=== PATIENT | male | born 1995 | race African-American/Black ===

== ENCOUNTER 2016-09-21 22:49 | Emergency (ER) | payer MEDICAID ==
[~2016-09-21] VITALS: Ht 188 cm; Wt 92.7 kg
[2016-09-21 23:02] VITALS: BP 124/67; PULSE 96; RESP 20; TEMP 98.2; O2SAT 99
[2016-09-21 23:20] VITALS: BP 124/67; PULSE 96; RESP 18; TEMP 98.2; O2SAT 99
--- NOTE | 2016-09-21 23:42 | PD ---
HPI Chief Complaint: Sickle Cell Time Seen by Provider: 23:23 Travel History International Travel<30 days: No Contact w/Intl Traveler<30days: No Traveled to known affect area: No History of Present Illness HPI The patient is a 21-year-old male with a history of sickle cell who complains of sickle cell crisis for 2 days. The patient has his usual pain in his abdomen , chest and legs. He is a [employer] of [place] and usually gets treated at [facility]. He was there 3 weeks ago and got a pain shot there. 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 He states he wants Dilaudid, Zofran and Benadryl. He usually requests that this be given IV but, because of his bad veins, we have been giving an IM. Was explained to the patient that he needs to save what veins he has for when he really needs them. He denies any fever or cough. He denies any nausea, vomiting or diarrhea. He gets a transfusion in [place] next week. PFSH Past Medical History Anemia: Yes Arthritis: No Asthma: No Autoimmune Disease: Yes Blood Disorders: No Anxiety: No Depression: No Heart Rhythm Problems: Yes (MURMUR) Cancer: No High Cholesterol: No Chemotherapy: No Chest Pain: Yes Congestive Heart Failure: No COPD: No Cerebrovascular Accident: No Diabetes: No Diminished Hearing: No Endocrine: No Gastrointestinal Disorders: No GERD: No Genitourinary: Yes (priaprism) Headaches: No Hiatal Hernia: No Hypertension: No Immune Disorder: No Implanted Vascular Access Dvce: No Kidney Stones: No Musculoskeletal: No Neurologic: Yes Psychiatric: No Reproductive: No Respiratory: No Immunizations Current: Yes Migraines: No Radiation Therapy: No Renal Failure: No Seizures: No Sickle Cell Disease: Yes Sleep Apnea: No Thyroid Disease: No Ulcer: No Tetanus Vaccination: Unknown Influenza Vaccination: No Past Surgical History Abdominal Surgery: No AICD: No Arteriovenous Shunt: No Cardiac Surgery: No Ear Surgery: No Endocrine Surgery: No Eye Surgery: No Genitourinary Surgery: Yes (FOR PRIAPISM) Insulin Pump: No Neurologic Surgery: No Pacemaker: No Other Surgery: Yes Social History Alcohol Use: No Tobacco Use: No Substance Use: No Allergies-Medications (Allergen,Severity, Reaction): Coded Allergies: Penicillin (Verified Allergy, Severe, told as child, 09/21/16) Reported Meds & Prescriptions Reported Meds & Active Scripts Active No Active Prescriptions or Reported Medications Review of Systems Except as stated in HPI: all other systems reviewed are Neg Physical Exam Narrative GENERAL: Well-nourished, fairly well-hydrated appearing, well-developed patient in slight apparent distress with his sickle cell pain. His vital signs are normal. SKIN: Warm and dry. No needle tracks nor wrist slash dixon are present. HEAD: Normocephalic. EYES: No scleral icterus. No injection or drainage. NECK: Supple, trachea midline. No JVD or lymphadenopathy. CARDIOVASCULAR: Regular rate and rhythm without murmurs, gallops, or rubs. RESPIRATORY: Breath sounds equal bilaterally. No accessory muscle use. Lungs clear to auscultation bilaterally. GASTROINTESTINAL: Abdomen soft, non-tender, nondistended. No guarding or rebound is present. MUSCULOSKELETAL: No cyanosis, or edema. BACK: Nontender without obvious deformity. No CVA tenderness. Data Data Last Documented VS Vital Signs Date Time Temp Pulse Resp B/P Pulse Ox O2 Delivery O2 Flow Rate FiO2 09/22/16 00:28 88 18 106/54 99 Room Air 09/21/16 23:20 98.2 Orders Hydromorphone Pf Inj (Dilaudid Pf Inj) (09/21/16 23:45) Ondansetron Inj (Zofran Inj) (09/21/16 23:45) Diphenhydramine Inj (Benadryl Inj) (09/21/16 23:45) MDM Medical Decision Making Medical Screen Exam Complete: Yes Emergency Medical Condition: Yes Medical Record Reviewed: Yes Differential Diagnosis Sickle cell pain crisis, drug seeking behavior, dehydration Narrative Course The patient appears to have a sickle cell pain crisis. He understands why we cannot give his pain medications IV. In the past he was suspected is wanting IV medications because it gave him a high. He is not contesting the IM shot at this time. It is now 0034 and the patient feels better and can go home. He has been drinking liquids very well. Diagnosis Primary Impression: Sickle cell crisis Additional Instructions: When you get home continue to drink liquids to hydrate herself. Make sure you make urine appointment for the transfusion in [place]. Med/Other Pt SpecificInfo: No Change to Meds Scripts No Active Prescriptions or Reported Meds Disposition: 01 DISCHARGE HOME Condition: Stable Juan,Todd L. MD Sep 21, 2016 23:42
[2016-09-21] MEDS ORDERED: HYDROmorphone HCL PF 2 MG/ML VIAL IM ONE (23:45)
[2016-09-21] MEDS ORDERED: ONDANSETRON HCL 4 MG/2 ML VIAL IM ONE (23:45)
[2016-09-21] MEDS ORDERED: diphenhydrAMINE HCL 50 MG/ML VIAL IM ONE (23:45)
[2016-09-22 00:28] VITALS: BP 106/54; PULSE 88; RESP 18; O2SAT 99
[2016-09-22] MEDS ORDERED: PROMETHAZINE INJ 25 MG/ML VIAL IM ONE (01:00)
[2016-09-22] MEDS ORDERED: HYDROmorphone HCL PF 2 MG/ML VIAL IM ONE (01:00)
[2016-09-22 01:20] VITALS: RESP 18
[2016-09-22 01:25] VITALS: BP 114/57
== END 2016-09-22 01:35 | disposition home or self-care (01) ==
LOC: PHED 22:49
DX: D57.00 Hb-SS disease with crisis, unspecified (principal); D64.9 Anemia, unspecified
CPT/HCPCS: 96372; 99283; J1170; J1200; J2405; J2550

== ENCOUNTER 2016-11-13 21:09 | Emergency (ER) | payer MEDICAID ==
[~2016-11-13] VITALS: Ht 188 cm; Wt 91.0 kg
[2016-11-13 21:10] VITALS: BP 126/84; PULSE 92; RESP 18; TEMP 98.3; O2SAT 100
[2016-11-13] MEDS ORDERED: PERC5TAB12 PO (21:19)
[2016-11-13] MEDS ORDERED: DILA4TAB2 PO (21:19)
--- NOTE | 2016-11-13 22:36 | PD ---
HPI Chief Complaint: Sickle Cell Time Seen by Provider: 21:53 Travel History International Travel<30 days: No Contact w/Intl Traveler<30days: No Traveled to known affect area: No History of Present Illness HPI This patient complains of sickle cell pain. He complains of some pain in the groin region. He says this is typical of his sickle pain. No injury. No fever. No urinary complaints. Symptoms severity is moderate. No alleviating factors. Duration one day PFSH Past Medical History Anemia: Yes Arthritis: No Asthma: No Autoimmune Disease: Yes Blood Disorders: No Anxiety: No Depression: No Heart Rhythm Problems: Yes (MURMUR) Cancer: No High Cholesterol: No Chemotherapy: No Chest Pain: Yes Congestive Heart Failure: No COPD: No Cerebrovascular Accident: No Diabetes: No Diminished Hearing: No Endocrine: No Gastrointestinal Disorders: No GERD: No Genitourinary: Yes (priaprism) Headaches: No Hiatal Hernia: No Hypertension: No Immune Disorder: No Implanted Vascular Access Dvce: No Kidney Stones: No Musculoskeletal: No Neurologic: Yes Psychiatric: No Reproductive: No Respiratory: No Immunizations Current: Yes Migraines: No Radiation Therapy: No Renal Failure: No Seizures: No Sickle Cell Disease: Yes Sleep Apnea: No Thyroid Disease: No Ulcer: No Past Surgical History Abdominal Surgery: No AICD: No Arteriovenous Shunt: No Cardiac Surgery: No Ear Surgery: No Endocrine Surgery: No Eye Surgery: No Genitourinary Surgery: Yes (FOR PRIAPISM) Insulin Pump: No Neurologic Surgery: No Pacemaker: No Other Surgery: Yes Social History Alcohol Use: No Tobacco Use: No Substance Use: No Allergies-Medications (Allergen,Severity, Reaction): Coded Allergies: Penicillin (Verified Allergy, Severe, told as child, 11/13/16) Reported Meds & Prescriptions Reported Meds & Active Scripts Active Reported Dilaudid (Hydromorphone HCl) 4 Mg Tab 4 Mg PO Q6H PRN Percocet (Oxycodone-Acetaminophen) 5-325 mg Tab 1 Tab PO Q4H PRN Review of Systems General / Constitutional: No: Fever Eyes: No: Visual changes HENT: No: Headaches Cardiovascular: No: Chest Pain or Discomfort Respiratory: No: Shortness of Breath Gastrointestinal: No: Abdominal Pain Genitourinary: No: Dysuria Musculoskeletal: Positive: Pain Skin: No Rash Neurologic: No: Weakness Psychiatric: No: Depression Endocrine: No: Polydipsia Hematologic/Lymphatic: No: Easy Bruising Physical Exam Narrative GENERAL: Well-nourished, well-developed patient in no apparent distress. SKIN: Focused skin assessment reveals no rash and nodules. Skin is Warm and dry. HEAD: Atraumatic. Normocephalic. EYES: Pupils equal and round. No scleral icterus. No injection or drainage. ENT: No nasal bleeding or discharge. Mucous membranes pink and moist. NECK: Trachea midline. No JVD. CARDIOVASCULAR: Regular rate and rhythm. No murmur appreciated. RESPIRATORY: No accessory muscle use. Clear to auscultation. Breath sounds equal bilaterally. GASTROINTESTINAL: Abdomen soft, non-tender, nondistended. Hepatic and splenic margins not palpable. MUSCULOSKELETAL: No obvious deformities. No clubbing. No cyanosis. No edema. NEUROLOGICAL: Awake and alert. No obvious cranial nerve deficits. Motor grossly within normal limits. Normal speech. PSYCHIATRIC: Appropriate mood and affect; insight and judgment normal. Data Data Last Documented VS Vital Signs Date Time Temp Pulse Resp B/P Pulse Ox O2 Delivery O2 Flow Rate FiO2 11/13/16 21:10 98.3 92 18 126/84 100 Room Air Orders Complete Blood Count With Diff (11/13/16 22:34) Iv Access Insert/Monitor (11/13/16 22:34) Ondansetron Inj (Zofran Inj) (11/13/16 22:45) Sodium Chloride 0.9% Flush (Ns Flush) (11/13/16 22:45) Hydromorphone Pf Inj (Dilaudid Pf Inj) (11/13/16 22:45) Sodium Chlor 0.9% 1000 Ml Inj (Ns 1000 M (11/13/16 22:45) Labs Laboratory Tests Test 11/13/16 22:45 White Blood Count 13.3 TH/MM3 Red Blood Count 5.16 MIL/MM3 Hemoglobin 11.7 GM/DL Hematocrit 37.1 % Mean Corpuscular Volume 71.9 FL Mean Corpuscular Hemoglobin 22.7 PG Mean Corpuscular Hemoglobin 31.5 % Concent Red Cell Distribution Width 26.7 % Platelet Count 379 TH/MM3 Mean Platelet Volume 8.6 FL Neutrophils (%) (Auto) 66.2 % Lymphocytes (%) (Auto) 6.7 % Monocytes (%) (Auto) 24.4 % Eosinophils (%) (Auto) 1.9 % Basophils (%) (Auto) 0.8 % Neutrophils # (Auto) 8.8 TH/MM3 Lymphocytes # (Auto) 0.9 TH/MM3 Monocytes # (Auto) 3.3 TH/MM3 Eosinophils # (Auto) 0.3 TH/MM3 Basophils # (Auto) 0.1 TH/MM3 CBC Comment AUTO DIFF MDM Medical Decision Making Medical Screen Exam Complete: Yes Emergency Medical Condition: Yes Medical Record Reviewed: Yes Differential Diagnosis Sickle pain, narcotic seeking behavior, bone marrow crisis Narrative Course I have reviewed the patient's electronic medical record. Patient was last here August 2016 for sickle cell pain IV placed I gave him a dose of IV Zofran and IV Dilaudid and 1 L normal saline IV bolus CBC shows hemoglobin 11.7 The patient apparently wanted more pain medication. Unfortunately I was in a trauma alert and could not get back to him and he got frustrated with the delay and signed out AGAINST MEDICAL ADVICE and left. He did not wait for me to get back to him and talked to him any further. Diagnosis Primary Impression: Sickle cell anemia with crisis Disposition: 07 AGAINST MEDICAL ADVICE Ronald Alvarado MD Nov 13, 2016 22:36
[2016-11-13] MEDS ORDERED: SODIUM CHLOR 0.9% 1000 ML INJ 1,000 ML IV ONE (22:45)
[2016-11-13] MEDS ORDERED: SODIUM CHLORIDE 0.9% FLUSH 10 ML FLUSH IVF PRN (22:45)
[2016-11-13] MEDS ORDERED: ONDANSETRON HCL 4 MG/2 ML VIAL IVP ONE (22:45)
[2016-11-13] MEDS ORDERED: HYDROmorphone HCL PF 1 MG/ML VIAL IVS ONE (22:45)
[2016-11-13 23:30] LABS: AUTOMATED NEUTROPHIL # 8.8 TH/MM3 (1.8-7.7); BASOPHIL # 0.1 TH/MM3 (0-0.2); BASOPHIL % 0.8 % (0.0-2.0); EOSINOPHIL # 0.3 TH/MM3 (0-0.4); EOSINOPHIL % 1.9 % (0.0-4.0); HEMATOCRIT 37.1 % (39.0-51.0); LYMPH % 6.7 % (9.0-44.0); LYMPHOCYTE # 0.9 TH/MM3 (1.0-4.8); MEAN CELL VOLUME 71.9 FL (80.0-100.0); MEAN CORPUSCULAR HEMOGLOBIN 22.7 PG (27.0-34.0); MEAN CORPUSCULAR HGB CONC 31.5 % (32.0-36.0); MONO % 24.4 % (0.0-8.0); NEUT % 66.2 % (16.0-70.0); PLATELET COUNT 379 TH/MM3 (150-450); RED BLOOD COUNT 5.16 MIL/MM3 (4.50-5.90); RED CELL DISTRIBUTION WIDTH 26.7 % (11.6-17.2); WHITE BLOOD COUNT 13.3 TH/MM3 (4.0-11.0)
[2016-11-13 23:46] LABS: HEMO FLAGS AUTO DIFF
[2016-11-14 00:44] LABS: BANDS 3 % (0-6); CORRECTED NUCLEATED RBC 1 /100 WBC (0-0); EOSINOPHILS 2 % (0-4); NEUTROPHIL # MANUAL DIFF 8.1 TH/MM3 (1.8-7.7); POLYS (SEG NEUTROPHILS) 58 % (16-70); WBC DIFF SAMPLE 100
[2016-11-14 00:46] LABS: SICKLE CELLS 1+ (NORMAL); TARGET CELLS 1+ (NORMAL); TEARDROP RBCS 1+ (NORMAL)
[2016-11-14 00:47] LABS: PLATELET ESTIMATE SMEAR NORMAL (NORMAL)
[2016-11-14 00:48] LABS: PLATELET MORPHOLOGY NORMAL (NORMAL); SCAN/DIFF FINAL DIFF MANUAL
== END 2016-11-14 04:44 | disposition left against medical advice (07) ==
LOC: NEPE 21:09
DX: D57.00 Hb-SS disease with crisis, unspecified (principal)
CPT/HCPCS: 85007; 85027; 96374; 96375; J1170; J2405; J7030

== ENCOUNTER 2016-11-14 18:26 | Emergency (ER) | payer MEDICAID ==
[~2016-11-14] VITALS: Ht 188 cm; Wt 93.0 kg
[~2016-11-14 18:26] MED LIST: DILA4TAB2 PO; PERC5TAB12 PO
[2016-11-14 18:32] VITALS: BP 110/75; PULSE 77; RESP 20; TEMP 98.1; O2SAT 98
[2016-11-14] MEDS ORDERED: SODIUM CHLOR 0.9% 1000 ML INJ 1,000 ML IV ONE ×2 (18:40→21:00)
[2016-11-14] MEDS ORDERED: diphenhydrAMINE HCL 50 MG/ML VIAL IV ONE (18:45)
[2016-11-14] MEDS ORDERED: ONDANSETRON HCL 4 MG/2 ML VIAL IVP ONE (18:45)
[2016-11-14] MEDS ORDERED: HYDROmorphone HCL PF 2 MG/ML VIAL IVS ONE (18:45)
[2016-11-14 18:58] LABS: HEMATOCRIT 34.8 % (39.0-51.0); MEAN CELL VOLUME 71.7 FL (80.0-100.0); MEAN CORPUSCULAR HEMOGLOBIN 22.7 PG (27.0-34.0); MEAN CORPUSCULAR HGB CONC 31.6 % (32.0-36.0); PLATELET COUNT 392 TH/MM3 (150-450); RED BLOOD COUNT 4.85 MIL/MM3 (4.50-5.90); RED CELL DISTRIBUTION WIDTH 24.7 % (11.6-17.2)
[2016-11-14 18:59] LABS: HEMO FLAGS AUTO DIFF
--- NOTE | 2016-11-14 19:03 | PD ---
HPI Chief Complaint: Sickle Cell Time Seen by Provider: 18:38 Travel History International Travel<30 days: No Contact w/Intl Traveler<30days: No Traveled to known affect area: No History of Present Illness HPI This 21-year-old male is complaining of pain in his legs. This is having a sickle cell crisis for last 2 days. He was seen at [facility] yesterday but on the leaving against advice. He has not had any fever or chills. He is not sure what triggered this attack cough. He thinks it might be stress. He has been taking oral Dilaudid at home for the pain without much response. He has had priapism in the past in fact he was having fairly frequent episodes. He generally lives in [place] and was getting transfusions every 4 weeks there. He has continued that up until now. He says that since starting on the transfusions is priapism has been much better though he is having more crises and other areas. PFSH Past Medical History Anemia: Yes Arthritis: No Asthma: No Autoimmune Disease: Yes Blood Disorders: No Anxiety: No Depression: No Heart Rhythm Problems: Yes (MURMUR) Cancer: No High Cholesterol: No Chemotherapy: No Chest Pain: Yes Congestive Heart Failure: No COPD: No Cerebrovascular Accident: No Diabetes: No Diminished Hearing: No Endocrine: No Gastrointestinal Disorders: No GERD: No Genitourinary: Yes (priaprism) Headaches: No Hiatal Hernia: No Hypertension: No Immune Disorder: No Implanted Vascular Access Dvce: No Kidney Stones: No Musculoskeletal: No Neurologic: Yes Psychiatric: No Reproductive: No Respiratory: No Immunizations Current: Yes Migraines: No Radiation Therapy: No Renal Failure: No Seizures: No Sickle Cell Disease: Yes Sleep Apnea: No Thyroid Disease: No Ulcer: No Influenza Vaccination: No Past Surgical History Abdominal Surgery: No AICD: No Arteriovenous Shunt: No Cardiac Surgery: No Ear Surgery: No Endocrine Surgery: No Eye Surgery: No Genitourinary Surgery: Yes (FOR PRIAPISM) Insulin Pump: No Neurologic Surgery: No Pacemaker: No Other Surgery: Yes Social History Alcohol Use: No Tobacco Use: No Substance Use: No Allergies-Medications (Allergen,Severity, Reaction): Coded Allergies: Penicillin (Verified Allergy, Severe, told as child, 11/14/16) Reported Meds & Prescriptions Reported Meds & Active Scripts Active Reported Dilaudid (Hydromorphone HCl) 4 Mg Tab 4 Mg PO Q6H PRN Percocet (Oxycodone-Acetaminophen) 5-325 mg Tab 1 Tab PO Q4H PRN Review of Systems General / Constitutional: No: Fever, Chills Eyes: No: Diploplia HENT: No: Headaches Cardiovascular: No: Chest Pain or Discomfort, Palpitations Respiratory: No: Cough, Shortness of Breath Gastrointestinal: No: Vomiting, Diarrhea Genitourinary: No: Urgency, Frequency Musculoskeletal: Positive: Myalgias, Pain Skin: No Rash Physical Exam Narrative GENERAL well-developed male SKIN: Focused skin assessment warm/dry. HEAD: Atraumatic. Normocephalic. EYES: Pupils equal and round. No scleral icterus. No injection or drainage. ENT: No nasal bleeding or discharge. Mucous membranes pink and moist. NECK: Trachea midline. No JVD. CARDIOVASCULAR: Regular rate and rhythm. No murmur appreciated. RESPIRATORY: No accessory muscle use. Clear to auscultation. Breath sounds equal bilaterally. GASTROINTESTINAL: Abdomen soft, non-tender, nondistended. Hepatic and splenic margins not palpable. MUSCULOSKELETAL: No obvious deformities. No clubbing. No cyanosis. No edema. NEUROLOGICAL: Awake and alert. No obvious cranial nerve deficits. Motor grossly within normal limits. Normal speech. PSYCHIATRIC: Appropriate mood and affect; insight and judgment normal. Data Data Last Documented VS Vital Signs Date Time Temp Pulse Resp B/P Pulse Ox O2 Delivery O2 Flow Rate FiO2 11/14/16 21:41 92 16 132/71 98 Nasal Cannula 2 11/14/16 18:32 98.1 Orders Complete Blood Count With Diff (11/14/16 18:40) Comprehensive Metabolic Panel (11/14/16 18:40) Retic Count (11/14/16 18:40) Urinalysis - C+S If Indicated (11/14/16 18:40) Ecg Monitoring (11/14/16 18:40) Iv Access Insert/Monitor (11/14/16 18:40) Oximetry (11/14/16 18:40) Hydromorphone Pf Inj (Dilaudid Pf Inj) (11/14/16 18:45) Ondansetron Inj (Zofran Inj) (11/14/16 18:45) Sodium Chloride 0.9% Flush (Ns Flush) (11/14/16 18:45) Sodium Chlor 0.9% 1000 Ml Inj (Ns 1000 M (11/14/16 18:40) Diphenhydramine Inj (Benadryl Inj) (11/14/16 18:45) Hydromorphone Pf Inj (Dilaudid Pf Inj) (11/14/16 19:45) Diphenhydramine Inj (Benadryl Inj) (11/14/16 20:00) Hydromorphone Pf Inj (Dilaudid Pf Inj) (11/14/16 20:00) Hydromorphone Pf Inj (Dilaudid Pf Inj) (11/14/16 20:45) Sodium Chlor 0.9% 1000 Ml Inj (Ns 1000 M (11/14/16 21:00) Labs Laboratory Tests Test 11/14/16 18:51 White Blood Count 11.0 TH/MM3 Red Blood Count 4.85 MIL/MM3 Hemoglobin 11.0 GM/DL Hematocrit 34.8 % Mean Corpuscular Volume 71.7 FL Mean Corpuscular Hemoglobin 22.7 PG Mean Corpuscular Hemoglobin 31.6 % Concent Red Cell Distribution Width 24.7 % Platelet Count 392 TH/MM3 Mean Platelet Volume 7.5 FL Neutrophils (%) (Auto) % Lymphocytes (%) (Auto) % Monocytes (%) (Auto) % Eosinophils (%) (Auto) % Basophils (%) (Auto) % Neutrophils # (Auto) TH/MM3 Lymphocytes # (Auto) TH/MM3 Monocytes # (Auto) TH/MM3 Eosinophils # (Auto) TH/MM3 Basophils # (Auto) TH/MM3 CBC Comment AUTO DIFF Differential Total Cells 100 Counted Neutrophils % (Manual) 75 % Lymphocytes % 18 % Monocytes % 4 % Eosinophils % 3 % Neutrophils # (Manual) 8.3 TH/MM3 Nucleated Red Blood Cells 3 /100 WBC Differential Comment FINAL DIFF MANUAL Platelet Estimate NORMAL Platelet Morphology Comment CLUMPED Polychromasia 2.0 % Target Cells 1+ Reticulocyte Count 4.0 % Absolute Reticulocyte Count 196.4 MIL/L Sodium Level 141 MEQ/L Potassium Level 3.6 MEQ/L Chloride Level 107 MEQ/L Carbon Dioxide Level 26.6 MEQ/L Anion Gap 7 MEQ/L Blood Urea Nitrogen 5 MG/DL Creatinine 0.70 MG/DL Estimat Glomerular Filtration 169 ML/MIN Rate Random Glucose 85 MG/DL Calcium Level 8.7 MG/DL Total Bilirubin 1.1 MG/DL Aspartate Amino Transf 19 U/L (AST/SGOT) Alanine Aminotransferase 24 U/L (ALT/SGPT) Alkaline Phosphatase 81 U/L Total Protein 7.8 GM/DL Albumin 3.9 GM/DL [facility] Medical Decision Making Medical Screen Exam Complete: Yes Emergency Medical Condition: Yes Medical Record Reviewed: Yes Differential Diagnosis Differential includes sickle cell crisis, Narrative Course Patient has been given repeated doses of Dilaudid. He does appear quite uncomfortable with this pain. Admission was offered the patient is quite insistent that he wants to go home so he does not miss school. He does report that his pain has improved and he wishes to be released Diagnosis Primary Impression: Sickle cell anemia with crisis Disposition: 01 DISCHARGE HOME Condition: Stable Jose Antonio Esquivel MD Nov 14, 2016 19:03
[2016-11-14 19:05] VITALS: BP 140/68; PULSE 92; RESP 24; O2SAT 100
[2016-11-14] MEDS: SODIUM CHLORIDE 0.9% FLUSH 10 ML FLUSH IVF PRN ×2 (19:08→19:44)
[2016-11-14 19:10] LABS: CHLORIDE 107 MEQ/L (98-107); POTASSIUM 3.6 MEQ/L (3.5-5.1); SODIUM (NA) 141 MEQ/L (136-145)
[2016-11-14 19:14] LABS: ANION GAP 7 MEQ/L (5-15); BICARBONATE 26.6 MEQ/L (21.0-32.0); BLOOD UREA NITROGEN 5 MG/DL (7-18)
[2016-11-14 19:17] LABS: ALT (GPT) 24 U/L (12-78); AST (GOT) 19 U/L (15-37); GLOMERULAR FILTRATION RATE 169 ML/MIN (>89)
[2016-11-14 19:19] LABS: TOTAL BILIRUBIN ADULT 1.1 MG/DL (0.2-1.0)
[2016-11-14 19:20] LABS: ALKALINE PHOSPHATASE 81 U/L (45-117)
[2016-11-14 19:30] LABS: CORRECTED NUCLEATED RBC 3 /100 WBC (0-0); EOSINOPHILS 3 % (0-4); NEUTROPHIL # MANUAL DIFF 8.3 TH/MM3 (1.8-7.7); POLYS (SEG NEUTROPHILS) 75 % (16-70); WBC DIFF SAMPLE 100
[2016-11-14 19:32] LABS: PLATELET ESTIMATE SMEAR NORMAL (NORMAL); PLATELET MORPHOLOGY CLUMPED (NORMAL); SCAN/DIFF FINAL DIFF MANUAL; TARGET CELLS 1+ (NORMAL)
[2016-11-14] MEDS ORDERED: HYDROmorphone HCL PF 2 MG/ML VIAL IV PUSH ONE ×3 (19:45→20:45)
[2016-11-14] MEDS ORDERED: diphenhydrAMINE HCL 50 MG/ML VIAL IV PUSH ONE (20:00)
[2016-11-14 20:24] LABS: REVIEW FLAG FINAL
[2016-11-14 20:35] VITALS: BP 152/68; PULSE 93; RESP 18; O2SAT 99
[2016-11-14 21:02] VITALS: BP 113/62; PULSE 87; RESP 14; O2SAT 89
[2016-11-14 21:41] VITALS: BP 132/71; PULSE 92; RESP 16; O2SAT 98
[2016-11-14 22:15] VITALS: BP 127/72
== END 2016-11-14 22:18 | disposition home or self-care (01) ==
LOC: PHED 18:26
DX: D57.00 Hb-SS disease with crisis, unspecified (principal); M79.605 Pain in left leg; M79.604 Pain in right leg; D64.9 Anemia, unspecified
CPT/HCPCS: 80053; 85007; 85027; 85044; 96361; 96374; 96375; 96376; J1170; J1200; J2405; J7030

== ENCOUNTER 2016-11-16 17:12 | Inpatient (IN) | payer MEDICAID ==
[~2016-11-16] VITALS: Ht 188 cm; Wt 92.2 kg
[2016-11-16 17:31] VITALS: BP 115/77; PULSE 90; RESP 22; TEMP 98.4; O2SAT 97
[2016-11-16] MEDS ORDERED: FOLI5CAP PO (17:42)
[2016-11-16] MEDS ORDERED: SODIUM CHLOR 0.9% 1000 ML INJ 1,000 ML IV ONE ×2 (17:58→19:30)
[2016-11-16 18:00] VITALS: O2SAT 97
[2016-11-16] MEDS ORDERED: HYDROmorphone HCL PF 1 MG/ML VIAL IVS ONE (18:00)
[2016-11-16] MEDS ORDERED: SODIUM CHLORIDE 0.9% FLUSH 10 ML FLUSH IVF PRN ×2 (18:00→19:45)
--- NOTE | 2016-11-16 18:04 | PD ---
HPI Chief Complaint: Sickle Cell Time Seen by Provider: 17:47 Travel History International Travel<30 days: No Contact w/Intl Traveler<30days: No Traveled to known affect area: No History of Present Illness HPI 21yo M with PMH of sickle cell disease and multiple ED visits for sickle cell crisis here with c/o bilateral groin and leg pain for 2 days. Pt states it feels like his sickle cell and today started having right sided chest pain. Thinks the pain is spreading there and it is mild compare to his legs. Pt was just here 2 days ago for the same thing and was offered admission but refused because he wanted to go back to school. Pt ran out of his dilaudid yesterday. Denies any fever, sob, n/v, abdominal pain, testicular pain or penile discharge. Pt has had acute chest syndrome before. PFSH Past Medical History Anemia: Yes Arthritis: No Asthma: No Autoimmune Disease: Yes Blood Disorders: No Anxiety: No Depression: No Heart Rhythm Problems: Yes (MURMUR) Cancer: No High Cholesterol: No Chemotherapy: No Chest Pain: Yes Congestive Heart Failure: No COPD: No Cerebrovascular Accident: No Diabetes: No Diminished Hearing: No Endocrine: No Gastrointestinal Disorders: No GERD: No Genitourinary: Yes (priaprism) Headaches: No Hiatal Hernia: No Hypertension: No Immune Disorder: No Implanted Vascular Access Dvce: No Kidney Stones: No Musculoskeletal: No Neurologic: Yes Psychiatric: No Reproductive: No Respiratory: No Immunizations Current: Yes Migraines: No Radiation Therapy: No Renal Failure: No Seizures: No Sickle Cell Disease: Yes Sleep Apnea: No Thyroid Disease: No Ulcer: No Tetanus Vaccination: > 5 Years Influenza Vaccination: No Past Surgical History Abdominal Surgery: No AICD: No Arteriovenous Shunt: No Cardiac Surgery: No Ear Surgery: No Endocrine Surgery: No Eye Surgery: No Genitourinary Surgery: Yes (FOR PRIAPISM) Insulin Pump: No Neurologic Surgery: No Pacemaker: No Other Surgery: Yes Social History Alcohol Use: No Tobacco Use: No Substance Use: No Allergies-Medications (Allergen,Severity, Reaction): Coded Allergies: Penicillin (Verified Allergy, Severe, told as child, 11/16/16) Reported Meds & Prescriptions Reported Meds & Active Scripts Active Reported Folic Acid 5 Mg Cap 5 Mg PO DAILY Dilaudid (Hydromorphone HCl) 4 Mg Tab 4 Mg PO Q6H PRN Review of Systems Except as stated in HPI: all other systems reviewed are Neg Physical Exam Narrative GENERAL: 21yo M in moderate distress. SKIN: Focused skin assessment warm/dry. HEAD: Atraumatic. Normocephalic. EYES: Pupils equal and round. No scleral icterus. No injection or drainage. ENT: No nasal bleeding or discharge. Mucous membranes pink and moist. NECK: Trachea midline. No JVD. CARDIOVASCULAR: Regular rate and rhythm. No murmur appreciated. RESPIRATORY: No accessory muscle use. Clear to auscultation. Breath sounds equal bilaterally. GASTROINTESTINAL: Abdomen soft, non-tender, nondistended. : +TTP bilateral groin but no edema or erythema. No testicular ttp. No penile discharge or priapism. MUSCULOSKELETAL: No obvious deformities. No clubbing. No cyanosis. No edema. Pain is in groin and below bilateral knees. NEUROLOGICAL: Awake and alert. No obvious cranial nerve deficits. Motor grossly within normal limits. Normal speech. PSYCHIATRIC: Appropriate mood and affect; insight and judgment normal. Data Data Last Documented VS Vital Signs Date Time Temp Pulse Resp B/P Pulse Ox O2 Delivery O2 Flow Rate FiO2 11/16/16 19:00 81 18 124/68 97 Room Air 11/16/16 17:31 98.4 Orders Basic Metabolic Panel (Bmp) (11/16/16 17:58) Complete Blood Count With Diff (11/16/16 17:58) Retic Count (11/16/16 17:58) Urinalysis - C+S If Indicated (11/16/16 17:58) Chest, Single Ap (11/16/16 17:58) Ecg Monitoring (11/16/16 17:58) Iv Access Insert/Monitor (11/16/16 17:58) Oximetry (11/16/16 17:58) Sodium Chloride 0.9% Flush (Ns Flush) (11/16/16 18:00) Sodium Chlor 0.9% 1000 Ml Inj (Ns 1000 M (11/16/16 17:58) Hydromorphone Pf Inj (Dilaudid Pf Inj) (11/16/16 18:00) Troponin I (11/16/16 17:59) Ckmb (Isoenzyme) Profile (11/16/16 17:59) Ed Poc Ultrasound (11/16/16 ) Diphenhydramine Inj (Benadryl Inj) (11/16/16 18:30) CKMB (11/16/16 18:20) CKMB% (11/16/16 18:20) Sodium Chlor 0.9% 1000 Ml Inj (Ns 1000 M (11/16/16 19:30) Hydromorphone Pf Inj (Dilaudid Pf Inj) (11/16/16 19:30) Diphenhydramine Inj (Benadryl Inj) (11/16/16 19:30) Admit To Inpatient (11/16/16 ) Vital Signs (Adult) Q4H (11/16/16 19:33) Activity Oob Ad Callie (11/16/16 19:33) Flight Physician / Telemetry .CONTINUOUS (11/16/16 19:33) Diet Regular Basic (11/17/16 Breakfast) Sodium Chlor 0.9% 1000 Ml Inj (Ns 1000 M (11/16/16 19:33) Sodium Chloride 0.9% Flush (Ns Flush) (11/16/16 19:45) Comprehensive Metabolic Panel (11/17/16 06:00) Complete Blood Count With Diff (11/17/16 06:00) Resp Oxygen Lauri C Titrat 1-4 L (11/16/16 ) Case Management Consult (11/16/16 19:33) Naloxone Inj (Narcan Inj) (11/16/16 19:45) Inpatient Certification (11/16/16 ) Labs Laboratory Tests Test 11/16/16 18:20 White Blood Count 13.3 TH/MM3 Red Blood Count 5.00 MIL/MM3 Hemoglobin 11.5 GM/DL Hematocrit 35.9 % Mean Corpuscular Volume 71.8 FL Mean Corpuscular Hemoglobin 23.1 PG Mean Corpuscular Hemoglobin 32.2 % Concent Red Cell Distribution Width 25.4 % Platelet Count 347 TH/MM3 Mean Platelet Volume 7.5 FL Neutrophils (%) (Auto) % CBC Comment AUTO DIFF Differential Total Cells 100 Counted Neutrophils % (Manual) 67 % Lymphocytes % 28 % Monocytes % 2 % Basophils % 3 % Neutrophils # (Manual) 8.9 TH/MM3 Nucleated Red Blood Cells 3 /100 WBC Differential Comment FINAL DIFF MANUAL Platelet Estimate NORMAL Platelet Morphology Comment NORMAL Target Cells 3+ Ovalocytes 1+ Keratocytes 1+ Reticulocyte Count 5.2 % Absolute Reticulocyte Count 262.3 MIL/L Hematology Comments Sodium Level 140 MEQ/L Potassium Level 3.8 MEQ/L Chloride Level 107 MEQ/L Carbon Dioxide Level 24.4 MEQ/L Anion Gap 9 MEQ/L Blood Urea Nitrogen 4 MG/DL Creatinine 0.73 MG/DL Estimat Glomerular Filtration 161 ML/MIN Rate Random Glucose 86 MG/DL Calcium Level 8.7 MG/DL Total Creatine Kinase 238 U/L Creatine Kinase MB 1.1 NG/ML Troponin I LESS THAN 0.02 NG/ML MDM Medical Decision Making Medical Screen Exam Complete: Yes Emergency Medical Condition: Yes Differential Diagnosis Vasoocclusive crisis vs. acute chest syndrome Narrative Course 21yo M with sickle cell disease here with c/o bilateral groin and leg pain which feels like his sickle cell crisis. Pt also complained of mild right sided chest pain. Pt was just here 2 days ago for the same complaint but left because he needed to go back to school. Pt has difficult access so I initially attempted ultrasound guided IV insertion but was not able to obtain access so I later placed an IV in the external jugular vein instead. Pt was seen at the end of my shift and signed pt out to next team after giving IV dilaudid, benadryl and NS IVF. Procedures Procedure Narrative Ultrasound guided IV: Attempted US guided IV but was unsuccessful so placed IV a 20 gauge IV in external jugular vein instead. Diagnosis Primary Impression: Sickle cell anemia with crisis Admitting Information Admitting Physician Requests: Shasta Puentes DO Nov 16, 2016 18:04
[2016-11-16 18:29] LABS: HEMATOCRIT 35.9 % (39.0-51.0); MEAN CELL VOLUME 71.8 FL (80.0-100.0); MEAN CORPUSCULAR HEMOGLOBIN 23.1 PG (27.0-34.0); MEAN CORPUSCULAR HGB CONC 32.2 % (32.0-36.0); PLATELET COUNT 347 TH/MM3 (150-450); RED CELL DISTRIBUTION WIDTH 25.4 % (11.6-17.2); WHITE BLOOD COUNT 13.3 TH/MM3 (4.0-11.0)
[2016-11-16] MEDS ORDERED: diphenhydrAMINE HCL 50 MG/ML VIAL IV PUSH ONE ×2 (18:30→19:30)
[2016-11-16 18:38] LABS: POTASSIUM 3.8 MEQ/L (3.5-5.1)
[2016-11-16 18:41] LABS: BICARBONATE 24.4 MEQ/L (21.0-32.0)
--- NOTE | 2016-11-16 18:42 | RADHPO ---
EXAM DATE/TIME: 11/16/2016 18:26 [facility] COMPARISON: CHEST SINGLE AP, May 11, 2016, 17:28. INDICATIONS : Chest pain. Sickle cell crisis. MEDICAL HISTORY : Sickle Cell disease. SURGICAL HISTORY : None. ENCOUNTER: Initial ACUITY: 1 day PAIN SCORE: 9/10 LOCATION: Bilateral chest FINDINGS: A single view of the chest demonstrates the lungs to be symmetrically aerated without evidence of mas s, infiltrate or effusion. The cardiomediastinal contours are unremarkable. Osseous structures are intact. CONCLUSION: No acute disease. Adryan Collado MD on November 16, 2016 at 18:39 Board Certified Radiologist. This report was verified electronically.
[2016-11-16 18:51] LABS: CREATINE KINASE 238 U/L (39-308)
[2016-11-16 19:00] VITALS: BP 124/68; PULSE 81; RESP 18; O2SAT 97
[2016-11-16 19:02] LABS: HEMO FLAGS AUTO DIFF
[2016-11-16 19:04] LABS: CKMB 1.1 NG/ML (0.5-3.6)
[2016-11-16 19:14] LABS: RETIC % 5.2 % (0.4-3.0)
[2016-11-16 19:18] LABS: REVIEW FLAG FINAL
[2016-11-16] MEDS ORDERED: HYDROmorphone HCL PF 1 MG/ML VIAL IV PUSH ONE (19:30)
[2016-11-16] MEDS: SODIUM CHLOR 0.9% 1000 ML INJ 1,000 ML IV SCH ×2 (19:33→21:59)
[2016-11-16] MEDS ORDERED: SODIUM CHLORIDE 0.9% FLUSH 10 ML FLUSH IV FLUSH PRN (19:45)
[2016-11-16] MEDS ORDERED: HYDROmorphone HCL PF 1 MG/ML VIAL IV PUSH PRN (19:45)
[2016-11-16] MEDS ORDERED: NALOXONE HCL 0.4 MG/ML AMP IV PRN (19:45)
--- NOTE | 2016-11-16 19:48 | PD ---
Physical Exam Date Seen by Provider: Nov 16, 2016 Time Seen by Provider: 19:10 Narrative accepted in transfer of care from Dr George GENERAL: Well-developed well-nourished male in no respiratory distress. SKIN: Warm and dry. HEAD: Normocephalic. EYES: No scleral icterus. No injection or drainage. NECK: Supple, trachea midline. No JVD or lymphadenopathy. CARDIOVASCULAR: Regular rate and rhythm without murmurs, gallops, or rubs. RESPIRATORY: Breath sounds equal bilaterally. No accessory muscle use. GASTROINTESTINAL: Abdomen soft, non-tender, nondistended. : Circumcised male, no penile discharge, discharge,tenderness, flaccid MUSCULOSKELETAL: No cyanosis, or edema. BACK: Nontender without obvious deformity. No CVA tenderness. Data Data Last Documented VS Vital Signs Date Time Temp Pulse Resp B/P Pulse Ox O2 Delivery O2 Flow Rate FiO2 11/16/16 18:00 97 Room Air 11/16/16 17:31 98.4 90 22 115/77 Orders Basic Metabolic Panel (Bmp) (11/16/16 17:58) Complete Blood Count With Diff (11/16/16 17:58) Retic Count (11/16/16 17:58) Urinalysis - C+S If Indicated (11/16/16 17:58) Chest, Single Ap (11/16/16 17:58) Ecg Monitoring (11/16/16 17:58) Iv Access Insert/Monitor (11/16/16 17:58) Oximetry (11/16/16 17:58) Sodium Chloride 0.9% Flush (Ns Flush) (11/16/16 18:00) Sodium Chlor 0.9% 1000 Ml Inj (Ns 1000 M (11/16/16 17:58) Hydromorphone Pf Inj (Dilaudid Pf Inj) (11/16/16 18:00) Troponin I (11/16/16 17:59) Ckmb (Isoenzyme) Profile (11/16/16 17:59) Ed Poc Ultrasound (11/16/16 ) Diphenhydramine Inj (Benadryl Inj) (11/16/16 18:30) CKMB (11/16/16 18:20) CKMB% (11/16/16 18:20) Sodium Chlor 0.9% 1000 Ml Inj (Ns 1000 M (11/16/16 19:30) Hydromorphone Pf Inj (Dilaudid Pf Inj) (11/16/16 19:30) Diphenhydramine Inj (Benadryl Inj) (11/16/16 19:30) Admit To Inpatient (11/16/16 ) Vital Signs (Adult) Q4H (11/16/16 19:33) Activity Oob Ad Callie (11/16/16 19:33) Disintegrator / Telemetry .CONTINUOUS (11/16/16 19:33) Diet Regular Basic (11/17/16 Breakfast) Sodium Chlor 0.9% 1000 Ml Inj (Ns 1000 M (11/16/16 19:33) Sodium Chloride 0.9% Flush (Ns Flush) (11/16/16 19:45) Comprehensive Metabolic Panel (11/17/16 06:00) Complete Blood Count With Diff (11/17/16 06:00) Resp Oxygen Lauri C Titrat 1-4 L (11/16/16 ) Case Management Consult (11/16/16 19:33) Naloxone Inj (Narcan Inj) (11/16/16 19:45) Inpatient Certification (11/16/16 ) Hydromorphone Pf Inj (Dilaudid Pf Inj) (11/16/16 19:45) Admit Order (Ed Use Only) (11/16/16 ) ^ Saline Lock (11/16/16 19:35) Resp Oxygen Lauri C Titrat 1-4 L (11/16/16 ) Notify Dr: Other (11/16/16 19:35) Sodium Chloride 0.9% Flush (Ns Flush) (11/16/16 21:00) Sodium Chloride 0.9% Flush (Ns Flush) (11/16/16 19:45) Folic Acid (Folate) (11/17/16 09:00) Labs Laboratory Tests Test 11/16/16 18:20 White Blood Count 13.3 TH/MM3 Red Blood Count 5.00 MIL/MM3 Hemoglobin 11.5 GM/DL Hematocrit 35.9 % Mean Corpuscular Volume 71.8 FL Mean Corpuscular Hemoglobin 23.1 PG Mean Corpuscular Hemoglobin 32.2 % Concent Red Cell Distribution Width 25.4 % Platelet Count 347 TH/MM3 Mean Platelet Volume 7.5 FL Neutrophils (%) (Auto) % CBC Comment AUTO DIFF Reticulocyte Count 5.2 % Absolute Reticulocyte Count 262.3 MIL/L Hematology Comments Sodium Level 140 MEQ/L Potassium Level 3.8 MEQ/L Chloride Level 107 MEQ/L Carbon Dioxide Level 24.4 MEQ/L Anion Gap 9 MEQ/L Blood Urea Nitrogen 4 MG/DL Creatinine 0.73 MG/DL Estimat Glomerular Filtration 161 ML/MIN Rate Random Glucose 86 MG/DL Calcium Level 8.7 MG/DL Total Creatine Kinase 238 U/L Creatine Kinase MB 1.1 NG/ML Troponin I LESS THAN 0.02 NG/ML [facility] Medical Record Reviewed: Yes Supervised Visit with CASSANDRA: No Interpretation(s) retic ct: 5.2%, elevated; absolute retic: 262.3, elevated Last Impressions Chest X-Ray 11/16/16 7318 Signed Impressions: Service Date/Time: Wednesday, November 16, 2016 18:26 - CONCLUSION: No acute disease. Adryan Collado MD CBC & BMP Diagram 11/16/16 18:20 Vital Signs Date Time Temp Pulse Resp B/P Pulse Ox O2 Delivery O2 Flow Rate FiO2 11/16/16 18:00 97 Room Air 11/16/16 17:31 98.4 90 22 115/77 97 Differential Diagnosis accepted in transfer of care from Dr George, please refer to her dictation Narrative Course accepted in transfer of care from Dr George, for follow up of pending labs and admission The patient was given additional IV fluid bolus along with Dilaudid 1 mg IV and Benadryl 25 mg IV after initial bolus of normal saline Dilaudid and Benadryl Patient aware plan for admission and agrees to admission at this time; case discussed with on-call medicine regarding this is his third visit for same complaint with worsening symptoms without priapism patient will be admitted for ongoing vaso-occlusive crisis with ongoing hydration and pain management. Physician Communication Physician Communication discussed with Dr Al --obs Diagnosis Primary Impression: Sickle cell anemia with crisis Admitting Information Admitting Physician Requests: Observation Kiara Sims MD Nov 16, 2016 19:48
[2016-11-16 19:51] LABS: BASOPHILS 3 % (0-2); CORRECTED NUCLEATED RBC 3 /100 WBC (0-0); NEUTROPHIL # MANUAL DIFF 8.9 TH/MM3 (1.8-7.7); OVALOCYTES 1+ (NORMAL); POLYS (SEG NEUTROPHILS) 67 % (16-70); WBC DIFF SAMPLE 100
[2016-11-16 19:53] LABS: TARGET CELLS 3+ (NORMAL)
[2016-11-16 19:54] LABS: KERATOCYTES 1+ (NORMAL)
[2016-11-16 19:55] LABS: PLATELET ESTIMATE SMEAR NORMAL (NORMAL); PLATELET MORPHOLOGY NORMAL (NORMAL); SCAN/DIFF FINAL DIFF MANUAL
[2016-11-16] MEDS ORDERED: KETOROLAC TROMETHAMINE 30 MG/ML (IVP) VIAL IV PUSH ONE (20:00)
[2016-11-16 20:20] VITALS: O2SAT 97
[2016-11-16 20:45] VITALS: BP 121/64; PULSE 75; RESP 18; O2SAT 97
[2016-11-16 21:49] VITALS: PULSE 75
[2016-11-16] MEDS: SODIUM CHLORIDE 0.9% FLUSH 10 ML FLUSH IV FLUSH SCH (21:59)
[2016-11-16] MEDS ORDERED: ONDANSETRON HCL 4 MG/2 ML VIAL IV PUSH PRN (22:45)
[2016-11-17] VITALS (8 sets, daily range): BP systolic 130–157; BP diastolic 71–105; PULSE 71–84; RESP 16–20; TEMP 97.1–98.6; O2SAT 94–98
[2016-11-17] MEDS: SODIUM CHLOR 0.9% 1000 ML INJ 1,000 ML IV SCH ×6 (01:52→23:36)
[2016-11-17] MEDS: diphenhydrAMINE HCL 50 MG/ML VIAL IV PUSH PRN ×6 (02:43→22:27)
[2016-11-17] MEDS: HYDROmorphone HCL PF 1 MG/ML VIAL IV PUSH PRN ×3 (02:47→10:46)
--- NOTE | 2016-11-17 08:08 | HHI.HP ---
[facility] Service [facility] Primary Care Physician Vijay Walker M.D. Admission Diagnosis vaso-occlusive crisis; sickle cell Diagnoses: (1) Sickle cell crisis (2) Sickle cell anemia with crisis (3) Sickle cell pain crisis Chief Complaint: Bilateral groins and leg pain Travel History International Travel<30 Days: No Contact w/Intl Traveler <30 Da: No Traveled to Known Affected Are: No History of Present Illness 21-year-old male with a PMH of Sickle Cell Disease and Priapism who came into the ER with complaints of generalized pain mainly bilateral groin and leg pain typical of his Sickle Cell Crises x2 days. The pain was rated 10 out of 10 in intensity. He Denies fever, chills or sick contacts. On arrival, Temp 98.4, BP 115/77, HR 90, O2 sat 97% on RA. WBC 13.3. Labs otherwise unremarkable. CXR with no acute findings. S/p multiple doses of Dilaudid IV in ER w/ minimal improvement. However this morning when patient was seen,he reports some improvement. Denies any GI bleed, chest pain or shortness of breath. Review of Systems Other 12 systems reviewed and are negative except for the ones mentioned in the history of present illness Past Family Social History Past Medical History Sickle Cell Disease, Sickle cell anemia Priapism Past Surgical History None Reported Medications Folic Acid 5 Mg Cap 5 Mg PO DAILY Dilaudid (Hydromorphone HCl) 4 Mg Tab 4 Mg PO Q6H PRN Allergies: Coded Allergies: Penicillin (Verified Allergy, Severe, told as child, 11/16/16) Family History positive for Sickle Cell Disease. Social History Alcohol Use: No Tobacco Use: No Substance Use: No Physical Exam Vital Signs Vital Signs Date Time Temp Pulse Resp B/P Pulse Ox O2 Delivery O2 Flow Rate FiO2 11/17/16 04:00 97.8 72 18 138/71 98 11/17/16 00:00 98.0 74 20 141/71 97 11/16/16 21:49 75 11/16/16 21:25 97 11/16/16 20:45 75 18 121/64 97 Room Air 11/16/16 20:20 97 21 11/16/16 19:00 81 18 124/68 97 Room Air 11/16/16 19:00 81 18 97 Room Air 11/16/16 18:00 97 Room Air 11/16/16 17:31 98.4 90 22 115/77 97 Physical Exam GENERAL: This is a well-nourished, well-developed patient, in no apparent distress. SKIN: No rashes, ecchymoses or lesions. Cool and dry. HEAD: Atraumatic. Normocephalic. No temporal or scalp tenderness. EYES: Pupils equal round and reactive. Extraocular motions intact. No scleral icterus. No injection or drainage. ENT: Nose without bleeding, purulent drainage or septal hematoma. Throat without erythema, tonsillar hypertrophy or exudate. Uvula midline. Airway patent. NECK: Trachea midline. No JVD or lymphadenopathy. Supple, nontender, no meningeal signs. CARDIOVASCULAR: Regular rate and rhythm without murmurs, gallops, or rubs. RESPIRATORY: Clear to auscultation. Breath sounds equal bilaterally. No wheezes , rales, or rhonchi. GASTROINTESTINAL: Abdomen soft, non-tender, nondistended. No hepato-splenomegaly , or palpable masses. No guarding. MUSCULOSKELETAL: Extremities without clubbing, cyanosis, or edema. No joint tenderness, effusion, or edema noted. No calf tenderness. Negative Homans sign bilaterally. NEUROLOGICAL: Awake and alert. Cranial nerves II through XII intact. Motor and sensory grossly within normal limits. Five out of 5 muscle strength in all muscle groups. Normal speech. Laboratory Laboratory Tests Test 11/16/16 18:20 White Blood Count 13.3 Red Blood Count 5.00 Hemoglobin 11.5 Hematocrit 35.9 Mean Corpuscular Volume 71.8 Mean Corpuscular Hemoglobin 23.1 Mean Corpuscular Hemoglobin 32.2 Concent Red Cell Distribution Width 25.4 Platelet Count 347 Mean Platelet Volume 7.5 Neutrophils (%) (Auto) CBC Comment AUTO DIFF Differential Total Cells 100 Counted Neutrophils % (Manual) 67 Lymphocytes % 28 Monocytes % 2 Basophils % 3 Neutrophils # (Manual) 8.9 Nucleated Red Blood Cells 3 Differential Comment FINAL DIFF MANUAL Platelet Estimate NORMAL Platelet Morphology Comment NORMAL Target Cells 3+ Ovalocytes 1+ Keratocytes 1+ Reticulocyte Count 5.2 Absolute Reticulocyte Count 262.3 Hematology Comments Sodium Level 140 Potassium Level 3.8 Chloride Level 107 Carbon Dioxide Level 24.4 Anion Gap 9 Blood Urea Nitrogen 4 Creatinine 0.73 Estimat Glomerular Filtration 161 Rate Random Glucose 86 Calcium Level 8.7 Total Creatine Kinase 238 Creatine Kinase MB 1.1 Troponin I LESS THAN 0.02 Result Diagram: 11/16/16181911/16/161819 Assessment and Plan Problem List: (1) Sickle cell anemia with crisis ICD Code: D57.00 Status: Chronic (2) Sickle cell crisis ICD Code: D57.00 Status: Acute (3) Sickle cell pain crisis ICD Code: D57.00 Status: Acute Assessment and Plan 21-year-old man with 1. Sickle Cell Crisis: C/o bilateral groin leg pain x2 days typical of Sickle Cell Crisis. Check LDH, Retic Count 3 days. Resume Folic Acid. Continue w/ analgesics as needed. IVF for hydration. Consider hematology consultation if no improvement 2. Intractable Pain: Secondary to above. Analgesics as needed, will place on telemetry. 3. DVT prophylaxis: Lovenox Code Status Full code Discussed Condition With Patient Physician Certification 2 Midnight Certification Type: Admission for Inpatient Services Order for Inpatient Services The services are ordered in accordance with Medicare regulations or non- Medicare payer requirements, as applicable. In the case of services not specified as inpatient-only, they are appropriately provided as inpatient services in accordance with the 2-midnight benchmark. Estimated LOS (days): 2 days is the estimated time the patient will need to remain in the hospital, assuming treatment plan goals are met and no additional complications. Post-Hospital Plan: Not yet determined Ardyan Bach MD Nov 17, 2016 08:08
[2016-11-17 08:13] LABS: HEMATOCRIT 32.6 % (39.0-51.0); MEAN CELL VOLUME 73.5 FL (80.0-100.0); MEAN CORPUSCULAR HEMOGLOBIN 23.1 PG (27.0-34.0); MEAN CORPUSCULAR HGB CONC 31.5 % (32.0-36.0); PLATELET COUNT 280 TH/MM3 (150-450); RED BLOOD COUNT 4.44 MIL/MM3 (4.50-5.90); RED CELL DISTRIBUTION WIDTH 25.8 % (11.6-17.2); WHITE BLOOD COUNT 11.3 TH/MM3 (4.0-11.0)
[2016-11-17 08:17] LABS: HEMO FLAGS AUTO DIFF
[2016-11-17 08:21] LABS: CHLORIDE 112 MEQ/L (98-107); POTASSIUM 3.6 MEQ/L (3.5-5.1); SODIUM (NA) 145 MEQ/L (136-145)
[2016-11-17 08:42] LABS: ALKALINE PHOSPHATASE 74 U/L (45-117); ALT (GPT) 21 U/L (12-78); ANION GAP 7 MEQ/L (5-15); AST (GOT) 18 U/L (15-37); BICARBONATE 25.7 MEQ/L (21.0-32.0); BLOOD UREA NITROGEN 5 MG/DL (7-18); GLOMERULAR FILTRATION RATE 195 ML/MIN (>89); TOTAL BILIRUBIN ADULT 1.2 MG/DL (0.2-1.0)
[2016-11-17 08:55] LABS: CORRECTED NUCLEATED RBC 2 /100 WBC (0-0); EOSINOPHILS 3 % (0-4); NEUTROPHIL # MANUAL DIFF 6.9 TH/MM3 (1.8-7.7); POLYS (SEG NEUTROPHILS) 61 % (16-70); WBC DIFF SAMPLE 100
[2016-11-17 08:56] LABS: ACANTHOCYTES OCC (NORMAL); KERATOCYTES OCC (NORMAL); OVALOCYTES 1+ (NORMAL); PLATELET ESTIMATE SMEAR NORMAL (NORMAL); PLATELET MORPHOLOGY NORMAL (NORMAL); SCAN/DIFF FINAL DIFF MANUAL; TARGET CELLS 3+ (NORMAL)
[2016-11-17] MEDS: SODIUM CHLORIDE 0.9% FLUSH 10 ML FLUSH IV FLUSH SCH ×2 (09:00→19:10)
[2016-11-17] MEDS: FOLIC ACID 1 MG TAB PO SCH (09:25)
[2016-11-17] MEDS ORDERED: ACETAMINOPHEN 325 MG TAB PO PRN (09:30)
[2016-11-17] MEDS ORDERED: DOCUSATE SODIUM 50 MG/SENNA 8.6 MG TAB PO PRN (09:30)
[2016-11-17] MEDS ORDERED: RESP: ALBUTEROL 2.5 MG/IPRATROPIUM 0.5 MG NEB (PRN) NEB (09:30)
[2016-11-17] MEDS ORDERED: ONDANSETRON HCL 4 MG/2 ML VIAL IV PRN (09:30)
[2016-11-17] MEDS ORDERED: TEMAZEPAM 15 MG CAP PO PRN (09:30)
[2016-11-17 10:13] LABS: BLOOD, URINE NEG (NEG); GLUCOSE,URINE NEG (NEG); KETONE, URINE NEG (NEG); NITRITE,URINE NEG (NEG); PH, URINE 5.5 (5.0-8.5)
[2016-11-17 10:22] LABS: METHOD OF COLLECTION CLEAN CATCH; URINE COLOR YELLOW (YELLW/STRAW)
[2016-11-17 10:23] LABS: COMMENT (UR) CULT NOT INDICATED; CULTURE IF INDICATED CULT NOT INDICATED; RBC, URINE 0-3 /hpf (0-3); SQUAMOUS EPITHELIAL CELL URINE 0-5 /hpf (0-5); WBC, URINE 0-2 /hpf (0-5)
[2016-11-17] MEDS: ENOXAPARIN SODIUM 40 MG/0.4 ML SYRINGE SQ SCH (10:25)
[2016-11-17 13:10] LABS: RETIC % 4.6 % (0.4-3.0)
[2016-11-17] MEDS ORDERED: HYDROmorphone HCL PF 1 MG/ML VIAL IV PUSH ONE (13:30)
[2016-11-17] MEDS ORDERED: HYDROmorphone HCL PF 2 MG/ML VIAL IV PUSH PRN (14:00)
[2016-11-17] MEDS: HYDROmorphone HCL PF 2 MG/ML VIAL IV PUSH PRN ×3 (14:53→21:37)
[2016-11-17] MEDS ORDERED: ACETAMINOPHEN/HYDROcodone 325 MG/5 MG TAB PO PRN (21:00)
[2016-11-18] VITALS (7 sets, daily range): BP systolic 138–151; BP diastolic 76–98; PULSE 66–78; RESP 18–21; TEMP 97.1–97.9; O2SAT 95–98
[2016-11-18] MEDS: HYDROmorphone HCL PF 2 MG/ML VIAL IV PUSH PRN ×7 (00:55→20:09)
[2016-11-18] MEDS: diphenhydrAMINE HCL 50 MG/ML VIAL IV PUSH PRN ×6 (02:32→20:08)
[2016-11-18] MEDS: SODIUM CHLOR 0.9% 1000 ML INJ 1,000 ML IV SCH ×6 (02:37→23:36)
[2016-11-18] MEDS: FOLIC ACID 1 MG TAB PO SCH (08:36)
[2016-11-18] MEDS ORDERED: FOLIC ACID 1 MG TAB PO SCH (09:00)
[2016-11-18] MEDS: SODIUM CHLORIDE 0.9% FLUSH 10 ML FLUSH IV FLUSH SCH ×2 (09:00→20:09)
--- NOTE | 2016-11-18 10:05 | HHI.PR ---
Subjective Remarks Follow-up sickle cell crisis 11/18/16-patient seen and examined; complains of inadequate pain control and reports bilateral groin pain with radiation down to the thighs. Currently afebrile and denies any chest pain or shortness of breath Objective Vitals Vital Signs Date Time Temp Pulse Resp B/P Pulse Ox O2 Delivery O2 Flow Rate FiO2 11/18/16 08:09 18 11/18/16 08:00 97.2 70 21 138/78 97 11/18/16 00:00 97.9 66 18 143/97 98 11/17/16 20:25 79 11/17/16 20:00 97.1 77 18 157/105 98 11/17/16 19:47 95 21 11/17/16 16:00 97.2 75 18 142/84 95 11/17/16 12:55 98.6 84 18 147/75 94 I/O 11/17/16 11/17/16 11/17/16 11/18/16 11/18/16 11/18/16 07:00 15:00 23:00 07:00 15:00 23:00 Intake Total 2023 ml 3066 ml Balance 2023 ml 3066 ml Intake Oral 240 ml 0 ml IV Total 1783 ml 3066 ml # Voids 1 2 # Bowel Movements 0 Result Diagram: 11/17/16 0800 11/17/16 0800 Imaging Last Impressions Chest X-Ray 11/16/16 1758 Signed Impressions: Service Date/Time: Wednesday, November 16, 2016 18:26 - CONCLUSION: No acute disease. Adryan Collado MD Objective Remarks GENERAL: NAD SKIN: Warm and dry. HEAD: Normocephalic. EYES: No scleral icterus. No injection or drainage. NECK: Supple, trachea midline. No JVD or lymphadenopathy. CARDIOVASCULAR: Regular rate and rhythm without murmurs, gallops, or rubs. RESPIRATORY: Breath sounds equal bilaterally. No accessory muscle use. GASTROINTESTINAL: Abdomen soft, non-tender, nondistended. MUSCULOSKELETAL: No cyanosis, or edema. BACK: Nontender without obvious deformity. No CVA tenderness. A/P Problem List: (1) Sickle cell anemia with crisis ICD Code: D57.00 Status: Chronic (2) Sickle cell crisis ICD Code: D57.00 Status: Acute (3) Sickle cell pain crisis ICD Code: D57.00 Status: Acute Assessment and Plan 21-year-old man with 1. Sickle Cell Crisis: Continue Folic Acid as well as treatment w/ analgesics as needed. IVF for hydration. Increase Dilaudid to 2 mg every 3 when necessary and continue to monitor LDH, reticulocyte count Consider hematology consultation if no improvement 2. Intractable Pain: Secondary to above. Analgesics as needed, 3. DVT prophylaxis: Adryan Charles MD Nov 18, 2016 10:05
[2016-11-18 10:06] LABS: RETIC % 5.8 % (0.4-3.0)
[2016-11-18 10:11] LABS: REVIEW FLAG FINAL
[2016-11-18] MEDS: ENOXAPARIN SODIUM 40 MG/0.4 ML SYRINGE SQ SCH (11:00)
[2016-11-19] VITALS: BP 151/93; PULSE 71; RESP 18; TEMP 97.1; O2SAT 96
[2016-11-19] MEDS: diphenhydrAMINE HCL 50 MG/ML VIAL IV PUSH PRN ×3 (00:03→08:27)
[2016-11-19] MEDS: HYDROmorphone HCL PF 2 MG/ML VIAL IV PUSH PRN ×3 (00:03→08:27)
[2016-11-19] MEDS: SODIUM CHLOR 0.9% 1000 ML INJ 1,000 ML IV SCH ×2 (03:36→05:43)
[2016-11-19 08:00] VITALS: BP 150/90; PULSE 68; RESP 17; TEMP 97.7; O2SAT 95
[2016-11-19] MEDS: FOLIC ACID 1 MG TAB PO SCH (08:32)
[2016-11-19] MEDS: SODIUM CHLORIDE 0.9% FLUSH 10 ML FLUSH IV FLUSH SCH (08:42)
[2016-11-19] MEDS ORDERED: PERI8.6T PO (09:19)
[2016-11-19] MEDS ORDERED: DILA4TAB2 PO (09:19)
--- NOTE | 2016-11-19 09:22 | HHI.PR ---
Subjective Remarks Follow-up sickle cell crisis 11/18/16-patient seen and examined; complains of inadequate pain control and reports bilateral groin pain with radiation down to the thighs. Currently afebrile and denies any chest pain or shortness of breath 11/19/16-patient seen and examined; reports improvement of pain. Currently afebrile. No acute event overnight Objective Vitals Vital Signs Date Time Temp Pulse Resp B/P Pulse Ox O2 Delivery O2 Flow Rate FiO2 11/19/16 08:00 97.7 68 17 150/90 95 11/19/16 00:00 97.1 71 18 151/93 96 11/18/16 20:00 97.1 70 18 151/98 96 11/18/16 19:30 97 21 11/18/16 17:30 18 11/18/16 16:00 97.2 78 20 142/76 98 11/18/16 12:00 97.8 75 20 146/82 95 I/O 11/18/16 11/18/16 11/18/16 11/19/16 11/19/16 11/19/16 07:00 15:00 23:00 07:00 15:00 23:00 Intake Total 3066 ml 200 ml 1420 ml 2750 ml Output Total 300 ml Balance 3066 ml 200 ml 1420 ml 2450 ml Intake Oral 0 ml 200 ml 420 ml 1000 ml IV Total 3066 ml 1000 ml 1750 ml Output Urine Total 300 ml # Voids 2 3 # Bowel Movements 1 0 Result Diagram: 11/17/16 0800 11/17/16 0800 Imaging Last Impressions Chest X-Ray 11/16/161757 Signed Impressions: Service Date/Time: Wednesday, November 16, 2016 18:26 - CONCLUSION: No acute disease. Adryan Collado MD Objective Remarks GENERAL: NAD SKIN: Warm and dry. HEAD: Normocephalic. EYES: No scleral icterus. No injection or drainage. NECK: Supple, trachea midline. No JVD or lymphadenopathy. CARDIOVASCULAR: Regular rate and rhythm without murmurs, gallops, or rubs. RESPIRATORY: Breath sounds equal bilaterally. No accessory muscle use. GASTROINTESTINAL: Abdomen soft, non-tender, nondistended. MUSCULOSKELETAL: No cyanosis, or edema. BACK: Nontender without obvious deformity. No CVA tenderness. Procedures None A/P Problem List: (1) Sickle cell anemia with crisis ICD Code: D57.00 Status: Chronic (2) Sickle cell crisis ICD Code: D57.00 Status: Acute (3) Sickle cell pain crisis ICD Code: D57.00 Status: Acute Assessment and Plan 21-year-old man with 1. Sickle Cell Crisis: Resolved. Continue Folic Acid as well as treatment w/ analgesics as needed. IVF for hydration. Currently on Dilaudid 2 mg every 3 when necessary 2. Intractable Pain: Secondary to above. Analgesics as needed, 3. DVT prophylaxis: Adryan Charles MD Nov 19, 2016 09:22
--- NOTE | 2016-11-19 09:23 | HHI.DS ---
Discharge Summary Admission Date Nov 16, 2016 at 19:35 Discharge Date: Nov 19, 2016 Admitting Diagnosis vaso-occlusive crisis; sickle cell (1) Sickle cell anemia with crisis ICD Code: D57.00 (2) Sickle cell crisis ICD Code: D57.00 (3) Sickle cell pain crisis ICD Code: D57.00 Procedures None Brief History - From Admission 21-year-old male with a PMH of Sickle Cell Disease and Priapism who came into the ER with complaints of generalized pain mainly bilateral groin and leg pain typical of his Sickle Cell Crises x2 days. The pain was rated 10 out of 10 in intensity. He Denies fever, chills or sick contacts. On arrival, Temp 98.4, BP 115/77, HR 90, O2 sat 97% on RA. WBC 13.3. Labs otherwise unremarkable. CXR with no acute findings. S/p multiple doses of Dilaudid IV in ER w/ minimal improvement. However this morning when patient was seen,he reports some improvement. Denies any GI bleed, chest pain or shortness of breath. CBC/BMP: 11/17/16 0800 11/17/16 0800 Significant Findings Laboratory Tests Test 11/16/16 11/17/16 11/18/16 18:20 08:00 07:10 White Blood Count 13.3 TH/MM3 11.3 TH/MM3 (4.0-11.0) (4.0-11.0) Hemoglobin 11.5 GM/DL 10.3 GM/DL (13.0-17.0) (13.0-17.0) Hematocrit 35.9 % 32.6 % (39.0-51.0) (39.0-51.0) Mean Corpuscular Volume 71.8 FL 73.5 FL (80.0-100.0) (80.0-100.0) Mean Corpuscular Hemoglobin 23.1 PG 23.1 PG (27.0-34.0) (27.0-34.0) Red Cell Distribution Width 25.4 % 25.8 % (11.6-17.2) (11.6-17.2) Basophils % 3 % (0-2) Neutrophils # (Manual) 8.9 TH/MM3 (1.8-7.7) Nucleated Red Blood Cells 3 /100 WBC 2 /100 WBC (0-0) (0-0) Target Cells 3+ (NORMAL) 3+ (NORMAL) Ovalocytes 1+ (NORMAL) 1+ (NORMAL) Keratocytes 1+ (NORMAL) Reticulocyte Count 5.2 % (0.4-3.0) 4.6 % (0.4-3.0) 5.8 % (0.4-3.0) Absolute Reticulocyte Count 262.3 MIL/L 203.0 MIL/L 258.9 MIL/L (20.0-150.0) (20.0-150.0) (20.0-150.0) Blood Urea Nitrogen 4 MG/DL (7-18) 5 MG/DL (7-18) Troponin I LESS THAN 0.02 NG/ML (0.02-0.05) Red Blood Count 4.44 MIL/MM3 (4.50-5.90) Mean Corpuscular Hemoglobin 31.5 % Concent (32.0-36.0) Chloride Level 112 MEQ/L (98-107) Random Glucose 107 MG/DL (74-106) Calcium Level 7.7 MG/DL (8.5-10.1) Total Bilirubin 1.2 MG/DL (0.2-1.0) Albumin 3.1 GM/DL (3.4-5.0) Imaging Last Impressions Chest X-Ray 11/16/16 1218 Signed Impressions: Service Date/Time: Wednesday, November 16, 2016 18:26 - CONCLUSION: No acute disease. Adryan Collado MD PE at Discharge GENERAL: NAD SKIN: Warm and dry. HEAD: Normocephalic. EYES: No scleral icterus. No injection or drainage. NECK: Supple, trachea midline. No JVD or lymphadenopathy. CARDIOVASCULAR: Regular rate and rhythm without murmurs, gallops, or rubs. RESPIRATORY: Breath sounds equal bilaterally. No accessory muscle use. GASTROINTESTINAL: Abdomen soft, non-tender, nondistended. MUSCULOSKELETAL: No cyanosis, or edema. BACK: Nontender without obvious deformity. No CVA tenderness. Hospital Course Patient admitted secondary to sickle cell crisis for which he was started on IV fluid hydration, pain management with Dilaudid which was adjusted accordingly and was continued on folic acid.His Condition improved prior to discharge. DVT prophylaxis was provided. Pt Condition on Discharge: Stable Discharge Disposition: Discharge Home Discharge Time: <= 30 minutes Discharge Instructions DIET: Follow Instructions for: As Tolerated, No Restrictions Activities you can perform: Regular-No Restrictions Follow up Referrals: PCP Follow-up - 1 Week New Medications: Hydromorphone (Dilaudid) 4 Mg Tab 4 MG PO Q6H PRN Pain Management #20 Ref 0 TAB Sennosides-Docusate Sodium (Sharon-Colace) 8.6-50 Mg Tab 1 TAB PO BID PRN Constipation #30 Ref 0 TAB Continued Medications: Folic Acid (Folic Acid) 5 Mg Cap 5 MG PO DAILY Nutritional Supplement Ref 0 CAP Hydromorphone (Dilaudid) 4 Mg Tab 4 MG PO Q6H PRN Pain Management Ref 0 TAB Adryan Bach MD Nov 19, 2016 09:23
== END 2016-11-19 10:07 | disposition home or self-care (01) | DRG 812 ==
LOC: PHED 17:12 → PHEDA 19:35 → PH3B 21:32
PROVIDERS: ADMIT Hospitalist; ATTEND Hospitalist
PROC: 05HQ33Z Insertion of Infusion Device into Left External Jugular Vein, Percutaneous Approach (ICD-10-PCS; principal; 2016-11-16)
DX: D57.00 Hb-SS disease with crisis, unspecified (principal); Z88.0 Allergy status to penicillin
CPT/HCPCS: 71010; 80048; 80053; 81001; 82550; 82552; 83615; 84484; 85007; 85027; 85044; 96361; 96374; 96375; J1170; J1200; J1650; J1885; J2405; J7030

== ENCOUNTER 2016-11-30 12:49 | Emergency (ER) | payer MEDICAID ==
[~2016-11-30] VITALS: Ht 188 cm; Wt 91.5 kg
[~2016-11-30 12:49] MED LIST changes: +FOLI5CAP PO; -PERC5TAB12 PO; +PERI8.6T PO
[2016-11-30 12:53] VITALS: BP 115/65; PULSE 96; RESP 17; TEMP 97.9; O2SAT 99
[2016-11-30] MEDS ORDERED: DILA8TAB4 PO (13:00)
[2016-11-30] MEDS ORDERED: SODIUM CHLOR 0.9% 1000 ML INJ 1,000 ML IV ONE (13:18)
[2016-11-30] MEDS ORDERED: SODIUM CHLORIDE 0.9% FLUSH 10 ML FLUSH IVF PRN (13:30)
[2016-11-30] MEDS ORDERED: HYDROmorphone HCL PF 1 MG/ML VIAL IVS ONE (13:30)
[2016-11-30 13:31] VITALS: O2SAT 97
--- NOTE | 2016-11-30 13:37 | RADHPO ---
EXAM DATE/TIME: 11/30/2016 13:20 [facility] COMPARISON: CHEST SINGLE AP, November 16, 2016, 18:26. INDICATIONS : Chest pain, sickle cell crisis. MEDICAL HISTORY : Sickle Cell disease. SURGICAL HISTORY : None. ENCOUNTER: Initial ACUITY: 3 days PAIN SCORE: 2/10 LOCATION: Bilateral chest FINDINGS: Single AP view of the chest. The lungs are clear. Cardiomediastinal silhouette within normal limits. No evidence of pleural effusion or pneumothorax. CONCLUSION: No acute cardiopulmonary disease identified. Brandon Hernandez MD on November 30, 2016 at 13:35 Board Certified Radiologist. This report was verified electronically.
[2016-11-30 13:38] LABS: HEMATOCRIT 37.2 % (39.0-51.0); MEAN CELL VOLUME 71.7 FL (80.0-100.0); MEAN CORPUSCULAR HEMOGLOBIN 23.1 PG (27.0-34.0); MEAN CORPUSCULAR HGB CONC 32.2 % (32.0-36.0); PLATELET COUNT 416 TH/MM3 (150-450); RED BLOOD COUNT 5.19 MIL/MM3 (4.50-5.90); RED CELL DISTRIBUTION WIDTH 26.4 % (11.6-17.2); WHITE BLOOD COUNT 12.3 TH/MM3 (4.0-11.0)
[2016-11-30 13:45] LABS: CHLORIDE 105 MEQ/L (98-107); HEMO FLAGS AUTO DIFF; POTASSIUM 4.1 MEQ/L (3.5-5.1); SODIUM (NA) 141 MEQ/L (136-145)
[2016-11-30 13:48] LABS: ANION GAP 10 MEQ/L (5-15); BICARBONATE 25.6 MEQ/L (21.0-32.0); BLOOD UREA NITROGEN 11 MG/DL (7-18)
--- NOTE | 2016-11-30 13:49 | PD ---
HPI Chief Complaint: Sickle Cell Time Seen by Provider: 13:07 Travel History International Travel<30 days: No Contact w/Intl Traveler<30days: No Traveled to known affect area: No History of Present Illness HPI 21yo M with PMH of sickle cell disease presents to the ED with c/o bilateral groin pain and left hip pain that started the day after he was discharged. Pt was admitted 11/16/16-11/19/16 for vasoocclusive crisis and has frequent ED visits for this. States it feels like his sickle cell crisis. Also with sharp chest pain across the chest but it is not as bad. Denies any fever, sob, n/v, abdominal pain, testicular pain or penile discharge. 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 States last blood transfusion was last month. PFSH Past Medical History Anemia: Yes (SICKLE CELL ) Arthritis: No Asthma: No Autoimmune Disease: Yes Blood Disorders: No Anxiety: No Depression: No Heart Rhythm Problems: Yes (MURMUR) Cancer: No Cardiovascular Problems: Yes (HX OF SICKLE CELL, GETS INFUSIONS EVERY FOUR WEEKS .) High Cholesterol: No Chemotherapy: No Chest Pain: Yes Congestive Heart Failure: No COPD: No Cerebrovascular Accident: No Diabetes: No Diminished Hearing: No Endocrine: No Gastrointestinal Disorders: No GERD: No Genitourinary: Yes (priaprism) Headaches: No Hiatal Hernia: No Hypertension: No Immune Disorder: No Implanted Vascular Access Dvce: No Kidney Stones: No Musculoskeletal: No Neurologic: Yes Psychiatric: No Reproductive: No Respiratory: No Immunizations Current: Yes Migraines: No Radiation Therapy: No Renal Failure: No Seizures: No Sickle Cell Disease: Yes Sleep Apnea: No Thyroid Disease: No Ulcer: No ?: Not Past Surgical History Abdominal Surgery: No AICD: No Arteriovenous Shunt: No Cardiac Surgery: No Ear Surgery: No Endocrine Surgery: No Eye Surgery: No Genitourinary Surgery: Yes (FOR PRIAPISM) Insulin Pump: No Neurologic Surgery: No Pacemaker: No Thoracic Surgery: No Other Surgery: Yes Social History Alcohol Use: No Tobacco Use: No Substance Use: No Allergies-Medications (Allergen,Severity, Reaction): Coded Allergies: Penicillin (Verified Allergy, Severe, told as child, 11/30/16) Reported Meds & Prescriptions Reported Meds & Active Scripts Active Reported Dilaudid (Hydromorphone HCl) 8 Mg Tab 8 Mg PO Q6H PRN Review of Systems Except as stated in HPI: all other systems reviewed are Neg Physical Exam Narrative GENERAL: 21yo M in moderate distress. SKIN: Focused skin assessment warm/dry. HEAD: Atraumatic. Normocephalic. CARDIOVASCULAR: Regular rate and rhythm. No murmur appreciated. RESPIRATORY: No accessory muscle use. Clear to auscultation. Breath sounds equal bilaterally. GASTROINTESTINAL: Abdomen soft, nontender. No rebound tenderness or guarding. : No testicular pain on palpation. No penile discharge. No mass in bilateral groin. States pain is inside. MUSCULOSKELETAL: Left hip: No erythema or edema or ecchymoses. Good range of motion. No obvious deformities. No clubbing. No cyanosis. No edema. NEUROLOGICAL: Awake and alert. No obvious cranial nerve deficits. Motor grossly within normal limits. Normal speech. PSYCHIATRIC: Appropriate mood and affect; insight and judgment normal. Data Data Last Documented VS Vital Signs Date Time Temp Pulse Resp B/P Pulse Ox O2 Delivery O2 Flow Rate FiO2 11/30/16 15:09 15 11/30/16 13:31 97 Room Air 11/30/16 12:53 97.9 96 115/65 Orders Basic Metabolic Panel (Bmp) (11/30/16 13:18) Complete Blood Count With Diff (11/30/16 13:18) Retic Count (11/30/16 13:18) Urinalysis - C+S If Indicated (11/30/16 13:18) Chest, Single Ap (11/30/16 13:18) Ecg Monitoring (11/30/16 13:18) Iv Access Insert/Monitor (11/30/16 13:18) Oximetry (11/30/16 13:18) Sodium Chloride 0.9% Flush (Ns Flush) (11/30/16 13:30) Sodium Chlor 0.9% 1000 Ml Inj (Ns 1000 M (11/30/16 13:18) Hydromorphone Pf Inj (Dilaudid Pf Inj) (11/30/16 13:30) Troponin I (11/30/16 13:18) Ckmb (Isoenzyme) Profile (11/30/16 13:18) CKMB (11/30/16 13:25) CKMB% (11/30/16 13:25) Hydromorphone Pf Inj (Dilaudid Pf Inj) (11/30/16 14:30) Diphenhydramine Inj (Benadryl Inj) (11/30/16 14:30) Labs Laboratory Tests Test 11/30/16 13:25 White Blood Count 12.3 TH/MM3 Red Blood Count 5.19 MIL/MM3 Hemoglobin 12.0 GM/DL Hematocrit 37.2 % Mean Corpuscular Volume 71.7 FL Mean Corpuscular Hemoglobin 23.1 PG Mean Corpuscular Hemoglobin 32.2 % Concent Red Cell Distribution Width 26.4 % Platelet Count 416 TH/MM3 Mean Platelet Volume 7.7 FL Neutrophils (%) (Auto) % Lymphocytes (%) (Auto) % Monocytes (%) (Auto) % Eosinophils (%) (Auto) % Basophils (%) (Auto) % Neutrophils # (Auto) TH/MM3 Lymphocytes # (Auto) TH/MM3 Monocytes # (Auto) TH/MM3 Eosinophils # (Auto) TH/MM3 Basophils # (Auto) TH/MM3 CBC Comment AUTO DIFF Differential Total Cells 100 Counted Neutrophils % (Manual) 72 % Band Neutrophils % 1 % Lymphocytes % 16 % Monocytes % 10 % Eosinophils % 1 % Neutrophils # (Manual) 9.0 TH/MM3 Differential Comment FINAL DIFF MANUAL Platelet Estimate NORMAL Platelet Morphology Comment NORMAL Basophilic Stippling FAINT Target Cells 2+ Ovalocytes 1+ Acanthocytes OCC Rouleau PRESENT Keratocytes OCC Reticulocyte Count 4.4 % Absolute Reticulocyte Count 230.0 MIL/L Sodium Level 141 MEQ/L Potassium Level 4.1 MEQ/L Chloride Level 105 MEQ/L Carbon Dioxide Level 25.6 MEQ/L Anion Gap 10 MEQ/L Blood Urea Nitrogen 11 MG/DL Creatinine 0.73 MG/DL Estimat Glomerular Filtration 161 ML/MIN Rate Random Glucose 95 MG/DL Calcium Level 9.0 MG/DL Total Creatine Kinase 106 U/L Creatine Kinase MB 0.6 NG/ML Troponin I LESS THAN 0.02 NG/ML MDM Medical Decision Making Medical Screen Exam Complete: Yes Emergency Medical Condition: Yes Interpretation(s) EKG: NSR 94bpm. Normal axis. Laboratory Tests Test 11/30/16 13:25 White Blood Count 12.3 TH/MM3 (4.0-11.0) Red Blood Count 5.19 MIL/MM3 (4.50-5.90) Hemoglobin 12.0 GM/DL (13.0-17.0) Hematocrit 37.2 % (39.0-51.0) Mean Corpuscular Volume 71.7 FL (80.0-100.0) Mean Corpuscular Hemoglobin 23.1 PG (27.0-34.0) Mean Corpuscular Hemoglobin 32.2 % Concent (32.0-36.0) Red Cell Distribution Width 26.4 % (11.6-17.2) Platelet Count 416 TH/MM3 (150-450) Mean Platelet Volume 7.7 FL (7.0-11.0) Neutrophils (%) (Auto) % (16.0-70.0) Lymphocytes (%) (Auto) % (9.0-44.0) Monocytes (%) (Auto) % (0.0-8.0) Eosinophils (%) (Auto) % (0.0-4.0) Basophils (%) (Auto) % (0.0-2.0) Neutrophils # (Auto) TH/MM3 (1.8-7.7) Lymphocytes # (Auto) TH/MM3 (1.0-4.8) Monocytes # (Auto) TH/MM3 (0-0.9) Eosinophils # (Auto) TH/MM3 (0-0.4) Basophils # (Auto) TH/MM3 (0-0.2) CBC Comment AUTO DIFF Differential Total Cells 100 Counted Neutrophils % (Manual) 72 % (16-70) Band Neutrophils % 1 % (0-6) Lymphocytes % 16 % (9-44) Monocytes % 10 % (0-8) Eosinophils % 1 % (0-4) Neutrophils # (Manual) 9.0 TH/MM3 (1.8-7.7) Differential Comment FINAL DIFF MANUAL Platelet Estimate NORMAL (NORMAL) Platelet Morphology Comment NORMAL (NORMAL) Basophilic Stippling FAINT (NORMAL) Target Cells 2+ (NORMAL) Ovalocytes 1+ (NORMAL) Acanthocytes OCC (NORMAL) Rouleau PRESENT (NORMAL) Keratocytes OCC (NORMAL) Reticulocyte Count 4.4 % (0.4-3.0) Absolute Reticulocyte Count 230.0 MIL/L (20.0-150.0) Sodium Level 141 MEQ/L (136-145) Potassium Level 4.1 MEQ/L (3.5-5.1) Chloride Level 105 MEQ/L (98-107) Carbon Dioxide Level 25.6 MEQ/L (21.0-32.0) Anion Gap 10 MEQ/L (5-15) Blood Urea Nitrogen 11 MG/DL (7-18) Creatinine 0.73 MG/DL (0.60-1.30) Estimat Glomerular Filtration 161 ML/MIN Rate (>89) Random Glucose 95 MG/DL (74-106) Calcium Level 9.0 MG/DL (8.5-10.1) Total Creatine Kinase 106 U/L (39-308) Creatine Kinase MB 0.6 NG/ML (0.5-3.6) Troponin I LESS THAN 0.02 NG/ML (0.02-0.05) Last Impressions Chest X-Ray 11/30/16 1318 Signed Impressions: Service Date/Time: Wednesday, November 30, 2016 13:20 - CONCLUSION: No acute cardiopulmonary disease identified. Brandon Hernandez MD Differential Diagnosis Vasoocclusive crisis vs. acute chest syndrome vs. ACS Narrative Course 21yo M with sickle cell disease here with c/o pain that feels like his sickle cell. Pt given 2 doses of IV dilaudid 1mg and diphenhydramine 25mg IV. Pt also given NS IVF. Labs reviewed, mild leukocytosis at 12.3. H/H is good at 12 /37.2. Reticulocyte count is 4.4 but this is actually decreased from when he was discharged on 11/18/16. Troponin negative. CMP unremarkable with normal BUN /creatinine. CXR showed no acute cardiopulmonary disease. Pt reevaluated at bedside and feels better. Chest pain has resolved. States groin pain was moving down his legs but improved. Pt has dilaudid 4mg PO at home. He is going back to [place] and will see his health safety manager there. Vital signs stable. Return precautions given. Diagnosis Primary Impression: Sickle cell anemia with pain Patient Instructions: General Instructions Departure Forms: Tests/Procedures Additional Instructions: Please follow up with your health safety manager as soon as possible. Return to the ED if symptoms worsen. Med/Other Pt SpecificInfo: No Change to Meds Disposition: 01 DISCHARGE HOME Condition: Stable Shasta George November 30, 2016 13:49
[2016-11-30 13:51] LABS: GLOMERULAR FILTRATION RATE 161 ML/MIN (>89)
[2016-11-30 13:54] LABS: CREATINE KINASE 106 U/L (39-308)
[2016-11-30 14:07] LABS: BANDS 1 % (0-6); CKMB 0.6 NG/ML (0.5-3.6); EOSINOPHILS 1 % (0-4); POLYS (SEG NEUTROPHILS) 72 % (16-70); TARGET CELLS 2+ (NORMAL); WBC DIFF SAMPLE 100
[2016-11-30 14:08] LABS: ACANTHOCYTES OCC (NORMAL); KERATOCYTES OCC (NORMAL); OVALOCYTES 1+ (NORMAL); PLATELET ESTIMATE SMEAR NORMAL (NORMAL); PLATELET MORPHOLOGY NORMAL (NORMAL); ROULEAUX PRESENT (NORMAL); SCAN/DIFF FINAL DIFF MANUAL
[2016-11-30] MEDS ORDERED: HYDROmorphone HCL PF 1 MG/ML VIAL IV PUSH ONE (14:30)
[2016-11-30] MEDS ORDERED: diphenhydrAMINE HCL 50 MG/ML VIAL IV PUSH ONE (14:30)
[2016-11-30 15:04] LABS: RETIC % 4.4 % (0.4-3.0)
[2016-11-30 15:09] VITALS: RESP 15
[2016-11-30 15:30] LABS: REVIEW FLAG FINAL
[2016-11-30 15:53] VITALS: BP 122/69
--- NOTE | 2016-12-01 06:14 | EKG ---
Date Performed: 11/30/2016 Time Performed: 12:54:58 PTAGE: 21 years EKG: Sinus rhythm Normal ECG PREVIOUS TRACING : 04/23/2016 12.06 Compared to prior tracing no significant change DOCTOR: Tim Go Interpretating Date/Time 12/01/2016 06:13:53
== END 2016-11-30 16:02 | disposition home or self-care (01) ==
LOC: PHED 12:49
DX: D57.00 Hb-SS disease with crisis, unspecified (principal); R07.9 Chest pain, unspecified; D72.829 Elevated white blood cell count, unspecified
CPT/HCPCS: 71010; 80048; 82550; 82552; 84484; 85007; 85027; 85044; 93005; 96361; 96374; 96375; 96376; 99284; J1170; J1200; J7030

== ENCOUNTER 2016-12-06 01:58 | Emergency (ER) | payer MEDICAID ==
[2016-12-06] VITALS (7 sets, daily range): BP systolic 124–143; BP diastolic 65–89; PULSE 86–97; RESP 18–22; TEMP 98.1–98.2; O2SAT 97–99
[~2016-12-06] VITALS: Ht 188 cm; Wt 90.6 kg
[~2016-12-06 01:58] MED LIST changes: -DILA4TAB2 PO; +DILA8TAB4 PO; -FOLI5CAP PO; -PERI8.6T PO
[2016-12-06] MEDS ORDERED: FOLI5CAP PO (02:14)
[2016-12-06] MEDS ORDERED: PERC10TA27 PO (02:15)
[2016-12-06] MEDS ORDERED: SODIUM CHLOR 0.9% 1000 ML INJ 1,000 ML IV ONE (03:40)
--- NOTE | 2016-12-06 03:43 | RADHPO ---
EXAM DATE/TIME: 12/06/2016 02:32 [facility] COMPARISON: CHEST PA & LAT, May 29, 2016, 0:24. INDICATIONS : Cough. Body ache. Sickle cell crisis. MEDICAL HISTORY : Sickle Cell disease. SURGICAL HISTORY : None. ENCOUNTER: Initial ACUITY: 2 days PAIN SCORE: 8/10 LOCATION: Bilateral chest FINDINGS: PA and lateral views of the chest demonstrate the lungs to be symmetrically aerated without evidence of mass, infiltrate or effusion. The cardiomediastinal contours are unremarkable. Osseous structure s are intact. CONCLUSION: No acute disease. There is no evidence of pneumonia. Dick Dobson MD on December 06, 2016 at 3:41 Board Certified Radiologist. This report was verified electronically.
--- NOTE | 2016-12-06 03:44 | PD ---
HPI Chief Complaint: Sickle Cell Time Seen by Provider: 03:39 Travel History International Travel<30 days: No Contact w/Intl Traveler<30days: No Traveled to known affect area: No History of Present Illness HPI The patient is a 21-year-old male, frequent visitor for sickle cell pain crisis who complains of his typical sickle cell pain in the chest and back. The patient almost always gets Dilaudid for these. He claims a pain level of 10 over 10. He denies any fever, nausea, vomiting or diarrhea. The patient all his gets chest pain when he has a sickle cell pain crisis. He sees an oncologist in [place] who gives him blood exchanges. He prefers doing that, he does not like coming in all the time for narcotics. He goes to [facility] but lives in [place]. PFSH Past Medical History Anemia: Yes (SICKLE CELL ) Arthritis: No Asthma: No Autoimmune Disease: Yes Blood Disorders: No Anxiety: No Depression: No Heart Rhythm Problems: Yes (MURMUR) Cancer: No Cardiovascular Problems: Yes (HX OF SICKLE CELL, GETS INFUSIONS EVERY FOUR WEEKS .) High Cholesterol: No Chemotherapy: No Chest Pain: Yes Congestive Heart Failure: No COPD: No Cerebrovascular Accident: No Diabetes: No Diminished Hearing: No Endocrine: No Gastrointestinal Disorders: No GERD: No Genitourinary: Yes (priaprism) Headaches: No Hiatal Hernia: No Hypertension: No Immune Disorder: No Implanted Vascular Access Dvce: No Kidney Stones: No Musculoskeletal: No Neurologic: Yes Psychiatric: No Reproductive: No Respiratory: No Immunizations Current: Yes Migraines: No Radiation Therapy: No Renal Failure: No Seizures: No Sickle Cell Disease: Yes Sleep Apnea: No Thyroid Disease: No Ulcer: No Tetanus Vaccination: Unknown Influenza Vaccination: Yes Past Surgical History Abdominal Surgery: No AICD: No Arteriovenous Shunt: No Cardiac Surgery: No Ear Surgery: No Endocrine Surgery: No Eye Surgery: No Genitourinary Surgery: Yes (FOR PRIAPISM) Insulin Pump: No Neurologic Surgery: No Pacemaker: No Thoracic Surgery: No Other Surgery: Yes Social History Alcohol Use: No Tobacco Use: No Substance Use: No Allergies-Medications (Allergen,Severity, Reaction): Coded Allergies: Penicillin (Verified Allergy, Severe, told as child, 11/30/16) Reported Meds & Prescriptions Reported Meds & Active Scripts Active Reported Percocet (Oxycodone-Acetaminophen) 10-325 mg Tab 1 Tab PO Q4H PRN Folic Acid 5 Mg Cap 5 Mg PO DAILY Dilaudid (Hydromorphone HCl) 8 Mg Tab 8 Mg PO Q6H PRN Review of Systems Except as stated in HPI: all other systems reviewed are Neg Physical Exam Narrative GENERAL: The patient is alert, oriented 3 in moderate apparent distress. His vital signs are normal. SKIN: Focused skin assessment warm/dry. No skin rash is seen. HEAD: Atraumatic. Normocephalic. EYES: Pupils equal and round. No scleral icterus. No injection or drainage. ENT: No nasal bleeding or discharge. Mucous membranes pink and moist. NECK: Trachea midline. No JVD. CARDIOVASCULAR: Regular rate and rhythm. No murmur appreciated. RESPIRATORY: No accessory muscle use. Clear to auscultation. Breath sounds equal bilaterally. No heart murmur as noted. GASTROINTESTINAL: Abdomen soft, non-tender, nondistended. Hepatic and splenic margins not palpable. MUSCULOSKELETAL: No obvious deformities. No clubbing. No cyanosis. No edema. NEUROLOGICAL: Awake and alert. No obvious cranial nerve deficits. Motor grossly within normal limits. Normal speech. PSYCHIATRIC: Appropriate mood and affect; insight and judgment normal. Data Data Last Documented VS Vital Signs Date Time Temp Pulse Resp B/P Pulse Ox O2 Delivery O2 Flow Rate FiO2 12/06/16 04:59 18 12/06/16 04:24 97 141/71 99 Nasal Cannula 2 12/06/16 02:16 98.1 Orders Complete Blood Count With Diff (12/06/16 02:09) Retic Count (12/06/16 02:09) Iv Access Insert/Monitor (12/06/16 02:09) Chest, Pa & Lat (12/06/16 02:09) Basic Metabolic Panel (Bmp) (12/06/16 03:40) Comprehensive Metabolic Panel (12/06/16 03:40) Ecg Monitoring (12/06/16 03:40) Oximetry (12/06/16 03:40) Sodium Chloride 0.9% Flush (Ns Flush) (12/06/16 03:45) Sodium Chlor 0.9% 1000 Ml Inj (Ns 1000 M (12/06/16 03:40) Hydromorphone Pf Inj (Dilaudid Pf Inj) (12/06/16 03:45) Diphenhydramine Inj (Benadryl Inj) (12/06/16 03:45) Diphenhydramine Inj (Benadryl Inj) (12/06/16 04:45) Hydromorphone Pf Inj (Dilaudid Pf Inj) (12/06/16 04:45) Sodium Chlor 0.9% 1000 Ml Inj (Ns 1000 M (12/06/16 04:45) Labs Laboratory Tests Test 12/06/16 12/06/16 03:00 03:45 White Blood Count 14.0 TH/MM3 Red Blood Count 4.64 MIL/MM3 Hemoglobin 11.2 GM/DL Hematocrit 34.1 % Mean Corpuscular Volume 73.5 FL Mean Corpuscular Hemoglobin 24.1 PG Mean Corpuscular Hemoglobin 32.8 % Concent Red Cell Distribution Width 28.2 % Platelet Count 393 TH/MM3 Mean Platelet Volume 8.7 FL Neutrophils (%) (Auto) % CBC Comment AUTO DIFF Differential Total Cells 100 Counted Neutrophils % (Manual) 48 % Lymphocytes % 39 % Monocytes % 10 % Eosinophils % 2 % Basophils % 1 % Neutrophils # (Manual) 6.7 TH/MM3 Nucleated Red Blood Cells 2 /100 WBC Differential Comment FINAL DIFF MANUAL Platelet Estimate NORMAL Platelet Morphology Comment NORMAL Target Cells 1+ Ovalocytes 1+ Duncan-Desoto Bodies PRESENT Reticulocyte Count 7.2 % Absolute Reticulocyte Count 335.7 MIL/L Sodium Level 137 MEQ/L Potassium Level 4.6 MEQ/L Chloride Level 102 MEQ/L Carbon Dioxide Level 27.8 MEQ/L Anion Gap 7 MEQ/L Blood Urea Nitrogen 10 MG/DL Creatinine 0.94 MG/DL Estimat Glomerular Filtration 121 ML/MIN Rate Random Glucose 96 MG/DL Calcium Level 9.2 MG/DL Total Bilirubin 1.5 MG/DL Aspartate Amino Transf 39 U/L (AST/SGOT) Alanine Aminotransferase 26 U/L (ALT/SGPT) Alkaline Phosphatase 89 U/L Total Protein 8.6 GM/DL Albumin 4.2 GM/DL [facility] Medical Decision Making Medical Screen Exam Complete: Yes Emergency Medical Condition: Yes Medical Record Reviewed: Yes Interpretation(s) The CBC shows a white count of 14,000 with hemoglobin 11 and hematocrit of 34.1. The reticulocyte count is 7.2 and the absolute reticulocytes are 335.7. The complete metabolic profile shows a total bilirubin of 1.5, AST of 39 and total protein of 8.6 but is otherwise normal. Differential Diagnosis Vaso-occlusive crisis, sickle cell chest pain syndrome, sepsisunlikely Narrative Course The patient appears to have a vaso-occlusive sickle cell crisis. His chest pain is going away. It is now 0507 and the patient wants to go home. He is feeling better. Procedures EKG Prior to Arrival: No EKG Not Completed: EKG Not Medically Necessary Diagnosis Primary Impression: Vaso-occlusive sickle cell crisis Additional Instructions: I think he would benefit from a local crozer operator. The crozer operator here could coordinate treatment with your crozer operator in [place]. Med/Other Pt SpecificInfo: No Change to Meds Disposition: 01 DISCHARGE HOME Condition: Stable Todd Juan MD December 06, 2016 03:44
[2016-12-06] MEDS ORDERED: SODIUM CHLORIDE 0.9% FLUSH 10 ML FLUSH IVF PRN (03:45)
[2016-12-06] MEDS ORDERED: HYDROmorphone HCL PF 1 MG/ML VIAL IVS ONE (03:45)
[2016-12-06] MEDS ORDERED: diphenhydrAMINE HCL 50 MG/ML VIAL IV ONE (03:45)
[2016-12-06 03:55] LABS: HEMATOCRIT 34.1 % (39.0-51.0); MEAN CELL VOLUME 73.5 FL (80.0-100.0); MEAN CORPUSCULAR HEMOGLOBIN 24.1 PG (27.0-34.0); MEAN CORPUSCULAR HGB CONC 32.8 % (32.0-36.0); PLATELET COUNT 393 TH/MM3 (150-450); RED BLOOD COUNT 4.64 MIL/MM3 (4.50-5.90); RED CELL DISTRIBUTION WIDTH 28.2 % (11.6-17.2)
[2016-12-06 03:58] LABS: HEMO FLAGS AUTO DIFF
[2016-12-06 04:37] LABS: RETIC % 7.2 % (0.4-3.0); REVIEW FLAG FINAL
[2016-12-06 04:37] LABS: CHLORIDE 102 MEQ/L (98-107); POTASSIUM 4.6 MEQ/L (3.5-5.1); SODIUM (NA) 137 MEQ/L (136-145)
[2016-12-06 04:38] LABS: BASOPHILS 1 % (0-2); CORRECTED NUCLEATED RBC 2 /100 WBC (0-0); EOSINOPHILS 2 % (0-4); NEUTROPHIL # MANUAL DIFF 6.7 TH/MM3 (1.8-7.7); POLYS (SEG NEUTROPHILS) 48 % (16-70); WBC DIFF SAMPLE 100
[2016-12-06 04:39] LABS: HOWELL-JOLLY BODIES PRESENT (NONE SEEN); TARGET CELLS 1+ (NORMAL)
[2016-12-06 04:40] LABS: ANION GAP 7 MEQ/L (5-15); BICARBONATE 27.8 MEQ/L (21.0-32.0)
[2016-12-06 04:41] LABS: BLOOD UREA NITROGEN 10 MG/DL (7-18)
[2016-12-06 04:42] LABS: OVALOCYTES 1+ (NORMAL); PLATELET ESTIMATE SMEAR NORMAL (NORMAL); PLATELET MORPHOLOGY NORMAL (NORMAL); SCAN/DIFF FINAL DIFF MANUAL
[2016-12-06 04:43] LABS: ALT (GPT) 26 U/L (12-78); AST (GOT) 39 U/L (15-37)
[2016-12-06 04:44] LABS: GLOMERULAR FILTRATION RATE 121 ML/MIN (>89)
[2016-12-06 04:45] LABS: TOTAL BILIRUBIN ADULT 1.5 MG/DL (0.2-1.0)
[2016-12-06] MEDS ORDERED: diphenhydrAMINE HCL 50 MG/ML VIAL IV PUSH ONE (04:45)
[2016-12-06] MEDS ORDERED: SODIUM CHLOR 0.9% 1000 ML INJ 1,000 ML IV SCH (04:45)
[2016-12-06] MEDS ORDERED: HYDROmorphone HCL PF 1 MG/ML VIAL IV PUSH ONE (04:45)
[2016-12-06 04:46] LABS: ALKALINE PHOSPHATASE 89 U/L (45-117)
== END 2016-12-06 05:24 | disposition home or self-care (01) ==
LOC: PHED 01:58
DX: D57.00 Hb-SS disease with crisis, unspecified (principal); Z88.0 Allergy status to penicillin; Z79.899 Other long term (current) drug therapy
CPT/HCPCS: 71020; 80053; 85007; 85027; 85044; 96361; 96374; 96375; 96376; 99284; J1170; J1200; J7030

== ENCOUNTER 2016-12-06 16:12 | Emergency (ER) | payer MEDICAID ==
[~2016-12-06] VITALS: Ht 188 cm; Wt 92.3 kg
[~2016-12-06 16:12] MED LIST changes: +FOLI5CAP PO; +PERC10TA27 PO
[2016-12-06 16:17] VITALS: BP 136/94; PULSE 98; RESP 20; TEMP 98.9; O2SAT 98
--- NOTE | 2016-12-06 16:58 | PD ---
HPI Chief Complaint: Sickle Cell Time Seen by Provider: 16:23 Travel History International Travel<30 days: No Contact w/Intl Traveler<30days: No Traveled to known affect area: No History of Present Illness HPI This patient complains of pain in his legs. This is typical of a sickle flare for him. Seen here 12 hours ago for pain and a different area. Symptoms severity is moderate. No fever or injury. He is a frequent visitor for sickle cell pain. No alleviating factors. Duration 2 days PFSH Past Medical History Anemia: Yes (SICKLE CELL ) Arthritis: No Asthma: No Autoimmune Disease: Yes Blood Disorders: No Anxiety: No Depression: No Heart Rhythm Problems: Yes (MURMUR) Cancer: No Cardiovascular Problems: Yes (HX OF SICKLE CELL, GETS INFUSIONS EVERY FOUR WEEKS .) High Cholesterol: No Chemotherapy: No Chest Pain: Yes Congestive Heart Failure: No COPD: No Cerebrovascular Accident: No Diabetes: No Diminished Hearing: No Endocrine: No Gastrointestinal Disorders: No GERD: No Genitourinary: Yes (priaprism) Headaches: No Hiatal Hernia: No Hypertension: No Immune Disorder: No Implanted Vascular Access Dvce: No Kidney Stones: No Musculoskeletal: No Neurologic: Yes Psychiatric: No Reproductive: No Respiratory: No Immunizations Current: Yes Migraines: No Radiation Therapy: No Renal Failure: No Seizures: No Sickle Cell Disease: Yes Sleep Apnea: No Thyroid Disease: No Ulcer: No Tetanus Vaccination: > 5 Years Influenza Vaccination: No Past Surgical History Abdominal Surgery: No AICD: No Arteriovenous Shunt: No Cardiac Surgery: No Ear Surgery: No Endocrine Surgery: No Eye Surgery: No Genitourinary Surgery: Yes (FOR PRIAPISM) Insulin Pump: No Neurologic Surgery: No Pacemaker: No Thoracic Surgery: No Other Surgery: Yes Social History Alcohol Use: No Tobacco Use: No Substance Use: No Allergies-Medications (Allergen,Severity, Reaction): Coded Allergies: Penicillin (Verified Allergy, Severe, told as child, 12/06/16) Reported Meds & Prescriptions Reported Meds & Active Scripts Active Reported Percocet (Oxycodone-Acetaminophen) 10-325 mg Tab 1 Tab PO Q4H PRN Folic Acid 5 Mg Cap 5 Mg PO DAILY Dilaudid (Hydromorphone HCl) 8 Mg Tab 8 Mg PO Q6H PRN Review of Systems General / Constitutional: No: Fever HENT: No: Headaches Cardiovascular: No: Chest Pain or Discomfort Respiratory: No: Cough Gastrointestinal: No: Vomiting Genitourinary: No: Frequency Musculoskeletal: Positive: Pain Physical Exam Narrative CARDIOVASCULAR: Regular rate and rhythm without murmur. Extremities showed no edema or varicosities. RESPIRATORY: Respiratory effort unlabored, no retractions or use of accessory muscles. Breath sounds are clear and symmetric. GASTROINTESTINAL: Abdomen soft, non-tender, nondistended. Positive bowel sounds. No hepato-splenomegaly, or palpable masses. No guarding. SKIN: Focused skin assessment reveals no rash or ulcers. Skin is warm and dry. Palpation shows no induration or nodules. Psych: Normal mood and affect. Normal insight and judgment. NEUROLOGICAL: Awake and alert. Pupils are equal round and reactive. Motor and sensory grossly within normal limits. Five out of 5 muscle strength in all muscle groups. Normal speech. Legs: No asymmetry or effusion or ecchymosis or erythema or warmth Data Data Last Documented VS Vital Signs Date Time Temp Pulse Resp B/P Pulse Ox O2 Delivery O2 Flow Rate FiO2 12/06/16 16:17 98.9 98 20 136/94 98 Orders Ondansetron Inj (Zofran Inj) (12/06/16 17:00) Hydromorphone Pf Inj (Dilaudid Pf Inj) (12/06/16 17:00) MDM Medical Decision Making Medical Screen Exam Complete: Yes Emergency Medical Condition: Yes Medical Record Reviewed: Yes Differential Diagnosis Sickle cell pain, narcotic seeking behavior, narcotic withdrawal Narrative Course I have reviewed the patient's electronic medical record. Reviewed his visit from 12 hours ago. Hemoglobin was 11.2 Patient is back requesting pain medication Vital signs are normal and I don't feel labs need to be repeated as they were just on 12 hours ago He is euvolemic We discussed options. He says that he just wants some pain medication that will last 2.[address] can drive to [place]. I offered IV placement but he would like to try intramuscular which will last significantly longer. He is most concerned about having medication last. I gave him intramuscular injection of Dilaudid 4 mg and Zofran 4 mg He should follow-up with primary care and hematology Diagnosis Primary Impression: Sickle cell anemia with crisis Additional Instructions: Follow-up with your senior hardware engineer Med/Other Pt SpecificInfo: Other Disposition: 01 DISCHARGE HOME Condition: Stable Ronald Alvarado MD December 06, 2016 16:58
[2016-12-06] MEDS ORDERED: ONDANSETRON HCL 4 MG/2 ML VIAL IM ONE (17:00)
[2016-12-06] MEDS ORDERED: HYDROmorphone HCL PF 2 MG/ML VIAL IM ONE (17:00)
[2016-12-06 17:30] VITALS: RESP 18
== END 2016-12-06 17:40 | disposition home or self-care (01) ==
LOC: PHED 16:12
DX: D57.00 Hb-SS disease with crisis, unspecified (principal); Z88.0 Allergy status to penicillin; Z79.899 Other long term (current) drug therapy
CPT/HCPCS: 96372; 99283; J1170; J2405

== ENCOUNTER 2016-12-20 13:00 | Emergency (ER) | payer MEDICAID ==
[~2016-12-20] VITALS: Ht 188 cm; Wt 94.7 kg
[2016-12-20 13:02] VITALS: BP 123/71; PULSE 84; RESP 17; TEMP 98.1; O2SAT 98
[2016-12-20] MEDS ORDERED: SODIUM CHLOR 0.9% 1000 ML INJ 1,000 ML IV ONE (14:10)
[2016-12-20] MEDS ORDERED: HYDROmorphone HCL PF 1 MG/ML VIAL IVS ONE (14:15)
--- NOTE | 2016-12-20 14:43 | PD ---
HPI Chief Complaint: Sickle Cell Time Seen by Provider: 14:06 Travel History International Travel<30 days: No Contact w/Intl Traveler<30days: No Traveled to known affect area: No History of Present Illness HPI 21yo M with PMH of sickle cell disease presents to the ED with c/o right groin pain for a few days. Feels like his sickle cell crisis. Denies any fever, chest pain, sob, n/v, abdominal pain, testicular pain or penile discharge. Pt has been here multiple times in the past for this. 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 PFSH Past Medical History Anemia: Yes (SICKLE CELL ) Arthritis: No Asthma: No Autoimmune Disease: Yes Blood Disorders: No Anxiety: No Depression: No Heart Rhythm Problems: Yes (MURMUR) Cancer: No Cardiovascular Problems: Yes (HX OF SICKLE CELL, GETS INFUSIONS EVERY FOUR WEEKS .) High Cholesterol: No Chemotherapy: No Chest Pain: Yes Congestive Heart Failure: No COPD: No Cerebrovascular Accident: No Diabetes: No Diminished Hearing: No Endocrine: No Gastrointestinal Disorders: No GERD: No Genitourinary: Yes (priaprism) Headaches: No Hiatal Hernia: No Hypertension: No Immune Disorder: No Implanted Vascular Access Dvce: No Kidney Stones: No Musculoskeletal: No Neurologic: Yes Psychiatric: No Reproductive: No Respiratory: No Immunizations Current: Yes Migraines: No Radiation Therapy: No Renal Failure: No Seizures: No Sickle Cell Disease: Yes Sleep Apnea: No Thyroid Disease: No Ulcer: No Tetanus Vaccination: Unknown ?: Not Past Surgical History Abdominal Surgery: No AICD: No Arteriovenous Shunt: No Cardiac Surgery: No Ear Surgery: No Endocrine Surgery: No Eye Surgery: No Genitourinary Surgery: Yes (FOR PRIAPISM) Insulin Pump: No Neurologic Surgery: No Pacemaker: No Thoracic Surgery: No Other Surgery: Yes Social History Alcohol Use: No Tobacco Use: No Substance Use: No Allergies-Medications (Allergen,Severity, Reaction): Coded Allergies: Penicillin (Verified Allergy, Severe, told as child, 12/20/16) Reported Meds & Prescriptions Reported Meds & Active Scripts Active Reported Dilaudid (Hydromorphone HCl) 8 Mg Tab 8 Mg PO Q6H PRN Review of Systems Except as stated in HPI: all other systems reviewed are Neg Physical Exam Narrative GENERAL: 21yo M in mild distress. SKIN: Focused skin assessment warm/dry. HEAD: Atraumatic. Normocephalic. EYES: Pupils equal and round. No scleral icterus. No injection or drainage. CARDIOVASCULAR: Regular rate and rhythm. No murmur appreciated. RESPIRATORY: No accessory muscle use. Clear to auscultation. Breath sounds equal bilaterally. GASTROINTESTINAL: Abdomen soft, non-tender, nondistended. MUSCULOSKELETAL: No obvious deformities. No clubbing. No cyanosis. No edema. NEUROLOGICAL: Awake and alert. No obvious cranial nerve deficits. Motor grossly within normal limits. Normal speech. PSYCHIATRIC: Appropriate mood and affect; insight and judgment normal. Data Data Last Documented VS Vital Signs Date Time Temp Pulse Resp B/P Pulse Ox O2 Delivery O2 Flow Rate FiO2 12/20/16 13:02 98.1 84 17 123/71 98 Orders Basic Metabolic Panel (Bmp) (12/20/16 14:10) Comprehensive Metabolic Panel (12/20/16 14:10) Retic Count (12/20/16 14:10) Sodium Chlor 0.9% 1000 Ml Inj (Ns 1000 M (12/20/16 14:10) Hydromorphone Pf Inj (Dilaudid Pf Inj) (12/20/16 14:15) Complete Blood Count With Diff (12/20/16 14:38) Diphenhydramine Inj (Benadryl Inj) (12/20/16 14:45) Hydromorphone Pf Inj (Dilaudid Pf Inj) (12/20/16 15:45) Diphenhydramine Inj (Benadryl Inj) (12/20/16 15:45) Labs Laboratory Tests Test 12/20/16 14:20 White Blood Count 11.9 TH/MM3 Red Blood Count 4.01 MIL/MM3 Hemoglobin 10.7 GM/DL Hematocrit 33.2 % Mean Corpuscular Volume 82.9 FL Mean Corpuscular Hemoglobin 26.7 PG Mean Corpuscular Hemoglobin 32.2 % Concent Red Cell Distribution Width 28.1 % Platelet Count 359 TH/MM3 Mean Platelet Volume 8.0 FL Neutrophils (%) (Auto) % Lymphocytes (%) (Auto) % Monocytes (%) (Auto) % Eosinophils (%) (Auto) % Basophils (%) (Auto) % Neutrophils # (Auto) TH/MM3 Lymphocytes # (Auto) TH/MM3 Monocytes # (Auto) TH/MM3 Eosinophils # (Auto) TH/MM3 Basophils # (Auto) TH/MM3 CBC Comment AUTO DIFF Differential Total Cells 100 Counted Neutrophils % (Manual) 59 % Band Neutrophils % 1 % Lymphocytes % 23 % Monocytes % 8 % Eosinophils % 7 % Basophils % 2 % Neutrophils # (Manual) 7.1 TH/MM3 Nucleated Red Blood Cells 2 /100 WBC Differential Comment FINAL DIFF MANUAL Platelet Estimate NORMAL Platelet Morphology Comment NORMAL Sickle Cells 1+ Target Cells 1+ Ovalocytes 1+ Rouleau PRESENT Sodium Level 142 MEQ/L Potassium Level 3.8 MEQ/L Chloride Level 108 MEQ/L Carbon Dioxide Level 27.4 MEQ/L Anion Gap 7 MEQ/L Blood Urea Nitrogen 6 MG/DL Creatinine 0.72 MG/DL Estimat Glomerular Filtration 164 ML/MIN Rate Random Glucose 84 MG/DL Calcium Level 8.5 MG/DL Total Bilirubin 2.2 MG/DL Aspartate Amino Transf 16 U/L (AST/SGOT) Alanine Aminotransferase 20 U/L (ALT/SGPT) Alkaline Phosphatase 80 U/L Total Protein 7.4 GM/DL Albumin 3.7 GM/DL [facility] Medical Decision Making Medical Screen Exam Complete: Yes Emergency Medical Condition: Yes Differential Diagnosis Vasoocclusive crisis vs. malingering Narrative Course 21yo M with sickle cell disease here with right groin pain that feels like his sickle cell crisis. Labs reviewed, WBC 11.9. H/H mildly decreased at 10.7/ 33.2 which is at baseline. Total bilirubin elevated but pt has no abdominal pain. Pain improved after 2 doses of IV dilaudid, IV benadryl and NS IVF. VS stable. Pt has no chest pain or sob. Pt to follow up with his reforestation worker as outpatient. Diagnosis Primary Impression: Sickle cell crisis Patient Instructions: General Instructions Departure Forms: Tests/Procedures Additional Instructions: Please follow up with your reforestation worker as outpatient. Return to the ED if symptoms worsen. Med/Other Pt SpecificInfo: No Change to Meds Disposition: 01 DISCHARGE HOME Condition: Stable DorisShasta DO December 20, 2016 14:43
[2016-12-20] MEDS ORDERED: diphenhydrAMINE HCL 50 MG/ML VIAL IV PUSH ONE ×2 (14:45→15:45)
[2016-12-20 14:51] LABS: CHLORIDE 108 MEQ/L (98-107); POTASSIUM 3.8 MEQ/L (3.5-5.1); SODIUM (NA) 142 MEQ/L (136-145)
[2016-12-20 14:55] LABS: ANION GAP 7 MEQ/L (5-15); BICARBONATE 27.4 MEQ/L (21.0-32.0); BLOOD UREA NITROGEN 6 MG/DL (7-18)
[2016-12-20 14:58] LABS: ALT (GPT) 20 U/L (12-78); AST (GOT) 16 U/L (15-37); GLOMERULAR FILTRATION RATE 164 ML/MIN (>89)
[2016-12-20 15:00] LABS: TOTAL BILIRUBIN ADULT 2.2 MG/DL (0.2-1.0)
[2016-12-20 15:01] LABS: ALKALINE PHOSPHATASE 80 U/L (45-117)
[2016-12-20 15:06] LABS: HEMATOCRIT 33.2 % (39.0-51.0); MEAN CELL VOLUME 82.9 FL (80.0-100.0); MEAN CORPUSCULAR HEMOGLOBIN 26.7 PG (27.0-34.0); MEAN CORPUSCULAR HGB CONC 32.2 % (32.0-36.0); PLATELET COUNT 359 TH/MM3 (150-450); RED BLOOD COUNT 4.01 MIL/MM3 (4.50-5.90); RED CELL DISTRIBUTION WIDTH 28.1 % (11.6-17.2); WHITE BLOOD COUNT 11.9 TH/MM3 (4.0-11.0)
[2016-12-20 15:10] LABS: HEMO FLAGS AUTO DIFF
[2016-12-20] MEDS ORDERED: HYDROmorphone HCL PF 1 MG/ML VIAL IV PUSH ONE (15:45)
[2016-12-20 15:53] LABS: BANDS 1 % (0-6); BASOPHILS 2 % (0-2); CORRECTED NUCLEATED RBC 2 /100 WBC (0-0); EOSINOPHILS 7 % (0-4); NEUTROPHIL # MANUAL DIFF 7.1 TH/MM3 (1.8-7.7); POLYS (SEG NEUTROPHILS) 59 % (16-70); WBC DIFF SAMPLE 100
[2016-12-20 15:56] LABS: OVALOCYTES 1+ (NORMAL); ROULEAUX PRESENT (NORMAL); SICKLE CELLS 1+ (NORMAL); TARGET CELLS 1+ (NORMAL)
[2016-12-20 15:57] LABS: PLATELET ESTIMATE SMEAR NORMAL (NORMAL); PLATELET MORPHOLOGY NORMAL (NORMAL); SCAN/DIFF FINAL DIFF MANUAL
[2016-12-20 16:48] VITALS: BP 102/42
[2016-12-20 17:04] VITALS: BP 110/58
[2016-12-20 17:06] LABS: RETIC % 9.4 % (0.4-3.0)
[2016-12-20 17:08] LABS: REVIEW FLAG FINAL
== END 2016-12-20 17:04 | disposition home or self-care (01) ==
LOC: PHED 13:00
DX: D57.00 Hb-SS disease with crisis, unspecified (principal); Z88.0 Allergy status to penicillin
CPT/HCPCS: 80053; 85007; 85027; 85044; 96361; 96374; 96375; 96376; 99284; J1170; J1200; J7030

== ENCOUNTER 2017-01-18 17:14 | Emergency (ER) | payer MEDICAID ==
[~2017-01-18 17:14] MED LIST changes: -FOLI5CAP PO; -PERC10TA27 PO
[2017-01-18] MEDS ORDERED: PERC5TAB12 PO (17:42)
[2017-01-18] MEDS ORDERED: SODIUM CHLOR 0.9% 1000 ML INJ 1,000 ML IV ONE (17:45)
[2017-01-18] MEDS ORDERED: HYDROmorphone HCL PF 2 MG/ML VIAL IV PUSH ONE (17:45)
[2017-01-18] MEDS ORDERED: ONDANSETRON HCL 4 MG/2 ML VIAL IVP ONE (17:45)
--- NOTE | 2017-01-18 17:46 | PD ---
HPI Chief Complaint: Sickle Cell Time Seen by Provider: 17:31 Travel History International Travel<30 days: No Contact w/Intl Traveler<30days: No Traveled to known affect area: No History of Present Illness HPI This patient complains of sickle cell pain. He is a frequent visitor same. No injury or fever. Symptoms severity is reported as moderate. No alleviating factors. Duration one day. PFSH Past Medical History Anemia: Yes (SICKLE CELL ) Arthritis: No Asthma: No Autoimmune Disease: Yes Blood Disorders: No Anxiety: No Depression: No Heart Rhythm Problems: Yes (MURMUR) Cancer: No Cardiovascular Problems: Yes (HX OF SICKLE CELL, GETS INFUSIONS EVERY FOUR WEEKS .) High Cholesterol: No Chemotherapy: No Chest Pain: Yes Congestive Heart Failure: No COPD: No Cerebrovascular Accident: No Diabetes: No Diminished Hearing: No Endocrine: No Gastrointestinal Disorders: No GERD: No Genitourinary: Yes (priaprism) Headaches: No Hiatal Hernia: No Hypertension: No Immune Disorder: No Implanted Vascular Access Dvce: No Kidney Stones: No Musculoskeletal: No Neurologic: Yes Psychiatric: No Reproductive: No Respiratory: No Immunizations Current: Yes Migraines: No Radiation Therapy: No Renal Failure: No Seizures: No Sickle Cell Disease: Yes Sleep Apnea: No Thyroid Disease: No Ulcer: No Past Surgical History Abdominal Surgery: No AICD: No Arteriovenous Shunt: No Cardiac Surgery: No Ear Surgery: No Endocrine Surgery: No Eye Surgery: No Genitourinary Surgery: Yes (FOR PRIAPISM) Insulin Pump: No Neurologic Surgery: No Pacemaker: No Thoracic Surgery: No Other Surgery: Yes Social History Alcohol Use: No Tobacco Use: No Substance Use: No Allergies-Medications (Allergen,Severity, Reaction): Coded Allergies: Penicillin (Verified Allergy, Severe, told as child, 12/20/16) Reported Meds & Prescriptions Reported Meds & Active Scripts Active Reported Percocet (Oxycodone-Acetaminophen) 5-325 mg Tab 1 Tab PO Q6H PRN Dilaudid (Hydromorphone HCl) 8 Mg Tab 8 Mg PO Q6H PRN Review of Systems General / Constitutional: No: Fever Eyes: No: Visual changes HENT: No: Headaches Cardiovascular: No: Chest Pain or Discomfort Respiratory: No: Shortness of Breath Gastrointestinal: No: Abdominal Pain Genitourinary: No: Dysuria Musculoskeletal: Positive: Pain Skin: No Rash Neurologic: No: Weakness Psychiatric: No: Depression Endocrine: No: Polydipsia Hematologic/Lymphatic: No: Easy Bruising Physical Exam Narrative GENERAL: Well-nourished, well-developed patient in no apparent distress. SKIN: Focused skin assessment reveals no rash and nodules. Skin is Warm and dry. HEAD: Atraumatic. Normocephalic. EYES: Pupils equal and round. No scleral icterus. No injection or drainage. ENT: No nasal bleeding or discharge. Mucous membranes pink and moist. NECK: Trachea midline. No JVD. CARDIOVASCULAR: Regular rate and rhythm. No murmur appreciated. RESPIRATORY: No accessory muscle use. Clear to auscultation. Breath sounds equal bilaterally. GASTROINTESTINAL: Abdomen soft, non-tender, nondistended. Hepatic and splenic margins not palpable. MUSCULOSKELETAL: No obvious deformities. No clubbing. No cyanosis. No edema. NEUROLOGICAL: Awake and alert. No obvious cranial nerve deficits. Motor grossly within normal limits. Normal speech. PSYCHIATRIC: Appropriate mood and affect; insight and judgment normal. Data Data Orders Complete Blood Count With Diff (01/18/17 17:41) Iv Access Insert/Monitor (01/18/17 17:41) Ondansetron Inj (Zofran Inj) (01/18/17 17:45) Sodium Chlor 0.9% 1000 Ml Inj (Ns 1000 M (01/18/17 17:45) Hydromorphone Pf Inj (Dilaudid Pf Inj) (01/18/17 17:45) Labs Laboratory Tests Test 01/18/17 18:00 White Blood Count 12.8 TH/MM3 Red Blood Count 4.43 MIL/MM3 Hemoglobin 12.5 GM/DL Hematocrit 38.4 % Mean Corpuscular Volume 86.6 FL Mean Corpuscular Hemoglobin 28.1 PG Mean Corpuscular Hemoglobin 32.5 % Concent Red Cell Distribution Width 21.0 % Platelet Count 435 TH/MM3 Mean Platelet Volume 8.2 FL Neutrophils (%) (Auto) % Lymphocytes (%) (Auto) % Monocytes (%) (Auto) % Eosinophils (%) (Auto) % Basophils (%) (Auto) % Neutrophils # (Auto) TH/MM3 Lymphocytes # (Auto) TH/MM3 Monocytes # (Auto) TH/MM3 Eosinophils # (Auto) TH/MM3 Basophils # (Auto) TH/MM3 CBC Comment AUTO DIFF MDM Medical Decision Making Medical Screen Exam Complete: Yes Emergency Medical Condition: Yes Medical Record Reviewed: Yes Differential Diagnosis Sickle cell pain, narcotic seeking behavior, narcotic withdrawal Narrative Course I have reviewed the patient's electronic medical record. He was here one month ago for the same thing. He is a frequent visitor for sickle cell pain IV placed I gave him IV Dilaudid and IV Zofran and 1 L normal saline IV bolus CBC shows hemoglobin 12.5 He looks clinically improved Stable for outpatient follow-up with his coil wrapper Diagnosis Primary Impression: Sickle cell anemia with pain Additional Instructions: The patient was advised to follow up with their physician and return if they worsen. Med/Other Pt SpecificInfo: Other Disposition: 01 DISCHARGE HOME Condition: Stable Ronald Alvarado MD Jan 18, 2017 17:46
[2017-01-18 18:18] LABS: HEMATOCRIT 38.4 % (39.0-51.0); MEAN CELL VOLUME 86.6 FL (80.0-100.0); MEAN CORPUSCULAR HEMOGLOBIN 28.1 PG (27.0-34.0); MEAN CORPUSCULAR HGB CONC 32.5 % (32.0-36.0); PLATELET COUNT 435 TH/MM3 (150-450); RED BLOOD COUNT 4.43 MIL/MM3 (4.50-5.90); WHITE BLOOD COUNT 12.8 TH/MM3 (4.0-11.0)
[2017-01-18 18:25] LABS: HEMO FLAGS AUTO DIFF
[2017-01-18 18:54] LABS: CORRECTED NUCLEATED RBC 4 /100 WBC (0-0); EOSINOPHILS 1 % (0-4); NEUTROPHIL # MANUAL DIFF 7.8 TH/MM3 (1.8-7.7); POLYS (SEG NEUTROPHILS) 61 % (16-70); WBC DIFF SAMPLE 100
[2017-01-18 18:55] LABS: OVALOCYTES 1+ (NORMAL); TARGET CELLS 1+ (NORMAL); TEARDROP RBCS 1+ (NORMAL)
[2017-01-18 18:56] LABS: SICKLE CELLS 1+ (NORMAL)
[2017-01-18 18:57] LABS: PLATELET ESTIMATE SMEAR NORMAL (NORMAL); PLATELET MORPHOLOGY NORMAL (NORMAL); SCAN/DIFF FINAL DIFF MANUAL
[2017-01-18 19:05] VITALS: BP 121/75
--- NOTE | 2017-01-19 23:33 | EKG ---
Date Performed: 01/18/2017 Time Performed: 17:28:00 PTAGE: 21 years EKG: Sinus rhythm NORMAL ECG PREVIOUS TRACING : 11/30/2016 12.54 Compared to prior tracing no significant change DOCTOR: Tim Go Interpretating Date/Time 01/19/2017 23:31:26
== END 2017-01-18 19:08 | disposition home or self-care (01) ==
LOC: PHED 17:14
DX: D57.1 Sickle-cell disease without crisis (principal); G89.29 Other chronic pain
CPT/HCPCS: 85007; 85027; 93005; 96374; 96375; 99284; J1170; J2405; J7030

== ENCOUNTER 2017-01-28 17:41 | Inpatient (IN) | payer MEDICAID ==
[~2017-01-28] VITALS: Ht 188 cm; Wt 90.2 kg
[~2017-01-28 17:41] MED LIST changes: +PERC5TAB12 PO
[2017-01-28 17:43] VITALS: BP 140/80; PULSE 74; RESP 28; TEMP 97.5; O2SAT 100
--- NOTE | 2017-01-28 17:51 | PD ---
Physical Exam Time Seen by Provider: 17:49 Narrative 21yo M, w/ sickle cell, c/o sickle cell pain to left chest pain, left arm pain, and bilat groin pain x 2 days. Denies SOB. Reports heavy breathing because of pain. Denies fever, vomiting. Patient seen in triage. VS reviewed. Awaiting bed placement. Data Data Last Documented VS Vital Signs Date Time Temp Pulse Resp B/P Pulse Ox O2 Delivery O2 Flow Rate FiO2 01/28/17 17:43 97.5 74 28 140/80 100 Room Air MDM Supervised Visit with CASSANDRA: Mariana Barron Jan 28, 2017 17:51
[2017-01-28] MEDS ORDERED: ONDANSETRON HCL 4 MG/2 ML VIAL IVP ONE (18:15)
[2017-01-28] MEDS ORDERED: SODIUM CHLOR 0.9% 1000 ML INJ 1,000 ML IV ONE (18:15)
[2017-01-28] MEDS ORDERED: HYDROmorphone HCL PF 1 MG/ML VIAL IVS ONE (18:15)
--- NOTE | 2017-01-28 18:19 | PD ---
HPI Chief Complaint: Sickle Cell Time Seen by Provider: 18:05 Travel History International Travel<30 days: No Contact w/Intl Traveler<30days: No Traveled to known affect area: No History of Present Illness HPI 21-year-old male complains of joint pain and groin pain. Patient has history of sickle cell disease with frequent sickle cell crisis. Patient states that the pain started yesterday. Patient denies any fever chills. Patient denies any coughing congestion. Patient denies any dysuria or frequency. Patient denies any nausea vomiting diarrhea. PFSH Past Medical History Anemia: Yes (SICKLE CELL ) Arthritis: No Asthma: No Autoimmune Disease: Yes Blood Disorders: No Anxiety: No Depression: No Heart Rhythm Problems: Yes (MURMUR) Cancer: No Cardiovascular Problems: Yes (HX OF SICKLE CELL, GETS INFUSIONS EVERY FOUR WEEKS .) High Cholesterol: No Chemotherapy: No Chest Pain: Yes Congestive Heart Failure: No COPD: No Cerebrovascular Accident: No Diabetes: No Diminished Hearing: No Endocrine: No Gastrointestinal Disorders: No GERD: No Genitourinary: Yes (priaprism) Headaches: No Hiatal Hernia: No Hypertension: No Immune Disorder: No Implanted Vascular Access Dvce: No Kidney Stones: No Musculoskeletal: No Neurologic: Yes Psychiatric: No Reproductive: No Respiratory: No Immunizations Current: Yes Migraines: No Radiation Therapy: No Renal Failure: No Seizures: No Sickle Cell Disease: Yes Sleep Apnea: No Thyroid Disease: No Ulcer: No Past Surgical History Abdominal Surgery: No AICD: No Arteriovenous Shunt: No Cardiac Surgery: No Ear Surgery: No Endocrine Surgery: No Eye Surgery: No Genitourinary Surgery: Yes (FOR PRIAPISM) Insulin Pump: No Neurologic Surgery: No Pacemaker: No Thoracic Surgery: No Other Surgery: Yes Social History Alcohol Use: No Tobacco Use: No Substance Use: No Allergies-Medications (Allergen,Severity, Reaction): Coded Allergies: Penicillin (Verified Allergy, Severe, told as child, 12/20/16) Reported Meds & Prescriptions Reported Meds & Active Scripts Active Reported Percocet (Oxycodone-Acetaminophen) 5-325 mg Tab 1 Tab PO Q6H PRN Dilaudid (Hydromorphone HCl) 8 Mg Tab 8 Mg PO Q6H PRN Review of Systems General / Constitutional: No: Fever Eyes: No: Visual changes HENT: No: Headaches Cardiovascular: No: Chest Pain or Discomfort Respiratory: No: Shortness of Breath Gastrointestinal: No: Abdominal Pain Genitourinary: No: Dysuria Musculoskeletal: Positive: Pain Skin: No Rash Neurologic: No: Weakness Psychiatric: No: Depression Endocrine: No: Polydipsia Hematologic/Lymphatic: No: Easy Bruising Physical Exam Narrative GENERAL: Well-nourished, well-developed patient. SKIN: Focused skin assessment warm/dry. HEAD: Normocephalic. EYES: No scleral icterus. No injection or drainage. NECK: Supple, trachea midline. No JVD or lymphadenopathy. CARDIOVASCULAR: Regular rate and rhythm without murmurs, gallops, or rubs. RESPIRATORY: Breath sounds equal bilaterally. No accessory muscle use. GASTROINTESTINAL: Abdomen soft, non-tender, nondistended. MUSCULOSKELETAL: No cyanosis, or edema. BACK: Nontender without obvious deformity. No CVA tenderness. Neurologic exam normal. Data Data Last Documented VS Vital Signs Date Time Temp Pulse Resp B/P Pulse Ox O2 Delivery O2 Flow Rate FiO2 01/28/17 17:43 97.5 74 28 140/80 100 Room Air Orders Basic Metabolic Panel (Bmp) (01/28/17 18:15) Complete Blood Count With Diff (01/28/17 18:15) Retic Count (01/28/17 18:15) Ecg Monitoring (01/28/17 18:15) Iv Access Insert/Monitor (01/28/17 18:15) Oximetry (01/28/17 18:15) Ondansetron Inj (Zofran Inj) (01/28/17 18:15) Sodium Chlor 0.9% 1000 Ml Inj (Ns 1000 M (01/28/17 18:15) Hydromorphone Pf Inj (Dilaudid Pf Inj) (01/28/17 18:15) [facility] Medical Decision Making Medical Screen Exam Complete: Yes Emergency Medical Condition: Yes Medical Record Reviewed: Yes Differential Diagnosis Differential diagnosis including sickle cell pain crisis, acute on chronic pain. Narrative Course 31-year-old male with joint pain and groin pain. History of sickle cell disease with frequent sickle cell pain crisis. Normal saline solution 1 L IV bolus. Dilaudid 1 mg IV. Benadryl 50 mg IV. Zofran 4 mg IV. Diagnosis Primary Impression: Sickle cell pain crisis Patient Instructions: General Instructions Additional Instructions: Advised patient to continue pain medication at home. Encouraged by mouth fluid. Follow-up with personal physician. Med/Other Pt SpecificInfo: No Change to Meds Disposition: 01 DISCHARGE HOME Condition: Stable Brody Chris MD Jan 28, 2017 18:19
[2017-01-28] MEDS ORDERED: diphenhydrAMINE HCL 50 MG/ML VIAL IV PUSH ONE (18:30)
[2017-01-28 19:14] LABS: AUTOMATED NEUTROPHIL # 6.2 TH/MM3 (1.8-7.7); BASOPHIL # 0.1 TH/MM3 (0-0.2); BASOPHIL % 0.8 % (0.0-2.0); EOSINOPHIL # 0.3 TH/MM3 (0-0.4); EOSINOPHIL % 2.6 % (0.0-4.0); HEMATOCRIT 34.2 % (39.0-51.0); LYMPH % 23.7 % (9.0-44.0); LYMPHOCYTE # 2.3 TH/MM3 (1.0-4.8); MEAN CELL VOLUME 81.7 FL (80.0-100.0); MEAN CORPUSCULAR HEMOGLOBIN 27.1 PG (27.0-34.0); MEAN CORPUSCULAR HGB CONC 33.1 % (32.0-36.0); MONO % 10.1 % (0.0-8.0); NEUT % 62.8 % (16.0-70.0); PLATELET COUNT 387 TH/MM3 (150-450); RED BLOOD COUNT 4.19 MIL/MM3 (4.50-5.90); RED CELL DISTRIBUTION WIDTH 20.4 % (11.6-17.2); RETIC % 6.8 % (0.4-3.0); WHITE BLOOD COUNT 9.8 TH/MM3 (4.0-11.0)
[2017-01-28 19:17] LABS: HEMO FLAGS AUTO DIFF; REVIEW FLAG AUTO DIFF
[2017-01-28 19:42] LABS: BICARBONATE 25.4 MEQ/L (21.0-32.0); POTASSIUM 3.4 MEQ/L (3.5-5.1)
[2017-01-28 19:54] LABS: SICKLE CELLS 1+ (NORMAL); TARGET CELLS 2+ (NORMAL)
[2017-01-28 19:55] LABS: OVALOCYTES 2+ (NORMAL)
[2017-01-28 19:56] LABS: KERATOCYTES 1+ (NORMAL); SCAN/DIFF AUTO DIFF CONFIRMED
[2017-01-28] MEDS ORDERED: HYDROmorphone HCL PF 1 MG/ML VIAL IV PUSH ONE (20:45)
[2017-01-28 21:03] VITALS: BP 126/76; PULSE 72; RESP 16; O2SAT 98
--- NOTE | 2017-01-28 21:18 | RADRPT ---
EXAM DATE/TIME: 01/28/2017 20:48 [facility] COMPARISON: CHEST SINGLE AP, November 30, 2016, 13:20. INDICATIONS : Chest pain. MEDICAL HISTORY : Sickle Cell. SURGICAL HISTORY : None. ENCOUNTER: Initial ACUITY: 2 days PAIN SCORE: 9/10 LOCATION: Left chest FINDINGS: A single view of the chest demonstrates the lungs to be symmetrically aerated without evidence of mas s, infiltrate or effusion. Cardiac silhouette is prominent.. Osseous structures are intact. CONCLUSION: Prominent cardiac silhouette, negative for infiltrate or failure. Colby Jorge MD FACR on January 28, 2017 at 21:16 Board Certified Radiologist. This report was verified electronically.
--- NOTE | 2017-01-28 22:06 | RADRPT ---
EXAM DATE/TIME: 01/28/2017 22:03 [facility] COMPARISON: No previous studies available for comparison. INDICATIONS : Groin pain. MEDICAL HISTORY : Sickle Cell disease. SURGICAL HISTORY : None. ENCOUNTER: Initial ACUITY: 3 days PAIN SCORE: 5/10 LOCATION: Bladder area, radiating through genitals and inner thighs. FINDINGS: A single frontal view of the pelvis demonstrates no evidence of fracture. The bony pelvic ring is in tact. Bony mineralization is normal. The soft tissues are intact. CONCLUSION: No acute disease. Colby Jorge MD FACR on January 28, 2017 at 22:04 Board Certified Radiologist. This report was verified electronically.
--- NOTE | 2017-01-28 23:04 | PD ---
Data Data Last Documented VS Vital Signs Date Time Temp Pulse Resp B/P Pulse Ox O2 Delivery O2 Flow Rate FiO2 01/28/17 21:03 72 16 126/76 98 Room Air 01/28/17 17:43 97.5 Orders Basic Metabolic Panel (Bmp) (01/28/17 18:15) Complete Blood Count With Diff (01/28/17 18:15) Retic Count (01/28/17 18:15) Ecg Monitoring (01/28/17 18:15) Iv Access Insert/Monitor (01/28/17 18:15) Oximetry (01/28/17 18:15) Ondansetron Inj (Zofran Inj) (01/28/17 18:15) Sodium Chlor 0.9% 1000 Ml Inj (Ns 1000 M (01/28/17 18:15) Hydromorphone Pf Inj (Dilaudid Pf Inj) (01/28/17 18:15) Diphenhydramine Inj (Benadryl Inj) (01/28/17 18:30) Hydromorphone Pf Inj (Dilaudid Pf Inj) (01/28/17 20:45) Chest, Single Ap (01/28/17 ) Electrocardiogram (01/28/17 ) Pelvis, Ap Only (Routine) (01/28/17 ) Admit Order (Ed Use Only) (01/28/17 ) Labs Laboratory Tests Test 01/28/17 18:35 White Blood Count 9.8 TH/MM3 Red Blood Count 4.19 MIL/MM3 Hemoglobin 11.3 GM/DL Hematocrit 34.2 % Mean Corpuscular Volume 81.7 FL Mean Corpuscular Hemoglobin 27.1 PG Mean Corpuscular Hemoglobin 33.1 % Concent Red Cell Distribution Width 20.4 % Platelet Count 387 TH/MM3 Mean Platelet Volume 7.9 FL Neutrophils (%) (Auto) 62.8 % Lymphocytes (%) (Auto) 23.7 % Monocytes (%) (Auto) 10.1 % Eosinophils (%) (Auto) 2.6 % Basophils (%) (Auto) 0.8 % Neutrophils # (Auto) 6.2 TH/MM3 Lymphocytes # (Auto) 2.3 TH/MM3 Monocytes # (Auto) 1.0 TH/MM3 Eosinophils # (Auto) 0.3 TH/MM3 Basophils # (Auto) 0.1 TH/MM3 CBC Comment AUTO DIFF Differential Comment AUTO DIFF CONFIRMED Sickle Cells 1+ Target Cells 2+ Ovalocytes 2+ Keratocytes 1+ Reticulocyte Count 6.8 % Absolute Reticulocyte Count 285.8 MIL/L Sodium Level 141 MEQ/L Potassium Level 3.4 MEQ/L Chloride Level 108 MEQ/L Carbon Dioxide Level 25.4 MEQ/L Anion Gap 8 MEQ/L Blood Urea Nitrogen 6 MG/DL Creatinine 0.68 MG/DL Estimat Glomerular Filtration 175 ML/MIN Rate Random Glucose 80 MG/DL Calcium Level 8.8 MG/DL [facility] Supervised Visit with CASSANDRA: No Interpretation(s) EKG shows normal sinus rhythm normal axis normal R-wave progression. No concerning ST segment changes, intervals within normal limits. This is normal EKG. Narrative Course Patient care assumed from Dr. Chris at 1900, patient is a 21-year-old male with a history of sickle cell anemia presents the emergency department with history of groin pain, bilateral lower extremity pain, chest pain. He states this is typical for his sickle cell pain crisis. Denies any fevers denies any shortness of breath. Basic labs are reassuring, hemoglobin is 11. EKG chest x- ray are negative, have added a pelvis x-ray showing no abnormality: Last 24 hours Impressions Pelvis X-Ray 01/28/17 0000 Signed Impressions: Service Date/Time: Saturday, January 28, 2017 22:03 - CONCLUSION: No acute disease. Colby Jorge MD FACR Chest X-Ray 01/28/17 0000 Signed Impressions: Service Date/Time: Saturday, January 28, 2017 20:48 - CONCLUSION: Prominent cardiac silhouette, negative for infiltrate or failure. Colby Jorge MD FACR Patient was given a milligram of Dilaudid [address] Chris, have given an additional milligram of Dilaudid, the patient states his pain is still an 8 out of 10, he appears comfortable. I discussed with him that at this time he has had a fair amount of Dilaudid and if he is still that painful he needs to consider being admitted to the hospital for observation. He is agreeable. Discussed with Dr. Ortiz. For observation status. Diagnosis Primary Impression: Sickle cell pain crisis Patient Instructions: General Instructions Additional Instruction: Advised patient to continue pain medication at home. Encouraged by mouth fluid. Follow-up with personal physician. Scripts No Active Prescriptions or Reported Meds Disposition: 01 DISCHARGE HOME Condition: Stable Kwame Pathak MD Jan 28, 2017 23:04
[2017-01-28] MEDS ORDERED: ONDANSETRON HCL 4 MG/2 ML VIAL IV PRN (23:45)
[2017-01-28] MEDS ORDERED: HYDROmorphone HCL PF 2 MG/ML VIAL IV PRN (23:45)
[2017-01-28] MEDS ORDERED: HYDROmorphone HCL PF 1 MG/ML VIAL IV PRN (23:45)
[2017-01-29] VITALS (10 sets, daily range): BP systolic 118–142; BP diastolic 64–84; PULSE 63–80; RESP 16–20; TEMP 95.3–97.8; O2SAT 95–98
[2017-01-29] MEDS ORDERED: diphenhydrAMINE HCL 25 MG CAP PO ONE (01:15)
--- NOTE | 2017-01-29 03:18 | HHI.HP ---
[facility] Primary Care Physician No Primary Care Physician Admission Diagnosis Sickle cell pain crisis, Chest pain, groin pain Diagnoses: (1) Sickle cell pain crisis Chief Complaint: Groin pain Travel History International Travel<30 Days: No Contact w/Intl Traveler <30 Da: No Traveled to Known Affected Are: No History of Present Illness The patient is a 21-year-old male with history of sickle cell disease who presented to the emergency department with complaints of pain in the groin radiating down to his legs and to his genitals. He had an episode of chest pain , but that has resolved. He denies fever, chills, night sweats, dyspnea. He states that he often has sickle cell pain in his groin. He did have a prior episode of priapism. Review of Systems Constitutional: DENIES: Fever, Chills, Night Sweats Eyes: DENIES: Blurred vision, Vision loss Ears, nose, mouth, throat: DENIES: Hearing loss Respiratory: DENIES: Cough, Wheezing, Sputum production, Shortness of breath Cardiovascular: DENIES: Chest pain, Palpitations, Dyspnea on Exertion, Lower Extremity Edema Gastrointestinal: DENIES: Abdominal pain, Constipation, Diarrhea, Nausea, Vomiting Genitourinary: DENIES: Urinary frequency, Urinary incontinence, Urgency, Hematuria, Dysuria, Nocturia Musculoskeletal: COMPLAINS OF: Joint pain, DENIES: Muscle aches Integumentary: DENIES: Pruritus, Rash Hematologic/lymphatic: DENIES: Bruising Neurologic: DENIES: Headache Past Family Social History Past Medical History Sickle cell disease History of priapism Past Surgical History Genitourinary surgery for priapism Reported Medications Dilaudid 4 mg every 4 hours as needed Allergies: Coded Allergies: Penicillin (Verified Allergy, Severe, told as child, 12/20/16) Family History Heart disease, diabetes Social History Denies alcohol, tobacco, or illicit drug use. Physical Exam Vital Signs Vital Signs Date Time Temp Pulse Resp B/P Pulse Ox O2 Delivery O2 Flow Rate FiO2 01/29/17 01:09 96.5 76 18 138/75 98 01/29/17 00:55 73 01/28/17 21:03 72 16 126/76 98 Room Air 01/28/17 17:45 72 16 01/28/17 17:43 97.5 74 28 140/80 100 Room Air Physical Exam GENERAL: Well-nourished, well-developed male in no acute distress. HEENT: Normocephalic, atraumatic. Pupils equal, round and reactive. Extraocular movements intact. No scleral icterus. No injection or drainage. Oropharynx is clear. Mucous membranes are moist. CARDIOVASCULAR: Regular rate and rhythm without murmurs, gallops, or rubs. RESPIRATORY: Clear to auscultation. No wheezes, rales, or rhonchi. Breathing is non-labored. GASTROINTESTINAL: Abdomen soft, nondistended. Mild tenderness in the lower abdomen and overlying the pubic symphysis. EXTREMITIES: No lower extremity edema. No calf tenderness. PSYCH: Alert and oriented x 3. Laboratory Laboratory Tests Test 01/28/17 18:35 White Blood Count 9.8 Red Blood Count 4.19 Hemoglobin 11.3 Hematocrit 34.2 Mean Corpuscular Volume 81.7 Mean Corpuscular Hemoglobin 27.1 Mean Corpuscular Hemoglobin 33.1 Concent Red Cell Distribution Width 20.4 Platelet Count 387 Mean Platelet Volume 7.9 Neutrophils (%) (Auto) 62.8 Lymphocytes (%) (Auto) 23.7 Monocytes (%) (Auto) 10.1 Eosinophils (%) (Auto) 2.6 Basophils (%) (Auto) 0.8 Neutrophils # (Auto) 6.2 Lymphocytes # (Auto) 2.3 Monocytes # (Auto) 1.0 Eosinophils # (Auto) 0.3 Basophils # (Auto) 0.1 CBC Comment AUTO DIFF Differential Comment AUTO DIFF CONFIRMED Sickle Cells 1+ Target Cells 2+ Ovalocytes 2+ Keratocytes 1+ Reticulocyte Count 6.8 Absolute Reticulocyte Count 285.8 Sodium Level 141 Potassium Level 3.4 Chloride Level 108 Carbon Dioxide Level 25.4 Anion Gap 8 Blood Urea Nitrogen 6 Creatinine 0.68 Estimat Glomerular Filtration 175 Rate Random Glucose 80 Calcium Level 8.8 Result Diagram: 01/28/17 1835 01/28/17 1835 Imaging Last Impressions Pelvis X-Ray 01/28/17 0000 Signed Impressions: Service Date/Time: Saturday, January 28, 2017 22:03 - CONCLUSION: No acute disease. Colby Jorge MD FACR Chest X-Ray 01/28/17 0000 Signed Impressions: Service Date/Time: Saturday, January 28, 2017 20:48 - CONCLUSION: Prominent cardiac silhouette, negative for infiltrate or failure. Colby Jorge MD FACR Assessment and Plan Assessment and Plan 1. Sickle cell pain crisis: Continue pain control, IV fluids. Continue folic acid, multivitamin. Consider hematology consult if no improvement. 2. DVT prophylaxis: Lovenox. Ronald Ortiz MD Jan 29, 2017 03:18
[2017-01-29] MEDS: HYDROmorphone HCL PF 2 MG/ML VIAL IV PRN ×5 (03:44→23:35)
[2017-01-29] MEDS ORDERED: HYDROmorphone HCL PF 1 MG/ML VIAL IV PRN (03:45)
[2017-01-29] MEDS ORDERED: diphenhydrAMINE HCL 50 MG/ML VIAL IV PUSH PRN (04:30)
[2017-01-29] MEDS: SODIUM CHLOR 0.9% 1000 ML INJ 1,000 ML IV SCH ×2 (04:46→17:50)
[2017-01-29 07:15] LABS: AUTOMATED NEUTROPHIL # 6.6 TH/MM3 (1.8-7.7); BASOPHIL # 0.1 TH/MM3 (0-0.2); BASOPHIL % 0.7 % (0.0-2.0); EOSINOPHIL # 0.3 TH/MM3 (0-0.4); EOSINOPHIL % 3.2 % (0.0-4.0); HEMATOCRIT 33.5 % (39.0-51.0); HEMO FLAGS DIFF FINAL; LYMPH % 24.4 % (9.0-44.0); LYMPHOCYTE # 2.6 TH/MM3 (1.0-4.8); MEAN CELL VOLUME 82.7 FL (80.0-100.0); MEAN CORPUSCULAR HEMOGLOBIN 27.2 PG (27.0-34.0); MEAN CORPUSCULAR HGB CONC 32.9 % (32.0-36.0); MONO % 10.7 % (0.0-8.0); PLATELET COUNT 338 TH/MM3 (150-450); RED BLOOD COUNT 4.05 MIL/MM3 (4.50-5.90); RED CELL DISTRIBUTION WIDTH 20.2 % (11.6-17.2); WHITE BLOOD COUNT 10.8 TH/MM3 (4.0-11.0)
[2017-01-29] MEDS: ENOXAPARIN SODIUM 40 MG/0.4 ML SYRINGE SQ SCH (07:45)
[2017-01-29] MEDS: FOLIC ACID 1 MG TAB PO SCH (07:46)
[2017-01-29] MEDS: DOCUSATE SODIUM 100 MG CAP PO SCH ×2 (07:46→21:00)
[2017-01-29] MEDS: MULTIVITAMIN TAB PO SCH (07:46)
--- NOTE | 2017-01-29 09:29 | HHI.PR ---
Addendum to Inpatient Note Additional Information Mr. Mariano was admitted due to sickle cell vasoocclusive crisis. He complains of groin pain. No fever, chills. We will adjust his pain medications. - Acetaminophen for headache, fever, pain 1-4 - Percocet 7.5/325mg Q6hrs PRN for pain 5-10 - Dilaudid 1.5mg Q4hrs for breakthrough. - increase fluid to NS 125cc/hour. Monty Robison DO Jan 29, 2017 09:29
[2017-01-29] MEDS ORDERED: ACETAMINOPHEN 500 MG CPLT PO PRN (09:30)
[2017-01-29] MEDS ORDERED: HYDROmorphone HCL PF 1 MG/ML VIAL IV PUSH ONE (09:30)
[2017-01-29] MEDS: diphenhydrAMINE HCL 50 MG/ML VIAL IV PUSH PRN ×4 (09:45→23:36)
[2017-01-29] MEDS: oxyCODONE/ACETAMINOPHEN 7.5 MG/325 MG TAB PO PRN ×3 (11:47→22:04)
--- NOTE | 2017-01-29 16:11 | EKG ---
Date Performed: 01/28/2017 Time Performed: 21:32:09 PTAGE: 21 years EKG: Sinus rhythm NORMAL ECG PREVIOUS TRACING : 01/18/2017 17.28 Compared to prior tracing no significant change DOCTOR: Anand Rubio Interpretating Date/Time 01/29/2017 16:10:20
[2017-01-30] VITALS (7 sets, daily range): BP systolic 134–144; BP diastolic 68–76; PULSE 65–105; RESP 16–22; TEMP 97.4–99.9; O2SAT 96–98
[2017-01-30] MEDS: diphenhydrAMINE HCL 50 MG/ML VIAL IV PUSH PRN ×5 (03:21→20:09)
[2017-01-30] MEDS: SODIUM CHLOR 0.9% 1000 ML INJ 1,000 ML IV SCH ×4 (03:22→20:10)
[2017-01-30] MEDS: HYDROmorphone HCL PF 2 MG/ML VIAL IV PRN ×5 (03:22→20:10)
[2017-01-30] MEDS: oxyCODONE/ACETAMINOPHEN 7.5 MG/325 MG TAB PO PRN ×2 (05:57→14:05)
[2017-01-30] MEDS: FOLIC ACID 1 MG TAB PO SCH (08:05)
[2017-01-30] MEDS: MULTIVITAMIN TAB PO SCH (08:05)
[2017-01-30] MEDS: ENOXAPARIN SODIUM 40 MG/0.4 ML SYRINGE SQ SCH (08:05)
[2017-01-30] MEDS: DOCUSATE SODIUM 100 MG CAP PO SCH ×2 (08:07→20:10)
--- NOTE | 2017-01-30 09:40 | HHI.PR ---
Subjective Remarks Follow up for vasoocclusive sickle cell crisis. Patient is doing better. Currently, he only complains of groin pain but groin pain is getting better. No fever, chills. Objective Vitals Vital Signs Date Time Temp Pulse Resp B/P Pulse Ox O2 Delivery O2 Flow Rate FiO2 01/30/17 06:57 20 01/30/17 04:00 97.7 65 16 135/70 96 01/30/17 04:00 105 01/30/17 04:00 Room Air 01/30/17 03:52 20 01/30/17 00:00 97.4 69 16 137/68 96 01/30/17 00:00 85 01/30/17 00:00 Room Air 01/29/17 20:00 Room Air 01/29/17 20:00 97.5 65 16 141/74 96 01/29/17 20:00 63 01/29/17 16:55 97.8 71 20 142/72 97 01/29/17 16:02 76 01/29/17 12:00 80 01/29/17 11:50 97.1 72 20 119/65 95 I/O 01/29/17 01/29/17 01/29/17 01/30/17 01/30/17 01/30/17 07:00 15:00 23:00 07:00 15:00 23:00 Intake Total 480 ml 1292 ml 480 ml 2090 ml Balance 480 ml 1292 ml 480 ml 2090 ml Intake Oral 480 ml 1292 ml 480 ml 720 ml IV Total 1370 ml # Voids 7 1 3 # Bowel Movements 1 Result Diagram: 01/29/17 0657 01/28/17 1835 Imaging Last Impressions Pelvis X-Ray 01/28/17 0000 Signed Impressions: Service Date/Time: Saturday, January 28, 2017 22:03 - CONCLUSION: No acute disease. Colby Jorge MD FACR Chest X-Ray 01/28/17 0000 Signed Impressions: Service Date/Time: Saturday, January 28, 2017 20:48 - CONCLUSION: Prominent cardiac silhouette, negative for infiltrate or failure. Colby Jorge MD FACR Objective Remarks GENERAL: Alert, oriented x 3, NAD SKIN: Warm and dry. HEAD: Normocephalic. EYES: No scleral icterus. No injection or drainage. NECK: Supple, trachea midline. No JVD or lymphadenopathy. CARDIOVASCULAR: Regular rate and rhythm without murmurs, gallops, or rubs. RESPIRATORY: Breath sounds equal bilaterally. No accessory muscle use. GASTROINTESTINAL: Abdomen soft, non-tender, nondistended. MUSCULOSKELETAL: No cyanosis, or edema. BACK: Nontender without obvious deformity. No CVA tenderness. Procedures None. A/P Problem List: (1) Sickle cell pain crisis ICD Code: D57.00 Status: Acute Assessment and Plan Mr. Mariano is a 21 year old male with a history of Sickle cell disease who was admitted due to sickle cell vasoocclusive crisis. - Sickle cell vasoocclusive pain crisis - Pain is better. We will continue IV pain medications, folic acid, Normal saline - Groin area pain is improving. - Encourage patient to ambulate. Full code. Lovenox. Discharge plan: Potential discharge in the morning. Monty Robison DO Jan 30, 2017 9:40 am
[2017-01-31] VITALS: BP 122/71; PULSE 71; RESP 16; TEMP 97.3; O2SAT 97
[2017-01-31] MEDS: diphenhydrAMINE HCL 50 MG/ML VIAL IV PUSH PRN ×6 (00:20→21:43)
[2017-01-31] MEDS: HYDROmorphone HCL PF 2 MG/ML VIAL IV PRN ×3 (00:21→09:38)
[2017-01-31 04:00] VITALS: BP 119/76; PULSE 67; RESP 15; TEMP 98; O2SAT 96
[2017-01-31] MEDS: SODIUM CHLOR 0.9% 1000 ML INJ 1,000 ML IV SCH (06:06)
[2017-01-31 08:00] VITALS: BP 130/70; PULSE 63; RESP 18; TEMP 97.3; O2SAT 95
[2017-01-31] MEDS: oxyCODONE/ACETAMINOPHEN 7.5 MG/325 MG TAB PO PRN ×3 (08:28→20:46)
[2017-01-31] MEDS: DOCUSATE SODIUM 100 MG CAP PO SCH ×2 (08:28→21:00)
[2017-01-31] MEDS: FOLIC ACID 1 MG TAB PO SCH (08:28)
[2017-01-31] MEDS: MULTIVITAMIN TAB PO SCH (08:28)
[2017-01-31] MEDS: ENOXAPARIN SODIUM 40 MG/0.4 ML SYRINGE SQ SCH (09:00)
--- NOTE | 2017-01-31 09:33 | HHI.PR ---
Subjective Remarks Follow up for vasoocclusive sickle cell crisis. Patient complains of left upper chest pain, sharp, knife like. Groin pain is somewhat better. No fever, chills. Objective Vitals Vital Signs Date Time Temp Pulse Resp B/P Pulse Ox O2 Delivery O2 Flow Rate FiO2 01/31/17 08:36 Room Air 01/31/17 08:00 97.3 63 18 130/70 95 01/31/17 05:14 16 01/31/17 04:00 98.0 67 15 119/76 96 01/31/17 00:00 97.3 71 16 122/71 97 01/30/17 20:45 Room Air 01/30/17 20:00 98.3 86 18 134/76 96 01/30/17 16:00 99.9 81 22 137/71 96 01/30/17 12:10 83 01/30/17 12:00 98.5 74 16 144/75 98 I/O 01/30/17 01/30/17 01/30/17 01/31/17 01/31/17 01/31/17 07:00 15:00 23:00 07:00 15:00 23:00 Intake Total 2090 ml 1220 ml 720 ml Balance 2090 ml 1220 ml 720 ml Intake Oral 720 ml 1220 ml 720 ml IV Total 1370 ml # Voids 3 3 2 Result Diagram: 01/29/17 0657 01/28/17 1835 Objective Remarks GENERAL: Alert, oriented x 3, NAD SKIN: Warm and dry. HEAD: Normocephalic. EYES: No scleral icterus. No injection or drainage. NECK: Supple, trachea midline. No JVD or lymphadenopathy. CARDIOVASCULAR: Regular rate and rhythm without murmurs, gallops, or rubs. RESPIRATORY: Breath sounds equal bilaterally. No accessory muscle use. GASTROINTESTINAL: Abdomen soft, non-tender, nondistended. MUSCULOSKELETAL: No cyanosis, or edema. BACK: Nontender without obvious deformity. No CVA tenderness. Procedures None. A/P Problem List: (1) Sickle cell pain crisis ICD Code: D57.00 Status: Acute Assessment and Plan Mr. Mariano is a 21 year old male with a history of Sickle cell disease who was admitted due to sickle cell vasoocclusive crisis. - Sickle cell vasoocclusive pain crisis - We will continue IV pain medications, folic acid. Patient is eating, drinking well. Will d/c IV normal saline. - Groin area pain is improving. However, he complains of knife sharp pain on the left upper chest. - Encourage patient to ambulate. Full code. [place]. Will re-assess this afternoon for potential discharge. Monty Robison DO Jan 31, 2017 9:33 am
[2017-01-31] MEDS ORDERED: HYDROmorphone HCL PF 1 MG/ML VIAL IV PRN (11:45)
[2017-01-31 12:00] VITALS: BP 123/58; PULSE 73; RESP 18; TEMP 97.6; O2SAT 97
[2017-01-31 16:00] VITALS: BP 137/76; PULSE 76; RESP 18; TEMP 98; O2SAT 97
[2017-01-31 20:00] VITALS: BP 131/67; PULSE 77; RESP 17; TEMP 97.8; O2SAT 95
[2017-01-31] MEDS: HYDROmorphone HCL PF 1 MG/ML VIAL IV PRN (21:49)
[2017-02-01] VITALS: BP 131/69; PULSE 83; RESP 17; TEMP 97.8; O2SAT 96
[2017-02-01] MEDS: diphenhydrAMINE HCL 50 MG/ML VIAL IV PUSH PRN ×2 (01:50→08:01)
[2017-02-01] MEDS: HYDROmorphone HCL PF 1 MG/ML VIAL IV PRN ×2 (01:50→07:57)
[2017-02-01 04:00] VITALS: BP 122/70; PULSE 68; RESP 17; TEMP 97.5; O2SAT 97
[2017-02-01] MEDS: oxyCODONE/ACETAMINOPHEN 7.5 MG/325 MG TAB PO PRN (06:36)
[2017-02-01 07:50] VITALS: BP 122/66; PULSE 74; RESP 20; TEMP 97.4; O2SAT 98
[2017-02-01] MEDS: FOLIC ACID 1 MG TAB PO SCH (07:57)
[2017-02-01] MEDS: ENOXAPARIN SODIUM 40 MG/0.4 ML SYRINGE SQ SCH (08:06)
[2017-02-01] MEDS: MULTIVITAMIN TAB PO SCH (08:06)
[2017-02-01] MEDS: DOCUSATE SODIUM 100 MG CAP PO SCH (08:06)
[2017-02-01] MEDS ORDERED: TRAM50TA PO (09:29)
[2017-02-01] MEDS ORDERED: FOLI1TAB6 PO (09:29)
--- NOTE | 2017-02-01 09:32 | HHI.DS ---
Discharge Summary Admission Date Jan 29, 2017 at 1:11 pm Discharge Date: Feb 01, 2017 Admitting Diagnosis Sickle cell pain crisis, Chest pain, groin pain (1) Sickle cell pain crisis ICD Code: D57.00 Procedures None. Brief History - From Admission The patient is a 21-year-old male with history of sickle cell disease who presented to the emergency department with complaints of pain in the groin radiating down to his legs and to his genitals. He had an episode of chest pain , but that has resolved. He denies fever, chills, night sweats, dyspnea. He states that he often has sickle cell pain in his groin. He did have a prior episode of priapism. CBC/BMP: 01/29/17 0657 01/28/17 1835 Imaging Last Impressions Pelvis X-Ray 01/28/17 0000 Signed Impressions: Service Date/Time: Saturday, January 28, 2017 22:03 - CONCLUSION: No acute disease. Colby Jorge MD FACR Chest X-Ray 01/28/17 0000 Signed Impressions: Service Date/Time: Saturday, January 28, 2017 20:48 - CONCLUSION: Prominent cardiac silhouette, negative for infiltrate or failure. Colby Jorge MD FACR PE at Discharge GENERAL: Alert, oriented x 3, NAD SKIN: Warm and dry. HEAD: Normocephalic. EYES: No scleral icterus. No injection or drainage. NECK: Supple, trachea midline. No JVD or lymphadenopathy. CARDIOVASCULAR: Regular rate and rhythm without murmurs, gallops, or rubs. RESPIRATORY: Breath sounds equal bilaterally. No accessory muscle use. GASTROINTESTINAL: Abdomen soft, non-tender, nondistended. MUSCULOSKELETAL: No cyanosis, or edema. BACK: Nontender without obvious deformity. No CVA tenderness. Pt update on day of discharge Mr. Mariano is doing well. Pain is much improved. Wants to go home. Hospital Course Mr. Mariano is a 21 year old male with a history of Sickle cell disease who was admitted due to sickle cell vasoocclusive crisis. - Sickle cell vasoocclusive pain crisis - Patient was given supportive treatments with IV fluid, folic acid, IV and PO pain medications. - Discussed at length on the day of discharge on 02/01/2017 - Patient needs to have a automatic edger locally where he goes to go school. - Will refer to Dr. Sheets (hematology) to establish care. - Tramadol PRN for pain upon discharge. Pt Condition on Discharge: Good Discharge Disposition: Discharge Home Discharge Time: <= 30 minutes Discharge Instructions DIET: Follow Instructions for: As Tolerated, No Restrictions Activities you can perform: Regular-No Restrictions Follow up Referrals: Oncology - 2 Weeks with Jhony Sheets MD PCP Follow-up - 1 Week New Medications: Tramadol (Tramadol) 50 Mg Tab 50 MG PO Q8H PRN PAIN #15 Ref 0 TAB Folic Acid (Folic Acid) 1 Mg Tablet 1 MG PO DAILY Sickle cell disease #90 BOTTLE Monty Robison DO Feb 01, 2017 9:32 am
== END 2017-02-01 11:17 | disposition home or self-care (01) | DRG 812 ==
LOC: NEPC 17:41 → NEDA 23:04 → HOCB 01-29 00:41 → OBSVTOIN 01-29 13:11
PROVIDERS: ADMIT Hospitalist; ATTEND Hospitalist
DX: D57.00 Hb-SS disease with crisis, unspecified (principal)
CPT/HCPCS: 71010; 72170; 76937; 80048; 85025; 85044; 93005; 94150; 96365; 96375; 96376; G0378; J1170; J1200; J1650; J2405; J7030

== ENCOUNTER 2017-02-08 13:26 | Emergency (ER) | payer MEDICAID ==
[~2017-02-08] VITALS: Ht 188 cm; Wt 90.0 kg
[~2017-02-08 13:26] MED LIST changes: -DILA8TAB4 PO; +FOLI1TAB6 PO; -PERC5TAB12 PO; +TRAM50TA PO
[2017-02-08 13:40] VITALS: BP 136/86; PULSE 73; RESP 16; TEMP 97.9; O2SAT 97
--- NOTE | 2017-02-08 13:53 | PD ---
HPI Chief Complaint: Sickle Cell Time Seen by Provider: 13:53 Travel History International Travel<30 days: No Contact w/Intl Traveler<30days: No Traveled to known affect area: No History of Present Illness HPI 21-year-old male who is a known sickle cell disease patient and has been in the emergency room multiple times came to the ER for left shoulder and groin pain. Patient was here just 2 weeks ago for the same complaints. Vital signs are stable. He says he has an oncologist here that he follows up with and another one in [place]. He has been taking folic acid like he supposed to. [facility] Past Medical History Narrative Medical List of his past medical, surgical, social and family history is reviewed from the nursing note. Anemia: Yes (SICKLE CELL ) Arthritis: No Asthma: No Autoimmune Disease: Yes Blood Disorders: No Anxiety: No Depression: No Heart Rhythm Problems: Yes (MURMUR) Cancer: No Cardiovascular Problems: Yes (HX OF SICKLE CELL, GETS INFUSIONS EVERY FOUR WEEKS .) High Cholesterol: No Chemotherapy: No Chest Pain: Yes Congestive Heart Failure: No COPD: No Cerebrovascular Accident: No Diabetes: No Diminished Hearing: No Endocrine: No Gastrointestinal Disorders: No GERD: No Genitourinary: Yes (priaprism) Headaches: No Hiatal Hernia: No Hypertension: No Immune Disorder: No Implanted Vascular Access Dvce: No Kidney Stones: No Musculoskeletal: No Neurologic: Yes Psychiatric: No Reproductive: No Respiratory: No Immunizations Current: Yes Migraines: No Radiation Therapy: No Renal Failure: No Seizures: No Sickle Cell Disease: Yes Sleep Apnea: No Thyroid Disease: No Ulcer: No Past Surgical History Abdominal Surgery: No AICD: No Arteriovenous Shunt: No Cardiac Surgery: No Ear Surgery: No Endocrine Surgery: No Eye Surgery: No Genitourinary Surgery: Yes (FOR PRIAPISM) Insulin Pump: No Neurologic Surgery: No Pacemaker: No Thoracic Surgery: No Other Surgery: Yes Social History Alcohol Use: No Tobacco Use: No Substance Use: No Allergies-Medications (Allergen,Severity, Reaction): Coded Allergies: Penicillin (Verified Allergy, Severe, told as child, 12/20/16) Comments List of his allergies reviewed from the nursing note. Reported Meds & Prescriptions Reported Meds & Active Scripts Active Tramadol (Tramadol HCl) 50 Mg Tab 50 Mg PO Q8H PRN Folic Acid 1 Mg Tablet 1 Mg PO DAILY Narrative Medication List of his home medications reviewed from the nursing note. Review of Systems Except as stated in HPI: all other systems reviewed are Neg Physical Exam Narrative GENERAL: Awake, alert, anxious, moderate distress SKIN: Focused skin assessment warm/dry. HEAD: Atraumatic. Normocephalic. EYES: Pupils equal and round. No scleral icterus. No injection or drainage. ENT: No nasal bleeding or discharge. Mucous membranes pink and moist. NECK: Trachea midline. No JVD. CARDIOVASCULAR: Regular rate and rhythm. No murmur appreciated. RESPIRATORY: No accessory muscle use. Clear to auscultation. Breath sounds equal bilaterally. GASTROINTESTINAL: Abdomen soft, non-tender, nondistended. Hepatic and splenic margins not palpable. MUSCULOSKELETAL: No obvious deformities. No clubbing. No cyanosis. No edema. NEUROLOGICAL: Awake and alert. No obvious cranial nerve deficits. Motor grossly within normal limits. Normal speech. PSYCHIATRIC: Appropriate mood and affect; insight and judgment normal. Data Data Last Documented VS Orders Complete Blood Count With Diff (02/08/17 14:08) Basic Metabolic Panel (Bmp) (02/08/17 14:08) Urinalysis - C+S If Indicated (02/08/17 14:08) Morphine Inj (Morphine Inj) (02/08/17 14:15) Sodium Chlor 0.9% 1000 Ml Inj (Ns 1000 M (02/08/17 14:15) Electrocardiogram (02/08/17 ) Diphenhydramine (Benadryl) (02/08/17 15:30) Labs MDM Medical Decision Making Medical Screen Exam Complete: Yes Emergency Medical Condition: Yes Medical Record Reviewed: Yes Interpretation(s) Twelve-lead EKG was reviewed by me. Normal sinus rhythm, normal axis, nonspecific ST-T wave changes. Heart rate of 71 bpm. Differential Diagnosis Sickle cell crisis, chronic pain Narrative Course 3:30 PM patient was medicated for pain and 1 L of IV fluid ordered. Blood test results came back and they look unchanged from his blood test done 2 weeks ago. I'll discharge him home. Procedures EKG Prior to Arrival: No Diagnosis Primary Impression: Sickle cell pain crisis Referrals: Primary Care Physician Additional Instructions: Please follow-up with your chemist inorganic in next couple days if the pain persists. Continue taking folic acid and drink lots of fluid. Med/Other Pt SpecificInfo: No Change to Meds Disposition: DISCHARGE HOME Condition: Stable Daniella Morales MD Feb 08, 2017 13:53 Mean Platelet Volume 7.7 FL Neutrophils (%) (Auto) 66.9 % Lymphocytes (%) (Auto) 17.3 % Monocytes (%) (Auto) 14.0 % Eosinophils (%) (Auto) 1.1 % Basophils (%) (Auto) 0.7 % Neutrophils # (Auto) 7.8 TH/MM3 Lymphocytes # (Auto) 2.0 TH/MM3 Monocytes # (Auto) 1.6 TH/MM3 Eosinophils # (Auto) 0.1 TH/MM3 Basophils # (Auto) 0.1 TH/MM3 CBC Comment DIFF FINAL Differential Comment Sodium Level 139 MEQ/L Potassium Level 3.7 MEQ/L Chloride Level 108 MEQ/L Carbon Dioxide Level 24.4 MEQ/L Anion Gap 7 MEQ/L Blood Urea Nitrogen 5 MG/DL Creatinine 0.70 MG/DL Estimat Glomerular Filtration 169 ML/MIN Rate Random Glucose 83 MG/DL Calcium Level 8.3 MG/DL [facility] Medical Decision Making Medical Screen Exam Complete: Yes Emergency Medical Condition: Yes Medical Record Reviewed: Yes Interpretation(s) Twelve-lead EKG was reviewed by me. Normal sinus rhythm, normal axis, nonspecific ST-T wave changes. Heart rate of 71 bpm. Differential Diagnosis Sickle cell crisis, chronic pain Narrative Course 3:30 PM patient was medicated for pain and 1 L of IV fluid ordered. Blood test results came back and they look unchanged from his blood test done 2 weeks ago. I'll discharge him home. Procedures EKG Prior to Arrival: No Diagnosis Primary Impression: Sickle cell pain crisis Referrals: Primary Care Physician Additional Instructions: Please follow-up with your chemist inorganic in next couple days if the pain persists. Continue taking folic acid and drink lots of fluid. Med/Other Pt SpecificInfo: No Change to Meds Disposition: DISCHARGE HOME Condition: Daniella Reina MD Feb 08, 2017 13:53
[2017-02-08] MEDS ORDERED: MORPHINE SULFATE 8 MG/ML INJ IV PUSH ONE (14:15)
[2017-02-08] MEDS ORDERED: SODIUM CHLOR 0.9% 1000 ML INJ 1,000 ML IV ONE (14:15)
[2017-02-08 15:00] VITALS: RESP 20
[2017-02-08 15:07] LABS: AUTOMATED NEUTROPHIL # 7.8 TH/MM3 (1.8-7.7); BASOPHIL # 0.1 TH/MM3 (0-0.2); BASOPHIL % 0.7 % (0.0-2.0); EOSINOPHIL # 0.1 TH/MM3 (0-0.4); EOSINOPHIL % 1.1 % (0.0-4.0); HEMATOCRIT 33.5 % (39.0-51.0); HEMO FLAGS DIFF FINAL; LYMPH % 17.3 % (9.0-44.0); MEAN CELL VOLUME 81.9 FL (80.0-100.0); MEAN CORPUSCULAR HEMOGLOBIN 27.6 PG (27.0-34.0); MEAN CORPUSCULAR HGB CONC 33.7 % (32.0-36.0); NEUT % 66.9 % (16.0-70.0); PLATELET COUNT 359 TH/MM3 (150-450); RED BLOOD COUNT 4.09 MIL/MM3 (4.50-5.90); WHITE BLOOD COUNT 11.7 TH/MM3 (4.0-11.0)
[2017-02-08 15:27] LABS: BICARBONATE 24.4 MEQ/L (21.0-32.0); POTASSIUM 3.7 MEQ/L (3.5-5.1)
[2017-02-08] MEDS ORDERED: diphenhydrAMINE HCL 25 MG CAP PO ONE (15:30)
[2017-02-08 16:00] LABS: BLOOD, URINE NEG (NEG); COMMENT (UR) CULT NOT INDICATED; CULTURE IF INDICATED CULT NOT INDICATED; GLUCOSE,URINE NEG (NEG); KETONE, URINE NEG (NEG); MUCUS URINE FEW /lpf (OCC); NITRITE,URINE NEG (NEG); URINE COLOR YELLOW (YELLW/STRAW)
[2017-02-08 16:10] VITALS: BP 126/85
--- NOTE | 2017-02-09 09:50 | EKG ---
Date Performed: 02/08/2017 Time Performed: 15:14:54 PTAGE: 21 years EKG: Sinus rhythm NORMAL ECG INTERPRETATION BASED ON A DEFAULT AGE OF 38 YEARS PREVIOUS TRACING : 01/28/2017 21.32 DOCTOR: Sanya Lynn Interpretating Date/Time 02/09/2017 09:49:05
== END 2017-02-08 16:20 | disposition home or self-care (01) ==
LOC: NEPE 13:26
DX: D57.00 Hb-SS disease with crisis, unspecified (principal); Z79.899 Other long term (current) drug therapy; Z88.0 Allergy status to penicillin
CPT/HCPCS: 80048; 81001; 85025; 93005; 96361; 96374; 99284; J2270; J7030

== ENCOUNTER 2017-03-22 00:09 | Emergency (ER) | payer MEDICAID ==
[~2017-03-22] VITALS: Ht 188 cm; Wt 92.5 kg
[2017-03-22 00:15] VITALS: BP 126/66; PULSE 90; RESP 20; TEMP 98.1; O2SAT 96
--- NOTE | 2017-03-22 00:28 | PD ---
HPI Chief Complaint: sickle cell pain Time Seen by Provider: 00:27 Travel History International Travel<30 days: No Contact w/Intl Traveler<30days: No Traveled to known affect area: No History of Present Illness HPI The patient is a 22-year-old male, frequent visitor to the emergency department for sickle cell pain crises who complains of his usual shoulder and groin pain. He denies any chest pain. He has had the shoulder groin pain now for 4 days. He says he usually takes 4 mg of Dilaudid tablets but he ran out. He states he has an oncologist in [place] and 1 here. He states he is taking folic acid. He denies any fever. His hemoglobin was 11.3 on the 18th of last month. PFSH Past Medical History Anemia: Yes (SICKLE CELL ) Arthritis: No Asthma: No Autoimmune Disease: Yes Blood Disorders: No Anxiety: No Depression: No Heart Rhythm Problems: Yes (MURMUR) Cancer: No Cardiovascular Problems: Yes (HX OF SICKLE CELL, GETS INFUSIONS EVERY FOUR WEEKS .) High Cholesterol: No Chemotherapy: No Chest Pain: Yes Congestive Heart Failure: No COPD: No Cerebrovascular Accident: No Diabetes: No Diminished Hearing: No Endocrine: No Gastrointestinal Disorders: No GERD: No Genitourinary: Yes (priaprism) Headaches: No Hiatal Hernia: No Hypertension: No Immune Disorder: No Implanted Vascular Access Dvce: No Kidney Stones: No Musculoskeletal: No Neurologic: Yes Psychiatric: No Reproductive: No Respiratory: No Immunizations Current: Yes Migraines: No Radiation Therapy: No Renal Failure: No Seizures: No Sickle Cell Disease: Yes Sleep Apnea: No Thyroid Disease: No Ulcer: No Past Surgical History Abdominal Surgery: No AICD: No Arteriovenous Shunt: No Cardiac Surgery: No Ear Surgery: No Endocrine Surgery: No Eye Surgery: No Genitourinary Surgery: Yes (FOR PRIAPISM) Insulin Pump: No Neurologic Surgery: No Pacemaker: No Thoracic Surgery: No Other Surgery: Yes Social History Alcohol Use: No Tobacco Use: No Substance Use: No Allergies-Medications (Allergen,Severity, Reaction): Coded Allergies: penicillin G (Verified Allergy, Severe, told as child, 03/22/17) Reported Meds & Prescriptions Reported Meds & Active Scripts Active Reported Dilaudid (Hydromorphone HCl) 4 Mg Tab 4 Mg PO Q4H PRN Review of Systems Except as stated in HPI: all other systems reviewed are Neg Physical Exam Narrative GENERAL: The patient is alert, oriented 3 and moderate apparent distress with his sickle cell pain. His vital signs are normal. SKIN: Focused skin assessment warm/dry. HEAD: Atraumatic. Normocephalic. EYES: Pupils equal and round. No scleral icterus. No injection or drainage. ENT: No nasal bleeding or discharge. Mucous membranes pink and moist. NECK: Trachea midline. No JVD. CARDIOVASCULAR: Regular rate and rhythm. No murmur appreciated. RESPIRATORY: No accessory muscle use. Clear to auscultation. Breath sounds equal bilaterally. GASTROINTESTINAL: Abdomen soft, non-tender, nondistended. Hepatic and splenic margins not palpable. No guarding or rebound is present. MUSCULOSKELETAL: No obvious deformities. No clubbing. No cyanosis. No edema. NEUROLOGICAL: Awake and alert. No obvious cranial nerve deficits. Motor grossly within normal limits. Normal speech. PSYCHIATRIC: Appropriate mood and affect; insight and judgment normal. Data Data Last Documented VS Vital Signs Date Time Temp Pulse Resp B/P (MAP) Pulse Ox O2 Delivery O2 Flow Rate FiO2 03/22/17 02:23 18 03/22/17 01:44 96 Room Air 03/22/17 00:15 98.1 90 Orders Orders Basic Metabolic Panel (Bmp) (03/22/17 01:21) Complete Blood Count With Diff (03/22/17 01:21) Urinalysis - C+S If Indicated (03/22/17 01:21) Ecg Monitoring (03/22/17 01:21) Iv Access Insert/Monitor (03/22/17 01:21) Oximetry (03/22/17 01:21) Sodium Chloride 0.9% Flush (Ns Flush) (03/22/17 01:30) Sodium Chlor 0.9% 1000 Ml Inj (Ns 1000 M (03/22/17 01:21) Morphine Inj (Morphine Inj) (03/22/17 01:30) Diphenhydramine Inj (Benadryl Inj) (03/22/17 01:30) Morphine Inj (Morphine Inj) (03/22/17 02:00) Ondansetron Inj (Zofran Inj) (03/22/17 02:00) Morphine Inj (Morphine Inj) (03/22/17 03:15) Diphenhydramine Inj (Benadryl Inj) (03/22/17 03:15) Labs Laboratory Tests Test 03/22/17 01:30 03/22/17 02:44 White Blood Count 14.4 TH/MM3 Red Blood Count 3.76 MIL/MM3 Hemoglobin 11.4 GM/DL Hematocrit 34.8 % Mean Corpuscular Volume 92.5 FL Mean Corpuscular Hemoglobin 30.3 PG Mean Corpuscular Hemoglobin Concent 32.8 % Red Cell Distribution Width 22.7 % Platelet Count 243 TH/MM3 Mean Platelet Volume 7.8 FL CBC Comment AUTO DIFF Differential Total Cells Counted 100 Neutrophils % (Manual) 71 % Lymphocytes % 15 % Monocytes % 11 % Eosinophils % 1 % Basophils % 2 % Neutrophils # (Manual) 10.2 TH/MM3 Nucleated Red Blood Cells 3 /100 WBC Differential Comment FINAL DIFF MANUAL Platelet Estimate NORMAL Platelet Morphology Comment NORMAL Polychromasia 2.6 % Sickle Cells 1+ Ovalocytes 1+ Blood Urea Nitrogen 9 MG/DL Creatinine 0.77 MG/DL Random Glucose 83 MG/DL Calcium Level 8.2 MG/DL Sodium Level 137 MEQ/L Potassium Level 3.4 MEQ/L Chloride Level 106 MEQ/L Carbon Dioxide Level 22.3 MEQ/L Anion Gap 9 MEQ/L Estimat Glomerular Filtration Rate 150 ML/MIN Urine Color YELLOW Urine Turbidity CLEAR Urine pH 6.0 Urine Specific [place] 1.010 Urine Protein NEG mg/dL Urine Glucose (UA) NEG mg/dL Urine Ketones NEG mg/dL Urine Occult Blood NEG Urine Nitrite NEG Urine Bilirubin NEG Urine Leukocyte Esterase NEG Urine WBC 0-2 /hpf Urine Squamous Epithelial Cells 0-5 /hpf Urine Mucus OCC /lpf Microscopic Urinalysis Comment CULT NOT INDICATED MDM Medical Decision Making Medical Screen Exam Complete: Yes Emergency Medical Condition: Yes Medical Record Reviewed: Yes Interpretation(s) The CBC shows a white count of 14,400 with 1+ sickle cells and a hemoglobin of 11.4 and hematocrit of 34.8. The basic metabolic profile shows a potassium 3.4 and calcium 8.2 but is otherwise normal. The urinalysis is normal and culture is not indicated. Differential Diagnosis Vaso-occlusive crisis, drug seeking behavior, anemia requiring transfusion, electrolyte disorder Narrative Course The patient has a vaso-occlusive crisis. It is now 0311 and the patient feels better, he request a little more morphine to go home with. Diagnosis Primary Impression: Vaso-occlusive sickle cell crisis Additional Instructions: Increased liquids at home and follow-up with your md do resident urgent care. As you're doing , continued to get a local md do resident urgent care to make things easier on you. Med/Other Pt SpecificInfo: No Change to Meds Disposition: 01 DISCHARGE HOME Condition: Stable Todd Juan MD Mar 22, 2017 00:28
[2017-03-22] MEDS ORDERED: DILA4TAB2 PO (00:30)
[2017-03-22] MEDS ORDERED: SODIUM CHLOR 0.9% 1000 ML INJ 1,000 ML IV ONE (01:21)
[2017-03-22] MEDS ORDERED: MORPHINE SULFATE 8 MG/ML INJ IV PUSH ONE ×2 (01:30→02:00)
[2017-03-22] MEDS ORDERED: diphenhydrAMINE HCL 50 MG/ML VIAL IV PUSH ONE ×2 (01:30→03:15)
[2017-03-22] MEDS ORDERED: SODIUM CHLORIDE 0.9% FLUSH 10 ML FLUSH IVF PRN (01:30)
[2017-03-22 01:39] LABS: HEMATOCRIT 34.8 % (39.0-51.0); MEAN CELL VOLUME 92.5 FL (80.0-100.0); MEAN CORPUSCULAR HEMOGLOBIN 30.3 PG (27.0-34.0); MEAN CORPUSCULAR HGB CONC 32.8 % (32.0-36.0); PLATELET COUNT 243 TH/MM3 (150-450); RED BLOOD COUNT 3.76 MIL/MM3 (4.50-5.90); RED CELL DISTRIBUTION WIDTH 22.7 % (11.6-17.2); WHITE BLOOD COUNT 14.4 TH/MM3 (4.0-11.0)
[2017-03-22 01:44] VITALS: O2SAT 96
[2017-03-22 01:57] LABS: POTASSIUM 3.4 MEQ/L (3.5-5.1)
[2017-03-22 02:00] LABS: BICARBONATE 22.3 MEQ/L (21.0-32.0)
[2017-03-22] MEDS ORDERED: ONDANSETRON HCL 4 MG/2 ML VIAL IV ONE (02:00)
[2017-03-22 02:11] LABS: HEMO FLAGS AUTO DIFF
[2017-03-22 02:21] LABS: BASOPHILS 2 % (0-2); CORRECTED NUCLEATED RBC 3 /100 WBC (0-0); EOSINOPHILS 1 % (0-4); NEUTROPHIL # MANUAL DIFF 10.2 TH/MM3 (1.8-7.7); POLYS (SEG NEUTROPHILS) 71 % (16-70); WBC DIFF SAMPLE 100
[2017-03-22 02:22] LABS: POLYCHROMASIA 2.6 % (0.0-1.9); SICKLE CELLS 1+ (NORMAL)
[2017-03-22 02:23] LABS: OVALOCYTES 1+ (NORMAL); PLATELET ESTIMATE SMEAR NORMAL (NORMAL); PLATELET MORPHOLOGY NORMAL (NORMAL); SCAN/DIFF FINAL DIFF MANUAL
[2017-03-22 02:54] LABS: BLOOD, URINE NEG (NEG); GLUCOSE,URINE NEG (NEG); KETONE, URINE NEG (NEG); NITRITE,URINE NEG (NEG)
[2017-03-22 03:03] LABS: URINE COLOR YELLOW (YELLW/STRAW)
[2017-03-22 03:05] LABS: COMMENT (UR) CULT NOT INDICATED; CULTURE IF INDICATED CULT NOT INDICATED; MUCUS URINE OCC /lpf (OCC); SQUAMOUS EPITHELIAL CELL URINE 0-5 /hpf (0-5); WBC, URINE 0-2 /hpf (0-5)
[2017-03-22 03:15] VITALS: BP 136/69; PULSE 90; RESP 18; O2SAT 96
[2017-03-22] MEDS ORDERED: MORPHINE SULFATE 4 MG/ML INJ IV PUSH ONE (03:15)
[2017-03-22 03:22] VITALS: RESP 18
== END 2017-03-22 03:33 | disposition home or self-care (01) ==
LOC: PHED 00:09
DX: D57.00 Hb-SS disease with crisis, unspecified (principal)
CPT/HCPCS: 80048; 81001; 85007; 85027; 96361; 96374; 96375; 96376; 99284; J1200; J2270; J2405; J7030

== ENCOUNTER 2017-03-31 18:28 | Emergency (ER) | payer MEDICAID ==
[~2017-03-31] VITALS: Ht 188 cm; Wt 94.0 kg
[~2017-03-31 18:28] MED LIST changes: +DILA4TAB2 PO; -FOLI1TAB6 PO; -TRAM50TA PO
[2017-03-31 18:29] VITALS: BP 141/68; PULSE 101; RESP 20; TEMP 98.6; O2SAT 97
[2017-03-31] MEDS ORDERED: SODIUM CHLOR 0.9% 1000 ML INJ 1,000 ML IV ONE ×2 (19:14→20:45)
[2017-03-31] MEDS ORDERED: SODIUM CHLORIDE 0.9% FLUSH 10 ML FLUSH IVF PRN (19:15)
--- NOTE | 2017-03-31 19:28 | PD ---
HPI Chief Complaint: Sickle Cell Time Seen by Provider: 19:14 Travel History International Travel<30 days: No Contact w/Intl Traveler<30days: No Traveled to known affect area: No History of Present Illness HPI 22 y/o male presents with complaint of sickle cell crisis and states he has no pain medication to take at home. He notes chest pain and groin pain that has been present since he was here last. He states he has been pushing fluids for pain control. He denies other complaints. pain is sharp. severity is moderate. he denies modifying factors. PFSH Past Medical History Anemia: Yes (SICKLE CELL ) Arthritis: No Asthma: No Autoimmune Disease: Yes Blood Disorders: No Anxiety: No Depression: No Heart Rhythm Problems: Yes (MURMUR) Cancer: No Cardiovascular Problems: Yes (HX OF SICKLE CELL, GETS INFUSIONS EVERY FOUR WEEKS .) High Cholesterol: No Chemotherapy: No Chest Pain: Yes Congestive Heart Failure: No COPD: No Cerebrovascular Accident: No Diabetes: No Diminished Hearing: No Endocrine: No Gastrointestinal Disorders: No GERD: No Genitourinary: Yes (priaprism) Headaches: No Hiatal Hernia: No Hypertension: No Immune Disorder: No Implanted Vascular Access Dvce: No Kidney Stones: No Musculoskeletal: No Neurologic: Yes Psychiatric: No Reproductive: No Respiratory: No Immunizations Current: Yes Migraines: No Radiation Therapy: No Renal Failure: No Seizures: No Sickle Cell Disease: Yes Sleep Apnea: No Thyroid Disease: No Ulcer: No Tetanus Vaccination: Unknown Past Surgical History Surgical History: No Previous Surgery Abdominal Surgery: No AICD: No Arteriovenous Shunt: No Cardiac Surgery: No Ear Surgery: No Endocrine Surgery: No Eye Surgery: No Genitourinary Surgery: Yes (FOR PRIAPISM) Insulin Pump: No Neurologic Surgery: No Pacemaker: No Thoracic Surgery: No Other Surgery: Yes Social History Alcohol Use: No Tobacco Use: No Substance Use: No Allergies-Medications (Allergen,Severity, Reaction): Coded Allergies: penicillin G (Verified Allergy, Severe, told as child, 03/31/17) Reported Meds & Prescriptions Reported Meds & Active Scripts Active Reported Dilaudid (Hydromorphone HCl) 4 Mg Tab 4 Mg PO Q4H PRN Review of Systems Except as stated in HPI: all other systems reviewed are Neg Physical Exam Narrative GENERAL: SKIN: Warm and dry. HEAD: Atraumatic. Normocephalic. EYES: Pupils equal and round. No injection or drainage. ENT: No nasal bleeding or discharge. Mucous membranes pink and moist. NECK: Trachea midline. No JVD. CARDIOVASCULAR: Regular rate and rhythm. RESPIRATORY: No accessory muscle use. Clear to auscultation. Breath sounds equal bilaterally. GASTROINTESTINAL: Abdomen soft, non-tender, nondistended. MUSCULOSKELETAL: Extremities without clubbing, cyanosis, or edema. No obvious deformities. NEUROLOGICAL: Awake and alert. No obvious cranial nerve deficits. Motor grossly within normal limits. Normal speech. PSYCHIATRIC: Appropriate mood and affect; insight and judgment normal. Data Data Last Documented VS Vital Signs Date Time Temp Pulse Resp B/P (MAP) Pulse Ox O2 Delivery O2 Flow Rate FiO2 03/31/17 22:41 03/31/17 20:57 78 18 96 Nasal Cannula 2.00 03/31/17 18:29 98.6 Orders Orders Complete Blood Count With Diff (03/31/17 19:14) Comprehensive Metabolic Panel (03/31/17 19:14) Retic Count (03/31/17 19:14) Urinalysis - C+S If Indicated (03/31/17 19:14) Ecg Monitoring (03/31/17 19:14) Iv Access Insert/Monitor (03/31/17 19:14) Oximetry (03/31/17 19:14) Sodium Chloride 0.9% Flush (Ns Flush) (03/31/17 19:15) Sodium Chlor 0.9% 1000 Ml Inj (Ns 1000 M (03/31/17 19:14) Chest, Pa & Lat (03/31/17 ) Morphine Inj (Morphine Inj) (03/31/17 19:30) Ondansetron Inj (Zofran Inj) (03/31/17 19:30) Morphine Inj (Morphine Inj) (03/31/17 20:30) Sodium Chlor 0.9% 1000 Ml Inj (Ns 1000 M (03/31/17 20:45) Morphine Inj (Morphine Inj) (03/31/17 21:30) Diphenhydramine (Benadryl) (03/31/17 22:45) Labs Laboratory Tests Test 03/31/17 19:45 03/31/17 21:40 White Blood Count 16.8 TH/MM3 Red Blood Count 3.42 MIL/MM3 Hemoglobin 10.9 GM/DL Hematocrit 31.8 % Mean Corpuscular Volume 92.8 FL Mean Corpuscular Hemoglobin 31.8 PG Mean Corpuscular Hemoglobin Concent 34.3 % Red Cell Distribution Width 23.6 % Platelet Count 257 TH/MM3 Mean Platelet Volume 7.8 FL Neutrophils (%) (Auto) 68.2 % Lymphocytes (%) (Auto) 16.6 % Monocytes (%) (Auto) 11.8 % Eosinophils (%) (Auto) 2.8 % Basophils (%) (Auto) 0.6 % Neutrophils # (Auto) 11.4 TH/MM3 Lymphocytes # (Auto) 2.8 TH/MM3 Monocytes # (Auto) 2.0 TH/MM3 Eosinophils # (Auto) 0.5 TH/MM3 Basophils # (Auto) 0.1 TH/MM3 CBC Comment AUTO DIFF Differential Total Cells Counted 100 Neutrophils % (Manual) 76 % Band Neutrophils % 1 % Lymphocytes % 13 % Monocytes % 8 % Eosinophils % 1 % Basophils % 1 % Neutrophils # (Manual) 12.9 TH/MM3 Nucleated Red Blood Cells 3 /100 WBC Differential Comment FINAL DIFF MANUAL Platelet Estimate NORMAL Platelet Morphology Comment NORMAL Polychromasia 3.2 % Sickle Cells 2+ Ovalocytes 1+ Keratocytes OCC Reticulocyte Count 12.8 % Absolute Reticulocyte Count 438.9 MIL/L Blood Urea Nitrogen 9 MG/DL Creatinine 0.79 MG/DL Random Glucose 81 MG/DL Total Protein 7.9 GM/DL Albumin 4.0 GM/DL Calcium Level 8.5 MG/DL Alkaline Phosphatase 96 U/L Aspartate Amino Transf (AST/SGOT) 40 U/L Alanine Aminotransferase (ALT/SGPT) 32 U/L Total Bilirubin 4.7 MG/DL Sodium Level 137 MEQ/L Potassium Level 4.0 MEQ/L Chloride Level 105 MEQ/L Carbon Dioxide Level 25.7 MEQ/L Anion Gap 6 MEQ/L Estimat Glomerular Filtration Rate 146 ML/MIN Urine Color YELLOW Urine Turbidity CLEAR Urine pH 7.0 Urine Specific [place] 1.007 Urine Protein NEG mg/dL Urine Glucose (UA) NEG mg/dL Urine Ketones NEG mg/dL Urine Occult Blood NEG Urine Nitrite NEG Urine Bilirubin NEG Urine Urobilinogen 2.0 MG/DL Urine Leukocyte Esterase NEG Urine RBC LESS THAN 1 /hpf Urine WBC 1 /hpf Microscopic Urinalysis Comment CULT NOT INDICATED MDM Medical Decision Making Medical Screen Exam Complete: Yes Emergency Medical Condition: Yes Medical Record Reviewed: Yes (h confirmed) Interpretation(s) CBC & BMP Diagram 03/31/17 19:45 Total Protein 7.9, Albumin 4.0, Calcium Level 8.5, Alkaline Phosphatase 96, Aspartate Amino Transf (AST/SGOT) 40 H, Alanine Aminotransferase (ALT/SGPT) 32, Total Bilirubin 4.7 H Differential Diagnosis vasoocclusive crisis, strain, uti, pain refill Narrative Course will check labs, ua, cxr and dose with ivf, morphine, zofran and reeval ed workup with elevated reticulocytes and wbc with pain uncontrolled, patient will be placed in observation, given 3 doses of morphine patient agreed to admit but then when I was with another patient elected to leave ama because he was wanting iv benadryl instead of po Diagnosis Primary Impression: Vaso-occlusive sickle cell crisis Additional Impressions: abdominal/groin pain Chest pain Qualified Codes: R07.9 - Chest pain, unspecified Disposition: 07 AGAINST MEDICAL ADVICE Condition: Stable Irma Montes De Oca MD Mar 31, 2017 19:28
[2017-03-31] MEDS ORDERED: ONDANSETRON HCL 4 MG/2 ML VIAL IV PUSH ONE (19:30)
[2017-03-31] MEDS ORDERED: MORPHINE SULFATE 4 MG/ML INJ IV PUSH ONE ×3 (19:30→21:30)
[2017-03-31 20:14] LABS: AUTOMATED NEUTROPHIL # 11.4 TH/MM3 (1.8-7.7); BASOPHIL # 0.1 TH/MM3 (0-0.2); BASOPHIL % 0.6 % (0.0-2.0); EOSINOPHIL # 0.5 TH/MM3 (0-0.4); EOSINOPHIL % 2.8 % (0.0-4.0); HEMATOCRIT 31.8 % (39.0-51.0); LYMPH % 16.6 % (9.0-44.0); LYMPHOCYTE # 2.8 TH/MM3 (1.0-4.8); MEAN CELL VOLUME 92.8 FL (80.0-100.0); MEAN CORPUSCULAR HEMOGLOBIN 31.8 PG (27.0-34.0); MEAN CORPUSCULAR HGB CONC 34.3 % (32.0-36.0); MONO % 11.8 % (0.0-8.0); NEUT % 68.2 % (16.0-70.0); PLATELET COUNT 257 TH/MM3 (150-450); RED BLOOD COUNT 3.42 MIL/MM3 (4.50-5.90); RED CELL DISTRIBUTION WIDTH 23.6 % (11.6-17.2); RETIC % 12.8 % (0.4-3.0); WHITE BLOOD COUNT 16.8 TH/MM3 (4.0-11.0)
[2017-03-31 20:20] LABS: HEMO FLAGS AUTO DIFF; REVIEW FLAG AUTO DIFF
--- NOTE | 2017-03-31 20:30 | RADRPT ---
EXAM DATE/TIME: 03/31/2017 20:14 [facility] COMPARISON: CHEST PA & LAT, December 06, 2016, 2:32. INDICATIONS : Palpitations MEDICAL HISTORY : Sickle Cell disease. SURGICAL HISTORY : None. ENCOUNTER: Initial ACUITY: 3 days PAIN SCORE: 0/10 LOCATION: chest FINDINGS: PA and lateral views of the chest demonstrate the lungs to be symmetrically aerated without evidence of mass, infiltrate or effusion. The cardiomediastinal contours are unremarkable. Osseous structure s are intact. CONCLUSION: No acute cardiopulmonary process. Nri Fontenot MD on March 31, 2017 at 20:29 Board Certified Radiologist. This report was verified electronically.
[2017-03-31 20:38] LABS: ALT (GPT) 32 U/L (12-78)
[2017-03-31 20:40] LABS: ALKALINE PHOSPHATASE 96 U/L (45-117); ANION GAP 6 MEQ/L (5-15); AST (GOT) 40 U/L (15-37); BICARBONATE 25.7 MEQ/L (21.0-32.0); BLOOD UREA NITROGEN 9 MG/DL (7-18); CHLORIDE 105 MEQ/L (98-107); GLOMERULAR FILTRATION RATE 146 ML/MIN (>89); SODIUM (NA) 137 MEQ/L (136-145); TOTAL BILIRUBIN ADULT 4.7 MG/DL (0.2-1.0)
[2017-03-31 20:53] LABS: BANDS 1 % (0-6); BASOPHILS 1 % (0-2); CORRECTED NUCLEATED RBC 3 /100 WBC (0-0); EOSINOPHILS 1 % (0-4); NEUTROPHIL # MANUAL DIFF 12.9 TH/MM3 (1.8-7.7); POLYS (SEG NEUTROPHILS) 76 % (16-70); WBC DIFF SAMPLE 100
[2017-03-31 20:54] LABS: POLYCHROMASIA 3.2 % (0.0-1.9)
[2017-03-31 20:55] LABS: KERATOCYTES OCC (NORMAL); OVALOCYTES 1+ (NORMAL); PLATELET ESTIMATE SMEAR NORMAL (NORMAL); PLATELET MORPHOLOGY NORMAL (NORMAL); SCAN/DIFF FINAL DIFF MANUAL; SICKLE CELLS 2+ (NORMAL)
[2017-03-31 20:57] VITALS: BP 129/68; PULSE 78; RESP 18; O2SAT 96
[2017-03-31 21:54] LABS: BLOOD, URINE NEG (NEG); GLUCOSE,URINE NEG (NEG); KETONE, URINE NEG (NEG); NITRITE,URINE NEG (NEG); URINE COLOR YELLOW (YELLW/STRAW)
[2017-03-31 21:56] LABS: COMMENT (UR) CULT NOT INDICATED; CULTURE IF INDICATED CULT NOT INDICATED
[2017-03-31] MEDS ORDERED: diphenhydrAMINE HCL 25 MG CAP PO ONE (22:45)
== END 2017-03-31 22:49 | disposition left against medical advice (07) ==
LOC: NEPC 18:28
DX: D57.00 Hb-SS disease with crisis, unspecified (principal); R10.30 Lower abdominal pain, unspecified; R07.9 Chest pain, unspecified; Z86.2 Personal history of diseases of the blood and blood-forming organs and certain disorders involving the immune mechanism; Z86.79 Personal history of other diseases of the circulatory system; Z87.448 Personal history of other diseases of urinary system; Z86.69 Personal history of other diseases of the nervous system and sense organs; Z53.29 Procedure and treatment not carried out because of patient's decision for other reasons
CPT/HCPCS: 71020; 80053; 81001; 85007; 85027; 85044; 96361; 96374; 96375; 96376; 99284; J2270; J2405; J7030

== ENCOUNTER 2017-04-21 20:07 | Inpatient (IN) | payer MEDICAID ==
[~2017-04-21] VITALS: Ht 188 cm; Wt 88.5 kg
[2017-04-21] MEDS ORDERED: IOHEXOL 350 MG/ML 10 ML VIAL (for RAD DIAG) IVCONTRAST ONE (20:08)
[2017-04-21 20:10] VITALS: BP 146/72; PULSE 79; RESP 12; TEMP 98.7; O2SAT 98
[2017-04-21] MEDS ORDERED: SODIUM CHLOR 0.9% 1000 ML INJ 1,000 ML IV ONE (20:42)
[2017-04-21] MEDS ORDERED: ONDANSETRON HCL 4 MG/2 ML VIAL IVP ONE (20:45)
[2017-04-21] MEDS ORDERED: HYDROmorphone HCL PF 1 MG/ML VIAL IVS ONE (20:45)
[2017-04-21] MEDS ORDERED: diphenhydrAMINE HCL 50 MG/ML VIAL IV PUSH ONE (20:45)
[2017-04-21] MEDS: SODIUM CHLORIDE 0.9% FLUSH 10 ML FLUSH IVF PRN ×2 (20:52→23:31)
[2017-04-21 21:16] LABS: AUTOMATED NEUTROPHIL # 9.7 TH/MM3 (1.8-7.7); BASOPHIL # 0.2 TH/MM3 (0-0.2); BASOPHIL % 1.1 % (0.0-2.0); EOSINOPHIL # 0.2 TH/MM3 (0-0.4); EOSINOPHIL % 1.7 % (0.0-4.0); HEMATOCRIT 34.4 % (39.0-51.0); LYMPH % 18.9 % (9.0-44.0); LYMPHOCYTE # 2.7 TH/MM3 (1.0-4.8); MEAN CELL VOLUME 89.9 FL (80.0-100.0); MEAN CORPUSCULAR HEMOGLOBIN 29.8 PG (27.0-34.0); MEAN CORPUSCULAR HGB CONC 33.2 % (32.0-36.0); MONO % 8.9 % (0.0-8.0); NEUT % 69.4 % (16.0-70.0); PLATELET COUNT 373 TH/MM3 (150-450); RED BLOOD COUNT 3.82 MIL/MM3 (4.50-5.90); RED CELL DISTRIBUTION WIDTH 24.7 % (11.6-17.2); WHITE BLOOD COUNT 14.1 TH/MM3 (4.0-11.0)
[2017-04-21 21:17] LABS: HEMO FLAGS AUTO DIFF
[2017-04-21 21:21] VITALS: BP 138/75; PULSE 75; RESP 18; O2SAT 98
[2017-04-21 21:23] LABS: CHLORIDE 103 MEQ/L (98-107); POTASSIUM 3.6 MEQ/L (3.5-5.1); SODIUM (NA) 137 MEQ/L (136-145)
[2017-04-21 21:26] LABS: ANION GAP 7 MEQ/L (5-15); BICARBONATE 27.2 MEQ/L (21.0-32.0); BLOOD UREA NITROGEN 8 MG/DL (7-18)
[2017-04-21 21:29] LABS: ALT (GPT) 37 U/L (12-78); AST (GOT) 41 U/L (15-37)
--- NOTE | 2017-04-21 21:29 | PD ---
HPI Chief Complaint: Sickle Cell Time Seen by Provider: 20:20 Travel History International Travel<30 days: No Contact w/Intl Traveler<30days: No Traveled to known affect area: No History of Present Illness HPI This is a 22-year-old male with a history of sickle cell disease who presents to the emergency department with left-sided chest discomfort feeling like a stabbing in the left rib cage, constant, moderate severity with no associated shortness of breath or cough. He says it doesn't hurt to take a deep breath. He also has severe leg pain but this is normal for his vaso-occlusive crises. He says the chest pain is unusual for him. PFSH Past Medical History Anemia: Yes (SICKLE CELL ) Arthritis: No Asthma: No Autoimmune Disease: Yes Blood Disorders: No Anxiety: No Depression: No Heart Rhythm Problems: Yes (MURMUR) Cancer: No Cardiovascular Problems: Yes (HX OF SICKLE CELL, GETS INFUSIONS EVERY FOUR WEEKS .) High Cholesterol: No Chemotherapy: No Chest Pain: Yes Congestive Heart Failure: No COPD: No Cerebrovascular Accident: No Diabetes: No Diminished Hearing: No Endocrine: No Gastrointestinal Disorders: No GERD: No Genitourinary: Yes (priaprism) Headaches: No Hiatal Hernia: No Hypertension: No Immune Disorder: No Implanted Vascular Access Dvce: No Kidney Stones: No Musculoskeletal: No Neurologic: Yes Psychiatric: No Reproductive: No Respiratory: No Immunizations Current: Yes Migraines: No Pneumonia: Yes Radiation Therapy: No Renal Failure: No Seizures: No Sickle Cell Disease: Yes Sleep Apnea: No Thyroid Disease: No Ulcer: No Tetanus Vaccination: > 5 Years Past Surgical History Abdominal Surgery: No AICD: No Arteriovenous Shunt: No Cardiac Surgery: No Ear Surgery: No Endocrine Surgery: No Eye Surgery: No Genitourinary Surgery: Yes (FOR PRIAPISM) Insulin Pump: No Neurologic Surgery: No Pacemaker: No Thoracic Surgery: No Other Surgery: Yes Social History Alcohol Use: No Tobacco Use: No Substance Use: No Allergies-Medications (Allergen,Severity, Reaction): Coded Allergies: penicillin G (Verified Allergy, Severe, told as child, 04/21/17) Reported Meds & Prescriptions Reported Meds & Active Scripts Active Reported Ibuprofen 600 Mg Tab 600 Mg PO Q6H PRN Dilaudid (Hydromorphone HCl) 4 Mg Tab 4 Mg PO Q4H PRN Review of Systems Except as stated in HPI: all other systems reviewed are Neg Physical Exam Narrative GENERAL: Uncomfortable appearing SKIN: Focused skin assessment warm and dry. HEAD: Atraumatic. Normocephalic. EYES: Pupils equal and round. No injection or drainage. ENT: Moist mucous membranes NECK: Trachea midline. CARDIOVASCULAR: Regular rate and rhythm. No murmur appreciated. RESPIRATORY: Clear to auscultation. Breath sounds equal bilaterally. GASTROINTESTINAL: Abdomen soft, non-tender, nondistended. MUSCULOSKELETAL: No obvious deformities. NEUROLOGICAL: Awake and alert. No obvious cranial nerve deficits. Moving all extremities. PSYCHIATRIC: Appropriate mood and affect; insight and judgment normal. Data Data Last Documented VS Vital Signs Date Time Temp Pulse Resp B/P (MAP) Pulse Ox O2 Delivery O2 Flow Rate FiO2 04/21/17 23:32 83 18 136/62 (86) Nasal Cannula 2.00 04/21/17 22:16 99 04/21/17 20:10 98.7 Orders Orders Ed Poc Ultrasound (04/21/17 ) Complete Blood Count With Diff (04/21/17 20:42) Comprehensive Metabolic Panel (04/21/17 20:42) Retic Count (04/21/17 20:42) Urinalysis - C+S If Indicated (04/21/17 20:42) Ecg Monitoring (04/21/17 20:42) Iv Access Insert/Monitor (04/21/17 20:42) Oximetry (04/21/17 20:42) Ondansetron Inj (Zofran Inj) (04/21/17 20:45) Sodium Chloride 0.9% Flush (Ns Flush) (04/21/17 20:45) Sodium Chlor 0.9% 1000 Ml Inj (Ns 1000 M (04/21/17 20:42) Hydromorphone Pf Inj (Dilaudid Pf Inj) (04/21/17 20:45) Diphenhydramine Inj (Benadryl Inj) (04/21/17 20:45) D-Dimer (04/21/17 20:42) Chest, Single Ap (04/21/17 ) Electrocardiogram (04/21/17 20:27) Electrocardiogram (04/21/17 ) Troponin I (04/21/17 20:40) Hydromorphone Pf Inj (Dilaudid Pf Inj) (04/21/17 21:45) Ct Pulmonary Angiogram (04/21/17 ) Iohexol 350 Inj (Omnipaque 350 Inj) (04/21/17 20:08) Hydromorphone Pf Inj (Dilaudid Pf Inj) (04/21/17 23:00) Admit Order (Ed Use Only) (04/22/17 00:37) Admit To Inpatient (04/22/17 ) Vital Signs (Adult) Q4H (04/22/17 00:47) Activity Oob With Assistance (04/22/17 00:47) Presentation Designer / Telemetry .CONTINUOUS (04/22/17 00:47) Diet Heart Healthy (04/22/17 Breakfast) Sodium Chlor 0.9% 1000 Ml Inj (Ns 1000 M (04/22/17 00:47) Sodium Chloride 0.9% Flush (Ns Flush) (04/22/17 01:00) Sodium Chloride 0.9% Flush (Ns Flush) (04/22/17 09:00) Naloxone Inj (Narcan Inj) (04/22/17 01:00) Inpatient Certification (04/22/17 ) Hydromorphone Pf Inj (Dilaudid Pf Inj) (04/22/17 01:00) Labs Laboratory Tests Test 04/21/17 20:40 04/21/17 22:45 White Blood Count 14.1 TH/MM3 Red Blood Count 3.82 MIL/MM3 Hemoglobin 11.4 GM/DL Hematocrit 34.4 % Mean Corpuscular Volume 89.9 FL Mean Corpuscular Hemoglobin 29.8 PG Mean Corpuscular Hemoglobin Concent 33.2 % Red Cell Distribution Width 24.7 % Platelet Count 373 TH/MM3 Mean Platelet Volume 8.0 FL Neutrophils (%) (Auto) 69.4 % Lymphocytes (%) (Auto) 18.9 % Monocytes (%) (Auto) 8.9 % Eosinophils (%) (Auto) 1.7 % Basophils (%) (Auto) 1.1 % Neutrophils # (Auto) 9.7 TH/MM3 Lymphocytes # (Auto) 2.7 TH/MM3 Monocytes # (Auto) 1.3 TH/MM3 Eosinophils # (Auto) 0.2 TH/MM3 Basophils # (Auto) 0.2 TH/MM3 CBC Comment AUTO DIFF Differential Total Cells Counted 100 Neutrophils % (Manual) 50 % Band Neutrophils % 1 % Lymphocytes % 40 % Monocytes % 6 % Eosinophils % 2 % Basophils % 1 % Neutrophils # (Manual) 7.2 TH/MM3 Nucleated Red Blood Cells 3 /100 WBC Differential Comment FINAL DIFF MANUAL Atypical Lymphocytes % Platelet Estimate HIGH Platelet Morphology Comment NORMAL Sickle Cells 2+ Target Cells 1+ Tear Drop Cells 1+ Ovalocytes 1+ Reticulocyte Count 9.8 % Absolute Reticulocyte Count 378.7 MIL/L D-Dimer Quantitative (PE/DVT) 3.03 MG/L FEU Blood Urea Nitrogen 8 MG/DL Creatinine 0.69 MG/DL Random Glucose 89 MG/DL Total Protein 8.1 GM/DL Albumin 4.0 GM/DL Calcium Level 8.8 MG/DL Alkaline Phosphatase 79 U/L Aspartate Amino Transf (AST/SGOT) 41 U/L Alanine Aminotransferase (ALT/SGPT) 37 U/L Total Bilirubin 3.6 MG/DL Sodium Level 137 MEQ/L Potassium Level 3.6 MEQ/L Chloride Level 103 MEQ/L Carbon Dioxide Level 27.2 MEQ/L Anion Gap 7 MEQ/L Estimat Glomerular Filtration Rate 171 ML/MIN Troponin I LESS THAN 0.02 NG/ML Urine Color YELLOW Urine Turbidity CLEAR Urine pH 6.0 Urine Specific [place] 1.010 Urine Protein NEG mg/dL Urine Glucose (UA) NEG mg/dL Urine Ketones NEG mg/dL Urine Occult Blood NEG Urine Nitrite NEG Urine Bilirubin NEG Urine Leukocyte Esterase NEG Urine RBC 0-2 /hpf Urine WBC 0-2 /hpf Urine Squamous Epithelial Cells 0-5 /hpf Urine Bacteria NONE /hpf Microscopic Urinalysis Comment CULT NOT INDICATED MDM Medical Decision Making Medical Screen Exam Complete: Yes Emergency Medical Condition: Yes Interpretation(s) Afebrile, no tachycardia, mild hypertension Leukocytosis Anemia Elevated reticulocyte count Electrolytes are reassuring Total bilirubin is 3.6 which is similar to prior Troponin is normal D-dimer is 3 Urinalysis is negative for infection Last 24 hours Impressions Chest X-Ray 04/21/17 0000 Signed Impressions: Service Date/Time: March 21:23 - CONCLUSION: Borderline to mild cardiomegaly. Clear lungs. Angel Floyd MD CT Angiography 04/21/17 0000 Signed Impressions: Service Date/Time: March 22:33 - CONCLUSION: No pulmonary embolus. Trace left base atelectasis. Angel Floyd MD Differential Diagnosis Vaso-occlusive crisis, acute chest syndrome, pulmonary embolism, pneumonia, myocardial infarction Narrative Course This is a 22-year-old male with a history of sickle cell disease who presents to the emergency department with left-sided chest discomfort as well as pain in his legs. He was placed on a monitor and an IV was established. EKG was obtained which was reassuring. Labs are obtained which demonstrated a mild leukocytosis which is common for him during his vaso-occlusive crisis in the past. D-dimer was elevated compared to prior. CT pulmonary angiogram was obtained given his discrete chest pain on the left side which was reassuring. Patient was given multiple doses of Dilaudid and IV fluids. Patient continues to have pain. He will be admitted for observation and symptomatic control. Physician Communication Physician Communication Discussed with Dr. Al Diagnosis Primary Impression: Sickle cell anemia with crisis Admitting Information Admitting Physician Requests: Observation Patient Instructions: General Instructions Additional Instructions: If you develop severe chest pain, shortness of breath, sweating, lightheadedness , dizziness or difficulty breathing return to the emergency department immediately. Followup with your primary care physician in 2-3 days if your symptoms are not resolved. Med/Other Pt SpecificInfo: No Change to Meds Disposition: 01 DISCHARGE HOME Condition: Stable Celeste Duffy MD Apr 21, 2017 21:29
[2017-04-21 21:30] LABS: GLOMERULAR FILTRATION RATE 171 ML/MIN (>89)
[2017-04-21 21:31] LABS: TOTAL BILIRUBIN ADULT 3.6 MG/DL (0.2-1.0)
[2017-04-21 21:32] LABS: ALKALINE PHOSPHATASE 79 U/L (45-117)
--- NOTE | 2017-04-21 21:34 | RADRPT ---
EXAM DATE/TIME: 04/21/2017 21:23 [facility] COMPARISON: CHEST PA & LAT, March 31, 2017, 20:14. INDICATIONS : Left chest pain. MEDICAL HISTORY : None. SURGICAL HISTORY : None. ENCOUNTER: Initial ACUITY: 1 day PAIN SCORE: 9/10 LOCATION: Left chest FINDINGS: No infiltrate, effusion or pneumothorax. Heart size is slightly increased, currently upper limits of normal to mildly enlarged. CONCLUSION: Borderline to mild cardiomegaly. Clear lungs. Angel Floyd MD on April 21, 2017 at 21:32 Board Certified Radiologist. This report was verified electronically.
[2017-04-21] MEDS ORDERED: IBUP-232 PO (21:41)
[2017-04-21] MEDS ORDERED: HYDROmorphone HCL PF 1 MG/ML VIAL IV PUSH ONE ×2 (21:45→23:00)
[2017-04-21 21:49] LABS: BANDS 1 % (0-6); BASOPHILS 1 % (0-2); CORRECTED NUCLEATED RBC 3 /100 WBC (0-0); EOSINOPHILS 2 % (0-4); NEUTROPHIL # MANUAL DIFF 7.2 TH/MM3 (1.8-7.7); POLYS (SEG NEUTROPHILS) 50 % (16-70); WBC DIFF SAMPLE 100
[2017-04-21 21:50] LABS: OVALOCYTES 1+ (NORMAL); SICKLE CELLS 2+ (NORMAL); TARGET CELLS 1+ (NORMAL)
[2017-04-21 21:52] LABS: PLATELET ESTIMATE SMEAR HIGH (NORMAL); PLATELET MORPHOLOGY NORMAL (NORMAL); SCAN/DIFF FINAL DIFF MANUAL; TEARDROP RBCS 1+ (NORMAL)
[2017-04-21 22:16] VITALS: BP 128/61; O2SAT 99
[2017-04-21 22:27] LABS: RETIC % 9.8 % (0.4-3.0); REVIEW FLAG FINAL
--- NOTE | 2017-04-21 22:55 | RADRPT ---
EXAM DATE/TIME: 04/21/2017 22:33 [place] COMPARISON: No previous studies available for comparison. INDICATIONS : Left arm, leg and chest pain for 24 hours. Elevated D-Dimer. IV CONTRAST: 74 cc Omnipaque 350 (iohexol) IV RADIATION DOSE: 11.27 CTDIvol (mGy) MEDICAL HISTORY : Sickle cell disease. SURGICAL HISTORY : None. ENCOUNTER: Initial ACUITY: 1 day PAIN SCALE: 10/10 LOCATION: Left upper chest TECHNIQUE: Volumetric scanning of the chest was performed using a pulmonary embolism protocol MIP images were re constructed. Using automated exposure control and adjustment of the mA and/or kV according to patien t size, radiation dose was kept as low as reasonably achievable to obtain optimal diagnostic quality images. DICOM format image data is available electronically for review and comparison. Follow-up recommendations for detected pulmonary nodules are based at a minimum on nodule size and pa tient risk factors according to Fleischner Society Guidelines. FINDINGS: PULMONARY ARTERIES: No filling defects are seen in the pulmonary arteries through the segmental level. LUNGS: Trace basilar atelectasis, mostly on the left. PLEURAE: There is no pleural thickening or pleural effusion. MEDIASTINUM: There is good visualization of the great vessels of the middle mediastinum. No evidence of mediastin al or hilar adenopathy/mass. MUSCULOSKELETAL: Within normal limits for patient age. MISCELLANEOUS: The visualized upper abdominal organs demonstrate no acute abnormality. CONCLUSION: No pulmonary embolus. Trace left base atelectasis. Angel Floyd MD on April 21, 2017 at 22:53 Board Certified Radiologist. This report was verified electronically.
[2017-04-21 22:59] LABS: BLOOD, URINE NEG (NEG); GLUCOSE,URINE NEG (NEG); KETONE, URINE NEG (NEG); NITRITE,URINE NEG (NEG)
[2017-04-21 23:07] LABS: URINE COLOR YELLOW (YELLW/STRAW)
[2017-04-21 23:08] LABS: COMMENT (UR) CULT NOT INDICATED; CULTURE IF INDICATED CULT NOT INDICATED; RBC, URINE 0-2 /hpf (0-3); SQUAMOUS EPITHELIAL CELL URINE 0-5 /hpf (0-5); WBC, URINE 0-2 /hpf (0-5)
[2017-04-21 23:32] VITALS: BP 136/62; PULSE 83; RESP 18
[2017-04-22] VITALS (10 sets, daily range): BP systolic 114–144; BP diastolic 59–81; PULSE 61–81; RESP 16–20; TEMP 96.8–98.8; O2SAT 92–98
[2017-04-22] MEDS ORDERED: SODIUM CHLORIDE 0.9% FLUSH 10 ML FLUSH IV FLUSH PRN (01:00)
[2017-04-22] MEDS ORDERED: NALOXONE HCL 0.4 MG/ML AMP IV PUSH PRN (01:00)
[2017-04-22] MEDS: SODIUM CHLOR 0.9% 1000 ML INJ 1,000 ML IV SCH ×4 (01:10→16:04)
[2017-04-22] MEDS: HYDROmorphone HCL PF 1 MG/ML VIAL IV PUSH PRN ×6 (02:05→21:41)
[2017-04-22] MEDS: diphenhydrAMINE HCL 50 MG/ML VIAL IV PUSH PRN ×4 (02:38→21:42)
[2017-04-22] MEDS: SODIUM CHLORIDE 0.9% FLUSH 10 ML FLUSH IV FLUSH SCH ×2 (08:45→21:00)
[2017-04-22] MEDS ORDERED: DOCUSATE SODIUM 50 MG/SENNA 8.6 MG TAB PO PRN (10:00)
--- NOTE | 2017-04-22 10:25 | EKG ---
Date Performed: 04/21/2017 Time Performed: 20:27:07 PTAGE: 22 years EKG: Sinus rhythm NORMAL ECG INTERPRETATION BASED ON A DEFAULT AGE OF 38 YEARS PREVIOUS TRACING : 02/08/2017 15.14 Compared to prior tracing no significant change DOCTOR: Anson Ruvalcaba Interpretating Date/Time 04/22/2017 10:19:25
[2017-04-22] MEDS: FOLIC ACID 1 MG TAB PO SCH (10:44)
[2017-04-22] MEDS: MULTIVITAMIN TAB PO SCH (10:44)
--- NOTE | 2017-04-22 12:07 | HHI.HP ---
[facility] Primary [facility] Physician No Primary Care Physician Admission Diagnosis sickle cell crisis Diagnoses: (1) Sickle cell anemia with pain Diagnosis: Principal Chief Complaint: Chest pain Travel History International Travel<30 Days: No Contact w/Intl Traveler <30 Da: No Traveled to Known Affected Are: No History of Present Illness Written by Ronald Juan, acting as scribe for Dr. Kasper on 04/22/17 at 11: 55. 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 Patient states that he is unable to locate PCP in this area as well as hematology to accept him. He states that he goes to a shipping associate in [place] the last time he was there was in March. Patient states that he gets treatment for his sickle cell anemia with blood transfusions monthly. He states that he is to be on Hydrea however that was discontinued and he gets blood transfusions to protect him from priapism. Patient usually takes folic acid voun-ogm-hunqlcl as well as Dilaudid 4 mg every 4-6 hours as prescribed by his [place] shipping associate. However he ran out of his medications this week, he started developing pain in his chest which is a stabbing type pain over on the left side of his chest without any radiation into his neck, back, shoulder, arm. He denied any nausea, vomiting, diaphoresis, shortness of breath, dyspnea, lightheadedness, dizziness. He states that whenever he gets sickle cell crisis his pain is usually across his entire chest, however it is not at this time. He is also complaining about right hip pain with pain radiating down his leg patient states that is been having this pain over the last 2 months. He states that he has been told that he does not have any hip necrosis but he is going to get it in the future. He does get approximate 3 crisis per year. However, he has presented to this hospital 17 times within the last year for treatment in the ER and this is the fourth hospitalization within the last year. 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 Review of Systems Cardiovascular: COMPLAINS OF: Chest pain Musculoskeletal: COMPLAINS OF: Joint pain Except as stated in HPI: all other systems reviewed are Neg Past Family Social History Past Medical History Sickle cell anemia History of priapism Past Surgical History Surgery for priapism Reported Medications Reported Meds & Active Scripts Active Reported Ibuprofen 600 Mg Tab 600 Mg PO Q6H PRN Dilaudid (Hydromorphone HCl) 4 Mg Tab 4 Mg PO Q4H PRN, patient states he ran out of his medication this week Allergies: Coded Allergies: penicillin G (Verified Allergy, Severe, told as child, 04/21/17) Family History Reviewed is significant for both mother and father with sickle cell trait Social History Patient denies any tobacco, alcohol or illicit drugs Physical Exam Vital Signs Vital Signs Date Time Temp Pulse Resp B/P (MAP) Pulse Ox O2 Delivery O2 Flow Rate FiO2 04/22/17 11:41 98.3 63 18 114/69 (84) 98 04/22/17 10:19 96 Nasal Cannula 2.00 04/22/17 08:00 96.8 69 18 120/59 (79) 94 04/22/17 06:37 20 04/22/17 04:00 97.6 63 20 125/74 (91) 95 04/22/17 01:51 71 04/22/17 01:33 98.8 75 16 132/76 (94) 96 04/22/17 01:30 04/21/17 23:32 83 18 136/62 (86) Nasal Cannula 2.00 04/21/17 22:16 79 20 128/61 (83) 99 Nasal Cannula 2.00 04/21/17 21:54 96 Nasal Cannula 2.00 04/21/17 21:21 75 18 138/75 (96) 98 Room Air 04/21/17 20:20 81 20 Room Air 04/21/17 20:10 98.7 79 12 146/72 (96) 98 Physical Exam GENERAL: Well-developed, well-nourished, in no acute distress. alert and orientated HEENT: Head is normocephalic without any lesions or masses noted. Facial features are symmetric. Eyes: Pupils equal round reactive to light. Extraocular muscles are intact. Conjunctivae were clear. Oropharyngeal: Pharynx without any erythema edema. Tongue is midline without deviation. Buccal mucosa is moist without any masses or lesions NECK: Supple without any masses. Trachea midline no deviation. No JVD, no bruits are appreciated CARDIAC: Regular rhythm, regular rate. S1/S2 are heard. No murmurs gallops or rubs. LUNGS: Clear to auscultation bilaterally. No wheeze, rhonchi or rales. No use of accessory muscles on inspiration or expiration. ABDOMEN: Soft, nontender. Nondistended. Bowel sounds heard in all 4 quadrants. No organomegaly or masses. Negative rebound, negative guarding EXTREMITIES: No edema, pulses are equal bilaterally. No cyanosis or clubbing NEUROLOGY: Mood and affect appear appropriate. Cranial nerves II through XII grossly intact. Muscle strength 5/5 in upper and lower extremities bilaterally. Deep tendon reflexes are 2+ in upper and lower extremities bilaterally. Laboratory Laboratory Tests Test 04/21/17 20:40 04/21/17 22:45 04/22/17 08:30 White Blood Count 14.1 Red Blood Count 3.82 Hemoglobin 11.4 Hematocrit 34.4 Mean Corpuscular Volume 89.9 Mean Corpuscular Hemoglobin 29.8 Mean Corpuscular Hemoglobin Concent 33.2 Red Cell Distribution Width 24.7 Platelet Count 373 Mean Platelet Volume 8.0 Neutrophils (%) (Auto) 69.4 Lymphocytes (%) (Auto) 18.9 Monocytes (%) (Auto) 8.9 Eosinophils (%) (Auto) 1.7 Basophils (%) (Auto) 1.1 Neutrophils # (Auto) 9.7 Lymphocytes # (Auto) 2.7 Monocytes # (Auto) 1.3 Eosinophils # (Auto) 0.2 Basophils # (Auto) 0.2 CBC Comment AUTO DIFF Differential Total Cells Counted 100 Neutrophils % (Manual) 50 Band Neutrophils % 1 Lymphocytes % 40 Monocytes % 6 Eosinophils % 2 Basophils % 1 Neutrophils # (Manual) 7.2 Nucleated Red Blood Cells 3 Differential Comment FINAL DIFF MANUAL Atypical Lymphocytes Platelet Estimate HIGH Platelet Morphology Comment NORMAL Sickle Cells 2+ Target Cells 1+ Tear Drop Cells 1+ Ovalocytes 1+ Reticulocyte Count 9.8 Absolute Reticulocyte Count 378.7 D-Dimer Quantitative (PE/DVT) 3.03 Blood Urea Nitrogen 8 Creatinine 0.69 Random Glucose 89 Total Protein 8.1 Albumin 4.0 Calcium Level 8.8 Alkaline Phosphatase 79 Aspartate Amino Transf (AST/SGOT) 41 Alanine Aminotransferase (ALT/SGPT) 37 Total Bilirubin 3.6 Sodium Level 137 Potassium Level 3.6 Chloride Level 103 Carbon Dioxide Level 27.2 Anion Gap 7 Estimat Glomerular Filtration Rate 171 Troponin I LESS THAN 0.02 0.02 Urine Color YELLOW Urine Turbidity CLEAR Urine pH 6.0 Urine Specific [place] 1.010 Urine Protein NEG Urine Glucose (UA) NEG Urine Ketones NEG Urine Occult Blood NEG Urine Nitrite NEG Urine Bilirubin NEG Urine Leukocyte Esterase NEG Urine RBC 0-2 Urine WBC 0-2 Urine Squamous Epithelial Cells 0-5 Urine Bacteria NONE Microscopic Urinalysis Comment CULT NOT INDICATED Result Diagram: 04/21/17203904/21/172039 Caprini VTE Risk Assessment Caprini VTE Risk Assessment: No/Low Risk (score <= 1) Caprini Risk Assessment Model Point Value = 1 Point Value = 2 Point Value = 3 Point Value = 5 Age 41-60 Minor surgery BMI > 25 kg/m2 Swollen legs Varicose veins or History of unexplained or recurrent spontaneous Oral contraceptives or hormone replacement Sepsis (< 1 month) Serious lung disease, including pneumonia (< 1 month) Abnormal pulmonary function Acute myocardial infarction Congestive heart failure (< 1 month) History of inflammatory bowel disease Medical patient at bed rest Age 61-74 Arthroscopic surgery Major open surgery (> 45 min) Laparoscopic surgery (> 45 min) Malignancy Confined to bed (> 72 hours) Immobilizing plaster cast Central venous access Age >= 75 History of VTE Family history of VTE Factor V Leiden Prothrombin [id number] Lupus anticoagulant Anticardiolipin antibodies Elevated serum homocysteine Heparin-induced thrombocytopenia Other congenital or acquired thrombophilia Stroke (< 1 month) Elective arthroplasty Hip, pelvis, or leg fracture Acute spinal cord injury (< 1 month) Prophylaxis Regimen Total Risk Factor Score Risk Level Prophylaxis Regimen 0-1 Low Early ambulation 2 Moderate Order ONE of the following: *Sequential Compression Device (SCD) *Heparin 5000 units SQ BID 3-4 Higher Order ONE of the following medications: *Heparin 5000 units SQ TID *Enoxaparin/Lovenox 40 mg SQ daily (WT < 150 kg, CrCl > 30 mL/min) *Enoxaparin/Lovenox 30 mg SQ daily (WT < 150 kg, CrCl > 10-29 mL/min) *Enoxaparin/Lovenox 30 mg SQ BID (WT < 150 kg, CrCl > 30 mL/min) AND/OR *Sequential Compression Device (SCD) 5 or more Highest Order ONE of the following medications: *Heparin 5000 units SQ TID (Preferred with Epidurals) *Enoxaparin/Lovenox 40 mg SQ daily (WT < 150 kg, CrCl > 30 mL/min) *Enoxaparin/Lovenox 30 mg SQ daily (WT < 150 kg, CrCl > 10-29 mL/min) *Enoxaparin/Lovenox 30 mg SQ BID (WT < 150 kg, CrCl > 30 mL/min) AND *Sequential Compression Device (SCD) Assessment and Plan Assessment and Plan Sickle cell anemia with pain Patient presented with chest discomfort on the left side without any radiation, CT scan and chest x-ray do not indicate any acute chest syndrome Patient continued on pain control with Dilaudid 1 mg IV every 4 hours, patient was requesting to have pain medication increased. Will increase to Dilaudid 2 mg IV every 4 hours Patient is usually on Dilaudid 4 mg by mouth in outpatient setting, however he ran out of medications this week We'll start folic acid We'll consult hematology for recommendations DVT prevention low risk, early ambulation This note was transcribed by RICARDO Davidson . I, Dr. Niecy Kasper personally performed the history, physical exam, and medical decision making; and confirmed the accuracy of the information in the transcribed note. Authenticated by Dr. Niecy Kasper on 04/22/17 at 11:55. Physician Certification 2 Midnight Certification Type: Admission for Inpatient Services Order for Inpatient Services The services are ordered in accordance with Medicare regulations or non- Medicare payer requirements, as applicable. In the case of services not specified as inpatient-only, they are appropriately provided as inpatient services in accordance with the 2-midnight benchmark. Estimated LOS (days): 2 days is the estimated time the patient will need to remain in the hospital, assuming treatment plan goals are met and no additional complications. Post-Hospital Plan: Home Ronald Juan Apr 22, 2017 12:07 Niecy Kasper MD Apr 22, 2017 12:20
--- NOTE | 2017-04-22 12:10 | EKG ---
Date Performed: 04/22/2017 Time Performed: 08:34:40 PTAGE: 22 years EKG: Sinus rhythm MINIMAL VOLTAGE CRITERIA FOR LVH, CONSIDER NORMAL VARIANT. Since previous tracing, no significant ch kate noted BORDERLINE ECG PREVIOUS TRACING : 04/21/2017 20.27 DOCTOR: Anson Ruvalcaba Interpretating Date/Time 04/22/2017 12:10:00
[2017-04-22] MEDS: SODIUM CHLOR 0.45% 1000 ML INJ 1,000 ML IV SCH (18:20)
--- NOTE | 2017-04-22 19:02 | MB ---
cc: VIVIAN DIXON MD DATE OF CONSULTATION: 04/22/2017. 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 CHIEF COMPLAINT: Mr. Meza reports having had a 24-hour history of sharp persistent and severe pain across the left side of his chest. He points to an area along the left axillary line radiating to his nipple. He also reports having pain in his legs. He came into the emergency department for further workup and evaluation. HISTORY OF PRESENT ILLNESS: Mr. 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 He is originally from the [facility], which is a suburb of [place]. He periodically sees a electronic prepress system operator [facility] and has most recently been on treatment with transfusions, which he describes as exchange transfusions. He reports his primary electronic prepress system operator typically draws out two units of blood, gives him IV fluid hydration and then transfuses two units. Prior to this, he had been on exchange transfusions which were typically larger volume and prior to that he had been on Hydroxyurea which he did not tolerate well due to nausea, fatigue, weakness and lack of benefit as far as pain crises was concerned. He tells me that though the exchange transfusions have not decreased the frequency of his pain crises, the exchange transfusions seen to have certainly decreased the frequency of severe priapism. Since admission to the hospital, the patient has undergone CT angiogram of the thorax which revealed no acute findings and specifically revealed no evidence of pulmonary emboli, no explanation for the pain on the left chest was identified. He did have trace left basal atelectasis. PAST MEDICAL HISTORY: 1. 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 2. Recurrent pain crises. 3. Priapism. PAST SURGICAL HISTORY: He denies any major surgical interventions. He has however undergone multiple aspirations of the penis due to priapism. FAMILY HISTORY: Parents with sickle-cell trait. ALLERGIES: PENICILLIN-G. SOCIAL HISTORY: Student. He is partnered with a female partner. He denies tobacco or alcohol abuse. CURRENT INPATIENT MEDICATIONS: 1. Normal saline 200 cc/hour. 2. Diphenhydramine 25 milligrams every 6 hours as needed for itching. 3. Folic acid 1 milligram p.o. daily. 4. Dilaudid 2 milligrams IV every four hours as needed for pain. 5. A multivitamin one tablet p.o. daily. REVIEW OF SYSTEMS: A thirteen point review of systems was obtained and the following are the pertinent positives: CONSTITUTIONAL: The patient reports fatigue, weakness, loss of appetite. HEAD, EYES, EARS, NOSE, THROAT: Denies headaches, blurry vision, difficulty swallowing or soreness of throat. RESPIRATORY: Reports shortness of breath, pain in the left chest wall, denies hemoptysis. CARDIOVASCULAR: Denies angina-like chest pain, paroxysmal nocturnal dyspnea, orthopnea. GASTROINTESTINAL: Denies nausea, vomiting, diarrhea, hematochezia or melena. UG: Denies priapism. Denies hematuria, urinary incontinence. MATERIAL CLERK: Denies any focal sensorimotor deficits. MUSCULOSKELETAL: Reports having pain in his thighs and hips. PHYSICAL EXAMINATION: VITAL SIGNS: The vital signs reveal a temperature of 97.3 degrees Fahrenheit, heart rate 81 beats per minute, respiratory rate 18 breaths per minute, blood pressure 144/81, 02 saturations are 97% on two liters nasal cannula. GENERAL PHYSICAL APPEARANCE: Mr. Mariano is a young -German male. He is tall and of moderate build. He is lying in bed. He appears to be in some pain. He at times covers his lower abdomen where it seems to hurt more. HEAD, EYES, EARS, NOSE, THROAT: Head is atraumatic and normocephalic. Conjunctivae are pale. The sclerae are icteric. Extraocular muscles intact. Pupils equal, round and reactive to light and accommodation. ORAL EXAM: No pharyngeal erythema. NECK EXAM: No palpable cervical or supraclavicular lymphadenopathy. RESPIRATORY EXAM: Decreased bibasilar breath sounds, poor inspiratory effort, otherwise good air movement bilaterally without rales or rhonchi or pleural rubs. CARDIOVASCULAR EXAM: Regular rate and rhythm. S1, S2. No obvious murmurs, rubs or gallops. ABDOMINAL EXAM: Thin belly. Soft and nontender. No definite organ enlargement. Specifically no hepatosplenomegaly. LOWER EXTREMITIES: No pretibial edema or calf tenderness. MATERIAL CLERK: No focal sensorimotor deficits. LABORATORY FINDINGS: Blood work dated 04/21/2017: WBC count 14, hemoglobin 0.4 gm/dl, hematocrit 34.4%, platelet count is 373,000, absolute neutrophil count is 90.7. Chemistries Dated 04/21/2017: Sodium 137, potassium 3.9, chloride 103, bicarb 27.2, BUN 8, creatinine 0.7, EGFR 171, total bilirubin 3.6, AST 41, ALT 37, alkaline phosphatase 79, albumin is 4. IMAGING STUDIES: CT angiogram indicates mild left basilar atelectasis, no evidence of pulmonary embolus. ASSESSMENT: Mr. 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 He is currently under the care of a electronic prepress system operator in [place], which is where the patient is originally from, who treats him with what I would describe as a small volume exchange transfusions, i.e., two units red cells out, two units in every month. He has previously been on full volume red blood cell exchange and also has been on hydroxyurea. His major issues are frequent pain crises and he reports having three to four crises every month which essentially means every week he is in crisis and two to three times every quarter he has to be in the hospital for a prolonged period of time. He tells me he will be in the [employer] attending college at least until the summer of 2017 after which he is not certain what his plans are. He is in the hospital at this time due to acute pain crisis. Hemoglobin is elevated at 11.4. He tells me his baseline is close to 8. RECOMMENDATIONS: 1. Hemoglobin sickle-cell disease: At this point, I would recommend managing his crisis with hypotonic saline, pain control, incentive spirometry. I would also initiate him on prophylactic dose Lovenox. I had a discussion with the patient regarding the status of his sickle-cell disease and pain control. I explained that typically the point of red cell exchange transfusions is to render his sickle-cell fraction at or below 30% so as to prevent pain crises and to prevent / delay end organ damage. Given his height and his weight, I am not certain if two units packed red blood cells would be sufficient in achieving that goal. I therefore have suggested that he consider going on full red cell exchanges which can be administered here locally. He would like to follow up with me as an outpatient and I will make those arrangements. He will likely require placement of some sort of an access device so as to allow us to perform red cell exchanges in the future. MD WON Simon/PATT /5:39 PM /6:36 PM
[2017-04-22] MEDS: ENOXAPARIN SODIUM 40 MG/0.4 ML SYRINGE SQ SCH (21:40)
[2017-04-23] VITALS (7 sets, daily range): BP systolic 107–133; BP diastolic 66–86; PULSE 76–98; RESP 16–20; TEMP 97.7–98.6; O2SAT 91–97
[2017-04-23] MEDS: HYDROmorphone HCL PF 1 MG/ML VIAL IV PUSH PRN ×6 (01:50→22:47)
[2017-04-23] MEDS: SODIUM CHLOR 0.45% 1000 ML INJ 1,000 ML IV SCH ×3 (01:52→19:56)
[2017-04-23] MEDS: diphenhydrAMINE HCL 50 MG/ML VIAL IV PUSH PRN ×4 (03:15→22:51)
[2017-04-23] MEDS ORDERED: HYDROmorphone HCL PF 1 MG/ML VIAL IV PUSH ONE (04:00)
--- NOTE | 2017-04-23 07:30 | HHI.PR ---
Subjective Remarks Not able to sleep much at night says due to pain. With breakthrough pain overnight and require extra dose of dilaudid 1 mg. Says she still has pain in his chest and in right groin/hip and thigh. No fever or chills. No cough, no problems with urination. No n/v/d/c. Not eating much. Objective Vitals Vital Signs Date Time Temp Pulse Resp B/P (MAP) Pulse Ox O2 Delivery O2 Flow Rate FiO2 04/23/17 04:00 04/23/17 04:00 04/23/17 01:13 98.3 76 16 133/75 (94) 93 04/22/17 21:26 98.3 81 18 133/79 (97) 92 04/22/17 20:40 95 Nasal Cannula 2.00 04/22/17 18:12 18 04/22/17 16:00 97.3 81 18 144/81 (102) 97 04/22/17 11:41 98.3 63 18 114/69 (84) 98 04/22/17 11:15 61 04/22/17 10:19 96 Nasal Cannula 2.00 04/22/17 10:01 18 04/22/17 08:00 96.8 69 18 120/59 (79) 94 I/O 04/22/17 04/22/17 04/22/17 04/23/17 04/23/17 04/23/17 07:00 15:00 23:00 07:00 15:00 23:00 Intake Total 900 ml 1790 ml 1750 ml Balance 900 ml 1790 ml 1750 ml Intake Oral 990 ml 300 ml IV Total 900 ml 800 ml 1450 ml # Voids 2 1 2 Result Diagram: 04/21/17203904/21/172039 Imaging Last Impressions Chest X-Ray 04/21/17 0000 Signed Impressions: Service Date/Time: March 21:23 - CONCLUSION: Borderline to mild cardiomegaly. Clear lungs. Angel Floyd MD CT Angiography 04/21/17 0000 Signed Impressions: Service Date/Time: March 22:33 - CONCLUSION: No pulmonary embolus. Trace left base atelectasis. Angel Floyd MD Objective Remarks GENERAL: Very pleasant 22 yo AA male, well-developed, well-nourished, in no acute distress, alert and orientated SKIN: Warm and dry. No rash. CARDIOVASCULAR: Regular rate and rhythm. RESPIRATORY: No accessory muscle use. Clear to auscultation. Breath sounds equal bilaterally. GASTROINTESTINAL: Abdomen soft, non-tender, nondistended. Hepatic and splenic margins not palpable. MUSCULOSKELETAL: Extremities without clubbing, cyanosis, or edema. No obvious deformities. NEUROLOGICAL: Awake and alert. No obvious cranial nerve deficits. Motor grossly within normal limits. Five out of 5 muscle strength in the arms and legs. Normal speech. PSYCHIATRIC: Appropriate mood and affect; insight and judgment normal. 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 Sickle cell anemia with crisis. Patient presented with chest discomfort on the left side without any radiation, CT scan and chest x-ray do not indicate any acute chest syndrome Patient continued on pain control with Dilaudid 1 mg IV every 4 hours, patient was requesting to have pain medication increased. Will increase to Dilaudid 2 mg IV every 4 hours Patient is usually on Dilaudid 4 mg by mouth in outpatient setting, however he ran out of medications this week He is following with his hem/onc in [place] and has been on full volume RBC exchange and also has been on hydroxyurea in the past Start hypotonic saline IVF Continue folic acid Monitor retic count, LDH Monitor H/H Consult hematology, seen by Dr Sheets, appreciate recommendations Can follow up as OP with Dr Sheets , plans for RBC exchange , will require IV access placement per hem/onc DVT prevention, lovenox DC plan: pending improvement poss DC 1-2 days if pain improved, to follow up as OP with PCP and Dr Sheets hem/onc as OP Niecy Kasper MD Apr 23, 2017 07:30
[2017-04-23] MEDS: SODIUM CHLORIDE 0.9% FLUSH 10 ML FLUSH IV FLUSH SCH ×2 (09:00→20:58)
[2017-04-23] MEDS: MULTIVITAMIN TAB PO SCH (09:04)
[2017-04-23] MEDS: FOLIC ACID 1 MG TAB PO SCH (09:04)
[2017-04-23 12:30] LABS: HEMATOCRIT 30.5 % (39.0-51.0); MEAN CELL VOLUME 85.9 FL (80.0-100.0); MEAN CORPUSCULAR HEMOGLOBIN 29.7 PG (27.0-34.0); MEAN CORPUSCULAR HGB CONC 34.5 % (32.0-36.0); PLATELET COUNT 290 TH/MM3 (150-450); RED BLOOD COUNT 3.55 MIL/MM3 (4.50-5.90); RED CELL DISTRIBUTION WIDTH 24.2 % (11.6-17.2); WHITE BLOOD COUNT 17.3 TH/MM3 (4.0-11.0)
[2017-04-23 12:32] LABS: HEMO FLAGS AUTO DIFF
[2017-04-23 13:10] LABS: CORRECTED NUCLEATED RBC 9 /100 WBC (0-0); CORRECTED WBC 15.9 TH/MM3 (4.0-11.0); EOSINOPHILS 5 % (0-4); NEUTROPHIL # MANUAL DIFF 11.4 TH/MM3 (1.8-7.7); OVALOCYTES 2+ (NORMAL); POLYS (SEG NEUTROPHILS) 72 % (16-70); SICKLE CELLS 2+ (NORMAL); TEARDROP RBCS 1+ (NORMAL); WBC DIFF SAMPLE 100
[2017-04-23 13:13] LABS: HOWELL-JOLLY BODIES PRESENT (NONE SEEN); TARGET CELLS 2+ (NORMAL)
[2017-04-23 13:14] LABS: PLATELET ESTIMATE SMEAR NORMAL (NORMAL); PLATELET MORPHOLOGY NORMAL (NORMAL); SCAN/DIFF FINAL DIFF MANUAL
[2017-04-23 13:48] LABS: RETIC % 10.8 % (0.4-3.0)
[2017-04-23 13:49] LABS: REVIEW FLAG FINAL
[2017-04-23] MEDS: ENOXAPARIN SODIUM 40 MG/0.4 ML SYRINGE SQ SCH (20:00)
[2017-04-24] VITALS (8 sets, daily range): BP systolic 115–143; BP diastolic 68–82; PULSE 81–98; RESP 18–20; TEMP 96.8–98.8; O2SAT 90–95
[2017-04-24] MEDS: HYDROmorphone HCL PF 1 MG/ML VIAL IV PUSH PRN ×6 (02:39→22:49)
[2017-04-24] MEDS: SODIUM CHLOR 0.45% 1000 ML INJ 1,000 ML IV SCH ×3 (02:43→17:32)
[2017-04-24] MEDS: diphenhydrAMINE HCL 50 MG/ML VIAL IV PUSH PRN ×3 (06:43→22:52)
[2017-04-24 07:12] LABS: AUTOMATED NEUTROPHIL # 12.5 TH/MM3 (1.8-7.7); BASOPHIL # 0.4 TH/MM3 (0-0.2); BASOPHIL % 2.2 % (0.0-2.0); EOSINOPHIL # 0.8 TH/MM3 (0-0.4); HEMATOCRIT 30.5 % (39.0-51.0); LYMPH % 14.7 % (9.0-44.0); LYMPHOCYTE # 2.8 TH/MM3 (1.0-4.8); MEAN CELL VOLUME 87.3 FL (80.0-100.0); MEAN CORPUSCULAR HEMOGLOBIN 30.5 PG (27.0-34.0); MONO % 14.3 % (0.0-8.0); NEUT % 64.8 % (16.0-70.0); PLATELET COUNT 273 TH/MM3 (150-450); RED CELL DISTRIBUTION WIDTH 25.6 % (11.6-17.2); WHITE BLOOD COUNT 19.3 TH/MM3 (4.0-11.0)
[2017-04-24 07:23] LABS: HEMO FLAGS AUTO DIFF; POTASSIUM 3.8 MEQ/L (3.5-5.1)
[2017-04-24 07:28] LABS: BICARBONATE 29.9 MEQ/L (21.0-32.0)
--- NOTE | 2017-04-24 07:51 | HHI.PR ---
Subjective Remarks Still with pain in the groin, right hip, and left sided chest pain. No cough, fever or chills. No urinary complaints. Had a normal BM, no diarrhea. Denies nausea or vomiting. Objective Vitals Vital Signs Date Time Temp Pulse Resp B/P (MAP) Pulse Ox O2 Delivery O2 Flow Rate FiO2 04/24/17 04:52 2.00 04/24/17 04:36 04/24/17 04:00 92 Nasal Cannula 2.00 04/24/17 01:06 98.8 81 18 141/71 (94) 90 04/23/17 21:40 98.1 90 16 133/79 (97) 91 04/23/17 20:30 91 Nasal Cannula 2.00 04/23/17 16:00 97.7 98 20 107/86 (93) 92 04/23/17 12:00 98.6 80 20 126/72 (90) 96 04/23/17 09:13 97 Nasal Cannula 2.00 04/23/17 09:12 16 97 04/23/17 08:20 92 Nasal Cannula 3.00 04/23/17 08:00 97.8 82 18 119/66 (83) 92 I/O 04/23/17 04/23/17 04/23/17 04/24/17 04/24/17 04/24/17 07:00 15:00 23:00 07:00 15:00 23:00 Intake Total 2400 ml 660 ml 2500 ml Output Total 1000 ml Balance 1400 ml 660 ml 2500 ml Intake Oral 650 ml IV Total 1750 ml 660 ml 2500 ml Output Urine Total 1000 ml # Voids 2 1 1 # Bowel Movements 0 Result Diagram: 04/24/17 0650 04/24/17 0650 Imaging Last Impressions Chest X-Ray 04/21/17 0000 Signed Impressions: Service Date/Time: March 21:23 - CONCLUSION: Borderline to mild cardiomegaly. Clear lungs. Angel Floyd MD CT Angiography 04/21/17 0000 Signed Impressions: Service Date/Time: March 22:33 - CONCLUSION: No pulmonary embolus. Trace left base atelectasis. Angel Floyd MD Objective Remarks GENERAL: Very pleasant 22 yo AA male, well-developed, well-nourished, in no acute distress, alert and orientated SKIN: Warm and dry. No rash. CARDIOVASCULAR: Regular rate and rhythm. RESPIRATORY: No accessory muscle use. Clear to auscultation. Breath sounds equal bilaterally. GASTROINTESTINAL: Abdomen soft, non-tender, nondistended. Hepatic and splenic margins not palpable. MUSCULOSKELETAL: Extremities without clubbing, cyanosis, or edema. No obvious deformities. NEUROLOGICAL: Awake and alert. No obvious cranial nerve deficits. Motor grossly within normal limits. Five out of 5 muscle strength in the arms and legs. Normal speech. PSYCHIATRIC: Appropriate mood and affect; insight and judgment normal. 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 Sickle cell anemia with crisis. leukocytosis worsening, however UA neg, CXR and CT chest neg, no fever, no tachycardia, no signs of infection. Likely reactive. Monitor for signs of infection. With right hip pain might consider further imaging to r/o avascular necrosis of the hip if severe pain Pain per pain scale, consider tapering down dilaudid as patient appears sleepy and also his O2 sat is in lower 90s. Monitor VS closely. Discussed with the patient. Patient presented with chest discomfort on the left side without any radiation, CT scan and chest x-ray do not indicate any acute chest syndrome Patient continued on pain control with Dilaudid 1 mg IV every 4 hours, patient was requesting to have pain medication increased. Will increase to Dilaudid 2 mg IV every 4 hours Patient is usually on Dilaudid 4 mg by mouth in outpatient setting, however he ran out of medications this week He is following with his hem/onc in [place] and has been on full volume RBC exchange and also has been on hydroxyurea in the past Continue hypotonic saline IVF Continue folic acid Monitor retic count, LDH still up Monitor H/H Consult hematology, seen by Dr Sheets, appreciate recommendations Can follow up as OP with Dr Sheets , plans for RBC exchange, will require IV access placement per hem/onc DVT prevention, lovenox DC plan: pending improvement poss DC 1-2 days if pain improved, to follow up as OP with PCP and Dr Sheets hem/onc as OP Discussed with the patient, nurse, family at bedside, Dr Sheets hem/onc Niecy Kasper MD Apr 24, 2017 07:51
[2017-04-24 08:06] LABS: BANDS 1 % (0-6); CORRECTED NUCLEATED RBC 7 /100 WBC (0-0); EOSINOPHILS 4 % (0-4); METAMYELOCYTES 1 % (0-1); NEUTROPHIL # MANUAL DIFF 12.2 TH/MM3 (1.8-7.7); POLYS (SEG NEUTROPHILS) 66 % (16-70); TARGET CELLS 2+ (NORMAL); WBC DIFF SAMPLE 100
[2017-04-24 08:07] LABS: OVALOCYTES 2+ (NORMAL); PLATELET ESTIMATE SMEAR NORMAL (NORMAL); PLATELET MORPHOLOGY NORMAL (NORMAL); SCAN/DIFF FINAL DIFF MANUAL; SICKLE CELLS 2+ (NORMAL)
[2017-04-24] MEDS: MULTIVITAMIN TAB PO SCH (08:27)
[2017-04-24] MEDS: FOLIC ACID 1 MG TAB PO SCH (08:28)
[2017-04-24] MEDS: SODIUM CHLORIDE 0.9% FLUSH 10 ML FLUSH IV FLUSH SCH ×2 (08:31→22:53)
[2017-04-24 09:40] LABS: RETIC % 13.6 % (0.4-3.0)
[2017-04-24 09:41] LABS: REVIEW FLAG FINAL
[2017-04-24] MEDS ORDERED: ACETAMINOPHEN 325 MG TAB PO PRN (12:45)
[2017-04-24] MEDS ORDERED: IBUPROFEN 400 MG TAB PO PRN (12:45)
[2017-04-24] MEDS: ENOXAPARIN SODIUM 40 MG/0.4 ML SYRINGE SQ SCH (20:00)
[2017-04-25] VITALS (8 sets, daily range): BP systolic 108–134; BP diastolic 53–76; PULSE 84–102; RESP 16–20; TEMP 98–99; O2SAT 92–95
[2017-04-25] MEDS: SODIUM CHLOR 0.45% 1000 ML INJ 1,000 ML IV SCH ×2 (02:22→09:33)
[2017-04-25] MEDS: HYDROmorphone HCL PF 1 MG/ML VIAL IV PUSH PRN ×6 (03:03→22:29)
[2017-04-25] MEDS: diphenhydrAMINE HCL 50 MG/ML VIAL IV PUSH PRN ×3 (06:36→18:25)
[2017-04-25] MEDS: FOLIC ACID 1 MG TAB PO SCH (09:00)
[2017-04-25] MEDS: MULTIVITAMIN TAB PO SCH (09:00)
[2017-04-25] MEDS: SODIUM CHLORIDE 0.9% FLUSH 10 ML FLUSH IV FLUSH SCH ×2 (09:00→20:25)
--- NOTE | 2017-04-25 12:11 | HHI.PR ---
Subjective Remarks Patient states that his overall pain has improved. He is complaining of bilateral groin pain. He is ambulating to the bathroom. Denies fever or chest pain or dyspnea. Objective Vitals Vital Signs Date Time Temp Pulse Resp B/P (MAP) Pulse Ox O2 Delivery O2 Flow Rate FiO2 04/25/17 08:00 94 Nasal Cannula 2.00 04/25/17 07:05 20 04/25/17 07:00 Nasal Cannula 2.00 04/25/17 05:03 Nasal Cannula 2.00 04/25/17 00:00 98.0 102 16 108/76 (87) 95 04/24/17 20:31 98.2 96 18 116/75 (89) 90 04/24/17 20:30 Nasal Cannula 2.00 04/24/17 20:04 95 Nasal Cannula 2.00 04/24/17 16:00 96.8 98 18 138/82 (100) 92 I/O 04/24/17 04/24/17 04/24/17 04/25/17 04/25/17 04/25/17 07:00 15:00 23:00 07:00 15:00 23:00 Intake Total 2500 ml 750 ml 932 ml 850 ml Balance 2500 ml 750 ml 932 ml 850 ml Intake Oral 750 ml IV Total 2500 ml 932 ml 850 ml # Voids 1 3 3 Result Diagram: 04/24/17 0650 04/24/17 0650 Objective Remarks GENERAL: Well-nourished, well-developed patient. SKIN: Warm and dry. HEAD: Normocephalic. EYES: No scleral icterus. No injection or drainage. NECK: Supple, trachea midline. No JVD or lymphadenopathy. CARDIOVASCULAR: Regular rate and rhythm without murmurs, gallops, or rubs. RESPIRATORY: Breath sounds equal bilaterally. No accessory muscle use. GASTROINTESTINAL: Abdomen soft, non-tender, nondistended. EXTREMITIES: No cyanosis, or edema. NEUROLOGICAL: Awake, alert, and oriented x 3. Non-focal. A/P Problem List: (1) Sickle cell anemia with pain ICD Code: D57.00 - Hb-SS disease with crisis, unspecified Status: Acute Assessment and Plan -Sickle cell disease with vaso-occlusive pain crisis - improved. Continue pain control. Hep-Lock IV. Hemoglobin has been stable. Follow-up outpatient with hematology. -DVT prophylaxis with enoxaparin Jaelyn Ford MD Apr 25, 2017 12:11
[2017-04-25] MEDS: ENOXAPARIN SODIUM 40 MG/0.4 ML SYRINGE SQ SCH (20:00)
[2017-04-26] VITALS: BP 140/74; PULSE 70; RESP 20; TEMP 98.5; O2SAT 99
[2017-04-26] MEDS: diphenhydrAMINE HCL 50 MG/ML VIAL IV PUSH PRN ×3 (00:30→14:07)
[2017-04-26] MEDS: HYDROmorphone HCL PF 1 MG/ML VIAL IV PUSH PRN ×4 (02:40→14:07)
[2017-04-26 08:00] VITALS: BP 117/70; PULSE 88; RESP 16; TEMP 98.3; O2SAT 97
[2017-04-26] MEDS: FOLIC ACID 1 MG TAB PO SCH (10:22)
[2017-04-26] MEDS: SODIUM CHLORIDE 0.9% FLUSH 10 ML FLUSH IV FLUSH SCH (10:22)
[2017-04-26] MEDS: MULTIVITAMIN TAB PO SCH (10:22)
--- NOTE | 2017-04-26 10:50 | HHI.DS ---
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 Patient states that he is unable to locate PCP in this area as well as hematology to accept him. He states that he goes to a insurance claim auditor in [place] the last time he was there was in March. Patient states that he gets treatment for his sickle cell anemia with blood transfusions monthly. He states that he is to be on Hydrea however that was discontinued and he gets blood transfusions to protect him from priapism. Patient usually takes folic acid [id number]-indnvar as well as Dilaudid 4 mg every 4-6 hours as prescribed by his [place] insurance claim auditor. However he ran out of his medications this week, he started developing pain in his chest which is a stabbing type pain over on the left side of his chest without any radiation into his neck, back, shoulder, arm. He denied any nausea, vomiting, diaphoresis, shortness of breath, dyspnea, lightheadedness, dizziness. He states that whenever he gets sickle cell crisis his pain is usually across his entire chest, however it is not at this time. He is also complaining about right hip pain with pain radiating down his leg patient states that is been having this pain over the last 2 months. He states that he has been told that he does not have any hip necrosis but he is going to get it in the future. He does get approximate 3 crisis per year. However, he has presented to this hospital 17 times within the last year for treatment in the ER and this is the fourth hospitalization within the last year. 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 CBC/BMP: 04/24/17 0650 04/24/17 0650 Significant Findings Laboratory Tests Test 04/23/17 12:25 04/24/17 06:50 04/25/17 04:50 04/26/17 08:00 White Blood Count 17.3 TH/MM3 (4.0-11.0) 19.3 TH/MM3 (4.0-11.0) Corrected White Blood Count 15.9 TH/MM3 (4.0-11.0) 18.0 TH/MM3 (4.0-11.0) Red Blood Count 3.55 MIL/MM3 (4.50-5.90) 3.50 MIL/MM3 (4.50-5.90) Hemoglobin 10.5 GM/DL (13.0-17.0) 10.7 GM/DL (13.0-17.0) Hematocrit 30.5 % (39.0-51.0) 30.5 % (39.0-51.0) Red Cell Distribution Width 24.2 % (11.6-17.2) 25.6 % (11.6-17.2) Neutrophils % (Manual) 72 % (16-70) Eosinophils % 5 % (0-4) Neutrophils # (Manual) 11.4 TH/MM3 (1.8-7.7) 12.2 TH/MM3 (1.8-7.7) Nucleated Red Blood Cells 9 /100 WBC (0-0) 7 /100 WBC (0-0) Sickle Cells 2+ (NORMAL) 2+ (NORMAL) Target Cells 2+ (NORMAL) 2+ (NORMAL) Tear Drop Cells 1+ (NORMAL) Ovalocytes 2+ (NORMAL) 2+ (NORMAL) Reticulocyte Count 10.8 % (0.4-3.0) 13.6 % (0.4-3.0) Absolute Reticulocyte Count 378.9 MIL/L (20.0-150.0) 486.0 MIL/L (20.0-150.0) Monocytes (%) (Auto) 14.3 % (0.0-8.0) Basophils (%) (Auto) 2.2 % (0.0-2.0) Neutrophils # (Auto) 12.5 TH/MM3 (1.8-7.7) Monocytes # (Auto) 2.8 TH/MM3 (0-0.9) Eosinophils # (Auto) 0.8 TH/MM3 (0-0.4) Basophils # (Auto) 0.4 TH/MM3 (0-0.2) Monocytes % 12 % (0-8) Random Glucose 107 MG/DL (74-106) Lactate Dehydrogenase 367 U/L (87-241) 425 U/L (87-241) PE at Discharge GENERAL: Well-nourished, well-developed patient. SKIN: Warm and dry. HEAD: Normocephalic. EYES: No scleral icterus. No injection or drainage. NECK: Supple, trachea midline. No JVD or lymphadenopathy. CARDIOVASCULAR: Regular rate and rhythm without murmurs, gallops, or rubs. RESPIRATORY: Breath sounds equal bilaterally. No accessory muscle use. GASTROINTESTINAL: Abdomen soft, non-tender, nondistended. EXTREMITIES: No cyanosis, or edema. NEUROLOGICAL: Awake, alert, and oriented x 3. Non-focal. Pt update on day of discharge Patient states that overall his pain is much improved, he is still having some pain in the bilateral groins but states that this is improved. He would like to go home this afternoon. He states he has Dilaudid prescription at home. Hospital Course Patient was admitted to the hospital and treated with IV fluids, opioids and oxygen. His hemoglobin remained stable. Hematology was consulted. The patient 's pain improved. He'll be discharged home today and will follow-up with Dr. Sheets of hematology. Pt Condition on Discharge: Stable Discharge Disposition: Discharge Home Discharge Time: <= 30 minutes Discharge Instructions DIET: Follow Instructions for: As Tolerated, No Restrictions Activities you can perform: Regular-No Restrictions Follow up Referrals: Oncology/Hematology - 3-5 Days with Jhony Sheets MD PCP Follow-up - 2-3 Days Continued Medications: Hydromorphone (Dilaudid) 4 Mg Tab 4 MG PO Q4H PRN for Pain Management, TAB 0 Refills Ibuprofen (Ibuprofen) 600 Mg Tab 600 MG PO Q6H PRN for PAIN, TAB 0 Refills Jaelyn Ford MD Apr 26, 2017 10:50
[2017-04-26 11:46] VITALS: O2SAT 97
[2017-04-26 12:00] VITALS: BP 135/77; PULSE 87; RESP 18; TEMP 97.6; O2SAT 97
[2017-04-26 14:37] VITALS: RESP 18
== END 2017-04-26 14:48 | disposition home or self-care (01) | DRG 812 ==
LOC: PHED 20:07 → PHEDA 04-22 00:38 → OBSVTOIN 04-22 00:49 → PH3A 04-22 01:33
PROVIDERS: ADMIT Hospitalist; ATTEND Family Medicine
DX: D57.00 Hb-SS disease with crisis, unspecified (principal); D72.829 Elevated white blood cell count, unspecified; Z88.0 Allergy status to penicillin
CPT/HCPCS: 71010; 71275; 76937; 80048; 80053; 81001; 83615; 84484; 85007; 85027; 85044; 85379; 93005; 94150; 96361; 96374; 96375; 96376; J1170; J1200; J1650; J2405; J7030; Q9967

== ENCOUNTER 2017-05-05 09:31 | Emergency (ER) | payer MEDICAID ==
[~2017-05-05] VITALS: Ht 188 cm; Wt 90.6 kg
[~2017-05-05 09:31] MED LIST changes: +IBUP-232 PO
[2017-05-05 09:35] VITALS: BP 123/63; PULSE 81; RESP 18; TEMP 98; O2SAT 96
[2017-05-05] MEDS ORDERED: SODIUM CHLOR 0.9% 1000 ML INJ 1,000 ML IV ONE (10:25)
--- NOTE | 2017-05-05 10:28 | PD ---
HPI Chief Complaint: Pain: Acute or Chronic Time Seen by Provider: 10:10 Travel History International Travel<30 days: No Contact w/Intl Traveler<30days: No Traveled to known affect area: No History of Present Illness HPI patient's 22-year-old male with a history of sickle cell anemia presents emergency department for evaluation of right hip pain for the past 4 days. He' s tried oxycodone at home which has not been helping him. 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 Since the pain initially started in his hip and is now moved up to his arm. States this is very similar to his last pain crisis involving this hip. Denies any fever denies any chest pain shortness of breath abdominal pain nausea vomiting. Patient states the pain is severe, worsening over the past 4 days not associated with any numbness tingling in the lower extremity. PFSH Past Medical History Anemia: Yes (SICKLE CELL ) Arthritis: No Asthma: No Autoimmune Disease: Yes Blood Disorders: No Anxiety: No Depression: No Heart Rhythm Problems: Yes (MURMUR) Cancer: No Cardiovascular Problems: Yes (HX OF SICKLE CELL, GETS INFUSIONS EVERY FOUR WEEKS .) High Cholesterol: No Chemotherapy: No Chest Pain: Yes Congestive Heart Failure: No COPD: No Cerebrovascular Accident: No Diabetes: No Diminished Hearing: No Endocrine: No Gastrointestinal Disorders: No GERD: No Genitourinary: Yes (priaprism) Headaches: No Hiatal Hernia: No Hypertension: No Immune Disorder: No Implanted Vascular Access Dvce: No Kidney Stones: No Musculoskeletal: No Neurologic: Yes Psychiatric: No Reproductive: No Respiratory: No Immunizations Current: Yes Migraines: No Pneumonia: Yes Radiation Therapy: No Renal Failure: No Seizures: No Sickle Cell Disease: Yes Sleep Apnea: No Thyroid Disease: No Ulcer: No Influenza Vaccination: Yes Past Surgical History Abdominal Surgery: No AICD: No Arteriovenous Shunt: No Cardiac Surgery: No Ear Surgery: No Endocrine Surgery: No Eye Surgery: No Genitourinary Surgery: Yes (FOR PRIAPISM) Gynecologic Surgery: No Insulin Pump: No Joint Replacement: No Neurologic Surgery: No Oral Surgery: No Pacemaker: No Thoracic Surgery: No Other Surgery: Yes Social History Alcohol Use: No Tobacco Use: No Substance Use: No Allergies-Medications (Allergen,Severity, Reaction): Coded Allergies: penicillin G (Verified Allergy, Severe, told as child, 05/06/17) Reported Meds & Prescriptions Reported Meds & Active Scripts Active Flexeril (Cyclobenzaprine HCl) 10 Mg Tab 10 Mg PO Q8HR Reported Percocet (Oxycodone-Acetaminophen) 10-325 mg Tab 1 Tab PO Q4H PRN Ibuprofen 600 Mg Tab 600 Mg PO Q6H PRN Dilaudid (Hydromorphone HCl) 4 Mg Tab 4 Mg PO Q4H PRN Review of Systems Except as stated in HPI: all other systems reviewed are Neg Physical Exam Narrative GENERAL: Well-developed well-nourished no obvious distress. SKIN: Focused skin assessment warm/dry. HEAD: Atraumatic. Normocephalic. EYES: Pupils equal and round. No scleral icterus. No injection or drainage. ENT: No nasal bleeding or discharge. Mucous membranes pink and moist. NECK: Trachea midline. No JVD. CARDIOVASCULAR: Regular rate and rhythm. No murmur appreciated. RESPIRATORY: No accessory muscle use. Clear to auscultation. Breath sounds equal bilaterally. GASTROINTESTINAL: Abdomen soft, non-tender, nondistended. Hepatic and splenic margins not palpable. MUSCULOSKELETAL: No obvious deformities. No clubbing. No cyanosis. No edema. No hip tenderness, full nontender range of motion of the knees and ankles, does have some range of motion tenderness on the right hip. Right shoulder is atraumatic. Pulses motor and sensory intact distally in all 4 extremities. NEUROLOGICAL: Awake and alert. No obvious cranial nerve deficits. Motor grossly within normal limits. Normal speech. PSYCHIATRIC: Appropriate mood and affect; insight and judgment normal. Data Data Last Documented VS Vital Signs Date Time Temp Pulse Resp B/P (MAP) Pulse Ox O2 Delivery O2 Flow Rate FiO2 05/05/17 13:01 05/05/17 12:12 79 16 98 Room Air 05/05/17 09:35 98.0 Orders Orders Complete Blood Count With Diff (05/05/17 10:25) Comprehensive Metabolic Panel (05/05/17 10:25) Retic Count (05/05/17 10:25) Ecg Monitoring (05/05/17 10:25) Iv Access Insert/Monitor (05/05/17 10:25) Oximetry (05/05/17 10:25) Ketorolac Inj (Toradol Inj) (05/05/17 10:30) Sodium Chloride 0.9% Flush (Ns Flush) (05/05/17 10:30) Sodium Chlor 0.9% 1000 Ml Inj (Ns 1000 M (05/05/17 10:25) Hydromorphone Pf Inj (Dilaudid Pf Inj) (05/05/17 10:30) Diphenhydramine Inj (Benadryl Inj) (05/05/17 10:30) Hip, Uni(Ap&Lat) W Ap Pelvis (05/05/17 ) Chest, Single Ap (05/05/17 ) Vascular Access Team Consult/P PRN (05/05/17 10:43) Hydromorphone Pf Inj (Dilaudid Pf Inj) (05/05/17 11:30) Diphenhydramine Inj (Benadryl Inj) (05/05/17 11:30) Ketorolac Inj (Toradol Inj) (05/05/17 12:00) Hydromorphone Pf Inj (Dilaudid Pf Inj) (05/05/17 12:30) Ed Discharge Order (05/05/17 12:19) Mandatory Outpatient Referral (05/05/17 12:19) Labs Laboratory Tests Test 05/05/17 11:10 05/05/17 11:45 Blood Urea Nitrogen 10 MG/DL Creatinine 0.69 MG/DL Random Glucose 91 MG/DL Total Protein 8.4 GM/DL Albumin 4.3 GM/DL Calcium Level 9.0 MG/DL Alkaline Phosphatase 77 U/L Aspartate Amino Transf (AST/SGOT) 44 U/L Alanine Aminotransferase (ALT/SGPT) 29 U/L Total Bilirubin 3.6 MG/DL Sodium Level 138 MEQ/L Potassium Level 4.3 MEQ/L Chloride Level 106 MEQ/L Carbon Dioxide Level 23.8 MEQ/L Anion Gap 8 MEQ/L Estimat Glomerular Filtration Rate 171 ML/MIN White Blood Count 13.1 TH/MM3 Corrected White Blood Count 11.8 TH/MM3 Red Blood Count 3.26 MIL/MM3 Hemoglobin 10.3 GM/DL Hematocrit 30.1 % Mean Corpuscular Volume 92.3 FL Mean Corpuscular Hemoglobin 31.6 PG Mean Corpuscular Hemoglobin Concent 34.2 % Red Cell Distribution Width 27.5 % Platelet Count 337 TH/MM3 Mean Platelet Volume 7.7 FL Neutrophils (%) (Auto) 68.7 % Lymphocytes (%) (Auto) 14.4 % Monocytes (%) (Auto) 13.0 % Eosinophils (%) (Auto) 2.6 % Basophils (%) (Auto) 1.3 % Neutrophils # (Auto) 9.0 TH/MM3 Lymphocytes # (Auto) 1.9 TH/MM3 Monocytes # (Auto) 1.7 TH/MM3 Eosinophils # (Auto) 0.3 TH/MM3 Basophils # (Auto) 0.2 TH/MM3 CBC Comment AUTO DIFF Differential Total Cells Counted 100 Neutrophils % (Manual) 71 % Lymphocytes % 13 % Monocytes % 11 % Eosinophils % 3 % Neutrophils # (Manual) 8.6 TH/MM3 Metamyelocytes 2 % Nucleated Red Blood Cells 11 /100 WBC Differential Comment FINAL DIFF MANUAL Platelet Estimate NORMAL Platelet Morphology Comment NORMAL Sickle Cells 2+ Target Cells 2+ Ovalocytes 1+ Acanthocytes 1+ Keratocytes 1+ Reticulocyte Count 15.8 % Absolute Reticulocyte Count 532.8 MIL/L MDM Medical Decision Making Medical Screen Exam Complete: Yes Emergency Medical Condition: Yes Differential Diagnosis sickle cell pain crisis, avascular necrosis of the hip, hip fracture seems unlikely, Narrative Course patient was roomed in emergency Department nursing unable to obtain IV access and the patient I gave 2 attempts with ultrasound guidance 1 and either antecubital fossa. These were unsuccessful. Will treat with IM pain medications at this time, I have asked lab to come and draw blood. Hip x-rays were obtained and are reassuring. Hemoglobin is also reassuring. Patient was given 2 doses of IM pain medication was feeling better and wishes to follow-up with his speech language pathology assistant he was referred to during his last admission which Dr. Genao. Of place referral given him the follow-up instructions. He is stable for discharge. Diagnosis Primary Impression: Sickle cell pain crisis Additional Impression: Right hip pain Disposition: 01 DISCHARGE HOME Condition: Stable Kwame Pathak MD May 05, 2017 10:28
[2017-05-05 10:29] VITALS: O2SAT 97
[2017-05-05] MEDS ORDERED: SODIUM CHLORIDE 0.9% FLUSH 10 ML FLUSH IVF PRN (10:30)
[2017-05-05] MEDS ORDERED: diphenhydrAMINE HCL 50 MG/ML VIAL IV PUSH ONE (10:30)
[2017-05-05] MEDS ORDERED: HYDROmorphone HCL PF 1 MG/ML VIAL IVS ONE (10:30)
[2017-05-05] MEDS ORDERED: KETOROLAC TROMETHAMINE 30 MG/ML (IVP) VIAL IVP ONE (10:30)
[2017-05-05] MEDS ORDERED: diphenhydrAMINE HCL 50 MG/ML VIAL IM ONE (11:30)
[2017-05-05] MEDS ORDERED: HYDROmorphone HCL PF 1 MG/ML VIAL SQ ONE ×2 (11:30→12:30)
[2017-05-05 11:34] LABS: CHLORIDE 106 MEQ/L (98-107); POTASSIUM 4.3 MEQ/L (3.5-5.1); SODIUM (NA) 138 MEQ/L (136-145)
[2017-05-05 11:38] LABS: ANION GAP 8 MEQ/L (5-15); BICARBONATE 23.8 MEQ/L (21.0-32.0); BLOOD UREA NITROGEN 10 MG/DL (7-18)
[2017-05-05 11:41] LABS: ALT (GPT) 29 U/L (12-78); AST (GOT) 44 U/L (15-37); GLOMERULAR FILTRATION RATE 171 ML/MIN (>89)
[2017-05-05 11:43] LABS: TOTAL BILIRUBIN ADULT 3.6 MG/DL (0.2-1.0)
[2017-05-05 11:44] LABS: ALKALINE PHOSPHATASE 77 U/L (45-117)
--- NOTE | 2017-05-05 11:46 | RADRPT ---
EXAM DATE/TIME: 05/05/2017 10:57 [facility] COMPARISON: CHEST SINGLE AP, May 05, 2017, 10:52. INDICATIONS : Patient presents with painful right leg and right arm , history of sickle cell. MEDICAL HISTORY : Sickle Cell disease. SURGICAL HISTORY : None. ENCOUNTER: Initial ACUITY: 2 months PAIN SCORE: 9/10 LOCATION: Right hip FINDINGS: Examination of the right hip was performed with AP Pelvis. The primary and secondary trabecular [place] of the femoral neck is intact. The hip joint is of normal width without significant sclerosis or bony hypertrophy. The acetabulum is grossly intact. CONCLUSION: 1. Negative examination. Vasu Jorge MD on May 05, 2017 at 11:45 Board Certified Radiologist. This report was verified electronically.
--- NOTE | 2017-05-05 11:46 | RADRPT ---
EXAM DATE/TIME: 05/05/2017 10:52 [facility] COMPARISON: CHEST SINGLE AP, April 21, 2017, 21:23. INDICATIONS : Patient has painful right arm and leg with history of sickle cell. MEDICAL HISTORY : Sickle Cell disease. SURGICAL HISTORY : None. ENCOUNTER: Initial ACUITY: 2 months PAIN SCORE: 7/10 LOCATION: Right upper extremity FINDINGS: A single view of the chest demonstrates the lungs to be symmetrically aerated without evidence of mas s, infiltrate or effusion. The cardiomediastinal contours are unremarkable. Osseous structures are intact. CONCLUSION: 1. No acute cardiopulmonary findings. Vasu Jorge MD on May 05, 2017 at 11:44 Board Certified Radiologist. This report was verified electronically.
[2017-05-05 11:53] LABS: BASOPHIL # 0.2 TH/MM3 (0-0.2); BASOPHIL % 1.3 % (0.0-2.0); EOSINOPHIL # 0.3 TH/MM3 (0-0.4); EOSINOPHIL % 2.6 % (0.0-4.0); HEMATOCRIT 30.1 % (39.0-51.0); LYMPH % 14.4 % (9.0-44.0); LYMPHOCYTE # 1.9 TH/MM3 (1.0-4.8); MEAN CELL VOLUME 92.3 FL (80.0-100.0); MEAN CORPUSCULAR HEMOGLOBIN 31.6 PG (27.0-34.0); MEAN CORPUSCULAR HGB CONC 34.2 % (32.0-36.0); NEUT % 68.7 % (16.0-70.0); PLATELET COUNT 337 TH/MM3 (150-450); RED BLOOD COUNT 3.26 MIL/MM3 (4.50-5.90); RED CELL DISTRIBUTION WIDTH 27.5 % (11.6-17.2); WHITE BLOOD COUNT 13.1 TH/MM3 (4.0-11.0)
[2017-05-05 11:55] LABS: HEMO FLAGS AUTO DIFF
[2017-05-05] MEDS ORDERED: KETOROLAC TROMETHAMINE 60 MG/2 ML (IM) VIAL IM SCH (12:00)
[2017-05-05 12:12] VITALS: BP 144/76; PULSE 79; RESP 16; O2SAT 98
[2017-05-05 12:15] LABS: CORRECTED NUCLEATED RBC 11 /100 WBC (0-0); CORRECTED WBC 11.8 TH/MM3 (4.0-11.0); EOSINOPHILS 3 % (0-4); METAMYELOCYTES 2 % (0-1); NEUTROPHIL # MANUAL DIFF 8.6 TH/MM3 (1.8-7.7); POLYS (SEG NEUTROPHILS) 71 % (16-70); WBC DIFF SAMPLE 100
[2017-05-05 12:16] LABS: ACANTHOCYTES 1+ (NORMAL); KERATOCYTES 1+ (NORMAL); OVALOCYTES 1+ (NORMAL); PLATELET ESTIMATE SMEAR NORMAL (NORMAL); PLATELET MORPHOLOGY NORMAL (NORMAL); SCAN/DIFF FINAL DIFF MANUAL; SICKLE CELLS 2+ (NORMAL); TARGET CELLS 2+ (NORMAL)
[2017-05-05 14:05] LABS: RETIC % 15.8 % (0.4-3.0)
[2017-05-05 14:10] LABS: REVIEW FLAG FINAL
[2017-05-06] MEDS ORDERED: PERC10TA27 PO (02:46)
[2017-05-06] MEDS ORDERED: CYCL1TAB29 PO (05:01)
== END 2017-05-05 13:02 | disposition home or self-care (01) ==
LOC: PHED 09:31
DX: D57.00 Hb-SS disease with crisis, unspecified (principal); M25.551 Pain in right hip; M79.603 Pain in arm, unspecified; Z86.2 Personal history of diseases of the blood and blood-forming organs and certain disorders involving the immune mechanism; Z86.79 Personal history of other diseases of the circulatory system; Z87.448 Personal history of other diseases of urinary system; Z86.69 Personal history of other diseases of the nervous system and sense organs
CPT/HCPCS: 71010; 73502; 80053; 85007; 85027; 85044; 96372; 99284; J1170; J1200; J1885

== ENCOUNTER 2017-05-06 01:26 | Emergency (ER) | payer MEDICAID ==
[~2017-05-06] VITALS: Ht 188 cm; Wt 92.3 kg
[2017-05-06 01:33] VITALS: BP 124/77; PULSE 79; RESP 24; TEMP 97.6; O2SAT 96
[2017-05-06] MEDS ORDERED: SODIUM CHLOR 0.9% 1000 ML INJ 1,000 ML IV ONE ×2 (01:44→03:45)
[2017-05-06] MEDS ORDERED: HYDROmorphone HCL PF 1 MG/ML VIAL IVS ONE (01:45)
[2017-05-06] MEDS ORDERED: ONDANSETRON HCL 4 MG/2 ML VIAL IVP ONE (01:45)
[2017-05-06] MEDS ORDERED: diphenhydrAMINE HCL 50 MG/ML VIAL IV PUSH ONE ×2 (01:45→03:45)
[2017-05-06] MEDS ORDERED: SODIUM CHLORIDE 0.9% FLUSH 10 ML FLUSH IVF PRN (01:45)
[2017-05-06 02:10] LABS: CHLORIDE 106 MEQ/L (98-107); SODIUM (NA) 138 MEQ/L (136-145)
[2017-05-06 02:13] LABS: ANION GAP 6 MEQ/L (5-15); BICARBONATE 25.8 MEQ/L (21.0-32.0)
[2017-05-06 02:14] LABS: BLOOD UREA NITROGEN 12 MG/DL (7-18)
[2017-05-06 02:16] LABS: ALT (GPT) 29 U/L (12-78); AST (GOT) 62 U/L (15-37); POTASSIUM 4.8 MEQ/L (3.5-5.1)
--- NOTE | 2017-05-06 02:16 | RADRPT ---
EXAM DATE/TIME: 05/06/2017 01:53 [facility] COMPARISON: No previous studies available for comparison. INDICATIONS : Sickle cell crisis MEDICAL HISTORY : Sickle Cell disease. SURGICAL HISTORY : None. ENCOUNTER: Initial ACUITY: 2 days PAIN SCORE: 10/10 LOCATION: Bilateral chest FINDINGS: A single view of the chest demonstrates the lungs to be symmetrically aerated without evidence of mas s, infiltrate or effusion. The cardiomediastinal contours are prominent. Osseous structures are inta ct. CONCLUSION: 1. Cardiomegaly. Otherwise no acute findings. Oneal Barker MD on May 06, 2017 at 2:15 Board Certified Radiologist. This report was verified electronically.
[2017-05-06 02:17] LABS: GLOMERULAR FILTRATION RATE 174 ML/MIN (>89)
[2017-05-06 02:18] LABS: TOTAL BILIRUBIN ADULT 3.7 MG/DL (0.2-1.0)
[2017-05-06 02:19] LABS: ALKALINE PHOSPHATASE 74 U/L (45-117)
[2017-05-06 02:22] LABS: MEAN CELL VOLUME 91.8 FL (80.0-100.0); MEAN CORPUSCULAR HEMOGLOBIN 29.9 PG (27.0-34.0); MEAN CORPUSCULAR HGB CONC 32.6 % (32.0-36.0); PLATELET COUNT 390 TH/MM3 (150-450); RED BLOOD COUNT 3.37 MIL/MM3 (4.50-5.90); RED CELL DISTRIBUTION WIDTH 29.1 % (11.6-17.2); WHITE BLOOD COUNT 14.2 TH/MM3 (4.0-11.0)
[2017-05-06 02:23] LABS: HEMO FLAGS AUTO DIFF
[2017-05-06 02:31] VITALS: BP 121/78; PULSE 85; RESP 20; O2SAT 99
[2017-05-06 02:38] LABS: CORRECTED NUCLEATED RBC 13 /100 WBC (0-0); CORRECTED WBC 12.6 TH/MM3 (4.0-11.0); EOSINOPHILS 3 % (0-4); NEUTROPHIL # MANUAL DIFF 9.7 TH/MM3 (1.8-7.7); POLYS (SEG NEUTROPHILS) 77 % (16-70); WBC DIFF SAMPLE 100
[2017-05-06 02:39] LABS: ACANTHOCYTES 1+ (NORMAL); OVALOCYTES 2+ (NORMAL); PLATELET ESTIMATE SMEAR NORMAL (NORMAL); PLATELET MORPHOLOGY NORMAL (NORMAL); SCAN/DIFF FINAL DIFF MANUAL; SICKLE CELLS 2+ (NORMAL); TARGET CELLS 1+ (NORMAL)
[2017-05-06] MEDS ORDERED: PERC10TA27 PO (02:46)
[2017-05-06 03:29] LABS: RETIC % 16.8 % (0.4-3.0)
[2017-05-06 03:44] LABS: REVIEW FLAG FINAL
[2017-05-06] MEDS ORDERED: KETOROLAC TROMETHAMINE 30 MG/ML (IVP) VIAL IV PUSH ONE (03:45)
[2017-05-06] MEDS ORDERED: HYDROmorphone HCL PF 1 MG/ML VIAL IV PUSH ONE (03:45)
[2017-05-06 04:01] VITALS: BP 123/56; PULSE 72; RESP 20; TEMP 98.2; O2SAT 99
[2017-05-06] MEDS ORDERED: CYCL1TAB29 PO (05:01)
--- NOTE | 2017-05-06 05:08 | PD ---
HPI Chief Complaint: Sickle Cell Time Seen by Provider: 01:44 Travel History International Travel<30 days: No Contact w/Intl Traveler<30days: No Traveled to known affect area: No History of Present Illness HPI 22-year-old male with history of sickle cell anemia presents to the emergency department for complaint of ongoing right hip pain radiating to the right thigh and low back pain along with right arm pain consistent with sickle cell disease. Patient states he's been told he has avascular necrosis of the right hip. Patient has been hospitalized as to the emergency department numerous times in the past year and has had drug clerk Dr. Sheets recommend that the patient follow-up with him in the clinic here locally. Patient does have a drug clerk in [place] and goes to undergo exchange transfusions. Patient's had no fever no chills no nausea no vomiting no chest pain no shortness of breath no abdominal pain no dysuria no frequency and no injury or fall. Patient takes Percocet and Dilaudid prescribed by his [place] drug clerk. Patient was just seen in the emergency department 05/05/17 for same complaint. Patient returns at this time for complaint of persistent pain. [facility] Past Medical History Narrative Medical Anemia chronic sickle cell related chest pain multiple exchange transfusions priapism; no tobacco use no alcohol use no substance use; nursing notes reviewed Anemia: Yes (SICKLE CELL ) Arthritis: No Asthma: No Autoimmune Disease: Yes Blood Disorders: No Anxiety: No Depression: No Heart Rhythm Problems: Yes (MURMUR) Cancer: No Cardiovascular Problems: Yes (HX OF SICKLE CELL, GETS INFUSIONS EVERY FOUR WEEKS .) High Cholesterol: No Chemotherapy: No Chest Pain: Yes Congestive Heart Failure: No COPD: No Cerebrovascular Accident: No Diabetes: No Diminished Hearing: No Endocrine: No Gastrointestinal Disorders: No GERD: No Genitourinary: Yes Headaches: No Hiatal Hernia: No Hypertension: No Immune Disorder: No Implanted Vascular Access Dvce: No Kidney Stones: No Medical other: Yes (MULTIPLE BLOOD TRANSFUSION) Musculoskeletal: No Neurologic: Yes Psychiatric: No Reproductive: No Respiratory: No Immunizations Current: Yes Migraines: No Pneumonia: Yes Radiation Therapy: No Renal Failure: No Seizures: No Sickle Cell Disease: Yes Sleep Apnea: No Thyroid Disease: No Ulcer: No Tetanus Vaccination: Unknown Past Surgical History Abdominal Surgery: No AICD: No Arteriovenous Shunt: No Cardiac Surgery: No Ear Surgery: No Endocrine Surgery: No Eye Surgery: No Genitourinary Surgery: Yes (FOR PRIAPISM) Gynecologic Surgery: No Insulin Pump: No Joint Replacement: No Neurologic Surgery: No Oral Surgery: No Pacemaker: No Thoracic Surgery: No Other Surgery: Yes Social History Alcohol Use: No Tobacco Use: No Substance Use: No Allergies-Medications (Allergen,Severity, Reaction): Coded Allergies: penicillin G (Verified Allergy, Severe, told as child, 05/06/17) Reported Meds & Prescriptions Reported Meds & Active Scripts Active Reported Percocet (Oxycodone-Acetaminophen) 10-325 mg Tab 1 Tab PO Q4H PRN Ibuprofen 600 Mg Tab 600 Mg PO Q6H PRN Dilaudid (Hydromorphone HCl) 4 Mg Tab 4 Mg PO Q4H PRN Review of Systems Except as stated in HPI: all other systems reviewed are Neg General / Constitutional: No: Fever, Chills HENT: No: Congestion Cardiovascular: No: Chest Pain or Discomfort Respiratory: No: Shortness of Breath Gastrointestinal: No: Nausea, Vomiting, Abdominal Pain Genitourinary: No: Flank Pain Musculoskeletal: Positive: Myalgias, Arthralgias, Pain, No: Limited ROM Skin: No Rash (right lower back Radiating to right thigh) Neurologic: No: Weakness, Change in Mentation, Paresthesia Psychiatric: No: Anxiety, Depression Hematologic/Lymphatic: No: Easy Bruising Physical Exam Narrative GENERAL: Well-developed well-nourished male in no acute distress no respiratory distress SKIN: Warm and dry. HEAD: Normocephalic. EYES: No scleral icterus. No injection or drainage. NECK: Supple, trachea midline. No JVD or lymphadenopathy. CARDIOVASCULAR: Regular rate and rhythm without murmurs, gallops, or rubs. RESPIRATORY: Breath sounds equal bilaterally. No accessory muscle use. GASTROINTESTINAL: Abdomen soft, non-tender, nondistended. MUSCULOSKELETAL: No cyanosis, or edema. Bilateral lower extremities hip flexion internal/external rotation abduction and abduction is not precipitate any increased pain in either hip: No lower extremity edema; patient does demonstrate mild increased pain on straight leg raising of the right lower extremity. Bilateral radial and dorsalis pedis pulses 2+ to palpation. No increased warmth over lying the right hip. BACK: Nontender without obvious deformity. No CVA tenderness. Data Data Last Documented VS Vital Signs Date Time Temp Pulse Resp B/P (MAP) Pulse Ox O2 Delivery O2 Flow Rate FiO2 05/06/17 04:01 98.2 72 20 123/56 (78) 99 Nasal Cannula 2.00 Orders Orders Complete Blood Count With Diff (05/06/17 01:44) Comprehensive Metabolic Panel (05/06/17 01:44) Retic Count (05/06/17 01:44) Blood Culture (05/06/17 01:44) Chest, Single Ap (05/06/17 01:44) Ecg Monitoring (05/06/17 01:44) Iv Access Insert/Monitor (05/06/17 01:44) Oximetry (05/06/17 01:44) Ondansetron Inj (Zofran Inj) (05/06/17 01:45) Sodium Chloride 0.9% Flush (Ns Flush) (05/06/17 01:45) Sodium Chlor 0.9% 1000 Ml Inj (Ns 1000 M (05/06/17 01:44) Hydromorphone Pf Inj (Dilaudid Pf Inj) (05/06/17 01:45) Diphenhydramine Inj (Benadryl Inj) (05/06/17 01:45) Lactic Acid (05/06/17 02:21) Hydromorphone Pf Inj (Dilaudid Pf Inj) (05/06/17 03:45) Diphenhydramine Inj (Benadryl Inj) (05/06/17 03:45) Sodium Chlor 0.9% 1000 Ml Inj (Ns 1000 M (05/06/17 03:45) Ketorolac Inj (Toradol Inj) (05/06/17 03:45) Labs Laboratory Tests Test 05/06/17 01:50 05/06/17 02:10 05/06/17 02:20 Blood Urea Nitrogen 12 MG/DL Creatinine 0.68 MG/DL Random Glucose 87 MG/DL Total Protein 7.8 GM/DL Albumin 3.9 GM/DL Calcium Level 8.5 MG/DL Alkaline Phosphatase 74 U/L Aspartate Amino Transf (AST/SGOT) 62 U/L Alanine Aminotransferase (ALT/SGPT) 29 U/L Total Bilirubin 3.7 MG/DL Sodium Level 138 MEQ/L Potassium Level 4.8 MEQ/L Chloride Level 106 MEQ/L Carbon Dioxide Level 25.8 MEQ/L Anion Gap 6 MEQ/L Estimat Glomerular Filtration Rate 174 ML/MIN White Blood Count 14.2 TH/MM3 Corrected White Blood Count 12.6 TH/MM3 Red Blood Count 3.37 MIL/MM3 Hemoglobin 10.1 GM/DL Hematocrit 31.0 % Mean Corpuscular Volume 91.8 FL Mean Corpuscular Hemoglobin 29.9 PG Mean Corpuscular Hemoglobin Concent 32.6 % Red Cell Distribution Width 29.1 % Platelet Count 390 TH/MM3 Mean Platelet Volume 7.8 FL CBC Comment AUTO DIFF Differential Total Cells Counted 100 Neutrophils % (Manual) 77 % Lymphocytes % 16 % Monocytes % 4 % Eosinophils % 3 % Neutrophils # (Manual) 9.7 TH/MM3 Nucleated Red Blood Cells 13 /100 WBC Differential Comment FINAL DIFF MANUAL Platelet Estimate NORMAL Platelet Morphology Comment NORMAL Sickle Cells 2+ Target Cells 1+ Ovalocytes 2+ Acanthocytes 1+ Reticulocyte Count 16.8 % Absolute Reticulocyte Count 537.4 MIL/L Lactic Acid Level 0.5 mmol/L MDM Medical Decision Making Medical Screen Exam Complete: Yes Emergency Medical Condition: Yes Medical Record Reviewed: Yes Interpretation(s) CBC & BMP Diagram 05/06/17 01:50 Total Protein 7.8 #, Albumin 3.9, Calcium Level 8.5, Alkaline Phosphatase 74, Aspartate Amino Transf (AST/SGOT) 62 H, Alanine Aminotransferase (ALT/SGPT) 29, Total Bilirubin 3.7 H 05/06/17 02:10 Vital Signs Date Time Temp Pulse Resp B/P (MAP) Pulse Ox O2 Delivery O2 Flow Rate FiO2 05/06/17 04:01 98.2 72 20 123/56 (78) 99 Nasal Cannula 2.00 05/06/17 02:37 82 20 98 05/06/17 02:31 85 20 121/78 (92) 99 05/06/17 01:33 97.6 79 24 124/77 (93) 96 Differential Diagnosis Sickle-cell crisis, anemia, chronic hip pain, avascular necrosis, bursitis, sciatica; no findings to support septic arthritis Narrative Course At 5:02 AM patient feels clinically improved and stable for outpatient management Diagnosis Primary Impression: Sickle cell anemia Qualified Codes: D57.00 - Hb-SS disease with crisis, unspecified Additional Impression: Sciatica Qualified Codes: M54.31 - Sciatica, right side Referrals: [facility] call for appointment Oncologist call for appointment follow up with your drug clerk in [facility] and Dr Kori Fernández as planned Patient Instructions: Narcotic given in the ED, General Instructions Additional Instructions: Increase fluid hydration Follow-up with your drug clerk and tap as scheduled as well as local drug clerk Dr. Sheets Return to the emergency for free concerns or change in condition Try to establish with primary care provider such as [facility] Monitor temperature every 4 hours with thermometer take acetaminophen as needed for fever 100.4F or greater Use muscle accident as prescribed as needed for low back pain and hip pain No school 2 days Med/Other Pt SpecificInfo: Prescription(s) given Scripts Cyclobenzaprine (Flexeril) 10 Mg Tab 10 MG PO Q8HR for Muscle Spasm, #10 TAB 0 Refills Prov: Kiara Sims MD 05/06/17 Disposition: 01 DISCHARGE HOME Condition: Stable Kiara Sims MD May 06, 2017 05:08
[2017-05-06 05:29] VITALS: BP 131/82
== END 2017-05-06 05:36 | disposition home or self-care (01) ==
LOC: PHED 01:26
DX: D57.00 Hb-SS disease with crisis, unspecified (principal); M54.5 Low back pain; M54.31 Sciatica, right side; M79.601 Pain in right arm
CPT/HCPCS: 71010; 80053; 83605; 85007; 85027; 85044; 87040; 96361; 96374; 96375; 96376; 99284; J1170; J1200; J1885; J2405; J7030

== ENCOUNTER 2017-05-24 05:03 | Inpatient (IN) | payer MEDICAID ==
[2017-05-24] VITALS (10 sets, daily range): BP systolic 111–137; BP diastolic 55–84; PULSE 73–249; RESP 18–24; TEMP 96.8–103.4; O2SAT 93–96
[~2017-05-24] VITALS: Ht 188 cm; Wt 91.1 kg
[~2017-05-24 05:03] MED LIST changes: +CYCL10TA PO; +DILA4TAB10 PO; -DILA4TAB2 PO; +PERC10TA27 PO
[2017-05-24] MEDS ORDERED: SODIUM CHLOR 0.9% 1000 ML INJ 1,000 ML IV ONE ×3 (05:18→14:30)
[2017-05-24] MEDS ORDERED: SODIUM CHLORIDE 0.9% FLUSH 10 ML FLUSH IVF PRN (05:30)
[2017-05-24] MEDS ORDERED: diphenhydrAMINE HCL 50 MG/ML VIAL IV PUSH ONE ×2 (05:30→07:00)
[2017-05-24] MEDS ORDERED: HYDROmorphone HCL PF 1 MG/ML VIAL IVS ONE (05:30)
[2017-05-24] MEDS ORDERED: ACETAMINOPHEN 500 MG CPLT PO ONE (05:30)
[2017-05-24] MEDS ORDERED: ONDANSETRON HCL 4 MG/2 ML VIAL IVP ONE (05:30)
[2017-05-24] MEDS ORDERED: KETOROLAC TROMETHAMINE 30 MG/ML (IVP) VIAL IVP ONE (05:30)
--- NOTE | 2017-05-24 05:47 | PD ---
HPI Chief Complaint: Fever Time Seen by Provider: 05:18 Travel History International Travel<30 days: No Contact w/Intl Traveler<30days: No Traveled to known affect area: No History of Present Illness HPI 22-year-old male with history of sickle cell disease presents with complaint of fever or chills myalgias arthralgias and his typical sickle cell pain affecting both hips and lower extremities. Patient has had sore throat since yesterday. Fever began last evening at 6 PM. Patient has taken no acetaminophen or ibuprofen but did take a one-time dose of NyQuil without relief. Patient is out of his pain medication because he could not fill the prescription. Patient has not had sinus pressure drainage ear pain neck pain or stiffness productive cough pleuritic chest pain chest pain abdominal pain nausea vomiting flank pain dysuria frequency urgency or skin rash or joint swelling. Patient did not have the flu vaccine administered this season. The patient rates his overall pain 9/ 10 in intensity. Patient is unable to identify exacerbating or alleviating factors. PFSH Past Medical History Anemia: Yes (SICKLE CELL ) Arthritis: No Asthma: No Autoimmune Disease: Yes Blood Disorders: No Anxiety: No Depression: No Heart Rhythm Problems: Yes (MURMUR) Cancer: No Cardiovascular Problems: Yes (HX OF SICKLE CELL, GETS INFUSIONS EVERY FOUR WEEKS .) High Cholesterol: No Chemotherapy: No Chest Pain: Yes Congestive Heart Failure: No COPD: No Cerebrovascular Accident: No Diabetes: No Diminished Hearing: No Endocrine: No Gastrointestinal Disorders: No GERD: No Genitourinary: Yes Headaches: No Hiatal Hernia: No Hypertension: No Immune Disorder: No Implanted Vascular Access Dvce: No Kidney Stones: No Musculoskeletal: No Neurologic: Yes Psychiatric: No Reproductive: No Respiratory: No Immunizations Current: Yes Migraines: No Pneumonia: Yes Radiation Therapy: No Renal Failure: No Seizures: No Sickle Cell Disease: Yes Sleep Apnea: No Thyroid Disease: No Ulcer: No Past Surgical History Abdominal Surgery: No AICD: No Arteriovenous Shunt: No Cardiac Surgery: No Ear Surgery: No Endocrine Surgery: No Eye Surgery: No Genitourinary Surgery: Yes (FOR PRIAPISM) Gynecologic Surgery: No Insulin Pump: No Joint Replacement: No Neurologic Surgery: No Oral Surgery: No Pacemaker: No Thoracic Surgery: No Other Surgery: Yes Social History Alcohol Use: No Tobacco Use: No Substance Use: No Allergies-Medications (Allergen,Severity, Reaction): Coded Allergies: penicillin G (Verified Allergy, Severe, told as child, 05/24/17) Reported Meds & Prescriptions Reported Meds & Active Scripts Active Flexeril (Cyclobenzaprine HCl) 10 Mg Tab 10 Mg PO Q8HR Reported Percocet (Oxycodone-Acetaminophen) 10-325 mg Tab 1 Tab PO Q4H PRN Ibuprofen 600 Mg Tab 600 Mg PO Q6H PRN Dilaudid (Hydromorphone HCl) 4 Mg Tab 4 Mg PO Q4H PRN Review of Systems Except as stated in HPI: all other systems reviewed are Neg General / Constitutional: Positive: Fever, Chills Eyes: No: Visual changes HENT: Positive: Headaches, Sore Throat, Congestion, No: Neck Stiffness, Neck Pain, Earache Cardiovascular: No: Chest Pain or Discomfort Respiratory: No: Cough, Shortness of Breath Gastrointestinal: No: Nausea, Vomiting, Abdominal Pain Genitourinary: No: Flank Pain Musculoskeletal: Positive: Myalgias, Arthralgias, Pain (bilateral hip and leg pain his typical sickle cell) Skin: No Rash Neurologic: No: Weakness, Dizziness, Syncope Psychiatric: No: Anxiety Hematologic/Lymphatic: No: Easy Bruising, Lymph Node Enlargement Physical Exam Narrative GENERAL: Well-developed well-nourished male in no acute respiratory distress with fever and tachycardia. SKIN: Warm and dry. HEAD: Normocephalic. EYES: No scleral icterus. No injection or drainage. ENT: Mucous membranes moist airway is patent tonsillar erythema with white exudate NECK: Supple, trachea midline. No JVD or lymphadenopathy. Supple no meningismus no nuchal rigidity. CARDIOVASCULAR: Increased Regular rate and rhythm without murmurs, gallops, or rubs. RESPIRATORY: Breath sounds equal bilaterally. No accessory muscle use. GASTROINTESTINAL: Abdomen soft, non-tender, nondistended. Nontender to palpation no guarding or rebound. MUSCULOSKELETAL: No cyanosis, or edema. BACK: Nontender without obvious deformity. No CVA tenderness. Data Data Last Documented VS Vital Signs Date Time Temp Pulse Resp B/P (MAP) Pulse Ox O2 Delivery O2 Flow Rate FiO2 05/24/17 07:00 92 18 121/60 (80) 95 Room Air 05/24/17 05:09 102.2 Orders Orders Basic Metabolic Panel (Bmp) (05/24/17 05:18) Complete Blood Count With Diff (05/24/17 05:18) Retic Count (05/24/17 05:18) Urinalysis - C+S If Indicated (05/24/17 05:18) Blood Culture (05/24/17 05:18) Chest, Single Ap (05/24/17 05:18) Ecg Monitoring (05/24/17 05:18) Iv Access Insert/Monitor (05/24/17 05:18) Oximetry (05/24/17 05:18) Ketorolac Inj (Toradol Inj) (05/24/17 05:30) Ondansetron Inj (Zofran Inj) (05/24/17 05:30) Sodium Chloride 0.9% Flush (Ns Flush) (05/24/17 05:30) Sodium Chlor 0.9% 1000 Ml Inj (Ns 1000 M (05/24/17 05:18) Hydromorphone Pf Inj (Dilaudid Pf Inj) (05/24/17 05:30) Diphenhydramine Inj (Benadryl Inj) (05/24/17 05:30) Influenzae A/B Antigen (05/24/17 05:18) Group A Rapid Strep Screen (05/24/17 05:18) Lactic Acid (05/24/17 05:18) Acetaminophen (Tylenol) (05/24/17 05:30) Ibuprofen (Motrin) (05/24/17 06:00) Hydromorphone Pf Inj (Dilaudid Pf Inj) (05/24/17 06:15) Diphenhydramine Inj (Benadryl Inj) (05/24/17 06:15) Strep Culture (Group A) (05/24/17 06:03) Monoscreen (05/24/17 06:56) Hydromorphone Pf Inj (Dilaudid Pf Inj) (05/24/17 07:00) Diphenhydramine Inj (Benadryl Inj) (05/24/17 07:00) Sodium Chlor 0.9% 1000 Ml Inj (Ns 1000 M (05/24/17 07:15) Labs Laboratory Tests Test 05/24/17 05:45 05/24/17 06:40 Blood Urea Nitrogen 10 MG/DL Creatinine 0.77 MG/DL Random Glucose 99 MG/DL Calcium Level 8.3 MG/DL Sodium Level 135 MEQ/L Potassium Level 3.5 MEQ/L Chloride Level 103 MEQ/L Carbon Dioxide Level 23.4 MEQ/L Anion Gap 9 MEQ/L Estimat Glomerular Filtration Rate 150 ML/MIN White Blood Count 22.6 TH/MM3 Red Blood Count 3.23 MIL/MM3 Hemoglobin 10.1 GM/DL Hematocrit 29.8 % Mean Corpuscular Volume 92.4 FL Mean Corpuscular Hemoglobin 31.3 PG Mean Corpuscular Hemoglobin Concent 33.8 % Red Cell Distribution Width 24.0 % Platelet Count 331 TH/MM3 Mean Platelet Volume 8.2 FL CBC Comment AUTO DIFF MDM Medical Decision Making Medical Screen Exam Complete: Yes Emergency Medical Condition: Yes Medical Record Reviewed: Yes Differential Diagnosis Febrile illness, viral syndrome, sepsis, strep tonsillitis, influenza, pneumonia ; patient with generalized myalgias and arthralgias and his typical hip and bilateral lower extremity pain unlikely septic arthritis. Narrative Course IV access ordered to be obtained and administer Dilaudid 1 mg IV Benadryl 25 mg IV 1 L normal saline along with 1 g of Tylenol by mouth and Toradol 30 mg IV Difficulty with obtaining IV access therefore patient administered as well as 1 g of Tylenol by mouth 800 mg of ibuprofen by mouth and Toradol 30 mg IV was canceled also received Dilaudid 1 mg IM and Benadryl 50 mg IM Specimens collected however is still difficulty with IV access finally as a left external jugular was obtained with a 20-gauge with good venous access patient was administered 1 L normal saline received Dilaudid 1 mg IV and Benadryl 25 mg IV temperature has decreased to 100.3F CBC required redraw along with 3 lactic acid cultures were obtained Monospot is pending and rapid strep antigen is found to be negative although my suspicion for peritonsillar/ pharyngitis remains high and influenza A/P antigens are negative Patient feeling somewhat clinically improved and care has been signed over to Dr George Sepsis Criteria SIRS Criteria (2 or more): Temp > 100.9 or < 96.8, Heart rate over 90, RR > 20 or PaCO2 < 32 Diagnosis Primary Impression: Sickle cell anemia with crisis Additional Impression: SIRS (systemic inflammatory response syndrome) Kiara Sims MD May 24, 2017 05:46
--- NOTE | 2017-05-24 05:57 | RADRPT ---
EXAM DATE/TIME: 05/24/2017 05:50 [facility] COMPARISON: CHEST SINGLE AP, May 06, 2017, 1:53. INDICATIONS : Shortness of breath. MEDICAL HISTORY : Sickle Cell disease. SURGICAL HISTORY : None. ENCOUNTER: Initial ACUITY: 1 day PAIN SCORE: 0/10 LOCATION: Bilateral chest FINDINGS: A single view of the chest demonstrates the lungs to be symmetrically aerated without evidence of mas s, infiltrate or effusion. The cardiomediastinal contours are unremarkable. Osseous structures are intact. CONCLUSION: No acute disease. Angel Castrejon MD on May 24, 2017 at 5:54 Board Certified Radiologist. This report was verified electronically.
[2017-05-24] MEDS ORDERED: IBUPROFEN 800 MG TAB PO ONE (06:00)
[2017-05-24 06:14] LABS: POTASSIUM 3.5 MEQ/L (3.5-5.1)
[2017-05-24] MEDS ORDERED: diphenhydrAMINE HCL 50 MG/ML VIAL IM ONE (06:15)
[2017-05-24] MEDS ORDERED: HYDROmorphone HCL PF 1 MG/ML VIAL IM ONE (06:15)
[2017-05-24 06:17] LABS: BICARBONATE 23.4 MEQ/L (21.0-32.0)
[2017-05-24 06:59] LABS: HEMATOCRIT 29.8 % (39.0-51.0); MEAN CELL VOLUME 92.4 FL (80.0-100.0); MEAN CORPUSCULAR HEMOGLOBIN 31.3 PG (27.0-34.0); MEAN CORPUSCULAR HGB CONC 33.8 % (32.0-36.0); PLATELET COUNT 331 TH/MM3 (150-450); RED BLOOD COUNT 3.23 MIL/MM3 (4.50-5.90); WHITE BLOOD COUNT 22.6 TH/MM3 (4.0-11.0)
[2017-05-24] MEDS ORDERED: HYDROmorphone HCL PF 1 MG/ML VIAL IV PUSH ONE ×2 (07:00→08:45)
[2017-05-24 07:10] LABS: HEMO FLAGS AUTO DIFF
--- NOTE | 2017-05-24 07:36 | PD ---
Physical Exam Narrative Received sign out from previous team to follow up with CBC and monospot. 22yo M with sickle cell disease here with c/o fever, chills, generalized bodyaches and lower extremity pain that feels like his sickle cell since last night. Pt also with throat pain. Pt was initially found to be febrile and tachycardic and given acetaminophen, NS IVF and ibuprofen. Labs reviewed, leukocytosis at 22.6. H/H low at 10.1/29.8 but this is his baseline. Absolute reticulocyte count elevated. Monocytes elevated at 10%. Lactic acid normal at 0.8. Influenza and group A strep negative. CXR negative. Pt has posterior cervical lymphadenopathy on right as well as tonsillar swelling. I still think this is likely infectious mononucleosis and monospot is still pending. However , pt is requesting multiple doses of IV dilaudid for his pain and I have given him his third dose of dialudid 1mg. HR has decreased and fever has decreased as well. Discussed with Dr. Melissa who will admit him for observation for vasoocclusive crisis. Data Data Last Documented VS Vital Signs Date Time Temp Pulse Resp B/P (MAP) Pulse Ox O2 Delivery O2 Flow Rate FiO2 05/24/17 08:52 86 96 Room Air 05/24/17 08:21 18 123/62 (82) 05/24/17 07:20 100.3 Orders Orders Basic Metabolic Panel (Bmp) (05/24/17 05:18) Complete Blood Count With Diff (05/24/17 05:18) Retic Count (05/24/17 05:18) Urinalysis - C+S If Indicated (05/24/17 05:18) Blood Culture (05/24/17 05:18) Chest, Single Ap (05/24/17 05:18) Ecg Monitoring (05/24/17 05:18) Iv Access Insert/Monitor (05/24/17 05:18) Oximetry (05/24/17 05:18) Ketorolac Inj (Toradol Inj) (05/24/17 05:30) Ondansetron Inj (Zofran Inj) (05/24/17 05:30) Sodium Chloride 0.9% Flush (Ns Flush) (05/24/17 05:30) Sodium Chlor 0.9% 1000 Ml Inj (Ns 1000 M (05/24/17 05:18) Hydromorphone Pf Inj (Dilaudid Pf Inj) (05/24/17 05:30) Diphenhydramine Inj (Benadryl Inj) (05/24/17 05:30) Influenzae A/B Antigen (05/24/17 05:18) Group A Rapid Strep Screen (05/24/17 05:18) Lactic Acid (05/24/17 05:18) Acetaminophen (Tylenol) (05/24/17 05:30) Ibuprofen (Motrin) (05/24/17 06:00) Hydromorphone Pf Inj (Dilaudid Pf Inj) (05/24/17 06:15) Diphenhydramine Inj (Benadryl Inj) (05/24/17 06:15) Strep Culture (Group A) (05/24/17 06:03) Monoscreen (05/24/17 06:56) Hydromorphone Pf Inj (Dilaudid Pf Inj) (05/24/17 07:00) Diphenhydramine Inj (Benadryl Inj) (05/24/17 07:00) Sodium Chlor 0.9% 1000 Ml Inj (Ns 1000 M (05/24/17 07:15) Hydromorphone Pf Inj (Dilaudid Pf Inj) (05/24/17 08:45) Admit Order (Ed Use Only) (05/24/17 08:55) Labs Laboratory Tests Test 05/24/17 05:45 05/24/17 06:40 05/24/17 07:10 Blood Urea Nitrogen 10 MG/DL Creatinine 0.77 MG/DL Random Glucose 99 MG/DL Calcium Level 8.3 MG/DL Sodium Level 135 MEQ/L Potassium Level 3.5 MEQ/L Chloride Level 103 MEQ/L Carbon Dioxide Level 23.4 MEQ/L Anion Gap 9 MEQ/L Estimat Glomerular Filtration Rate 150 ML/MIN Total Bilirubin 3.6 MG/DL Direct Bilirubin 0.6 MG/DL Indirect Bilirubin 3.0 MG/DL Aspartate Amino Transf (AST/SGOT) 30 U/L Alanine Aminotransferase (ALT/SGPT) 59 U/L Alkaline Phosphatase 97 U/L Total Creatine Kinase 46 U/L Total Protein 8.0 GM/DL Albumin 3.9 GM/DL White Blood Count 22.6 TH/MM3 Corrected White Blood Count 21.1 TH/MM3 Red Blood Count 3.23 MIL/MM3 Hemoglobin 10.1 GM/DL Hematocrit 29.8 % Mean Corpuscular Volume 92.4 FL Mean Corpuscular Hemoglobin 31.3 PG Mean Corpuscular Hemoglobin Concent 33.8 % Red Cell Distribution Width 24.0 % Platelet Count 331 TH/MM3 Mean Platelet Volume 8.2 FL CBC Comment AUTO DIFF Differential Total Cells Counted 100 Neutrophils % (Manual) 76 % Lymphocytes % 14 % Monocytes % 10 % Neutrophils # (Manual) 16.0 TH/MM3 Nucleated Red Blood Cells 7 /100 WBC Differential Comment FINAL DIFF MANUAL Platelet Estimate NORMAL Platelet Morphology Comment NORMAL Sickle Cells 1+ Target Cells 1+ Ovalocytes 2+ Keratocytes OCC Reticulocyte Count 14.1 % Absolute Reticulocyte Count 450.3 MIL/L Lactic Acid Level 0.8 mmol/L Monoscreen NEG MDM Supervised Visit with CASSANDRA: No Diagnosis Primary Impression: Sickle cell anemia with crisis Additional Impression: SIRS (systemic inflammatory response syndrome) Admitting Information Admitting Physician Requests: Observation Shasta George DO May 24, 2017 07:36
[2017-05-24 07:59] LABS: CORRECTED NUCLEATED RBC 7 /100 WBC (0-0); CORRECTED WBC 21.1 TH/MM3 (4.0-11.0); KERATOCYTES OCC (NORMAL); OVALOCYTES 2+ (NORMAL); PLATELET ESTIMATE SMEAR NORMAL (NORMAL); POLYS (SEG NEUTROPHILS) 76 % (16-70); SICKLE CELLS 1+ (NORMAL); TARGET CELLS 1+ (NORMAL); WBC DIFF SAMPLE 100
[2017-05-24 08:00] LABS: PLATELET MORPHOLOGY NORMAL (NORMAL); SCAN/DIFF FINAL DIFF MANUAL
[2017-05-24 08:45] LABS: RETIC % 14.1 % (0.4-3.0)
[2017-05-24 08:52] LABS: REVIEW FLAG FINAL
[2017-05-24] MEDS ORDERED: NALOXONE HCL 0.4 MG/ML AMP IV PUSH PRN (09:00)
[2017-05-24] MEDS: SODIUM CHLORIDE 0.9% FLUSH 10 ML FLUSH IV FLUSH SCH ×2 (09:00→21:30)
[2017-05-24] MEDS ORDERED: SENNOSIDES 8.6 MG TAB PO PRN (09:00)
[2017-05-24] MEDS ORDERED: SODIUM CHLORIDE 0.9% FLUSH 10 ML FLUSH IV FLUSH PRN (09:00)
[2017-05-24] MEDS: SODIUM CHLOR 0.9% 1000 ML INJ 1,000 ML IV SCH ×2 (10:01→19:42)
[2017-05-24 11:26] LABS: TOTAL BILIRUBIN ADULT 3.6 MG/DL (0.2-1.0)
[2017-05-24] MEDS: oxyCODONE/ACETAMINOPHEN 10 MG/325 MG TAB PO PRN (12:16)
[2017-05-24] MEDS: ONDANSETRON HCL 4 MG/2 ML VIAL IVP PRN (12:17)
[2017-05-24] MEDS: HYDROmorphone HCL PF 1 MG/ML VIAL IV PUSH PRN ×2 (13:20→17:38)
--- NOTE | 2017-05-24 13:58 | HHI.HP ---
[facility] No Primary Care Physician Admission Diagnosis Vasoocclusive crisis Diagnoses: Chief Complaint: Pain related to previous sickle cell crises Travel History International Travel<30 Days: No Contact w/Intl Traveler <30 Da: No Traveled to Known Affected Are: No Sepsis Criteria SIRS Criteria (2 or more): WBC > 74371, < 4000 or > 10% bands History of Present Illness Patient is 22-year-old gentleman who came to the emergency room complaining of one day of myalgias and subjective fevers and chills. He has a known history of sickle cell disease. He was recently in the hospital with sickle cell crisis. Here he's come with low-grade temperature 100.3 as well as leukocytosis and anemia and reticulocytosis. Patient says Dilaudid is helpful in his pain management. He also takes Motrin which was not helpful at home prior to his arrival here. He has not had any recent travel. He notes no sick contacts. He says usually when the weather changes he has lots of trouble with his sickle cell disease. Patient admitted to the hospital for further evaluation Review of Systems Constitutional: COMPLAINS OF: Fever, Chills, DENIES: Diaphoretic episodes, Fatigue, Weight gain, Weight loss, Dizziness, Change in appetite, Night Sweats Endocrine: DENIES: Heat/cold intolerance, Polydipsia, Polyuria, Polyphagia Eyes: DENIES: Blurred vision, Diplopia, Eye inflammation, Eye pain, Vision loss , Photosensitivity, Double Vision Ears, nose, mouth, throat: DENIES: Tinnitus, Hearing loss, Vertigo, Nasal discharge, Oral lesions, Throat pain, Hoarseness, Ear Pain, Running Nose, Epistaxis, Sinus Pain, Toothache, Odynophagia Respiratory: DENIES: Apneas, Cough, Snoring, Wheezing, Hemoptysis, Sputum production, Shortness of breath Cardiovascular: DENIES: Chest pain, Palpitations, Syncope, Dyspnea on Exertion , PND, Lower Extremity Edema, Orthopnea, Claudication Gastrointestinal: DENIES: Abdominal pain, Black stools, Bloody stools, Constipation, Diarrhea, Nausea, Vomiting, Difficulty Swallowing, Anorexia Genitourinary: DENIES: Sexual dysfunction, Urinary frequency, Urinary incontinence, Urgency, Hematuria, Dysuria, Nocturia, Penile Discharge, Testicular Pain, Testicular Swelling Musculoskeletal: DENIES: Joint pain, Muscle aches, Stiffness, Joint Swelling, Back pain, Neck pain Integumentary: DENIES: Abnormal pigmentation, Nail changes, Pruritus, Rash Hematologic/lymphatic: DENIES: Bruising, Lymphadenopathy Immunologic/allergic: DENIES: Eczema, Urticaria Neurologic: COMPLAINS OF: Abnormal gait Psychiatric: DENIES: Anxiety, Confusion, Mood changes, Depression, Hallucinations, Agitation, Suicidal Ideation, Homicidal Ideation, Delusions Except as stated in HPI: all other systems reviewed are Neg Past Family Social History Past Medical History Sickle cell disease Past Surgical History Denies Reported Medications reviewed in the EMR Allergies: Coded Allergies: penicillin G (Verified Allergy, Severe, told as child, 05/24/17) Active Ordered Medications Reviewed in the EMR Family History Otherwise alive and healthy, sickle cell trait Social History No tobacco or alcohol dependency, 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 [place] Physical Exam Vital Signs Vital Signs Date Time Temp Pulse Resp B/P (MAP) Pulse Ox O2 Delivery O2 Flow Rate FiO2 05/24/17 12:00 96.8 73 20 111/55 (73) 96 05/24/17 09:30 97.7 84 20 116/55 (75) 95 05/24/17 09:28 80 18 122/84 (97) 95 05/24/17 08:52 86 96 Room Air 05/24/17 08:21 88 18 123/62 (82) 95 Room Air 05/24/17 07:20 100.3 94 18 127/71 (89) 95 Room Air 05/24/17 07:00 92 18 121/60 (80) 95 Room Air 05/24/17 05:55 18 96 Room Air 05/24/17 05:15 112 18 96 05/24/17 05:09 102.2 117 24 135/59 (84) 95 Physical Exam GENERAL: This is a well-nourished, well-developed patient, complaining of pain all over SKIN: No rashes, ecchymoses or lesions. Cool and dry. HEAD: Atraumatic. Normocephalic. No temporal or scalp tenderness. EYES: Pupils equal round and reactive. Extraocular motions intact. No scleral icterus. No injection or drainage. ENT: Nose without bleeding, purulent drainage or septal hematoma. Throat without erythema, tonsillar hypertrophy or exudate. Uvula midline. Airway patent. NECK: Trachea midline. No JVD or lymphadenopathy. Supple, nontender, no meningeal signs. CARDIOVASCULAR: Regular rate and rhythm without murmurs, gallops, or rubs. RESPIRATORY: Clear to auscultation. Breath sounds equal bilaterally. No wheezes , rales, or rhonchi. GASTROINTESTINAL: Abdomen soft, non-tender, nondistended. No hepato-splenomegaly , or palpable masses. No guarding. MUSCULOSKELETAL: Extremities without clubbing, cyanosis, or edema. No joint tenderness, effusion, or edema noted. No calf tenderness. Negative Homans sign bilaterally. NEUROLOGICAL: Awake and alert. Cranial nerves II through XII intact. Motor and sensory grossly within normal limits. Five out of 5 muscle strength in all muscle groups. Normal speech. Laboratory Laboratory Tests Test 05/24/17 05:45 05/24/17 06:40 05/24/17 07:10 Blood Urea Nitrogen 10 Creatinine 0.77 Random Glucose 99 Calcium Level 8.3 Sodium Level 135 Potassium Level 3.5 Chloride Level 103 Carbon Dioxide Level 23.4 Anion Gap 9 Estimat Glomerular Filtration Rate 150 Total Bilirubin 3.6 Direct Bilirubin 0.6 Indirect Bilirubin 3.0 Aspartate Amino Transf (AST/SGOT) 30 Alanine Aminotransferase (ALT/SGPT) 59 Alkaline Phosphatase 97 Total Protein 8.0 Albumin 3.9 White Blood Count 22.6 Corrected White Blood Count 21.1 Red Blood Count 3.23 Hemoglobin 10.1 Hematocrit 29.8 Mean Corpuscular Volume 92.4 Mean Corpuscular Hemoglobin 31.3 Mean Corpuscular Hemoglobin Concent 33.8 Red Cell Distribution Width 24.0 Platelet Count 331 Mean Platelet Volume 8.2 CBC Comment AUTO DIFF Differential Total Cells Counted 100 Neutrophils % (Manual) 76 Lymphocytes % 14 Monocytes % 10 Neutrophils # (Manual) 16.0 Nucleated Red Blood Cells 7 Differential Comment FINAL DIFF MANUAL Platelet Estimate NORMAL Platelet Morphology Comment NORMAL Sickle Cells 1+ Target Cells 1+ Ovalocytes 2+ Keratocytes OCC Reticulocyte Count 14.1 Absolute Reticulocyte Count 450.3 Lactic Acid Level 0.8 Monoscreen NEG Date/Time Source Procedure Growth Status 05/24/17 07:10 Blood Peripheral Aerobic Blood Culture Pending Received 05/24/17 07:10 Blood Peripheral Anaerobic Blood Culture Pending Received 05/24/17 06:03 Throat Group A Streptococcus Screen Pending Received Result Diagram: 05/24/17 0640 05/24/17 0545 Imaging Last Impressions Chest X-Ray 05/24/17517 Signed Impressions: Service Date/Time: Wednesday, May 24, 2017 05:50 - CONCLUSION: No acute disease. Angel Castrejon MD Septic Shock Reassessment Heart: Regular rate and rhythm Lungs: Clear Skin: Warm Peripheral Pulses: Bounding Right Radial Bounding Left Radial Bounding Right Popliteal Bounding Left Popliteal Bounding Right Dorsalis Pedis Bounding Left Dorsalis Pedis Bounding Right Posterior Tibial Bounding Left Posterior Tibial Capillary Refill: Brisk Caprini VTE Risk Assessment Caprini VTE Risk Assessment: Mod/High Risk (score >= 2) Caprini Risk Assessment Model Point Value = 1 Point Value = 2 Point Value = 3 Point Value = 5 Age 41-60 Minor surgery BMI > 25 kg/m2 Swollen legs Varicose veins or History of unexplained or recurrent spontaneous Oral contraceptives or hormone replacement Sepsis (< 1 month) Serious lung disease, including pneumonia (< 1 month) Abnormal pulmonary function Acute myocardial infarction Congestive heart failure (< 1 month) History of inflammatory bowel disease Medical patient at bed rest Age 61-74 Arthroscopic surgery Major open surgery (> 45 min) Laparoscopic surgery (> 45 min) Malignancy Confined to bed (> 72 hours) Immobilizing plaster cast Central venous access Age >= 75 History of VTE Family history of VTE Factor V Leiden Prothrombin [id number] Lupus anticoagulant Anticardiolipin antibodies Elevated serum homocysteine Heparin-induced thrombocytopenia Other congenital or acquired thrombophilia Stroke (< 1 month) Elective arthroplasty Hip, pelvis, or leg fracture Acute spinal cord injury (< 1 month) Prophylaxis Regimen Total Risk Factor Score Risk Level Prophylaxis Regimen 0-1 Low Early ambulation 2 Moderate Order ONE of the following: *Sequential Compression Device (SCD) *Heparin 5000 units SQ BID 3-4 Higher Order ONE of the following medications: *Heparin 5000 units SQ TID *Enoxaparin/Lovenox 40 mg SQ daily (WT < 150 kg, CrCl > 30 mL/min) *Enoxaparin/Lovenox 30 mg SQ daily (WT < 150 kg, CrCl > 10-29 mL/min) *Enoxaparin/Lovenox 30 mg SQ BID (WT < 150 kg, CrCl > 30 mL/min) AND/OR *Sequential Compression Device (SCD) 5 or more Highest Order ONE of the following medications: *Heparin 5000 units SQ TID (Preferred with Epidurals) *Enoxaparin/Lovenox 40 mg SQ daily (WT < 150 kg, CrCl > 30 mL/min) *Enoxaparin/Lovenox 30 mg SQ daily (WT < 150 kg, CrCl > 10-29 mL/min) *Enoxaparin/Lovenox 30 mg SQ BID (WT < 150 kg, CrCl > 30 mL/min) AND *Sequential Compression Device (SCD) Assessment and Plan Problem List: (1) Sickle cell anemia with crisis ICD Code: D57.00 - Hb-SS disease with crisis Status: Chronic Plan: We'll continue with IV fluids, follow-up hemoglobin UA pending Empiric Levaquin hematology f/u IV dilaudid Assessment and Plan Plan of care to be determined by Hospital course Code Status full code Discussed Condition With patient, Denice MERAZ Physician Certification 2 Midnight Certification Type: Admission for Inpatient Services Order for Inpatient Services The services are ordered in accordance with Medicare regulations or non- Medicare payer requirements, as applicable. In the case of services not specified as inpatient-only, they are appropriately provided as inpatient services in accordance with the 2-midnight benchmark. Estimated LOS (days): 3 3 days is the estimated time the patient will need to remain in the hospital, assuming treatment plan goals are met and no additional complications. Post-Hospital Plan: Home Coreen Melissa MD May 24, 2017 13:57
[2017-05-24] MEDS: diphenhydrAMINE HCL 50 MG/ML VIAL IV PUSH PRN ×2 (14:04→18:55)
[2017-05-24] MEDS: CYCLOBENZAPRINE HCL 10 MG TAB PO SCH ×2 (14:12→21:30)
[2017-05-24 16:09] LABS: BLOOD, URINE NEG (NEG); GLUCOSE,URINE NEG (NEG); KETONE, URINE NEG (NEG); NITRITE,URINE NEG (NEG)
[2017-05-24] MEDS: LEVOFLOXACIN 750 MG PREMIX INJ 150 ML IV SCH (16:12)
[2017-05-24 16:13] LABS: URINE COLOR YELLOW (YELLW/STRAW)
[2017-05-24] MEDS: ACETAMINOPHEN 325 MG TAB PO PRN (16:13)
[2017-05-24 16:14] LABS: COMMENT (UR) CULT NOT INDICATED; CULTURE IF INDICATED CULT NOT INDICATED; SQUAMOUS EPITHELIAL CELL URINE 0-5 /hpf (0-5)
[2017-05-24] MEDS ORDERED: HYDROmorphone HCL PF 1 MG/ML VIAL SQ STA (18:17)
[2017-05-24] MEDS ORDERED: ACETAMINOPHEN 650 MG/20.3 ML UDC PO ONE (18:30)
--- NOTE | 2017-05-24 19:07 | MB ---
cc: PAULA MELISSA MD, RUBY ANNE E. M.D. 1995 DATE OF CONSULTATION 05/24/[address] Paula Melissa CHIEF COMPLAINT Dr. Melissa requests a consultation for Mr. Mariano regarding sickle-cell vasoocclusive pain crises. HISTORY OF PRESENT ILLNESS Mr. Mariano is a 22-year-old man. 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 He has sickle-cell disease. He has a relatively high hemoglobin. He is known to Dr. Jhony Sheets from inpatient consultation April 22, 2017. He comes in today with acute vasoocclusive pain symptoms. He has no precipitating event. He has no sick contact. He reports a sore throat and painful adenopathy in the neck. He feels that his throat is closing in. He has trouble swallowing pills. He is requesting his medications to be liquid orally. He is quite uncomfortable with typical vasoocclusive pain symptoms in addition to the throat symptoms. He has bone pain, back pain is quite uncomfortable. He typically takes Dilaudid 4 mg orally at home. His Dilaudid 1 mg has been ineffective in controlling his pain completely. He has been febrile which is concerning. His white blood cell count is higher than his baseline. This is higher despite the corrected white blood cell count. He has no other localizing symptoms. No episode of priapism at present. He denies any cough. He usually does not get fevers associated with sickle-cell disease. He has not had fevers since he was a kid. Denies any urinary complaints or diarrhea. No nausea or vomiting. He is quite uncomfortable. 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 3. Chronic anemia. 4. History of priapism. 5. History of acute chest PAST SURGICAL HISTORY No major surgical intervention. Aspiration due to priapism. FAMILY HISTORY Both parents have sickle trait ALLERGIES PENICILLIN G SOCIAL HISTORY Denies any tobacco, alcohol or illicit drug use. He has a female partner. He is a student at [employer] MEDICATIONS 1. Heparin 5000 units q.8 h 2. Levaquin 3. Flexeril p.r.n. 4. Benadryl p.r.n. 5. Hydromorphone. 6. Percocet PHYSICAL EXAMINATION VITAL SIGNS: Temperature 103.4, heart rate 73, respiratory rate 20, blood pressure 137/68, saturation 93%. GENERAL: Mr. Mariano is a well-developed, well-nourished young man who is uncomfortable, writhing in pain. He is awake, alert, but quit uncomfortable. He is polite, cooperative. HEENT: Pupils are round, reactive to light and accommodation. Sclerae are icteric. Oropharynx is dry. Pharynx is unremarkable. No coating on the tongue. NECK: Supple. There is tender cervical adenopathy noted posterior cervical LUNGS: Clear. CARDIOVASCULAR: Normal rate, rhythm. ABDOMEN: Benign. There is splenomegaly appreciated. BACK: Tenderness in the back LOWER EXTREMITIES: With no edema. LABORATORY DATA Significant for hemoglobin of 10.1, white blood cell count 22, corrected white blood cell count is 21,000, bilirubin is 3.6, predominately indirect. LDH is pending. 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 He has a baseline hemoglobin around 10. He comes in with acute vasoocclusive pain crises associated with fevers. It is discussed with Dr. Melissa we evaluate for acute chest syndrome. His initial chest x-ray is negative. He has no shortness of breath. No priapism to precipitate his acute vasoocclusive pain crises. His fevers appear to be in the pharynx. Cultures were obtained. His throat culture and strep have been negative. I will obtain CT to determine if there is any abscess that might be precipitating these high, high temperatures. His main symptoms are related to the throat and significant adenopathy which is atypical for vasoocclusive pain symptoms. No other localizing symptoms. Supportive treatment with IV fluid hydration, pain medication is offered. Small dose of ibuprofen will be given around the clock to make him more comfortable in terms of his fever. He requested a liquid ibuprofen. He is unable to swallow big pills. Tylenol was offered. His Dilaudid will be scheduled in the next 24 hours until he becomes more comfortable. He will be given a concurrent bowel regimen. LDH will be monitored. His questions were answered to his satisfaction. MD MARIETTA Tavarez /6:35 PM /6:50 PM
[2017-05-24] MEDS: HYDROmorphone HCL PF 1 MG/ML VIAL IV PUSH SCH (21:30)
[2017-05-24] MEDS: IBUPROFEN SUSP 100 MG/5 ML UDC PO SCH (21:30)
[2017-05-24] MEDS: HEPARIN SODIUM - SQ 10,000 UNITS/ML VIAL SQ SCH ×2 (21:31→21:34)
--- NOTE | 2017-05-24 22:03 | RADRPT ---
EXAM DATE/TIME: 05/24/2017 21:15 [facility] COMPARISON: No previous studies available for comparison. INDICATIONS : Vasoocclusive crisis. Difficulty swallowing. Throat pain. RADIATION DOSE: 11.7 CTDIvol (mGy) MEDICAL HISTORY : Sickle cell disease. SURGICAL HISTORY : None. ENCOUNTER: Initial ACUITY: 1 day PAIN SCORE: 9/10 LOCATION: throat TECHNIQUE: Volumetric scanning of the neck was performed. Using automated exposure control and adjustment of th e mA and/or kV according to patient size, radiation dose was kept as low as reasonably achievable to obtain optimal diagnostic quality images. DICOM format image data is available electronically for re view and comparison. FINDINGS: NASOPHARYNX: The nasopharyngeal airway has a normal configuration. No mucosal thickening or mass is seen. OROPHARYNX: The intrinsic muscles of the tongue are symmetric. The tonsillar pillars are intact. The prevertebr al soft tissues are not thickened. Soft palate appears prominent. There is prominence of adenoidal ti ssue and fatty tissue as well. There is no focal abscess. LARYNX: The supraglottic, glottic, and infraglottic structures are intact. The epiglottis is unremarkable. PARAPHARYNGEAL: The parapharyngeal space is intact. SALIVARY GLANDS: The parotid and submandibular glands are intact. LYMPH NODES: No enlarged or necrotic-appearing nodes. There are multiple small reactive-appearing bilateral cervic al chain nodes. THYROID: Homogeneous enhancement without evidence of nodule. BONES: Unremarkable. CONCLUSION: 1. The soft palate is prominent and there is prominence of the lymphoid and adenoidal tissue. 2. The epiglottis is unremarkable. 3. Bilateral reactive appearing cervical chain nodes. Dick Dobson MD on May 24, 2017 at 21:56 Board Certified Radiologist. This report was verified electronically.
[2017-05-25] VITALS: BP 120/61; PULSE 101; RESP 20; TEMP 100; O2SAT 93
[2017-05-25] MEDS: HYDROmorphone HCL PF 1 MG/ML VIAL IV PUSH SCH ×5 (01:02→16:31)
[2017-05-25] MEDS: diphenhydrAMINE HCL 50 MG/ML VIAL IV PUSH PRN ×4 (01:02→22:01)
[2017-05-25] MEDS: ACETAMINOPHEN 325 MG TAB PO PRN ×2 (02:04→20:28)
[2017-05-25 04:00] VITALS: BP 119/58; PULSE 111; RESP 20; TEMP 101.4; O2SAT 94
[2017-05-25] MEDS: IBUPROFEN SUSP 100 MG/5 ML UDC PO SCH ×3 (04:08→16:30)
[2017-05-25] MEDS: SODIUM CHLOR 0.9% 1000 ML INJ 1,000 ML IV SCH ×2 (04:09→15:44)
[2017-05-25] MEDS: CYCLOBENZAPRINE HCL 10 MG TAB PO SCH ×3 (05:00→20:29)
[2017-05-25] MEDS: HEPARIN SODIUM - SQ 10,000 UNITS/ML VIAL SQ SCH ×3 (05:01→20:28)
[2017-05-25 06:35] LABS: POTASSIUM 3.3 MEQ/L (3.5-5.1)
[2017-05-25 06:40] LABS: BICARBONATE 24.2 MEQ/L (21.0-32.0)
[2017-05-25 06:44] LABS: AUTOMATED NEUTROPHIL # 19.7 TH/MM3 (1.8-7.7); BASOPHIL # 0.1 TH/MM3 (0-0.2); BASOPHIL % 0.2 % (0.0-2.0); EOSINOPHIL # 0.2 TH/MM3 (0-0.4); EOSINOPHIL % 0.6 % (0.0-4.0); HEMATOCRIT 28.9 % (39.0-51.0); LYMPH % 7.2 % (9.0-44.0); LYMPHOCYTE # 1.9 TH/MM3 (1.0-4.8); MEAN CELL VOLUME 91.9 FL (80.0-100.0); MEAN CORPUSCULAR HGB CONC 32.7 % (32.0-36.0); MONO % 16.2 % (0.0-8.0); NEUT % 75.8 % (16.0-70.0); PLATELET COUNT 328 TH/MM3 (150-450); RED BLOOD COUNT 3.15 MIL/MM3 (4.50-5.90); WHITE BLOOD COUNT 26.1 TH/MM3 (4.0-11.0)
[2017-05-25 06:45] LABS: HEMO FLAGS AUTO DIFF
[2017-05-25 07:50] LABS: BANDS 2 % (0-6); KERATOCYTES OCC (NORMAL); NEUTROPHIL # MANUAL DIFF 21.4 TH/MM3 (1.8-7.7); POLYS (SEG NEUTROPHILS) 80 % (16-70); TARGET CELLS 1+ (NORMAL); WBC DIFF SAMPLE 100
[2017-05-25 07:51] LABS: OVALOCYTES 2+ (NORMAL); PLATELET ESTIMATE SMEAR NORMAL (NORMAL); PLATELET MORPHOLOGY NORMAL (NORMAL); SCAN/DIFF FINAL DIFF MANUAL
[2017-05-25 08:00] VITALS: BP 122/72; PULSE 78; RESP 17; TEMP 99.2; O2SAT 98
[2017-05-25] MEDS: SODIUM CHLORIDE 0.9% FLUSH 10 ML FLUSH IV FLUSH SCH ×2 (08:05→20:18)
[2017-05-25] MEDS: DOCUSATE SODIUM 100 MG/10 ML UDC PO SCH (08:06)
[2017-05-25 09:41] LABS: RETIC % 10.1 % (0.4-3.0); REVIEW FLAG FINAL
[2017-05-25] MEDS ORDERED: POTASSIUM CHLORIDE 10 MEQ CONTROLLED RELEASE TAB PO ONE (10:15)
[2017-05-25 11:11] LABS: INDIRECT BILIRUBIN 5.2 MG/DL (0.0-0.8); TOTAL BILIRUBIN ADULT 6.7 MG/DL (0.2-1.0)
[2017-05-25 12:00] VITALS: BP 128/81; PULSE 81; RESP 18; TEMP 98.9; O2SAT 99
--- NOTE | 2017-05-25 13:06 | HHI.PR ---
Objective Vitals Vital Signs Date Time Temp Pulse Resp B/P (MAP) Pulse Ox O2 Delivery O2 Flow Rate FiO2 05/25/17 12:46 18 05/25/17 10:14 18 05/25/17 08:00 99.2 78 17 122/72 (89) 98 05/25/17 04:00 101.4 111 20 119/58 (78) 94 05/25/17 00:00 100.0 101 20 120/61 (80) 93 05/24/17 20:00 117 05/24/17 20:00 102.1 118 20 126/62 (83) 93 05/24/17 16:00 103.4 249 20 137/68 (91) 93 I/O 05/24/17 05/24/17 05/24/17 05/25/17 05/25/17 05/25/17 07:00 15:00 23:00 07:00 15:00 23:00 Intake Total 2960 ml 1006 ml 0 ml Output Total 1200 ml 3000 ml Balance 1760 ml 1006 ml -3000 ml Intake Oral 960 ml 0 ml IV Total 2000 ml 1006 ml Output Urine Total 1200 ml 3000 ml Result Diagram: 05/25/17 0530 05/25/17 0530 Imaging Last Impressions Chest X-Ray 05/24/17 0518 Signed Impressions: Service Date/Time: Wednesday, May 24, 2017 05:50 - CONCLUSION: No acute disease. Angel Castrejon MD Neck CT 05/24/17 0000 Signed Impressions: Service Date/Time: Wednesday, May 24, 2017 21:15 - CONCLUSION: 1. The soft palate is prominent and there is prominence of the lymphoid and adenoidal tissue. 2. The epiglottis is unremarkable. 3. Bilateral reactive appearing cervical chain nodes. Dick Dobson MD A/P Problem List: (1) Sickle cell anemia with crisis ICD Code: D57.00 - Hb-SS disease with crisis Status: Chronic Plan: We'll continue with IV fluids, follow-up hemoglobin hematology f/u appreciated IV dilaudid Reticulocytosis improved (2) SIRS (systemic inflammatory response syndrome) ICD Code: R65.10 - Systemic inflammatory response syndrome (SIRS) of non- infectious origin without acute organ dysfunction Status: Acute Plan: may be viral pharyngitis,throat screen neg (culture held for 2 days), mono neg, Fever, leukocytosis continue empiric levaquin chest/abd ct pending (3) Bilirubinemia ICD Code: E80.6 - Other disorders of bilirubin metabolism Plan: indirect high; likely due to hemolysis Coreen Melissa MD May 25, 2017 13:06
[2017-05-25] MEDS ORDERED: DIATRIZOATE MEGLUM/DIATRIZOATE SOD 9 ML CUP PO ONE (15:30)
[2017-05-25] MEDS: LEVOFLOXACIN 750 MG PREMIX INJ 150 ML IV SCH (15:33)
[2017-05-25 16:00] VITALS: BP 132/70; PULSE 111; RESP 18; TEMP 100; O2SAT 99
[2017-05-25] MEDS: ONDANSETRON HCL 4 MG/2 ML VIAL IVP PRN (16:31)
--- NOTE | 2017-05-25 18:27 | RADRPT ---
EXAM DATE/TIME: 05/25/2017 18:07 [facility] COMPARISON: CT THORAX W/O CONTRAST, April 21, 2014, 20:46. INDICATIONS : Short of breath. RADIATION DOSE: 16.54 CTDIvol (mGy) ; Combined studies - Thorax/Abdomen/Pelvis MEDICAL HISTORY : Sickle cell disease. SURGICAL HISTORY : None. ENCOUNTER: Initial ACUITY: 1 day PAIN SCALE: 0/10 LOCATION: chest TECHNIQUE: Volumetric scanning of the chest was performed. Using automated exposure control and adjustment of t he mA and/or kV according to patient size, radiation dose was kept as low as reasonably achievable to obtain optimal diagnostic quality images. DICOM format image data is available electronically for r eview and comparison. Follow-up recommendations for detected pulmonary nodules are based at a minimum on nodule size and pa tient risk factors according to Fleischner Society Guidelines. FINDINGS: LUNGS: There is no consolidation or pneumothorax. No concerning pulmonary nodule is visualized. PLEURAE: There is no pleural thickening or pleural effusion. MEDIASTINUM: The heart and great vessels demonstrate no acute abnormality. There is no mediastinal or hilar lymph adenopathy. There is small amount of pericardial fluid present. AXILLAE: Within normal limits. No lymphadenopathy. MUSCULOSKELETAL: Within normal limits for patient age. MISCELLANEOUS: The visualized upper abdominal organs demonstrate no acute abnormality. There are multiple calcified gallstones in the gallbladder. CONCLUSION: 1. The lungs are clear bilaterally. 2. Small pericardial effusion. 3. Multiple calcified gallstones. Dick Dobson MD on May 25, 2017 at 18:23 Board Certified Radiologist. This report was verified electronically.
--- NOTE | 2017-05-25 18:30 | RADRPT ---
EXAM DATE/TIME: 05/25/2017 18:07 [facility] COMPARISON: CT ABDOMEN & PELVIS W/O CONTRAST, April 26, 2016, 16:25. INDICATIONS : Abdominal pain. History of gallstones. Sickle cell anemia. ORAL CONTRAST: Prescribed oral contrast ingested. RADIATION DOSE: 16.54 CTDIvol (mGy) ; Combined studies - Thorax/Abdomen/Pelvis MEDICAL HISTORY : Sickle cell disease. SURGICAL HISTORY : None. ENCOUNTER: Initial ACUITY: 1 day PAIN SCALE: 8/10 LOCATION: abdomen TECHNIQUE: Volumetric scanning of the abdomen and pelvis was performed. Using automated exposure control and ad justment of the mA and/or kV according to patient size, radiation dose was kept as low as reasonably achievable to obtain optimal diagnostic quality images. DICOM format image data is available electro nically for review and comparison. FINDINGS: LOWER LUNGS: The visualized lower lungs are clear. A small pericardial effusion is again noted seen on the chest C T. LIVER: Homogeneous density without lesion. There is no dilation of the biliary tree. There are multiple tommy cified gallstones in the gallbladder with no definite wall thickening or inflammatory change on this noncontrast exam. SPLEEN: There is only small focal area of scarring in the region of the spleen. This is not significantly laurel nged. PANCREAS: Within normal limits. KIDNEYS: Normal in size and shape. There is no mass, stone, or hydronephrosis. ADRENAL GLANDS: Within normal limits. VASCULAR: There is no aortic aneurysm. BOWEL/MESENTERY: There are several loops of nondilated air containing small bowel with multiple small air-fluid levels . There is no free air or fluid. Gas and stool noted segmentally in the colon. There is no free intra peritoneal air or fluid. ABDOMINAL WALL: Within normal limits. RETROPERITONEUM: There is no lymphadenopathy. BLADDER: No wall thickening or mass. REPRODUCTIVE: Within normal limits. INGUINAL: There is no lymphadenopathy or hernia. MUSCULOSKELETAL: Within normal limits for patient age. CONCLUSION: 1. Cholelithiasis with multiple calcified gallstones. There is no definite wall thickening or inflamm atory change. 2. Tiny small splenic remnant again noted. 3. Nonspecific, nonobstructive bowel gas pattern which could represent a mild ileus or gastroenteriti s. Dick Dobson MD on May 25, 2017 at 18:26 Board Certified Radiologist. This report was verified electronically.
[2017-05-25 20:00] VITALS: BP 128/58; PULSE 109; RESP 20; TEMP 101.9; O2SAT 95
[2017-05-25] MEDS: oxyCODONE/ACETAMINOPHEN 10 MG/325 MG TAB PO PRN (22:01)
[2017-05-25] MEDS ORDERED: HYDROmorphone HCL PF 1 MG/ML VIAL IV PUSH ONE (22:45)
[2017-05-26] VITALS (8 sets, daily range): BP systolic 109–137; BP diastolic 53–71; PULSE 85–109; RESP 18–20; TEMP 98.1–101.4; O2SAT 93–97
[2017-05-26] MEDS: ACETAMINOPHEN 325 MG TAB PO PRN (04:07)
[2017-05-26] MEDS: SODIUM CHLOR 0.9% 1000 ML INJ 1,000 ML IV SCH ×3 (04:07→20:39)
[2017-05-26] MEDS: oxyCODONE/ACETAMINOPHEN 10 MG/325 MG TAB PO PRN ×2 (04:10→08:44)
[2017-05-26] MEDS: CYCLOBENZAPRINE HCL 10 MG TAB PO SCH ×3 (06:15→20:39)
[2017-05-26] MEDS: HEPARIN SODIUM - SQ 10,000 UNITS/ML VIAL SQ SCH ×4 (06:16→20:42)
[2017-05-26] MEDS: diphenhydrAMINE HCL 50 MG/ML VIAL IV PUSH PRN ×3 (06:16→22:29)
[2017-05-26 06:31] LABS: AUTOMATED NEUTROPHIL # 17.4 TH/MM3 (1.8-7.7); BASOPHIL # 0.4 TH/MM3 (0-0.2); BASOPHIL % 1.6 % (0.0-2.0); EOSINOPHIL # 0.1 TH/MM3 (0-0.4); EOSINOPHIL % 0.3 % (0.0-4.0); HEMATOCRIT 27.5 % (39.0-51.0); LYMPH % 13.5 % (9.0-44.0); LYMPHOCYTE # 3.1 TH/MM3 (1.0-4.8); MEAN CORPUSCULAR HGB CONC 32.6 % (32.0-36.0); MONO % 9.3 % (0.0-8.0); NEUT % 75.3 % (16.0-70.0); PLATELET COUNT 356 TH/MM3 (150-450); RED BLOOD COUNT 3.09 MIL/MM3 (4.50-5.90); RED CELL DISTRIBUTION WIDTH 20.8 % (11.6-17.2); WHITE BLOOD COUNT 23.2 TH/MM3 (4.0-11.0)
[2017-05-26 06:37] LABS: HEMO FLAGS AUTO DIFF
[2017-05-26 06:55] LABS: CHLORIDE 100 MEQ/L (98-107); POTASSIUM 3.7 MEQ/L (3.5-5.1); SODIUM (NA) 133 MEQ/L (136-145)
[2017-05-26 07:01] LABS: ANION GAP 9 MEQ/L (5-15); BICARBONATE 24.4 MEQ/L (21.0-32.0); BLOOD UREA NITROGEN 9 MG/DL (7-18)
[2017-05-26 07:04] LABS: ALT (GPT) 38 U/L (12-78); AST (GOT) 39 U/L (15-37); GLOMERULAR FILTRATION RATE 148 ML/MIN (>89)
[2017-05-26 07:06] LABS: TOTAL BILIRUBIN ADULT 7.5 MG/DL (0.2-1.0)
[2017-05-26 07:07] LABS: ALKALINE PHOSPHATASE 77 U/L (45-117)
[2017-05-26 07:54] LABS: BANDS 3 % (0-6); CORRECTED NUCLEATED RBC 5 /100 WBC (0-0); CORRECTED WBC 22.1 TH/MM3 (4.0-11.0); KERATOCYTES 1+ (NORMAL); NEUTROPHIL # MANUAL DIFF 17.7 TH/MM3 (1.8-7.7); POLYS (SEG NEUTROPHILS) 77 % (16-70); TARGET CELLS 2+ (NORMAL); WBC DIFF SAMPLE 100
[2017-05-26 07:55] LABS: ACANTHOCYTES 1+ (NORMAL); OVALOCYTES 2+ (NORMAL); PLATELET ESTIMATE SMEAR NORMAL (NORMAL); PLATELET MORPHOLOGY NORMAL (NORMAL); SCAN/DIFF FINAL DIFF MANUAL; SICKLE CELLS 1+ (NORMAL)
[2017-05-26] MEDS: DOCUSATE SODIUM 100 MG/10 ML UDC PO SCH (08:44)
[2017-05-26] MEDS: SODIUM CHLORIDE 0.9% FLUSH 10 ML FLUSH IV FLUSH SCH ×2 (08:44→20:39)
[2017-05-26] MEDS ORDERED: Vancomycin Consult Pharmacy 1 EA OTHER SCH ×2 (10:15→10:45)
[2017-05-26] MEDS ORDERED: VANCOMYCIN INJ 1,000 MG in SODIUM CHLOR 0.9% 250 ML INJ 250 ML IV SCH (10:15)
--- NOTE | 2017-05-26 11:47 | HHI.PR ---
Subjective Remarks patient seen and evaluated today in follow-up for sirs with sickle cell crisis. Still febrile with a temperature 101.9, leukocytosis is minimally improved at 23,000 today. Patient says that his abdomen feels better. CT of the chest and abdomen are unremarkable for acute findings. He has known gallstones but there is no active inflammation Objective Vitals Vital Signs Date Time Temp Pulse Resp B/P (MAP) Pulse Ox O2 Delivery O2 Flow Rate FiO2 05/26/17 08:00 99.2 85 18 109/56 (73) 95 05/26/17 04:00 101.4 109 20 121/53 (75) 97 05/26/17 00:00 98.1 99 18 115/53 (73) 95 05/25/17 20:00 101.9 109 20 128/58 (81) 95 05/25/17 17:22 18 05/25/17 17:22 18 05/25/17 16:00 100.0 111 18 132/70 (90) 99 05/25/17 12:00 98.9 81 18 128/81 (97) 99 I/O 05/25/17 05/25/17 05/25/17 05/26/17 05/26/17 05/26/17 07:00 15:00 23:00 07:00 15:00 23:00 Intake Total 0 ml 2420 ml 720 ml Output Total 3000 ml 1200 ml 900 ml Balance -3000 ml 1220 ml -180 ml Intake Oral 0 ml 1320 ml 720 ml IV Total 1100 ml Output Urine Total 3000 ml 1200 ml 900 ml # Voids 3 # Bowel Movements 14 0 Result Diagram: 05/26/17 0533 05/26/17 0533 Imaging Last Impressions Chest CT 05/25/17 0000 Signed Impressions: Service Date/Time: Thursday, May 25, 2017 18:07 - CONCLUSION: 1. The lungs are clear bilaterally. 2. Small pericardial effusion. 3. Multiple calcified gallstones. Dick Dobson MD Abdomen/Pelvis CT 05/25/17 0000 Signed Impressions: Service Date/Time: Thursday, May 25, 2017 18:07 - CONCLUSION: 1. Cholelithiasis with multiple calcified gallstones. There is no definite wall thickening or inflammatory change. 2. Tiny small splenic remnant again noted. 3. Nonspecific, nonobstructive bowel gas pattern which could represent a mild ileus or gastroenteritis. Dick Dobson MD Chest X-Ray 05/24/17 0518 Signed Impressions: Service Date/Time: Wednesday, May 24, 2017 05:50 - CONCLUSION: No acute disease. Angel Castrejon MD Neck CT 05/24/17 0000 Signed Impressions: Service Date/Time: Wednesday, May 24, 2017 21:15 - CONCLUSION: 1. The soft palate is prominent and there is prominence of the lymphoid and adenoidal tissue. 2. The epiglottis is unremarkable. 3. Bilateral reactive appearing cervical chain nodes. Dick Dobson MD Objective Remarks GENERAL: This is a well-nourished, well-developed patient, complaining of diffuse pain worse in the legs Cardiac: rate and rhythm without murmurs, gallops, or rubs. RESPIRATORY: Clear to auscultation. Breath sounds equal bilaterally. No wheezes , rales, or rhonchi. GASTROINTESTINAL: Abdomen soft, non-tender, nondistended. Normal active bowel sounds MUSCULOSKELETAL: Extremities without clubbing, cyanosis, or edema. NEURO: Alert & Oriented x4 to person, place, time, situation. Moves all ext x4 A/P Problem List: (1) Sickle cell anemia with crisis ICD Code: D57.00 - Hb-SS disease with crisis Status: Chronic Plan: We'll continue with IV fluids, follow-up hemoglobin hematology f/u appreciated IV dilaudid Reticulocytosis improved (2) SIRS (systemic inflammatory response syndrome) ICD Code: R65.10 - Systemic inflammatory response syndrome (SIRS) of non- infectious origin without acute organ dysfunction Status: Acute Plan: may be viral pharyngitis,throat screen and culture are negative, mono neg , Fever, leukocytosis continue empiric levaquin/vancomycin ID to follow chest/abd ct nonacute (3) Bilirubinemia ICD Code: E80.6 - Other disorders of bilirubin metabolism Plan: indirect high; likely due to hemolysis Coreen Melissa MD May 26, 2017 11:47
[2017-05-26] MEDS: HYDROmorphone HCL PF 2 MG/ML VIAL IVS PRN ×3 (11:56→22:32)
[2017-05-26] MEDS: VANCOMYCIN INJ 2,000 MG in SODIUM CHLORID 0.9% 500 ML INJ 500 ML IV SCH ×2 (12:29→22:34)
[2017-05-26] MEDS: LEVOFLOXACIN 750 MG PREMIX INJ 150 ML IV SCH (13:51)
[2017-05-26] MEDS: ONDANSETRON HCL 4 MG/2 ML VIAL IVP PRN (16:20)
[2017-05-27] VITALS (7 sets, daily range): BP systolic 90–113; BP diastolic 50–61; PULSE 72–114; RESP 18–20; TEMP 96.9–101.1; O2SAT 95–98
[2017-05-27] MEDS: ACETAMINOPHEN 325 MG TAB PO PRN (01:16)
[2017-05-27] MEDS: diphenhydrAMINE HCL 50 MG/ML VIAL IV PUSH PRN (04:24)
[2017-05-27] MEDS: HYDROmorphone HCL PF 2 MG/ML VIAL IVS PRN ×2 (04:26→09:11)
[2017-05-27] MEDS: HEPARIN SODIUM - SQ 10,000 UNITS/ML VIAL SQ SCH ×3 (05:44→20:49)
[2017-05-27] MEDS: CYCLOBENZAPRINE HCL 10 MG TAB PO SCH ×3 (05:44→20:48)
[2017-05-27 06:35] LABS: HEMATOCRIT 24.8 % (39.0-51.0); MEAN CELL VOLUME 86.7 FL (80.0-100.0); MEAN CORPUSCULAR HEMOGLOBIN 28.9 PG (27.0-34.0); MEAN CORPUSCULAR HGB CONC 33.3 % (32.0-36.0); PLATELET COUNT 356 TH/MM3 (150-450); RED BLOOD COUNT 2.86 MIL/MM3 (4.50-5.90); WHITE BLOOD COUNT 14.5 TH/MM3 (4.0-11.0)
[2017-05-27 06:37] LABS: CHLORIDE 105 MEQ/L (98-107); POTASSIUM 3.8 MEQ/L (3.5-5.1); SODIUM (NA) 136 MEQ/L (136-145)
[2017-05-27 06:41] LABS: ANION GAP 8 MEQ/L (5-15); BLOOD UREA NITROGEN 8 MG/DL (7-18)
[2017-05-27 06:44] LABS: ALT (GPT) 31 U/L (12-78); AST (GOT) 25 U/L (15-37); GLOMERULAR FILTRATION RATE 190 ML/MIN (>89)
[2017-05-27 06:50] LABS: ALKALINE PHOSPHATASE 70 U/L (45-117); HEMO FLAGS AUTO DIFF; TOTAL BILIRUBIN ADULT 4.2 MG/DL (0.2-1.0)
[2017-05-27] MEDS: SODIUM CHLOR 0.9% 1000 ML INJ 1,000 ML IV SCH ×2 (06:55→14:42)
[2017-05-27 07:48] LABS: BANDS 4 % (0-6); CORRECTED NUCLEATED RBC 3 /100 WBC (0-0); EOSINOPHILS 1 % (0-4); KERATOCYTES 1+ (NORMAL); NEUTROPHIL # MANUAL DIFF 11.6 TH/MM3 (1.8-7.7); OVALOCYTES 1+ (NORMAL); PLATELET ESTIMATE SMEAR NORMAL (NORMAL); PLATELET MORPHOLOGY NORMAL (NORMAL); POLYS (SEG NEUTROPHILS) 76 % (16-70); SCAN/DIFF FINAL DIFF MANUAL; SICKLE CELLS 1+ (NORMAL); TARGET CELLS 2+ (NORMAL); WBC DIFF SAMPLE 100
[2017-05-27] MEDS: SODIUM CHLORIDE 0.9% FLUSH 10 ML FLUSH IV FLUSH SCH ×2 (09:00→20:50)
[2017-05-27] MEDS: DOCUSATE SODIUM 100 MG/10 ML UDC PO SCH (09:11)
--- NOTE | 2017-05-27 11:09 | HHI.PR ---
Subjective Remarks Downward trend in hemoglobin continues. Pain remains. White blood cell count has decreased in bilirubin level is improving. Objective Vital Signs Date Time Temp Pulse Resp B/P (MAP) Pulse Ox O2 Delivery O2 Flow Rate FiO2 05/27/17 08:00 97.3 76 18 90/50 (63) 98 05/27/17 04:18 97.9 82 20 101/57 (72) 98 05/27/17 00:00 101.1 114 20 113/61 (78) 95 05/26/17 21:00 99 05/26/17 20:15 100.1 101 18 113/59 (77) 94 05/26/17 16:48 100.3 98 18 121/71 (88) 96 05/26/17 12:00 99.5 101 18 137/67 (90) 93 I/O 05/26/17 05/26/17 05/26/17 05/27/17 05/27/17 05/27/17 07:00 15:00 23:00 07:00 15:00 23:00 Intake Total 720 ml 2530 ml 1500 ml Output Total 900 ml Balance -180 ml 2530 ml 1500 ml Intake Oral 720 ml 1080 ml IV Total 1450 ml 1500 ml Output Urine Total 900 ml # Voids 4 1 # Bowel Movements 0 1 Result Diagram: 05/27/1761405/27/1715 Objective Remarks GENERAL: NAD, A&Ox3 HEAD: Normocephalic. NECK: Supple, trachea midline. No lymphadenopathy. EYES: No scleral icterus. No injection or drainage. CARDIOVASCULAR: Regular rate and rhythm without murmurs, gallops, or rubs. RESPIRATORY: Breath sounds equal bilaterally. No accessory muscle use. GASTROINTESTINAL: Abdomen soft, non-tender, nondistended. MUSCULOSKELETAL: No cyanosis, or edema. Tender joints with range of motion. SKIN: Warm and dry. NEURO: No focal neurological deficitis. A/P Problem List: (1) Sickle cell anemia with pain ICD Code: D57.00 - Hb-SS disease with crisis, unspecified Status: Acute (2) Sickle cell pain crisis ICD Code: D57.00 - Hb-SS disease with crisis, unspecified Status: Acute (3) Sickle cell anemia ICD Code: D57.1 - Sickle-cell anemia Status: Chronic (4) Sickle cell anemia with crisis ICD Code: D57.00 - Hb-SS disease with crisis Status: Chronic (5) SIRS (systemic inflammatory response syndrome) ICD Code: R65.10 - Systemic inflammatory response syndrome (SIRS) of non- infectious origin without acute organ dysfunction Status: Acute (6) Bilirubinemia ICD Code: E80.6 - Other disorders of bilirubin metabolism (7) Vaso-occlusive sickle cell crisis ICD Code: D57.00 - Hb-SS disease with crisis, unspecified Status: Acute Assessment and Plan Assessment and plan 22-year-old male admitted secondary to sickle cell crisis with anemia Acute sickle cell crisis Acute vaso-occlusive pain Continue IV fluids Continue to follow H&H Begin NSAIDs Continue as needed pain treatments His baseline crisis rate is approximately once per month Fever SIRS Patient still exhibiting fevers Fevers are not part of his typical sickle cell crisis Viral etiology may be present, but bacterial etiology cannot be yet ruled out Continue vancomycin Continue Levaquin Follow for resolution of fevers ID following Hyperbilirubinemia Reflects red blood cell lysis Bilirubin levels improving Continue to monitor bilirubin levels DVT prophylaxis SCDs Discharge planning Improved stability of anemia and improved pain is needed prior to discharge Vasu Deal MD May 27, 2017 11:09
[2017-05-27] MEDS ORDERED: NAPROXEN 250 MG TAB PO ONE (11:15)
[2017-05-27] MEDS ORDERED: oxyCODONE/ACETAMINOPHEN 5 MG/325 MG TAB PO PRN (11:15)
[2017-05-27] MEDS: VANCOMYCIN INJ 2,000 MG in SODIUM CHLORID 0.9% 500 ML INJ 500 ML IV SCH (12:11)
--- NOTE | 2017-05-27 13:40 | PD.ID.CON ---
History of Present Illness Service ID Consult Requested By Dr Melissa Reason for Consult Febrile illness Primary Care Physician No Primary Care Physician Diagnoses: History of Present Illness 22 yomalewithSCD(SS)with frequent crisises presented 4 days ago with few daysof fever,sorethroat,b/l hip pain His fever was as high as 103 His w/u revealed negative Monospot,negative flu, neg strepAG,neg bloodcultures , clear lungs onCT + gallstones w/o features of acute cholecystitis CT of the neck showed soft palate prominence and there is prominence of the lymphoid and adenoidal tissue and bilateral reactive appearing cervical chain nodes. Pt was started on broad sepctrum abx (vancomycin,levaquine) He feelsbetter today He is still febrile but WBC are trending down WBC are evelated into 22 K range on admission, now down to 14 K His other labs are c/w SCD crisis: indirectc bilirubin is up and anemia,retics are up, and NRBCs Review of Systems Constitutional: COMPLAINS OF: Fever Ears, nose, mouth, throat: COMPLAINS OF: Throat pain Musculoskeletal: COMPLAINS OF: Joint pain (hips), Muscle aches Except as stated in HPI: all other systems reviewed are Neg Past Family Social History Allergies: Coded Allergies: penicillin G (Verified Allergy, Severe, told as child, 05/24/17) Past Medical History sicklecelldz,SS frequent vasoocclusive crisies priapism Past Surgical History none Active Ordered Medications Medications where reviewed in EMR Antibiotics Include: vancomycin levaquine Family History Otherwise alive and healthy, sickle cell trait Social History No tobacco, drugs or alcohol dependency, pt is a college student Physical Exam Vital Signs Vital Signs Date Time Temp Pulse Resp B/P (MAP) Pulse Ox O2 Delivery O2 Flow Rate FiO2 05/27/17 12:00 98.2 99 18 111/56 (74) 98 05/27/17 08:00 97.3 76 18 90/50 (63) 98 05/27/17 07:17 81 05/27/17 04:18 97.9 82 20 101/57 (72) 98 05/27/17 00:00 101.1 114 20 113/61 (78) 95 05/26/17 21:00 99 05/26/17 20:15 100.1 101 18 113/59 (77) 94 05/26/17 16:48 100.3 98 18 121/71 (72) 96 Physical Exam CONSTITUTIONAL/GENERAL: This is an adequately nourished patient, in no apparent distress. TUBES/LINES/DRAINS: SKIN: No jaundice, rashes, or lesions. Skin temperature appropriate. Not diaphoretic. HEAD: Atraumatic. Normocephalic. EYES: Pupils equal and round and reactive. Extraocular motions intact. + mild scleral icterus. No injection or drainage. Fundi not examined. ENT: Hearing grossly normal. Nose without bleeding or purulent drainage. Throat without visible erythema, exudates, masses, or lesions. No ulcers NECK: Trachea midline. Supple, nontender. No palpable thyroid enlargement or nodularity. CARDIOVASCULAR: Regular rate and rhythm without murmurs, gallops, or rubs. No JVD. Peripheral pulses symmetric. RESPIRATORY/CHEST: Symmetric, unlabored respirations. Clear to auscultation. Breath sounds equal bilaterally. No wheezes, rales, or rhonchi. GASTROINTESTINAL: Abdomen soft, non-tender, nondistended. No hepato-splenomegaly , or palpable masses. No guarding. Bowel sounds present. GENITOURINARY: Without palpable bladder distension. Webb catheter in place. MUSCULOSKELETAL: Extremities without clubbing, cyanosis, or edema. No joint tenderness or effusion noted. No calf tenderness. No mottling or clubbing. LYMPHATICS: + mildly tender mildly enlarged palpable cervical adenopathy No axillaeor supraclavicular adenopathy NEUROLOGICAL: Awake and alert. Motor and sensory grossly within normal limits. Follows commands. Clear speech. Moves all extremities. PSYCHIATRIC: No obvious anxiety/depression. no apparent hallucinations or other psychotic thought process. Laboratory Laboratory Tests Test 05/27/17 06:15 White Blood Count 14.5 Red Blood Count 2.86 Hemoglobin 8.3 Hematocrit 24.8 Mean Corpuscular Volume 86.7 Mean Corpuscular Hemoglobin 28.9 Mean Corpuscular Hemoglobin Concent 33.3 Red Cell Distribution Width 21.0 Platelet Count 356 Mean Platelet Volume 7.7 CBC Comment AUTO DIFF Differential Total Cells Counted 100 Neutrophils % (Manual) 76 Band Neutrophils % 4 Lymphocytes % 11 Monocytes % 8 Eosinophils % 1 Neutrophils # (Manual) 11.6 Nucleated Red Blood Cells 3 Differential Comment FINAL DIFF MANUAL Platelet Estimate NORMAL Platelet Morphology Comment NORMAL Sickle Cells 1+ Target Cells 2+ Ovalocytes 1+ Keratocytes 1+ Blood Urea Nitrogen 8 Creatinine 0.63 Random Glucose 90 Total Protein 7.3 Albumin 3.2 Calcium Level 8.1 Alkaline Phosphatase 70 Aspartate Amino Transf (AST/SGOT) 25 Alanine Aminotransferase (ALT/SGPT) 31 Total Bilirubin 4.2 Sodium Level 136 Potassium Level 3.8 Chloride Level 105 Carbon Dioxide Level 23.0 Anion Gap 8 Estimat Glomerular Filtration Rate 190 HIV (1&2) Antibody NEGATIVE Date/Time Source Procedure Growth Status 05/24/17 07:10 Blood Peripheral Aerobic Blood Culture - Preliminary NO GROWTH IN 3 DAYS Resulted 05/24/17 07:10 Blood Peripheral Anaerobic Blood Culture - Preliminary NO GROWTH IN 3 DAYS Resulted 05/24/17 06:03 Throat Group A Streptococcus Screen - Final NO GP A BETA STREP ISOLATED. Complete Result Diagram: 05/27/1761405/27/17614 Imaging Last Impressions Chest CT 05/25/17 0000 Signed Impressions: Service Date/Time: Thursday, May 25, 2017 18:07 - CONCLUSION: 1. The lungs are clear bilaterally. 2. Small pericardial effusion. 3. Multiple calcified gallstones. Dick Dobson MD Abdomen/Pelvis CT 05/25/17 0000 Signed Impressions: Service Date/Time: Thursday, May 25, 2017 18:07 - CONCLUSION: 1. Cholelithiasis with multiple calcified gallstones. There is no definite wall thickening or inflammatory change. 2. Tiny small splenic remnant again noted. 3. Nonspecific, nonobstructive bowel gas pattern which could represent a mild ileus or gastroenteritis. Dick Dobson MD Chest X-Ray 05/24/17 0518 Signed Impressions: Service Date/Time: Wednesday, May 24, 2017 05:50 - CONCLUSION: No acute disease. Angel Castrejon MD Neck CT 05/24/17 0000 Signed Impressions: Service Date/Time: Wednesday, May 24, 2017 21:15 - CONCLUSION: 1. The soft palate is prominent and there is prominence of the lymphoid and adenoidal tissue. 2. The epiglottis is unremarkable. 3. Bilateral reactive appearing cervical chain nodes. Dick Dobson MD Assessment and Plan Assessment and Plan Sickle celldisaeswith crisis Acute febrile illness with sore throat and lymphadenopathy (mono-like sydrome) -mono is negative - HIV DEBBIE neg PCN allergy Rec's: dc vancomycin chk viralload to reliably r/o ARV sd dc levaquin start azithromycin po 3 or 5 day course monitor clinically Discussed Condition With Kinsey Kimball MD May 27, 2017 13:40
[2017-05-27] MEDS: AZITHROMYCIN 250 MG TAB PO SCH (14:16)
--- NOTE | 2017-05-27 18:44 | PD.ONC.PN ---
Subjective Subjective Remarks Feeling better, wishes to go home. Moves bowels. No urinary complaints. Able to drink. Throat feels better. Objective Data Date Time Temp Pulse Resp B/P (MAP) Pulse Ox O2 Delivery O2 Flow Rate FiO2 05/27/17 16:00 97.5 93 18 108/59 (75) 97 05/27/17 12:00 98.2 99 18 111/56 (74) 98 05/27/17 08:00 97.3 76 18 90/50 (63) 98 05/27/17 07:17 81 05/27/17 04:18 97.9 82 20 101/57 (72) 98 05/27/17 00:00 101.1 114 20 113/61 (78) 95 05/26/17 21:00 99 05/26/17 20:15 100.1 101 18 113/59 (77) 94 05/27/17 05/27/17 05/27/17 07:00 15:00 23:00 Intake Total 1500 ml 1922 ml Balance 1500 ml 1922 ml Result Diagram: 05/27/1715 05/27/17 0615 Laboratory Results Laboratory Tests Test 05/27/17 06:15 05/27/17 14:32 White Blood Count 14.5 TH/MM3 Red Blood Count 2.86 MIL/MM3 Hemoglobin 8.3 GM/DL Hematocrit 24.8 % Mean Corpuscular Volume 86.7 FL Mean Corpuscular Hemoglobin 28.9 PG Mean Corpuscular Hemoglobin Concent 33.3 % Red Cell Distribution Width 21.0 % Platelet Count 356 TH/MM3 Mean Platelet Volume 7.7 FL CBC Comment AUTO DIFF Differential Total Cells Counted 100 Neutrophils % (Manual) 76 % Band Neutrophils % 4 % Lymphocytes % 11 % Monocytes % 8 % Eosinophils % 1 % Neutrophils # (Manual) 11.6 TH/MM3 Nucleated Red Blood Cells 3 /100 WBC Differential Comment FINAL DIFF MANUAL Platelet Estimate NORMAL Platelet Morphology Comment NORMAL Sickle Cells 1+ Target Cells 2+ Ovalocytes 1+ Keratocytes 1+ Blood Urea Nitrogen 8 MG/DL Creatinine 0.63 MG/DL Random Glucose 90 MG/DL Total Protein 7.3 GM/DL Albumin 3.2 GM/DL Calcium Level 8.1 MG/DL Alkaline Phosphatase 70 U/L Aspartate Amino Transf (AST/SGOT) 25 U/L Alanine Aminotransferase (ALT/SGPT) 31 U/L Total Bilirubin 4.2 MG/DL Sodium Level 136 MEQ/L Potassium Level 3.8 MEQ/L Chloride Level 105 MEQ/L Carbon Dioxide Level 23.0 MEQ/L Anion Gap 8 MEQ/L Estimat Glomerular Filtration Rate 190 ML/MIN HIV (1&2) Antibody NEGATIVE Administered Medications Medications (Trade) Dose Ordered Sig/Stanley Route PRN Reason Start Time Stop Time Status Last Admin Dose Admin Sodium Chloride 1,000 ml @ 100 mls/hr Q10H IV 05/24/17 08:55 05/27/17 06:55 Sodium Chloride (NS Flush) 2 ml BID IV FLUSH 05/24/17 09:00 05/26/17 20:39 Acetaminophen (Tylenol) 650 mg Q4H PRN PO TEMP > 100.4 05/24/17 09:00 05/27/17 01:16 Ondansetron HCl (Zofran Inj) 4 mg Q6H PRN IVP NAUSEA OR VOMITING 05/24/17 09:00 05/26/17 16:20 Cyclobenzaprine HCl (Flexeril) 10 mg Q8HR PO 05/24/17 14:00 05/27/17 14:16 Oxycodone/ Acetaminophen (Percocet 10-325 Mg) 1 tab Q4H PRN PO Pain 7 to 10 05/24/17 09:00 05/26/17 08:44 Diphenhydramine HCl (Benadryl Inj) 25 mg Q6H PRN IV PUSH ITCHING 05/24/17 13:30 05/27/17 04:24 Heparin Sodium (Porcine) (Heparin Inj) 5,000 units Q8HR SQ 05/24/17 22:00 05/26/17 06:16 Docusate Sodium (Colace Liq) 100 mg DAILY PO 05/25/17 09:00 05/27/17 09:11 Hydromorphone HCl (Dilaudid Pf Inj) 1 mg Q4H PRN IVS Breakthrough Pain 05/26/17 11:00 05/27/17 09:11 Azithromycin (Zithromax) 500 mg DAILY PO 05/27/17 15:00 05/27/17 14:16 Objective Remarks GENERAL: Well-nourished, well-developed patient. SKIN: Warm and dry. L neck external jugular vein line. HEAD: Normocephalic. EYES: No scleral icterus. No injection or drainage. NECK: Supple, trachea midline. No JVD or lymphadenopathy. LYMPHATIC: No adenopathy. CARDIOVASCULAR: Regular rate and rhythm without murmurs. RESPIRATORY: Breath sounds equal bilaterally. No accessory muscle use. GASTROINTESTINAL: Abdomen soft, non-tender, nondistended. EXTREMITIES: No cyanosis, or edema. MUSCULOSKELETAL: Adequate muscle tone. NEUROLOGICAL: No obvious focal deficit. Awake, alert, and oriented x3. PSYCHIATRIC: Appropriate mood and affect; insight and judgment normal. Assessment/Plan Problem List: (1) Vaso-occlusive sickle cell crisis ICD Codes: D57.00 - Hb-SS disease with crisis, unspecified Status: Acute Plan: Vaso occlusive crisis complicated by fevers, pharyngitis. CT scan reviewed. GS, inflammatory cervical adenopathy, swelling pharynx, pericardial effusion asymptomatic. Hgb decreased in part dilutional. Discussed stop IVF and let pt drink on own. Bilirubin decrease -> decrease hemolysis. Clinically improved. ID recommendations noted. Azithromycin can continue PO. Monitor fevers, which improve. Pharyngitis improve. Plan OK to DC home follow up with [facility] in [place]. Cont w/ Azithromycin recommended by ID Monitor fevers. Jessica Rosales MD May 27, 2017 18:44
[2017-05-27] MEDS: NAPROXEN 250 MG TAB PO SCH (20:48)
[2017-05-27] MEDS ORDERED: PHARMACY ORDERED LAB ONE (23:45)
[2017-05-28] VITALS: BP 118/55; PULSE 73; RESP 16; TEMP 98; O2SAT 96
[2017-05-28 00:58] VITALS: BP 116/65; PULSE 68; RESP 18; TEMP 97.4; O2SAT 100
[2017-05-28] MEDS: CYCLOBENZAPRINE HCL 10 MG TAB PO SCH (05:27)
[2017-05-28] MEDS: HEPARIN SODIUM - SQ 10,000 UNITS/ML VIAL SQ SCH (05:28)
[2017-05-28 07:40] LABS: HEMATOCRIT 26.3 % (39.0-51.0); MEAN CORPUSCULAR HEMOGLOBIN 28.9 PG (27.0-34.0); MEAN CORPUSCULAR HGB CONC 33.6 % (32.0-36.0); PLATELET COUNT 476 TH/MM3 (150-450); RED BLOOD COUNT 3.06 MIL/MM3 (4.50-5.90); RED CELL DISTRIBUTION WIDTH 21.8 % (11.6-17.2); WHITE BLOOD COUNT 10.2 TH/MM3 (4.0-11.0)
[2017-05-28 07:42] LABS: HEMO FLAGS AUTO DIFF
[2017-05-28 08:00] VITALS: BP 105/50; PULSE 75; PULSE 79; RESP 18; TEMP 97.8; O2SAT 98
[2017-05-28 08:11] LABS: ALKALINE PHOSPHATASE 76 U/L (45-117); ALT (GPT) 41 U/L (12-78); ANION GAP 6 MEQ/L (5-15); AST (GOT) 68 U/L (15-37); BICARBONATE 25.6 MEQ/L (21.0-32.0); CHLORIDE 107 MEQ/L (98-107); GLOMERULAR FILTRATION RATE 183 ML/MIN (>89); POTASSIUM 5.3 MEQ/L (3.5-5.1); SODIUM (NA) 139 MEQ/L (136-145); TOTAL BILIRUBIN ADULT 2.2 MG/DL (0.2-1.0)
[2017-05-28 08:12] LABS: BLOOD UREA NITROGEN 6 MG/DL (7-18)
[2017-05-28 08:23] LABS: BANDS 13 % (0-6); NEUTROPHIL # MANUAL DIFF 8.1 TH/MM3 (1.8-7.7); POLYS (SEG NEUTROPHILS) 66 % (16-70); WBC DIFF SAMPLE 100
[2017-05-28 08:24] LABS: ACANTHOCYTES OCC (NORMAL); KERATOCYTES OCC (NORMAL); OVALOCYTES 1+ (NORMAL); ROULEAUX PRESENT (NORMAL); SICKLE CELLS 2+ (NORMAL); TARGET CELLS 2+ (NORMAL)
[2017-05-28 08:25] LABS: PLATELET ESTIMATE SMEAR HIGH (NORMAL); PLATELET MORPHOLOGY NORMAL (NORMAL); SCAN/DIFF FINAL DIFF MANUAL
[2017-05-28] MEDS: DOCUSATE SODIUM 100 MG/10 ML UDC PO SCH (09:00)
[2017-05-28] MEDS: SODIUM CHLORIDE 0.9% FLUSH 10 ML FLUSH IV FLUSH SCH (09:20)
[2017-05-28] MEDS: AZITHROMYCIN 250 MG TAB PO SCH (09:21)
[2017-05-28] MEDS: NAPROXEN 250 MG TAB PO SCH (09:21)
[2017-05-28 12:00] VITALS: BP 110/50; PULSE 80; RESP 18; TEMP 97.7; O2SAT 97
[2017-05-28] MEDS ORDERED: PRED10 PO (12:32)
[2017-05-28] MEDS ORDERED: AZIT250T3 PO (12:32)
[2017-05-28] MEDS ORDERED: PERC10TA27 PO (12:32)
[2017-05-28] MEDS ORDERED: LACTTAB8 PO (12:32)
--- NOTE | 2017-05-28 14:49 | HHI.DS ---
Discharge Summary Admission Date May 24, 2017 at 08:58 Discharge Date: May 28, 2017 Admitting Diagnosis Vasoocclusive crisis (1) Sickle cell anemia with crisis ICD Code: D57.00 - Hb-SS disease with crisis Diagnosis: Principal Status: Chronic (2) SIRS (systemic inflammatory response syndrome) ICD Code: R65.10 - Systemic inflammatory response syndrome (SIRS) of non- infectious origin without acute organ dysfunction Diagnosis: Principal Status: Acute (3) Bilirubinemia ICD Code: E80.6 - Other disorders of bilirubin metabolism Diagnosis: Principal Procedures none Brief History - From Admission Patient is 22-year-old gentleman who came to the emergency room complaining of one day of myalgias and subjective fevers and chills. He has a known history of sickle cell disease. He was recently in the hospital with sickle cell crisis. Here he's come with low-grade temperature 100.3 as well as leukocytosis and anemia and reticulocytosis. Patient says Dilaudid is helpful in his pain management. He also takes Motrin which was not helpful at home prior to his arrival here. He has not had any recent travel. He notes no sick contacts. He says usually when the weather changes he has lots of trouble with his sickle cell disease. Patient admitted to the hospital for further evaluation CBC/BMP: 05/28/17 0720 05/28/17 0720 Significant Findings Laboratory Tests Test 05/26/17 05:33 05/27/17 06:15 05/27/17 14:32 05/28/17 07:20 White Blood Count 23.2 TH/MM3 (4.0-11.0) 14.5 TH/MM3 (4.0-11.0) Corrected White Blood Count 22.1 TH/MM3 (4.0-11.0) Red Blood Count 3.09 MIL/MM3 (4.50-5.90) 2.86 MIL/MM3 (4.50-5.90) 3.06 MIL/MM3 (4.50-5.90) Hemoglobin 9.0 GM/DL (13.0-17.0) 8.3 GM/DL (13.0-17.0) 8.8 GM/DL (13.0-17.0) Hematocrit 27.5 % (39.0-51.0) 24.8 % (39.0-51.0) 26.3 % (39.0-51.0) Red Cell Distribution Width 20.8 % (11.6-17.2) 21.0 % (11.6-17.2) 21.8 % (11.6-17.2) Neutrophils (%) (Auto) 75.3 % (16.0-70.0) Monocytes (%) (Auto) 9.3 % (0.0-8.0) Neutrophils # (Auto) 17.4 TH/MM3 (1.8-7.7) Monocytes # (Auto) 2.2 TH/MM3 (0-0.9) Basophils # (Auto) 0.4 TH/MM3 (0-0.2) Neutrophils % (Manual) 77 % (16-70) 76 % (16-70) Neutrophils # (Manual) 17.7 TH/MM3 (1.8-7.7) 11.6 TH/MM3 (1.8-7.7) 8.1 TH/MM3 (1.8-7.7) Nucleated Red Blood Cells 5 /100 WBC (0-0) 3 /100 WBC (0-0) Sickle Cells 1+ (NORMAL) 1+ (NORMAL) 2+ (NORMAL) Target Cells 2+ (NORMAL) 2+ (NORMAL) 2+ (NORMAL) Ovalocytes 2+ (NORMAL) 1+ (NORMAL) 1+ (NORMAL) Acanthocytes 1+ (NORMAL) Keratocytes 1+ (NORMAL) 1+ (NORMAL) Calcium Level 8.3 MG/DL (8.5-10.1) 8.1 MG/DL (8.5-10.1) 8.4 MG/DL (8.5-10.1) Aspartate Amino Transf (AST/SGOT) 39 U/L (15-37) 68 U/L (15-37) Total Bilirubin 7.5 MG/DL (0.2-1.0) 4.2 MG/DL (0.2-1.0) 2.2 MG/DL (0.2-1.0) Sodium Level 133 MEQ/L (136-145) Albumin 3.2 GM/DL (3.4-5.0) Platelet Count 476 TH/MM3 (150-450) Band Neutrophils % 13 % (0-6) Monocytes % 11 % (0-8) Platelet Estimate HIGH (NORMAL) Rouleau PRESENT (NORMAL) Blood Urea Nitrogen 6 MG/DL (7-18) Potassium Level 5.3 MEQ/L (3.5-5.1) PE at Discharge GENERAL: This is a well-nourished, well-developed patient, complaining of diffuse pain worse in the legs Cardiac: rate and rhythm without murmurs, gallops, or rubs. RESPIRATORY: Clear to auscultation. Breath sounds equal bilaterally. No wheezes , rales, or rhonchi. GASTROINTESTINAL: Abdomen soft, non-tender, nondistended. Normal active bowel sounds MUSCULOSKELETAL: Extremities without clubbing, cyanosis, or edema. NEURO: Alert & Oriented x4 to person, place, time, situation. Moves all ext x4 Hospital Course Mr. Mariano is a 22-year-old male. He is admitted secondary to sickle cell crisis. This was complicated by fevers. Antibiotic coverage was initially provided but through time it appears that his fever was secondary to a viral infection such as a dental virus. He has aphthous ulcers in his mouth and pharynx. He has significant swelling of his left tonsil. No purulent drainage. Coverage with azithromycin was provided at discharge. This is both in part for risk of a secondary bacterial infection starting and also prevention of secondary bacterial infections as he would be at increased risk secondary to recent stressors from his sickle cell crisis. Sickle cell crisis was treated with IV hydration and pain control. NSAIDs were also provided temporarily. He's had improvement in his symptoms through time and today shows an upper trend in his hemoglobin and a significant decrease in pain. At this point is medically stable for discharge to home on azithromycin, pain treatments , and short course of steroids for throat swelling. Pt Condition on Discharge: Stable Discharge Disposition: Discharge Home Discharge Time: <= 30 minutes Discharge Instructions DIET: Follow Instructions for: As Tolerated, No Restrictions Activities you can perform: Regular-No Restrictions Follow up Referrals: PCP Follow-up - 2 Weeks New Medications: Lactobacillus Acidophilus (Lactobacillus Acidophilus) 1 Billion Cell Tab 1 TAB PO TIDAC for Nutritional Supplement, #15 TAB 0 Refills Prednisone (Prednisone) 10 Mg Tab 10 MG PO DAILY for Inflammation, #4 TAB 0 Refills Azithromycin (Azithromycin) 250 Mg Tab 500 MG PO DAILY for Infection, #4 TAB Changed Medications: Oxycodone-Acetaminophen (Percocet) 10-325 mg Tab 1 TAB PO Q6H PRN for PAIN, #20 TAB 0 Refills (Changed from: Q4H) Continued Medications: Cyclobenzaprine (Flexeril) 10 Mg Tab 10 MG PO Q8HR for Muscle Spasm, #10 TAB 0 Refills Hydromorphone (Dilaudid) 4 Mg Tab 4 MG PO Q4H PRN for Pain Management, TAB 0 Refills Ibuprofen (Ibuprofen) 600 Mg Tab 600 MG PO Q6H PRN for PAIN, TAB 0 Refills Vasu Deal MD May 28, 2017 14:49
== END 2017-05-28 14:15 | disposition home or self-care (01) | DRG 812 ==
LOC: PHED 05:03 → PHEDA 08:56 → OBSVTOIN 08:58 → PH3B 09:36
PROVIDERS: ADMIT Hospitalist; ATTEND Hospitalist
DX: D57.00 Hb-SS disease with crisis, unspecified (principal); K80.20 Calculus of gallbladder without cholecystitis without obstruction; E80.7 Disorder of bilirubin metabolism, unspecified; K12.0 Recurrent oral aphthae; J02.9 Acute pharyngitis, unspecified; Z88.0 Allergy status to penicillin
CPT/HCPCS: 70490; 71010; 71250; 74176; 80048; 80053; 80076; 81001; 82550; 83605; 83615; 85007; 85027; 85044; 86308; 86703; 87040; 87081; 87535; 87804; 87880; 96361; 96374; 96375; 96376; J1170; J1200; J1644; J1956; J2405; J3370; J7030; J7040; Q9963

== ENCOUNTER 2017-06-08 21:58 | Emergency (ER) | payer MEDICAID ==
[~2017-06-08] VITALS: Ht 188 cm; Wt 89.1 kg
[~2017-06-08 21:58] MED LIST changes: +AZIT250T3 PO; +LACTTAB8 PO; +PRED10 PO
[2017-06-08 22:00] VITALS: BP 155/92; PULSE 76; RESP 16; TEMP 98; O2SAT 97
[2017-06-08] MEDS ORDERED: SODIUM CHLOR 0.9% 1000 ML INJ 1,000 ML IV ONE ×2 (22:14→22:15)
[2017-06-08 22:15] VITALS: BP 155/92; PULSE 76; RESP 18; TEMP 98; O2SAT 97; O2SAT 98
[2017-06-08] MEDS ORDERED: ONDANSETRON HCL 4 MG/2 ML VIAL IV PUSH ONE (22:15)
[2017-06-08] MEDS ORDERED: HYDROmorphone HCL PF 1 MG/ML VIAL IVS ONE (22:15)
[2017-06-08] MEDS ORDERED: SODIUM CHLORIDE 0.9% FLUSH 10 ML FLUSH IVF PRN (22:15)
--- NOTE | 2017-06-08 22:20 | PD ---
HPI Chief Complaint: Sickle Cell Time Seen by Provider: 22:06 Travel History International Travel<30 days: No Contact w/Intl Traveler<30days: No Traveled to known affect area: No History of Present Illness HPI Patient is a 22-year-old male with history of sickle cell disease, presents to emergency room with complaints of sickle cell crisis. Patient reports that he follows with his matrix worker in [place] where he lives, reports that his matrix worker is Dr. Leonarda Adler. Patient reports that he receives monthly blood transfusions for his sickle cell disease and is also taking Dilaudid orally for breakthrough pain. Patient reports that over the past couple days, he has had increased groin and hip pain. Patient reports that symptoms are consistent with his typical sickle cell crisis. Patient reports that he tried taking his Dilaudid at home, reports no relief of symptoms. Patient denies any chest pain or shortness of breath, denies any fever or chills. Reports that symptoms are usually relieved by IV Dilaudid, IV fluids and IV Zofran. Patient reports that he has an appointment with his matrix worker during the [facility] Past Medical History Anemia: Yes (SICKLE CELL ) Arthritis: No Asthma: Yes Autoimmune Disease: Yes Blood Disorders: No Anxiety: No Depression: No Heart Rhythm Problems: Yes (MURMUR) Cancer: No Cardiovascular Problems: Yes (HX OF SICKLE CELL, GETS INFUSIONS EVERY FOUR WEEKS .) High Cholesterol: No Chemotherapy: No Chest Pain: Yes (WITH SICKLE CRISIS) Congestive Heart Failure: No COPD: No Cerebrovascular Accident: No Diabetes: No Diminished Hearing: No Endocrine: No Gastrointestinal Disorders: No GERD: No Genitourinary: No Headaches: No Hiatal Hernia: No Hypertension: No Immune Disorder: Yes Implanted Vascular Access Dvce: No Kidney Stones: No Musculoskeletal: Yes Neurologic: Yes Psychiatric: No Reproductive: Yes Respiratory: Yes Immunizations Current: Yes Migraines: No Pneumonia: Yes Radiation Therapy: No Renal Failure: No Seizures: No Sickle Cell Disease: Yes Sleep Apnea: No Thyroid Disease: No Ulcer: No Past Surgical History Abdominal Surgery: No AICD: No Arteriovenous Shunt: No Cardiac Surgery: No Ear Surgery: No Endocrine Surgery: No Eye Surgery: No Genitourinary Surgery: Yes (FOR PRIAPISM) Gynecologic Surgery: No Insulin Pump: No Joint Replacement: No Neurologic Surgery: No Oral Surgery: No Pacemaker: No Thoracic Surgery: No Other Surgery: Yes Social History Alcohol Use: No Tobacco Use: No Substance Use: No Allergies-Medications (Allergen,Severity, Reaction): Coded Allergies: penicillin G (Verified Allergy, Severe, told as child, 05/24/17) Reported Meds & Prescriptions Reported Meds & Active Scripts Active Prednisone 10 Mg Tab 10 Mg PO DAILY Lactobacillus Acidophilus 1 Billion Cell Tab 1 Tab PO TIDAC Azithromycin 250 Mg Tab 500 Mg PO DAILY Percocet (Oxycodone-Acetaminophen) 10-325 mg Tab 1 Tab PO Q6H PRN Flexeril (Cyclobenzaprine HCl) 10 Mg Tab 10 Mg PO Q8HR Reported Ibuprofen 600 Mg Tab 600 Mg PO Q6H PRN Dilaudid (Hydromorphone HCl) 4 Mg Tab 4 Mg PO Q4H PRN Review of Systems General / Constitutional: No: Fever Eyes: No: Visual changes HENT: No: Headaches Cardiovascular: No: Chest Pain or Discomfort Respiratory: No: Shortness of Breath Gastrointestinal: No: Abdominal Pain Genitourinary: Positive: Other (groin pain), No: Dysuria Musculoskeletal: Positive: Pain (right hip pain) Skin: No Rash Neurologic: No: Weakness Psychiatric: No: Depression Endocrine: No: Polydipsia Hematologic/Lymphatic: No: Easy Bruising Physical Exam Narrative GENERAL: mild distress SKIN: Focused skin assessment warm/dry. HEAD: Atraumatic. Normocephalic. EYES: Pupils equal and round. No scleral icterus. No injection or drainage. ENT: No nasal bleeding or discharge. Mucous membranes pink and moist. NECK: Trachea midline. No JVD. CARDIOVASCULAR: Regular rate and rhythm. No murmur appreciated. RESPIRATORY: No accessory muscle use. Clear to auscultation. Breath sounds equal bilaterally. GASTROINTESTINAL: Abdomen soft, non-tender, nondistended. Hepatic and splenic margins not palpable. : patient with tenderness to his upper groin, patient with no testicular or penile pain - patient defers testicular and penile exam at this time, exam performed with RN at bedside. MUSCULOSKELETAL: No obvious deformities. No clubbing. No cyanosis. No edema. NEUROLOGICAL: Awake and alert. No obvious cranial nerve deficits. Motor grossly within normal limits. Normal speech. PSYCHIATRIC: Appropriate mood and affect; insight and judgment normal. Data Data Last Documented VS Vital Signs Date Time Temp Pulse Resp B/P (MAP) Pulse Ox O2 Delivery O2 Flow Rate FiO2 11/15/17 22:00 98.0 76 16 155/92 (113) 97 Orders Orders Basic Metabolic Panel (Bmp) (06/08/17 22:14) Complete Blood Count With Diff (06/08/17:14) Retic Count (06/08/17:14) Urinalysis - C+S If Indicated (06/08/17 22:14) Ecg Monitoring (06/08/17:14) Iv Access Insert/Monitor (06/08/17:) Oximetry (06/08/17:14) Sodium Chloride 0.9% Flush (Ns Flush) (06/08/17:15) Sodium Chlor 0.9% 1000 Ml Inj (Ns 1000 M (06/08/17:14) Hydromorphone Pf Inj (Dilaudid Pf Inj) (06/08/17:15) Ns (Bolus) Inj (06/08/17:15) Ondansetron Inj (Zofran Inj) (06/08/17:) MDM Medical Decision Making Medical Screen Exam Complete: Yes Emergency Medical Condition: Yes Medical Record Reviewed: Yes Interpretation(s) Vital Signs Date Time Temp Pulse Resp B/P (MAP) Pulse Ox O2 Delivery O2 Flow Rate FiO2 06/08/17 22:00 98.0 76 16 155/92 (113) 97 Differential Diagnosis Sickle cell crisis, anemia Narrative Course During the course of the patients emergency department visit, the patients history, examination, and differential diagnosis were reviewed with the patient. The patient was placed on a cardiac cath tech with oximetry and frequent blood pressure monitoring. The patient had an IV access obtained and blood work sent for analysis. The patient was initially provided IVF as well as IV dilaudid and IV zofran. Sameera Mack DO Jun 08, 2017 22:20
[2017-06-08 22:37] LABS: GLUCOSE,URINE NEG (NEG); KETONE, URINE NEG (NEG); NITRITE,URINE NEG (NEG); PH, URINE 7.5 (5.0-8.5)
[2017-06-08 22:41] LABS: BLOOD, URINE TRACE (NEG)
[2017-06-08 22:42] LABS: COMMENT (UR) CULT NOT INDICATED; CULTURE IF INDICATED CULT NOT INDICATED; RBC, URINE 0-3 /hpf (0-3); SQUAMOUS EPITHELIAL CELL URINE 0-5 /hpf (0-5); URINE COLOR YELLOW (YELLW/STRAW)
[2017-06-08 22:50] LABS: HEMATOCRIT 33.9 % (39.0-51.0); MEAN CELL VOLUME 87.9 FL (80.0-100.0); MEAN CORPUSCULAR HEMOGLOBIN 28.5 PG (27.0-34.0); MEAN CORPUSCULAR HGB CONC 32.5 % (32.0-36.0); PLATELET COUNT 693 TH/MM3 (150-450); RED BLOOD COUNT 3.86 MIL/MM3 (4.50-5.90); RED CELL DISTRIBUTION WIDTH 26.5 % (11.6-17.2)
[2017-06-08 22:55] LABS: HEMO FLAGS AUTO DIFF
[2017-06-08 22:56] LABS: POTASSIUM 3.7 MEQ/L (3.5-5.1)
[2017-06-08 22:59] LABS: BICARBONATE 27.9 MEQ/L (21.0-32.0)
[2017-06-08 23:19] LABS: BANDS 1 % (0-6); CORRECTED NUCLEATED RBC 2 /100 WBC (0-0); EOSINOPHILS 2 % (0-4); NEUTROPHIL # MANUAL DIFF 10.8 TH/MM3 (1.8-7.7); OVALOCYTES 1+ (NORMAL); PLATELET ESTIMATE SMEAR HIGH (NORMAL); PLATELET MORPHOLOGY NORMAL (NORMAL); POLYS (SEG NEUTROPHILS) 71 % (16-70); SCAN/DIFF FINAL DIFF MANUAL; SICKLE CELLS 1+ (NORMAL); TARGET CELLS 1+ (NORMAL); WBC DIFF SAMPLE 100
[2017-06-08 23:20] VITALS: BP 133/66; PULSE 66; RESP 18; O2SAT 97
[2017-06-08 23:57] LABS: RETIC % 10.5 % (0.4-3.0)
[2017-06-08 23:59] LABS: REVIEW FLAG FINAL
[2017-06-09] MEDS ORDERED: HYDROmorphone HCL PF 1 MG/ML VIAL IV PUSH ONE (00:15)
--- NOTE | 2017-06-09 00:18 | PD ---
Data Data Last Documented VS Vital Signs Date Time Temp Pulse Resp B/P (MAP) Pulse Ox O2 Delivery O2 Flow Rate FiO2 06/09/17 00:40 66 18 135/70 (91) 98 06/08/17 23:20 Room Air 06/08/17 22:15 98.0 Orders Orders Basic Metabolic Panel (Bmp) (06/08/17 22:14) Complete Blood Count With Diff (06/08/17 22:14) Retic Count (06/08/17 22:14) Urinalysis - C+S If Indicated (06/08/17 22:14) Ecg Monitoring (06/08/17 22:14) Iv Access Insert/Monitor (06/08/17 22:14) Oximetry (06/08/17 22:14) Sodium Chloride 0.9% Flush (Ns Flush) (06/08/17 22:15) Sodium Chlor 0.9% 1000 Ml Inj (Ns 1000 M (06/08/17 22:14) Hydromorphone Pf Inj (Dilaudid Pf Inj) (06/08/17 22:15) Sodium Chlor 0.9% 1000 Ml Inj (Ns 1000 M (06/08/17 22:15) Ondansetron Inj (Zofran Inj) (06/08/17 22:15) Hydromorphone Pf Inj (Dilaudid Pf Inj) (06/09/17 00:15) Sodium Chlor 0.9% 1000 Ml Inj (Ns 1000 M (06/09/17 00:30) Ed Discharge Order (06/09/17 00:24) Labs Laboratory Tests Test 06/08/17 22:20 06/08/17 22:40 Urine Color YELLOW Urine Turbidity CLEAR Urine pH 7.5 Urine Specific [place] 1.008 Urine Protein NEG mg/dL Urine Glucose (UA) NEG mg/dL Urine Ketones NEG mg/dL Urine Occult Blood TRACE Urine Nitrite NEG Urine Bilirubin NEG Urine Leukocyte Esterase NEG Urine RBC 0-3 /hpf Urine Squamous Epithelial Cells 0-5 /hpf Microscopic Urinalysis Comment CULT NOT INDICATED White Blood Count 15.0 TH/MM3 Red Blood Count 3.86 MIL/MM3 Hemoglobin 11.0 GM/DL Hematocrit 33.9 % Mean Corpuscular Volume 87.9 FL Mean Corpuscular Hemoglobin 28.5 PG Mean Corpuscular Hemoglobin Concent 32.5 % Red Cell Distribution Width 26.5 % Platelet Count 693 TH/MM3 Mean Platelet Volume 7.3 FL CBC Comment AUTO DIFF Differential Total Cells Counted 100 Neutrophils % (Manual) 71 % Band Neutrophils % 1 % Lymphocytes % 19 % Monocytes % 7 % Eosinophils % 2 % Neutrophils # (Manual) 10.8 TH/MM3 Nucleated Red Blood Cells 2 /100 WBC Differential Comment FINAL DIFF MANUAL Platelet Estimate HIGH Platelet Morphology Comment NORMAL Sickle Cells 1+ Target Cells 1+ Ovalocytes 1+ Reticulocyte Count 10.5 % Absolute Reticulocyte Count 385.6 MIL/L Blood Urea Nitrogen 9 MG/DL Creatinine 0.73 MG/DL Random Glucose 93 MG/DL Calcium Level 8.8 MG/DL Sodium Level 139 MEQ/L Potassium Level 3.7 MEQ/L Chloride Level 104 MEQ/L Carbon Dioxide Level 27.9 MEQ/L Anion Gap 7 MEQ/L Estimat Glomerular Filtration Rate 160 ML/MIN MDM Supervised Visit with CASSANDRA: No Narrative Course The patient was initially evaluated by the previous provider and sent out to me at the end of her shift at around 11:00 PM pending labs and disposition. See her note for further details. Briefly this is a 22-year-old male with history of sickle cell anemia who is here for evaluation of sickle cell pain crisis. The patient reports right hip and groin pain which is usual for his sickle cell crises. I've seen him in the past for priapism, and he states that he no longer gets priapism since he has been receiving exchange transfusions monthly by oil lease broker in [place]. He lives here for college. His next point with his oil lease broker this next week during his break. On physical exam the patient is resting comfortably. He continues to have pain in his right groin and hip despite receiving 1 dose of IV Dilaudid. He is requesting another dose. On physical exam he has point tenderness to his right lateral hip over the greater trochanteric bursa. There is no warmth or erythema to the hip. There is normal range of motion in the right hip. exam is within normal limits. Abdominal exam shows no tenderness. No chest pain or dyspnea. Initial vital signs show heart rate seemingly 6, blood pressure 155/92, pulse ox 97% on room air, oral temp of 98F. CBC: WBC 15, hemoglobin 11, hematocrit 33.9, platelets 693, neutrophils 71%. Reticulocyte count of 10.5%. Absolute reticulocyte count of 385.6. BMP is unremarkable. UA shows trace occult blood, not suggestive of UTI. Patient was made aware of all findings. He will be given another dose of IV Dilaudid and discharged home with instructions to follow-up with his oil lease broker next week as scheduled. He was informed on when to return to the emergency department. He verbalizes understanding and agreement with plan. Upon discharge the patient ambulated out of the emergency department without difficulty and without assistance, with a normal gait. Diagnosis Primary Impression: Vaso-occlusive sickle cell crisis Additional Impression: Thrombocytosis Referrals: Rn Iv Therapy 1 week Additional Instruction: Follow-up with your oil lease broker next week as scheduled. Return to the emergency department for worsening symptoms or any other concerns. Disposition: 01 DISCHARGE HOME Condition: Stable Santos Gramajo MD Jun 09, 2017 00:18
[2017-06-09] MEDS ORDERED: SODIUM CHLOR 0.9% 1000 ML INJ 1,000 ML IV ONE (00:30)
[2017-06-09 00:40] VITALS: BP 135/70
[2017-06-09 00:51] VITALS: RESP 18
== END 2017-06-09 00:52 | disposition home or self-care (01) ==
LOC: PHED 21:58
DX: D57.00 Hb-SS disease with crisis, unspecified (principal); R79.89 Other specified abnormal findings of blood chemistry
CPT/HCPCS: 80048; 81001; 85007; 85027; 85044; 96361; 96374; 96375; 99284; J1170; J2405; J7030

== ENCOUNTER 2017-06-21 13:23 | Emergency (ER) | payer MEDICAID ==
[~2017-06-21] VITALS: Ht 188 cm; Wt 87.3 kg
[2017-06-21 13:28] VITALS: BP 142/63; PULSE 83; RESP 20; TEMP 97.8; O2SAT 96
[2017-06-21] MEDS ORDERED: HYDROmorphone HCL PF 2 MG/ML VIAL IV ONE (14:00)
[2017-06-21] MEDS ORDERED: SODIUM CHLOR 0.9% 1000 ML INJ 1,000 ML IV ONE (14:00)
[2017-06-21] MEDS ORDERED: SODIUM CHLORIDE 0.9% FLUSH 10 ML FLUSH IVF PRN (14:00)
[2017-06-21] MEDS ORDERED: ONDANSETRON HCL 4 MG/2 ML VIAL IVP ONE (14:00)
--- NOTE | 2017-06-21 14:10 | PD ---
HPI Chief Complaint: Abdominal Pain Time Seen by Provider: 13:48 Travel History International Travel<30 days: No Contact w/Intl Traveler<30days: No Traveled to known affect area: No History of Present Illness HPI This patient complains of sickle cell pain. It bothers him in the left groin. Duration one day. He says this is typical area for sickle pain to strike. He denies acute injury. No vomiting or diarrhea or fever. Symptoms are reported as severe. No alleviating factors. No exacerbating factors. PFSH Past Medical History Anemia: Yes (SICKLE CELL ) Arthritis: No Asthma: Yes Autoimmune Disease: Yes Blood Disorders: No Anxiety: No Depression: No Heart Rhythm Problems: Yes (MURMUR) Cancer: No Cardiovascular Problems: Yes (HX OF SICKLE CELL, GETS INFUSIONS EVERY FOUR WEEKS .) High Cholesterol: No Chemotherapy: No Chest Pain: Yes (WITH SICKLE CRISIS) Congestive Heart Failure: No COPD: No Cerebrovascular Accident: No Diabetes: No Diminished Hearing: No Endocrine: No Gastrointestinal Disorders: No GERD: No Genitourinary: No Headaches: No Hiatal Hernia: No Hypertension: No Immune Disorder: Yes Implanted Vascular Access Dvce: No Kidney Stones: No Musculoskeletal: Yes Neurologic: Yes Psychiatric: No Reproductive: Yes Respiratory: Yes Immunizations Current: Yes Migraines: No Pneumonia: Yes Radiation Therapy: No Renal Failure: No Seizures: No Sickle Cell Disease: Yes Sleep Apnea: No Thyroid Disease: No Ulcer: No Tetanus Vaccination: Unknown Influenza Vaccination: No Past Surgical History Abdominal Surgery: No AICD: No Arteriovenous Shunt: No Cardiac Surgery: No Ear Surgery: No Endocrine Surgery: No Eye Surgery: No Genitourinary Surgery: Yes Gynecologic Surgery: No Insulin Pump: No Joint Replacement: No Neurologic Surgery: No Oral Surgery: No Pacemaker: No Thoracic Surgery: No Other Surgery: Yes Social History Alcohol Use: No Tobacco Use: No Substance Use: No Allergies-Medications (Allergen,Severity, Reaction): Coded Allergies: penicillin G (Verified Allergy, Severe, told as child, 06/21/17) Reported Meds & Prescriptions Reported Meds & Active Scripts Active Percocet (Oxycodone-Acetaminophen) 10-325 mg Tab 1 Tab PO Q6H PRN Reported Dilaudid (Hydromorphone HCl) 4 Mg Tab 4 Mg PO Q4H PRN Review of Systems General / Constitutional: No: Fever Eyes: No: Visual changes HENT: No: Headaches Cardiovascular: No: Chest Pain or Discomfort Respiratory: No: Shortness of Breath Gastrointestinal: No: Abdominal Pain Genitourinary: No: Dysuria Musculoskeletal: Positive: Pain Skin: No Rash Neurologic: No: Weakness Psychiatric: No: Depression Endocrine: No: Polydipsia Hematologic/Lymphatic: No: Easy Bruising Physical Exam Narrative GENERAL: Well-nourished, well-developed patient complaining of pain . SKIN: Focused skin assessment reveals no rash and nodules. Skin is Warm and dry. HEAD: Atraumatic. Normocephalic. EYES: Pupils equal and round. No scleral icterus. No injection or drainage. ENT: No nasal bleeding or discharge. Mucous membranes pink and moist. NECK: Trachea midline. No JVD. CARDIOVASCULAR: Regular rate and rhythm. No murmur appreciated. RESPIRATORY: No accessory muscle use. Clear to auscultation. Breath sounds equal bilaterally. GASTROINTESTINAL: Abdomen soft, non-tender, nondistended. Hepatic and splenic margins not palpable. No inguinal mass or hernia or sign of infection. The area is nontender MUSCULOSKELETAL: No obvious deformities. No clubbing. No cyanosis. No edema. NEUROLOGICAL: Awake and alert. No obvious cranial nerve deficits. Motor grossly within normal limits. Normal speech. PSYCHIATRIC: Appropriate mood and affect; insight and judgment questionable Data Data Last Documented VS Vital Signs Date Time Temp Pulse Resp B/P (MAP) Pulse Ox O2 Delivery O2 Flow Rate FiO2 06/21/17 14:20 105 20 93/58 (70) 96 Room Air 06/21/17 13:28 97.8 Orders Orders Complete Blood Count With Diff (06/21/17 13:59) Iv Access Insert/Monitor (06/21/17 13:59) Sodium Chloride 0.9% Flush (Ns Flush) (06/21/17 14:00) Sodium Chlor 0.9% 1000 Ml Inj (Ns 1000 M (06/21/17 14:00) Ondansetron Inj (Zofran Inj) (06/21/17 14:00) Hydromorphone Pf Inj (Dilaudid Pf Inj) (06/21/17 14:00) Hydromorphone Pf Inj (Dilaudid Pf Inj) (06/21/17 15:15) Labs Laboratory Tests Test 06/21/17 14:35 White Blood Count 14.6 TH/MM3 Red Blood Count 3.31 MIL/MM3 Hemoglobin 9.8 GM/DL Hematocrit 29.7 % Mean Corpuscular Volume 89.6 FL Mean Corpuscular Hemoglobin 29.7 PG Mean Corpuscular Hemoglobin Concent 33.2 % Red Cell Distribution Width 27.5 % Platelet Count 227 TH/MM3 Mean Platelet Volume 7.3 FL CBC Comment AUTO DIFF Differential Total Cells Counted 100 Neutrophils % (Manual) 62 % Lymphocytes % 20 % Monocytes % 10 % Eosinophils % 8 % Neutrophils # (Manual) 9.1 TH/MM3 Nucleated Red Blood Cells 4 /100 WBC Differential Comment FINAL DIFF MANUAL Platelet Estimate NORMAL Platelet Morphology Comment NORMAL Sickle Cells 1+ Target Cells 2+ Ovalocytes 2+ Keratocytes OCC MDM Medical Decision Making Medical Screen Exam Complete: Yes Emergency Medical Condition: Yes Medical Record Reviewed: Yes Differential Diagnosis Sickle cell pain, sickle cell crisis, narcotic seeking behavior, hernia Narrative Course I have reviewed the patient's electronic medical record. Patient is here for his 19th visit this year. He had a CT of the abdomen and pelvis recently which was negative for hernia or groin mass Patient is challenging IV access. I placed a right external jugular IV site without complication CBC shows hemoglobin 9.8 which is better than 5 the last 6 blood draws we've done here I gave him 1 L normal saline IV as well as a dose of IV Zofran and IV Dilaudid for symptom relief I gave him a second dose of Dilaudid as he was still complaining of pain and writhing about on the bed When I recheck him he was texting and looks comfortable Stable for outpatient follow-up Diagnosis Primary Impression: Sickle cell anemia with pain Additional Impression: abdominal/groin pain Additional Instructions: The patient was advised to follow up with their physician and return if they worsen. Med/Other Pt SpecificInfo: Other Disposition: 01 DISCHARGE HOME Condition: Stable Ronald Alvarado MD Jun 21, 2017 14:10
[2017-06-21 14:20] VITALS: BP 93/58; PULSE 105; RESP 20; O2SAT 96
[2017-06-21 14:43] LABS: HEMATOCRIT 29.7 % (39.0-51.0); MEAN CELL VOLUME 89.6 FL (80.0-100.0); MEAN CORPUSCULAR HEMOGLOBIN 29.7 PG (27.0-34.0); MEAN CORPUSCULAR HGB CONC 33.2 % (32.0-36.0); PLATELET COUNT 227 TH/MM3 (150-450); RED BLOOD COUNT 3.31 MIL/MM3 (4.50-5.90); RED CELL DISTRIBUTION WIDTH 27.5 % (11.6-17.2); WHITE BLOOD COUNT 14.6 TH/MM3 (4.0-11.0)
[2017-06-21 14:50] LABS: HEMO FLAGS AUTO DIFF
[2017-06-21 15:13] LABS: CORRECTED NUCLEATED RBC 4 /100 WBC (0-0); EOSINOPHILS 8 % (0-4); KERATOCYTES OCC (NORMAL); NEUTROPHIL # MANUAL DIFF 9.1 TH/MM3 (1.8-7.7); OVALOCYTES 2+ (NORMAL); POLYS (SEG NEUTROPHILS) 62 % (16-70); SICKLE CELLS 1+ (NORMAL); TARGET CELLS 2+ (NORMAL); WBC DIFF SAMPLE 100
[2017-06-21 15:14] LABS: PLATELET ESTIMATE SMEAR NORMAL (NORMAL); PLATELET MORPHOLOGY NORMAL (NORMAL); SCAN/DIFF FINAL DIFF MANUAL
[2017-06-21] MEDS ORDERED: HYDROmorphone HCL PF 2 MG/ML VIAL IVP ONE (15:15)
== END 2017-06-21 15:59 | disposition home or self-care (01) ==
LOC: PHED 13:23
DX: D57.1 Sickle-cell disease without crisis (principal); R10.30 Lower abdominal pain, unspecified; J45.909 Unspecified asthma, uncomplicated; Z88.0 Allergy status to penicillin; Z79.899 Other long term (current) drug therapy
CPT/HCPCS: 85007; 85027; 96361; 96374; 96375; 99284; J1170; J2405; J7030

== ENCOUNTER 2017-06-21 20:04 | Observation (INO) | payer MEDICAID ==
[~2017-06-21] VITALS: Ht 188 cm; Wt 93.0 kg
[2017-06-21] VITALS (7 sets, daily range): BP systolic 100–156; BP diastolic 49–97; PULSE 83–95; RESP 16–36; TEMP 98–98.5; O2SAT 95–100
--- NOTE | 2017-06-21 20:28 | PD ---
HPI Chief Complaint: Sickle Cell Time Seen by Provider: 20:20 Travel History International Travel<30 days: No Contact w/Intl Traveler<30days: No Traveled to known affect area: No History of Present Illness HPI This is a 22-year-old male who presents to the emergency department with a history of sickle cell disease who is having severe pain, constant, for one day , worse in the lower abdomen radiating down his legs. This is typical of his sickle cell crises. He denies any vomiting but he does feel some chills. He denies any productive cough but he does feel a little short of breath. He was here earlier today in the emergency department and received pain control but his symptoms of worsening throughout the day. PFSH Past Medical History Anemia: Yes (SICKLE CELL ) Arthritis: No Asthma: Yes Autoimmune Disease: Yes Blood Disorders: No Anxiety: No Depression: No Heart Rhythm Problems: Yes (MURMUR) Cancer: No Cardiovascular Problems: Yes (HX OF SICKLE CELL, GETS INFUSIONS EVERY FOUR WEEKS .) High Cholesterol: No Chemotherapy: No Chest Pain: Yes (WITH SICKLE CRISIS) Congestive Heart Failure: No COPD: No Cerebrovascular Accident: No Diabetes: No Diminished Hearing: No Endocrine: No Gastrointestinal Disorders: No GERD: No Genitourinary: No Headaches: No Hiatal Hernia: No Hypertension: No Immune Disorder: Yes Implanted Vascular Access Dvce: No Kidney Stones: No Musculoskeletal: Yes Neurologic: Yes Psychiatric: No Reproductive: Yes Respiratory: Yes Immunizations Current: Yes Migraines: No Pneumonia: Yes Radiation Therapy: No Renal Failure: No Seizures: No Sickle Cell Disease: Yes Sleep Apnea: No Thyroid Disease: No Ulcer: No ?: Not Past Surgical History Abdominal Surgery: No AICD: No Arteriovenous Shunt: No Cardiac Surgery: No Ear Surgery: No Endocrine Surgery: No Eye Surgery: No Genitourinary Surgery: Yes Gynecologic Surgery: No Insulin Pump: No Joint Replacement: No Neurologic Surgery: No Oral Surgery: No Pacemaker: No Thoracic Surgery: No Other Surgery: Yes Social History Alcohol Use: No Tobacco Use: No Substance Use: No Allergies-Medications (Allergen,Severity, Reaction): Coded Allergies: amoxicillin (Verified Allergy, Severe, Swelling, 06/21/17) latex (Verified Allergy, Severe, Rash, 06/21/17) penicillin G (Verified Allergy, Severe, told as child, 06/21/17) Reported Meds & Prescriptions Reported Meds & Active Scripts Active Percocet (Oxycodone-Acetaminophen) 10-325 mg Tab 1 Tab PO Q6H PRN Reported Dilaudid (Hydromorphone HCl) 4 Mg Tab 4 Mg PO Q4H PRN Review of Systems Except as stated in HPI: all other systems reviewed are Neg Physical Exam Narrative GENERAL: Uncomfortable appearing. SKIN: Focused skin assessment warm and dry. HEAD: Atraumatic. Normocephalic. EYES: Pupils equal and round. No injection or drainage. Scleral icterus. ENT: Moist mucous membranes NECK: Trachea midline. CARDIOVASCULAR: Regular rate and rhythm. No murmur appreciated. RESPIRATORY: Clear to auscultation. Breath sounds equal bilaterally. GASTROINTESTINAL: Abdomen soft, tender to palpation in the lower abdomen with no rebound or guarding. MUSCULOSKELETAL: No obvious deformities. NEUROLOGICAL: Awake and alert. No obvious cranial nerve deficits. Moving all extremities. PSYCHIATRIC: Appropriate mood and affect; insight and judgment normal. Data Data Last Documented VS Vital Signs Date Time Temp Pulse Resp B/P (MAP) Pulse Ox O2 Delivery O2 Flow Rate FiO2 06/21/17 21:15 86 18 125/64 (84) 97 Nasal Cannula 2.00 06/21/17 20:11 98.0 Orders Orders Hydromorphone Pf Inj (Dilaudid Pf Inj) (06/21/17 20:30) Comprehensive Metabolic Panel (06/21/17 20:25) Retic Count (06/21/17 20:25) Chest, Single Ap (06/21/17 ) Hydromorphone Pf Inj (Dilaudid Pf Inj) (06/21/17 20:45) Ondansetron Inj (Zofran Inj) (06/21/17 21:00) Diphenhydramine Inj (Benadryl Inj) (06/21/17 21:00) Admit Order (Ed Use Only) (06/21/17 21:58) Labs Laboratory Tests Test 06/21/17 20:40 Blood Urea Nitrogen 7 MG/DL Creatinine 0.66 MG/DL Random Glucose 104 MG/DL Total Protein 8.0 GM/DL Albumin 3.8 GM/DL Calcium Level 8.2 MG/DL Alkaline Phosphatase 85 U/L Aspartate Amino Transf (AST/SGOT) 29 U/L Alanine Aminotransferase (ALT/SGPT) 35 U/L Total Bilirubin 4.2 MG/DL Sodium Level 137 MEQ/L Potassium Level 3.6 MEQ/L Chloride Level 103 MEQ/L Carbon Dioxide Level 25.4 MEQ/L Anion Gap 9 MEQ/L Estimat Glomerular Filtration Rate 180 ML/MIN MDM Medical Decision Making Medical Screen Exam Complete: Yes Emergency Medical Condition: Yes Medical Record Reviewed: Yes (patient was seen earlier today with vaso- occlusive crisis and felt better after pain control. At that time he had a leukocytosis of 14.) Interpretation(s) Total bilirubin is 4.1 which is normal for patient. Patient was tachypneic on arrival likely secondary to hyperventilation in the setting of pain. This resolved with pain control. Differential Diagnosis Vaso-occlusive crisis, acute chest syndrome, cholecystitis, cholelithiasis Narrative Course This is a 22-year-old male who presents to the emergency department with abdominal and leg pain that's been going on all day. He received 4 mg of IV Dilaudid earlier today and returns because his pain is poorly controlled. He is placed on a monitored an IV was established. He was given an additional 2 mg of IV Dilaudid. His pain continues to be under poor control. Patient will be admitted for pain control. Diagnosis Primary Impression: Sickle cell crisis Admitting Information Admitting Physician Requests: Observation Celeste Duffy MD Jun 21, 2017 20:28
[2017-06-21] MEDS ORDERED: HYDROmorphone HCL PF 1 MG/ML VIAL IV PUSH ONE ×2 (20:30→20:45)
[2017-06-21 20:58] LABS: CHLORIDE 103 MEQ/L (98-107); POTASSIUM 3.6 MEQ/L (3.5-5.1); SODIUM (NA) 137 MEQ/L (136-145)
[2017-06-21] MEDS ORDERED: diphenhydrAMINE HCL 50 MG/ML VIAL IV PUSH ONE (21:00)
[2017-06-21] MEDS ORDERED: ONDANSETRON HCL 4 MG/2 ML VIAL IV ONE (21:00)
[2017-06-21 21:02] LABS: ANION GAP 9 MEQ/L (5-15); BICARBONATE 25.4 MEQ/L (21.0-32.0); BLOOD UREA NITROGEN 7 MG/DL (7-18)
[2017-06-21 21:05] LABS: ALT (GPT) 35 U/L (12-78); AST (GOT) 29 U/L (15-37); GLOMERULAR FILTRATION RATE 180 ML/MIN (>89)
[2017-06-21 21:07] LABS: TOTAL BILIRUBIN ADULT 4.2 MG/DL (0.2-1.0)
[2017-06-21 21:08] LABS: ALKALINE PHOSPHATASE 85 U/L (45-117)
--- NOTE | 2017-06-21 21:31 | RADRPT ---
EXAM DATE/TIME: 06/21/2017 21:07 [facility] COMPARISON: CHEST SINGLE AP, May 24, 2017, 5:50. INDICATIONS : Short of breath and body aches. Sickle cell crisis. MEDICAL HISTORY : Sickle cell disease. SURGICAL HISTORY : None. ENCOUNTER: Initial ACUITY: 1 day PAIN SCORE: 7/10 LOCATION: Bilateral chest FINDINGS: A single view of the chest demonstrates the lungs to be symmetrically aerated without evidence of mas s, infiltrate or effusion. The cardiomediastinal contours are prominent. Osseous structures are inta ct. CONCLUSION: 1. Mild cardiomegaly. No acute findings. Oneal Barker MD on June 21, 2017 at 21:29 Board Certified Radiologist. This report was verified electronically.
[2017-06-21 22:00] LABS: RETIC % 10.6 % (0.4-3.0)
[2017-06-21] MEDS ORDERED: SODIUM CHLORIDE 0.9% FLUSH 10 ML FLUSH IV FLUSH PRN (22:00)
[2017-06-21] MEDS ORDERED: ONDANSETRON HCL 4 MG/2 ML VIAL IV PUSH PRN (22:00)
[2017-06-21] MEDS ORDERED: ACETAMINOPHEN 325 MG TAB PO PRN (22:00)
[2017-06-21 22:03] LABS: REVIEW FLAG FINAL
[2017-06-21] MEDS ORDERED: SODIUM CHLOR 0.9% 1000 ML INJ 1,000 ML IV ONE (22:15)
[2017-06-21] MEDS: HYDROmorphone HCL PF 1 MG/ML VIAL IV PUSH PRN (22:30)
[2017-06-22] MEDS: ENOXAPARIN SODIUM 40 MG/0.4 ML SYRINGE SQ SCH ×2 (01:05→23:59)
[2017-06-22] MEDS: SODIUM CHLOR 0.9% 1000 ML INJ 1,000 ML IV SCH ×3 (01:12→11:38)
[2017-06-22] MEDS: diphenhydrAMINE HCL 50 MG/ML VIAL IV PUSH PRN ×4 (01:43→21:03)
[2017-06-22] MEDS: HYDROmorphone HCL PF 1 MG/ML VIAL IV PUSH PRN ×8 (01:44→23:59)
[2017-06-22 06:37] LABS: HEMATOCRIT 29.1 % (39.0-51.0); MEAN CORPUSCULAR HEMOGLOBIN 28.9 PG (27.0-34.0); MEAN CORPUSCULAR HGB CONC 32.1 % (32.0-36.0); PLATELET COUNT 223 TH/MM3 (150-450); RED BLOOD COUNT 3.23 MIL/MM3 (4.50-5.90); RED CELL DISTRIBUTION WIDTH 26.7 % (11.6-17.2); WHITE BLOOD COUNT 13.1 TH/MM3 (4.0-11.0)
[2017-06-22 06:54] LABS: POTASSIUM 3.7 MEQ/L (3.5-5.1)
[2017-06-22 06:57] LABS: BICARBONATE 25.9 MEQ/L (21.0-32.0)
[2017-06-22 07:04] LABS: HEMO FLAGS AUTO DIFF
[2017-06-22 07:59] LABS: BANDS 1 % (0-6); CORRECTED NUCLEATED RBC 12 /100 WBC (0-0); CORRECTED WBC 11.7 TH/MM3 (4.0-11.0); EOSINOPHILS 8 % (0-4); KERATOCYTES OCC (NORMAL); NEUTROPHIL # MANUAL DIFF 7.6 TH/MM3 (1.8-7.7); OVALOCYTES 1+ (NORMAL); POLYS (SEG NEUTROPHILS) 64 % (16-70); SICKLE CELLS 1+ (NORMAL); TARGET CELLS 2+ (NORMAL); WBC DIFF SAMPLE 100
[2017-06-22 08:00] LABS: PLATELET ESTIMATE SMEAR NORMAL (NORMAL); PLATELET MORPHOLOGY NORMAL (NORMAL); SCAN/DIFF FINAL DIFF MANUAL; TEARDROP RBCS 1+ (NORMAL)
[2017-06-22 08:52] VITALS: BP 120/62; PULSE 78; RESP 20; TEMP 96.9; O2SAT 97
[2017-06-22] MEDS: SODIUM CHLORIDE 0.9% FLUSH 10 ML FLUSH IV FLUSH SCH ×2 (09:24→21:03)
[2017-06-22 10:30] VITALS: O2SAT 94
[2017-06-22 12:00] VITALS: BP 125/80; PULSE 70; RESP 20; TEMP 96.9; O2SAT 94
--- NOTE | 2017-06-22 12:53 | HHI.HP ---
[facility] Unknown Admission Diagnosis vasoocclusive crisis Diagnoses: Chief Complaint: Pain Travel History International Travel<30 Days: No Contact w/Intl Traveler <30 Da: No Traveled to Known Affected Are: No Sepsis Criteria SIRS Criteria (2 or more): Heart rate over 90, RR > 20 or PaCO2 < 32, WBC > 12284, < 4000 or > 10% bands Criteria Outcome: Meets SIRS criteria History of Present Illness With patient 22-year-old male with known history of sickle cell disease. He was recently admitted to the hospital. He had been doing well however complains of one day of increased pain in the chest, abdomen and legs. Patient says this is pretty typical this the usual sickle cell crisis. There is been no fevers or chills. He was little short of breath and feels better after being hydrated and given IV narcotics overnight. He actually was discharged result from the emergency room but came back because the pain became too severe. With elevated reticulocyte count and his hemoglobin is 9.3. Patient's been admitted to the hospital for further evaluation of sickle cell with pain Review of Systems Constitutional: DENIES: Diaphoretic episodes, Fatigue, Fever, Weight gain, Weight loss, Chills, Dizziness, Change in appetite, Night Sweats Endocrine: DENIES: Heat/cold intolerance, Polydipsia, Polyuria, Polyphagia Eyes: DENIES: Blurred vision, Diplopia, Eye inflammation, Eye pain, Vision loss , Photosensitivity, Double Vision Ears, nose, mouth, throat: DENIES: Tinnitus, Hearing loss, Vertigo, Nasal discharge, Oral lesions, Throat pain, Hoarseness, Ear Pain, Running Nose, Epistaxis, Sinus Pain, Toothache, Odynophagia Respiratory: DENIES: Apneas, Cough, Snoring, Wheezing, Hemoptysis, Sputum production, Shortness of breath Cardiovascular: DENIES: Chest pain, Palpitations, Syncope, Dyspnea on Exertion , PND, Lower Extremity Edema, Orthopnea, Claudication Gastrointestinal: DENIES: Abdominal pain, Black stools, Bloody stools, Constipation, Diarrhea, Nausea, Vomiting, Difficulty Swallowing, Anorexia Genitourinary: DENIES: Sexual dysfunction, Urinary frequency, Urinary incontinence, Urgency, Hematuria, Dysuria, Nocturia, Penile Discharge, Testicular Pain, Testicular Swelling Musculoskeletal: COMPLAINS OF: Joint pain, Muscle aches Integumentary: DENIES: Abnormal pigmentation, Nail changes, Pruritus, Rash Hematologic/lymphatic: DENIES: Bruising, Lymphadenopathy Immunologic/allergic: DENIES: Eczema, Urticaria Neurologic: DENIES: Abnormal gait, Headache, Localized weakness, Paresthesias, Seizures, Speech Problems, Tremor, Poor Balance Psychiatric: DENIES: Anxiety, Confusion, Mood changes, Depression, Hallucinations, Agitation, Suicidal Ideation, Homicidal Ideation, Delusions Except as stated in HPI: all other systems reviewed are Neg Past Family Social History Past Medical History Sickle cell disease Past Surgical History none Reported Medications Reviewed in the EMR Allergies: Coded Allergies: amoxicillin (Verified Allergy, Severe, Swelling, 06/21/17) latex (Verified Allergy, Severe, Rash, 06/21/17) penicillin G (Verified Allergy, Severe, told as child, 06/21/17) Active Ordered Medications reviewed in the EMR Family History Sickle cell trait Social History student, lives independently no tobacco or etoh Physical Exam Vital Signs Vital Signs Date Time Temp Pulse Resp B/P (MAP) Pulse Ox O2 Delivery O2 Flow Rate FiO2 06/22/17 08:52 96.9 78 20 120/62 (81) 97 06/21/17 23:30 98.1 83 16 134/77 (96) 95 06/21/17 23:15 89 18 100/49 (66) 97 Nasal Cannula 2.00 06/21/17 23:15 06/21/17 22:30 98.2 84 18 103/52 (69) 97 Nasal Cannula 06/21/17 21:15 97 Nasal Cannula 2.00 06/21/17 21:15 86 18 125/64 (84) 97 Nasal Cannula 2.00 06/21/17 20:45 Room Air 06/21/17 20:28 90 32 97 Room Air 06/21/17 20:11 98.0 95 36 98 Physical Exam GENERAL: This is a well-nourished, well-developed patient, complaining of pain SKIN: No rashes, ecchymoses or lesions. Cool and dry. HEAD: Atraumatic. Normocephalic. No temporal or scalp tenderness. EYES: Pupils equal round and reactive. Extraocular motions intact. No scleral icterus. No injection or drainage. ENT: Nose without bleeding, purulent drainage or septal hematoma. Throat without erythema, tonsillar hypertrophy or exudate. Uvula midline. Airway patent. NECK: Trachea midline. No JVD or lymphadenopathy. Supple, nontender, no meningeal signs. CARDIOVASCULAR: Regular rate and rhythm without murmurs, gallops, or rubs. RESPIRATORY: Clear to auscultation. Breath sounds equal bilaterally. No wheezes , rales, or rhonchi. GASTROINTESTINAL: Abdomen soft, non-tender, nondistended. No hepato-splenomegaly , or palpable masses. No guarding. MUSCULOSKELETAL: Extremities without clubbing, cyanosis, or edema. No joint tenderness, effusion, or edema noted. No calf tenderness. Negative Homans sign bilaterally. NEUROLOGICAL: Awake and alert. Cranial nerves II through XII intact. Motor and sensory grossly within normal limits. Five out of 5 muscle strength in all muscle groups. Normal speech. Laboratory Laboratory Tests Test 06/21/17 20:40 06/22/17 06:17 Reticulocyte Count 10.6 Absolute Reticulocyte Count 346.6 Blood Urea Nitrogen 7 5 Creatinine 0.66 0.63 Random Glucose 104 122 Total Protein 8.0 Albumin 3.8 Calcium Level 8.2 8.0 Alkaline Phosphatase 85 Aspartate Amino Transf (AST/SGOT) 29 Alanine Aminotransferase (ALT/SGPT) 35 Total Bilirubin 4.2 Sodium Level 137 141 Potassium Level 3.6 3.7 Chloride Level 103 107 Carbon Dioxide Level 25.4 25.9 Anion Gap 9 8 Estimat Glomerular Filtration Rate 180 190 White Blood Count 13.1 Corrected White Blood Count 11.7 Red Blood Count 3.23 Hemoglobin 9.3 Hematocrit 29.1 Mean Corpuscular Volume 90.0 Mean Corpuscular Hemoglobin 28.9 Mean Corpuscular Hemoglobin Concent 32.1 Red Cell Distribution Width 26.7 Platelet Count 223 Mean Platelet Volume 7.5 CBC Comment AUTO DIFF Differential Total Cells Counted 100 Neutrophils % (Manual) 64 Band Neutrophils % 1 Lymphocytes % 18 Monocytes % 9 Eosinophils % 8 Neutrophils # (Manual) 7.6 Nucleated Red Blood Cells 12 Differential Comment FINAL DIFF MANUAL Platelet Estimate NORMAL Platelet Morphology Comment NORMAL Sickle Cells 1+ Target Cells 2+ Tear Drop Cells 1+ Ovalocytes 1+ Keratocytes OCC Result Diagram: 06/22/1761606/22/17616 Imaging Last Impressions Chest X-Ray 06/21/17 0000 Signed Impressions: Service Date/Time: Wednesday, June 21, 2017 21:07 - CONCLUSION: 1. Mild cardiomegaly. No acute findings. MD Martine Smith VTE Risk Assessment Capmendyi VTE Risk Assessment: Mod/High Risk (score >= 2) Caprini Risk Assessment Model Point Value = 1 Point Value = 2 Point Value = 3 Point Value = 5 Age 41-60 Minor surgery BMI > 25 kg/m2 Swollen legs Varicose veins or History of unexplained or recurrent spontaneous Oral contraceptives or hormone replacement Sepsis (< 1 month) Serious lung disease, including pneumonia (< 1 month) Abnormal pulmonary function Acute myocardial infarction Congestive heart failure (< 1 month) History of inflammatory bowel disease Medical patient at bed rest Age 61-74 Arthroscopic surgery Major open surgery (> 45 min) Laparoscopic surgery (> 45 min) Malignancy Confined to bed (> 72 hours) Immobilizing plaster cast Central venous access Age >= 75 History of VTE Family history of VTE Factor V Leiden Prothrombin [id number] Lupus anticoagulant Anticardiolipin antibodies Elevated serum homocysteine Heparin-induced thrombocytopenia Other congenital or acquired thrombophilia Stroke (< 1 month) Elective arthroplasty Hip, pelvis, or leg fracture Acute spinal cord injury (< 1 month) Prophylaxis Regimen Total Risk Factor Score Risk Level Prophylaxis Regimen 0-1 Low Early ambulation 2 Moderate Order ONE of the following: *Sequential Compression Device (SCD) *Heparin 5000 units SQ BID 3-4 Higher Order ONE of the following medications: *Heparin 5000 units SQ TID *Enoxaparin/Lovenox 40 mg SQ daily (WT < 150 kg, CrCl > 30 mL/min) *Enoxaparin/Lovenox 30 mg SQ daily (WT < 150 kg, CrCl > 10-29 mL/min) *Enoxaparin/Lovenox 30 mg SQ BID (WT < 150 kg, CrCl > 30 mL/min) AND/OR *Sequential Compression Device (SCD) 5 or more Highest Order ONE of the following medications: *Heparin 5000 units SQ TID (Preferred with Epidurals) *Enoxaparin/Lovenox 40 mg SQ daily (WT < 150 kg, CrCl > 30 mL/min) *Enoxaparin/Lovenox 30 mg SQ daily (WT < 150 kg, CrCl > 10-29 mL/min) *Enoxaparin/Lovenox 30 mg SQ BID (WT < 150 kg, CrCl > 30 mL/min) AND *Sequential Compression Device (SCD) Assessment and Plan Problem List: (1) Sickle cell anemia with pain ICD Code: D57.00 - Hb-SS disease with crisis, unspecified Status: Acute Plan: continue plans for IV narcotics and IV hydration Patient feeling better Follow hemoglobin Code Status full code Discussed Condition With patient Coreen Melissa MD Jun 22, 2017 12:53
[2017-06-22 16:00] VITALS: BP 129/62; PULSE 86; RESP 20; TEMP 97.7; O2SAT 91
[2017-06-22 20:00] VITALS: BP 128/67; PULSE 85; RESP 18; TEMP 98.8; O2SAT 92
[2017-06-22 21:00] VITALS: O2SAT 94
[2017-06-23] VITALS: BP 128/67; PULSE 79; RESP 20; TEMP 97.9; O2SAT 93
[2017-06-23] MEDS: HYDROmorphone HCL PF 1 MG/ML VIAL IV PUSH PRN ×5 (02:57→19:49)
[2017-06-23] MEDS: diphenhydrAMINE HCL 50 MG/ML VIAL IV PUSH PRN ×3 (03:01→19:48)
[2017-06-23 08:00] VITALS: BP 121/70; PULSE 73; RESP 16; TEMP 98.1; O2SAT 94
[2017-06-23] MEDS: SODIUM CHLORIDE 0.9% FLUSH 10 ML FLUSH IV FLUSH SCH ×2 (09:00→19:49)
[2017-06-23] MEDS: SODIUM CHLOR 0.9% 1000 ML INJ 1,000 ML IV SCH ×3 (09:20→19:54)
[2017-06-23 09:46] LABS: HEMATOCRIT 30.4 % (39.0-51.0); MEAN CELL VOLUME 89.5 FL (80.0-100.0); MEAN CORPUSCULAR HEMOGLOBIN 29.6 PG (27.0-34.0); MEAN CORPUSCULAR HGB CONC 33.1 % (32.0-36.0); PLATELET COUNT 256 TH/MM3 (150-450); RED CELL DISTRIBUTION WIDTH 30.2 % (11.6-17.2); WHITE BLOOD COUNT 13.9 TH/MM3 (4.0-11.0)
[2017-06-23 09:51] LABS: HEMO FLAGS AUTO DIFF
[2017-06-23 10:10] LABS: CORRECTED NUCLEATED RBC 5 /100 WBC (0-0); CORRECTED WBC 13.2 TH/MM3 (4.0-11.0); EOSINOPHILS 3 % (0-4); NEUTROPHIL # MANUAL DIFF 8.1 TH/MM3 (1.8-7.7); POLYS (SEG NEUTROPHILS) 61 % (16-70); WBC DIFF SAMPLE 100
[2017-06-23 10:12] LABS: OVALOCYTES 1+ (NORMAL); SCAN/DIFF FINAL DIFF MANUAL; SICKLE CELLS 1+ (NORMAL); TARGET CELLS 1+ (NORMAL)
[2017-06-23 10:17] LABS: CHLORIDE 105 MEQ/L (98-107); POTASSIUM 3.6 MEQ/L (3.5-5.1); SODIUM (NA) 140 MEQ/L (136-145)
[2017-06-23 10:24] LABS: ANION GAP 6 MEQ/L (5-15); BICARBONATE 29.1 MEQ/L (21.0-32.0); BLOOD UREA NITROGEN 6 MG/DL (7-18)
[2017-06-23 10:27] LABS: ALT (GPT) 33 U/L (12-78); GLOMERULAR FILTRATION RATE 163 ML/MIN (>89)
[2017-06-23 10:28] LABS: AST (GOT) 30 U/L (15-37); TOTAL BILIRUBIN ADULT 4.2 MG/DL (0.2-1.0)
[2017-06-23 10:30] LABS: ALKALINE PHOSPHATASE 85 U/L (45-117)
--- NOTE | 2017-06-23 11:36 | HHI.PR ---
Subjective Remarks With pain complaint and crisis. Hemoglobin stable. Patient still requiring quite a bit IV narcotics for pain control. He reports his pain is 8-7 out of 10. Pain is localized into the lower abdomen along the pubic symphysis. Deep palpation elicits the same pain. Patient reports no dysuria. Urinalysis is pending. He is examined in the company of the male nurse. No fevers Objective Vitals Vital Signs Date Time Temp Pulse Resp B/P (MAP) Pulse Ox O2 Delivery O2 Flow Rate FiO2 06/23/17 08:00 98.1 73 16 121/70 (87) 94 06/23/17 00:00 97.9 79 20 128/67 (87) 93 06/22/17 21:00 94 21 06/22/17 20:00 98.8 85 18 128/67 (87) 92 06/22/17 16:00 97.7 86 20 129/62 (84) 91 06/22/17 12:00 96.9 70 20 125/80 (95) 94 I/O 06/22/17 06/22/17 06/22/17 06/23/17 06/23/17 06/23/17 07:00 15:00 23:00 07:00 15:00 23:00 Intake Total 1060 ml 1480 ml 584 ml 775 ml Balance 1060 ml 1480 ml 584 ml 775 ml Intake Oral 60 ml 480 ml 360 ml IV Total 1000 ml 1000 ml 584 ml 415 ml # Voids 2 2 2 # Bowel Movements 0 0 Result Diagram: 06/23/17 0940 06/23/17 0940 Objective Remarks GENERAL: This is a well-nourished, well-developed patient, who looks ill and complaining of pain CARDIOVASCULAR: Regular rate and rhythm without murmurs, gallops, or rubs. RESPIRATORY: Clear to auscultation. Breath sounds equal bilaterally. No wheezes , rales, or rhonchi. GASTROINTESTINAL: Abdomen soft, superpubic tenderness, nondistended. Normal active bowel sounds MUSCULOSKELETAL: Extremities without clubbing, cyanosis, or edema. NEURO: Alert & Oriented x4 to person, place, time, situation. Moves all ext x4 A/P Problem List: (1) Sickle cell anemia with pain ICD Code: D57.00 - Hb-SS disease with crisis, unspecified Status: Acute Plan: continue plans for IV narcotics and IV hydration Patient feeling somewhat better Follow hemoglobin Follow-up UA for pain complaint Add IV Toradol and heating pad Discharge Planning 1-2 days Corene Melissa MD Jun 23, 2017 11:36
[2017-06-23] MEDS: KETOROLAC TROMETHAMINE 30 MG/ML (IVP) VIAL IV PUSH SCH ×3 (11:50→22:51)
[2017-06-23 12:00] VITALS: BP 142/78; PULSE 78; RESP 16; TEMP 97.5; O2SAT 94
[2017-06-23 14:31] VITALS: O2SAT 93
[2017-06-23 16:00] VITALS: BP 142/77; PULSE 74; RESP 16; TEMP 97.7; O2SAT 98
[2017-06-23 18:39] LABS: BLOOD, URINE NEG (NEG); GLUCOSE,URINE NEG (NEG); KETONE, URINE NEG (NEG); NITRITE,URINE NEG (NEG)
[2017-06-23 18:43] LABS: URINE COLOR YELOW (YELLW/STRAW)
[2017-06-23 18:44] LABS: COMMENT (UR) CULT NOT INDICATED; CULTURE IF INDICATED CULT NOT INDICATED; SQUAMOUS EPITHELIAL CELL URINE 0-5 /hpf (0-5)
[2017-06-23] MEDS: ENOXAPARIN SODIUM 40 MG/0.4 ML SYRINGE SQ SCH ×2 (22:51→22:53)
[2017-06-24] VITALS: BP 139/81; PULSE 72; RESP 16; TEMP 97.9; O2SAT 96
[2017-06-24] MEDS: HYDROmorphone HCL PF 1 MG/ML VIAL IV PUSH PRN ×2 (01:43→07:59)
[2017-06-24] MEDS: diphenhydrAMINE HCL 50 MG/ML VIAL IV PUSH PRN ×2 (01:43→07:59)
[2017-06-24] MEDS: KETOROLAC TROMETHAMINE 30 MG/ML (IVP) VIAL IV PUSH SCH (05:10)
[2017-06-24] MEDS: SODIUM CHLOR 0.9% 1000 ML INJ 1,000 ML IV SCH (06:00)
[2017-06-24] MEDS: SODIUM CHLORIDE 0.9% FLUSH 10 ML FLUSH IV FLUSH SCH (08:00)
[2017-06-24 08:33] VITALS: BP 129/65; PULSE 77; RESP 18; TEMP 98; O2SAT 94
[2017-06-24 09:33] LABS: HEMATOCRIT 29.6 % (39.0-51.0); MEAN CORPUSCULAR HEMOGLOBIN 31.1 PG (27.0-34.0); MEAN CORPUSCULAR HGB CONC 33.4 % (32.0-36.0); PLATELET COUNT 240 TH/MM3 (150-450); RED BLOOD COUNT 3.19 MIL/MM3 (4.50-5.90); RED CELL DISTRIBUTION WIDTH 31.1 % (11.6-17.2); WHITE BLOOD COUNT 11.4 TH/MM3 (4.0-11.0)
[2017-06-24 09:36] LABS: HEMO FLAGS AUTO DIFF
[2017-06-24] MEDS ORDERED: DILA4TAB10 PO (10:08)
[2017-06-24 10:35] LABS: CORRECTED NUCLEATED RBC 14 /100 WBC (0-0); EOSINOPHILS 15 % (0-4); KERATOCYTES 1+ (NORMAL); NEUTROPHIL # MANUAL DIFF 5.5 TH/MM3 (1.8-7.7); OVALOCYTES 1+ (NORMAL); POLYS (SEG NEUTROPHILS) 55 % (16-70); SICKLE CELLS 2+ (NORMAL); TARGET CELLS 2+ (NORMAL); WBC DIFF SAMPLE 100
[2017-06-24 10:36] LABS: PLATELET ESTIMATE SMEAR NORMAL (NORMAL); PLATELET MORPHOLOGY NORMAL (NORMAL); SCAN/DIFF FINAL DIFF MANUAL; TEARDROP RBCS 1+ (NORMAL)
--- NOTE | 2017-06-24 10:47 | HHI.DCPOC ---
Discharge Care Plan Diagnosis: (1) Sickle cell anemia with pain Goals to Promote Your Health * To prevent worsening of your condition and complications * To maintain your health at the optimal level Directions to Meet Your Goals Take your medications as prescribed Follow your dietary instruction Follow activity as directed Keep your appointments as scheduled Take your immunizations and boosters as scheduled If your symptoms worsen call your PCP, if no PCP go to Urgent Care Center or Emergency Room Smoking is Dangerous to Your Health. Avoid second hand smoke Call the 24-hour hour crisis hotline for domestic abuse at Coreen Melissa MD Jun 24, 2017 10:47
--- NOTE | 2017-06-24 10:48 | HHI.DS ---
Discharge Summary Admission Date Jun 21, 2017 at 21:58 Discharge Date: Jun 24, 2017 Admitting Diagnosis vasoocclusive crisis (1) Sickle cell anemia with pain ICD Code: D57.00 - Hb-SS disease with crisis, unspecified Status: Acute Procedures none Brief History - From Admission With patient 22-year-old male with known history of sickle cell disease. He was recently admitted to the hospital. He had been doing well however complains of one day of increased pain in the chest, abdomen and legs. Patient says this is pretty typical this the usual sickle cell crisis. There is been no fevers or chills. He was little short of breath and feels better after being hydrated and given IV narcotics overnight. He actually was discharged result from the emergency room but came back because the pain became too severe. With elevated reticulocyte count and his hemoglobin is 9.3. Patient's been admitted to the hospital for further evaluation of sickle cell with pain CBC/BMP: 06/24/17 0925 06/23/17 0940 Significant Findings Laboratory Tests Test 06/21/17 20:40 06/22/17 06:17 06/23/17 09:40 06/23/17 18:35 Reticulocyte Count 10.6 % (0.4-3.0) Absolute Reticulocyte Count 346.6 MIL/L (20.0-150.0) Calcium Level 8.2 MG/DL (8.5-10.1) 8.0 MG/DL (8.5-10.1) 8.4 MG/DL (8.5-10.1) Total Bilirubin 4.2 MG/DL (0.2-1.0) 4.2 MG/DL (0.2-1.0) White Blood Count 13.1 TH/MM3 (4.0-11.0) 13.9 TH/MM3 (4.0-11.0) Corrected White Blood Count 11.7 TH/MM3 (4.0-11.0) 13.2 TH/MM3 (4.0-11.0) Red Blood Count 3.23 MIL/MM3 (4.50-5.90) 3.40 MIL/MM3 (4.50-5.90) Hemoglobin 9.3 GM/DL (13.0-17.0) 10.1 GM/DL (13.0-17.0) Hematocrit 29.1 % (39.0-51.0) 30.4 % (39.0-51.0) Red Cell Distribution Width 26.7 % (11.6-17.2) 30.2 % (11.6-17.2) Monocytes % 9 % (0-8) Eosinophils % 8 % (0-4) Nucleated Red Blood Cells 12 /100 WBC (0-0) 5 /100 WBC (0-0) Sickle Cells 1+ (NORMAL) 1+ (NORMAL) Target Cells 2+ (NORMAL) 1+ (NORMAL) Tear Drop Cells 1+ (NORMAL) Ovalocytes 1+ (NORMAL) 1+ (NORMAL) Blood Urea Nitrogen 5 MG/DL (7-18) 6 MG/DL (7-18) Random Glucose 122 MG/DL (74-106) Neutrophils # (Manual) 8.1 TH/MM3 (1.8-7.7) Test 06/24/17 09:25 White Blood Count 11.4 TH/MM3 (4.0-11.0) Red Blood Count 3.19 MIL/MM3 (4.50-5.90) Hemoglobin 9.9 GM/DL (13.0-17.0) Hematocrit 29.6 % (39.0-51.0) Red Cell Distribution Width 31.1 % (11.6-17.2) Eosinophils % 15 % (0-4) Nucleated Red Blood Cells 14 /100 WBC (0-0) Sickle Cells 2+ (NORMAL) Target Cells 2+ (NORMAL) Tear Drop Cells 1+ (NORMAL) Ovalocytes 1+ (NORMAL) Keratocytes 1+ (NORMAL) PE at Discharge GENERAL: This is a well-nourished, well-developed patient, who looks ill and complaining of pain CARDIOVASCULAR: Regular rate and rhythm without murmurs, gallops, or rubs. RESPIRATORY: Clear to auscultation. Breath sounds equal bilaterally. No wheezes , rales, or rhonchi. GASTROINTESTINAL: Abdomen soft, superpubic tenderness, nondistended. Normal active bowel sounds MUSCULOSKELETAL: Extremities without clubbing, cyanosis, or edema. NEURO: Alert & Oriented x4 to person, place, time, situation. Moves all ext x4 Pt update on day of discharge Patient doing better, ambulatory. Pain is minimal. Discharge plans discussed with patient and he is agreeable Hospital Course This patient seen and treated for anemia of sickle cell disease with pain. Patient had IV hydration required IV narcotics. He did better and was discharged home Pt Condition on Discharge: Good Discharge Disposition: Discharge Home Discharge Time: <= 30 minutes Discharge Instructions DIET: Follow Instructions for: As Tolerated, No Restrictions Activities you can perform: Regular-No Restrictions Continued Medications: Hydromorphone (Dilaudid) 4 Mg Tab 4 MG PO Q4H PRN for Pain Management, #20 TAB 0 Refills (This prescription has been renewed) Discontinued Medications: Oxycodone-Acetaminophen (Percocet) 10-325 mg Tab 1 TAB PO Q6H PRN for PAIN, #20 TAB 0 Refills Coreen Melissa MD Jun 24, 2017 10:48
[2017-06-24 11:34] LABS: RETIC % 14.2 % (0.4-3.0)
[2017-06-24 11:37] LABS: REVIEW FLAG FINAL
== END 2017-06-24 11:16 | disposition home or self-care (01) ==
LOC: PHED 20:04 → PHEDA 21:58 → PH3B 23:26
PROVIDERS: ADMIT Hospitalist; ATTEND Hospitalist
DX: D57.00 Hb-SS disease with crisis, unspecified (principal); R07.9 Chest pain, unspecified; R10.9 Unspecified abdominal pain; M79.604 Pain in right leg; M79.605 Pain in left leg; R06.02 Shortness of breath; R52 Pain, unspecified; J45.909 Unspecified asthma, uncomplicated
CPT/HCPCS: 71010; 80048; 80053; 81001; 85007; 85027; 85044; 94150; 96361; 96372; 96374; 96375; 96376; 99285; G0378; J1170; J1200; J1650; J1885; J2405; J7030

== ENCOUNTER 2017-07-01 22:33 | Emergency (ER) | payer MEDICAID ==
[~2017-07-01 22:33] MED LIST changes: -AZIT250T3 PO; -CYCL10TA PO; -IBUP-232 PO; -LACTTAB8 PO; -PERC10TA27 PO; -PRED10 PO
== END 2017-07-01 23:02 | disposition left against medical advice (07) ==
LOC: PHED 22:33
DX: Z53.21 Procedure and treatment not carried out due to patient leaving prior to being seen by health care provider (principal)
CPT/HCPCS: 99281

== ENCOUNTER 2017-07-04 10:50 | Inpatient (IN) | payer MEDICAID ==
[~2017-07-04] VITALS: Ht 188 cm; Wt 88.0 kg
[2017-07-04 10:54] VITALS: BP 146/67; PULSE 85; RESP 22; TEMP 98; O2SAT 95
[2017-07-04] MEDS ORDERED: SODIUM CHLOR 0.9% 1000 ML INJ 1,000 ML IV ONE (11:12)
[2017-07-04] MEDS ORDERED: SODIUM CHLORIDE 0.9% FLUSH 10 ML FLUSH IVF PRN (11:15)
[2017-07-04] MEDS ORDERED: diphenhydrAMINE HCL 50 MG/ML VIAL IV PUSH ONE (11:15)
[2017-07-04] MEDS ORDERED: ONDANSETRON HCL 4 MG/2 ML VIAL IVP ONE (11:15)
[2017-07-04] MEDS ORDERED: MORPHINE SULFATE 8 MG/ML INJ IV PUSH ONE (11:15)
--- NOTE | 2017-07-04 11:20 | PD ---
HPI Chief Complaint: Sickle Cell Time Seen by Provider: 11:16 Travel History International Travel<30 days: No Contact w/Intl Traveler<30days: No Traveled to known affect area: No History of Present Illness HPI 22-year-old male patient with history of sickle cell disease, presents to the ER today for 4 days history of lower back pains, leg pains, body pains, states he has been having a sickle cell crisis. He denies any fevers, chest pains, shortness of breath, or any other symptoms. Modifying Factors: None Associated Signs & Symptoms: Body pains, sickle cell crisis Risk Factors: History of sickle cell PFSH Past Medical History Anemia: Yes (SICKLE CELL ) Arthritis: No Asthma: Yes Autoimmune Disease: Yes Blood Disorders: No Anxiety: No Depression: No Heart Rhythm Problems: Yes (MURMUR) Cancer: No Cardiovascular Problems: Yes (HX OF SICKLE CELL, GETS INFUSIONS EVERY FOUR WEEKS .) High Cholesterol: No Chemotherapy: No Chest Pain: Yes (WITH SICKLE CRISIS) Congestive Heart Failure: No COPD: No Cerebrovascular Accident: No Diabetes: No Diminished Hearing: No Endocrine: No Gastrointestinal Disorders: No GERD: No Genitourinary: No Headaches: No Hiatal Hernia: No Hypertension: No Immune Disorder: Yes Implanted Vascular Access Dvce: No Kidney Stones: No Musculoskeletal: Yes Neurologic: Yes Psychiatric: No Reproductive: Yes Respiratory: Yes Immunizations Current: Yes Migraines: No Pneumonia: Yes Radiation Therapy: No Renal Failure: No Seizures: No Sickle Cell Disease: Yes Sleep Apnea: No Thyroid Disease: No Ulcer: No Past Surgical History Abdominal Surgery: No AICD: No Arteriovenous Shunt: No Cardiac Surgery: No Ear Surgery: No Endocrine Surgery: No Eye Surgery: No Genitourinary Surgery: Yes Gynecologic Surgery: No Insulin Pump: No Joint Replacement: No Neurologic Surgery: No Oral Surgery: No Pacemaker: No Thoracic Surgery: No Other Surgery: Yes Social History Alcohol Use: No Tobacco Use: No Substance Use: No Allergies-Medications (Allergen,Severity, Reaction): Coded Allergies: amoxicillin (Verified Allergy, Severe, Swelling, 07/04/17) latex (Verified Allergy, Severe, Rash, 07/04/17) penicillin G (Verified Allergy, Severe, told as child, 07/04/17) Reported Meds & Prescriptions Reported Meds & Active Scripts Active No Active Prescriptions or Reported Medications Review of Systems Except as stated in HPI: all other systems reviewed are Neg Physical Exam Narrative GENERAL: Well-developed young -[place] male patient currently in mild distress. Awake and oriented 3. SKIN: Focused skin assessment warm/dry. HEAD: Atraumatic. Normocephalic. EYES: Pupils equal and round. No scleral icterus. No injection or drainage. ENT: No nasal bleeding or discharge. Mucous membranes pink and moist. NECK: Trachea midline. No JVD. CARDIOVASCULAR: Regular rate and rhythm. No murmur appreciated. RESPIRATORY: No accessory muscle use. Clear to auscultation. Breath sounds equal bilaterally. GASTROINTESTINAL: Abdomen soft, non-tender, nondistended. Hepatic and splenic margins not palpable. MUSCULOSKELETAL: No obvious deformities. No clubbing. No cyanosis. No edema. NEUROLOGICAL: Awake and alert. No obvious cranial nerve deficits. Motor grossly within normal limits. Normal speech. PSYCHIATRIC: Appropriate mood and affect; insight and judgment normal. Data Data Last Documented VS Vital Signs Date Time Temp Pulse Resp B/P (MAP) Pulse Ox O2 Delivery O2 Flow Rate FiO2 07/04/17 11:32 93 07/04/17 11:06 18 07/04/17 10:54 98.0 85 Room Air Orders Orders C-Reactive Protein (Crp) (07/04/17 11:12) Complete Blood Count With Diff (07/04/17 11:12) Comprehensive Metabolic Panel (07/04/17 11:12) Retic Count (07/04/17 11:12) Ecg Monitoring (07/04/17 11:12) Iv Access Insert/Monitor (07/04/17 11:12) Oximetry (07/04/17 11:12) Ondansetron Inj (Zofran Inj) (07/04/17 11:15) Sodium Chloride 0.9% Flush (Ns Flush) (07/04/17 11:15) Sodium Chlor 0.9% 1000 Ml Inj (Ns 1000 M (07/04/17 11:12) Morphine Inj (Morphine Inj) (07/04/17 11:15) Diphenhydramine Inj (Benadryl Inj) (07/04/17 11:15) Hydromorphone Pf Inj (Dilaudid Pf Inj) (07/04/17 12:30) Admit Order (Ed Use Only) (07/04/17 13:12) Labs Laboratory Tests Test 07/04/17 11:45 White Blood Count 14.0 TH/MM3 Corrected White Blood Count 12.8 TH/MM3 Red Blood Count 3.23 MIL/MM3 Hemoglobin 10.3 GM/DL Hematocrit 29.6 % Mean Corpuscular Volume 91.8 FL Mean Corpuscular Hemoglobin 31.8 PG Mean Corpuscular Hemoglobin Concent 34.7 % Red Cell Distribution Width 27.6 % Platelet Count 379 TH/MM3 Mean Platelet Volume 7.7 FL CBC Comment AUTO DIFF Differential Total Cells Counted 100 Neutrophils % (Manual) 72 % Band Neutrophils % 1 % Lymphocytes % 9 % Monocytes % 17 % Eosinophils % 1 % Neutrophils # (Manual) 9.3 TH/MM3 Nucleated Red Blood Cells 9 /100 WBC Differential Comment FINAL DIFF MANUAL Platelet Estimate NORMAL Platelet Morphology Comment NORMAL Sickle Cells 2+ Target Cells 2+ [place] Bodies PRESENT Reticulocyte Count 15.8 % Absolute Reticulocyte Count 509.5 MIL/L Blood Urea Nitrogen 8 MG/DL Creatinine 0.65 MG/DL Random Glucose 90 MG/DL Total Protein 8.3 GM/DL Albumin 3.9 GM/DL Calcium Level 8.8 MG/DL Alkaline Phosphatase 97 U/L Aspartate Amino Transf (AST/SGOT) 90 U/L Alanine Aminotransferase (ALT/SGPT) 95 U/L Total Bilirubin 5.0 MG/DL Sodium Level 140 MEQ/L Potassium Level 3.7 MEQ/L Chloride Level 107 MEQ/L Carbon Dioxide Level 25.3 MEQ/L Anion Gap 8 MEQ/L Estimat Glomerular Filtration Rate 183 ML/MIN MDM Medical Decision Making Medical Screen Exam Complete: Yes Emergency Medical Condition: Yes Medical Record Reviewed: Yes Interpretation(s) Laboratory Tests Test 07/04/17 11:45 White Blood Count 14.0 TH/MM3 (4.0-11.0) Corrected White Blood Count 12.8 TH/MM3 (4.0-11.0) Red Blood Count 3.23 MIL/MM3 (4.50-5.90) Hemoglobin 10.3 GM/DL (13.0-17.0) Hematocrit 29.6 % (39.0-51.0) Red Cell Distribution Width 27.6 % (11.6-17.2) Neutrophils % (Manual) 72 % (16-70) Monocytes % 17 % (0-8) Neutrophils # (Manual) 9.3 TH/MM3 (1.8-7.7) Nucleated Red Blood Cells 9 /100 WBC (0-0) Sickle Cells 2+ (NORMAL) Target Cells 2+ (NORMAL) Reticulocyte Count 15.8 % (0.4-3.0) Absolute Reticulocyte Count 509.5 MIL/L (20.0-150.0) Total Protein 8.3 GM/DL (6.4-8.2) Aspartate Amino Transf (AST/SGOT) 90 U/L (15-37) Alanine Aminotransferase (ALT/SGPT) 95 U/L (12-78) Total Bilirubin 5.0 MG/DL (0.2-1.0) Differential Diagnosis Sickle cell vaso-occlusive crisis versus anemia versus metabolic issues versus dehydration Narrative Course Lab work shows leukocytosis, likely secondary to do marginalization. Patient's afebrile in the ER. He was given IV fluids, morphine, Benadryl and Zofran in the ER. On reevaluation an hour later, he is still in significant pain and additional Dilaudid was also ordered for him. Reticulocyte counts are elevated to 500, indicative of underlying vaso-occlusive crisis. At this point, he does not appear to be doing well as an outpatient and my plan would be to admit the patient for further treatment. Case was discussed with Dr. Boyce for admission. Procedures Procedure Narrative Patient has hard to obtain IV sticks, and a right EJ was placed by me. Patient was placed in a Trendelenburg position, right EJ neck area cleaned with ChloraPrep, and a 20-gauge IV needle used to access the vein. Catheter placed over needle without issues. Patient tolerated procedure well. It is then taped in place, flushed, blood obtained. Diagnosis Primary Impression: Sickle cell crisis Admitting Information Admitting Physician Requests: Admit Scripts No Active Prescriptions or Reported Meds Robert Milner MD Jul 04, 2017 11:20
[2017-07-04 11:32] VITALS: O2SAT 93
[2017-07-04 11:54] LABS: HEMATOCRIT 29.6 % (39.0-51.0); MEAN CELL VOLUME 91.8 FL (80.0-100.0); MEAN CORPUSCULAR HEMOGLOBIN 31.8 PG (27.0-34.0); MEAN CORPUSCULAR HGB CONC 34.7 % (32.0-36.0); PLATELET COUNT 379 TH/MM3 (150-450); RED BLOOD COUNT 3.23 MIL/MM3 (4.50-5.90); RED CELL DISTRIBUTION WIDTH 27.6 % (11.6-17.2)
[2017-07-04 11:59] LABS: HEMO FLAGS AUTO DIFF
[2017-07-04 12:06] LABS: CHLORIDE 107 MEQ/L (98-107); POTASSIUM 3.7 MEQ/L (3.5-5.1); SODIUM (NA) 140 MEQ/L (136-145)
[2017-07-04 12:10] LABS: ANION GAP 8 MEQ/L (5-15); BICARBONATE 25.3 MEQ/L (21.0-32.0); BLOOD UREA NITROGEN 8 MG/DL (7-18)
[2017-07-04 12:13] LABS: ALT (GPT) 95 U/L (12-78); AST (GOT) 90 U/L (15-37); GLOMERULAR FILTRATION RATE 183 ML/MIN (>89)
[2017-07-04 12:16] LABS: ALKALINE PHOSPHATASE 97 U/L (45-117)
[2017-07-04] MEDS ORDERED: HYDROmorphone HCL PF 2 MG/ML VIAL IV PUSH ONE ×2 (12:30→20:30)
[2017-07-04 12:46] LABS: BANDS 1 % (0-6); CORRECTED NUCLEATED RBC 9 /100 WBC (0-0); CORRECTED WBC 12.8 TH/MM3 (4.0-11.0); EOSINOPHILS 1 % (0-4); NEUTROPHIL # MANUAL DIFF 9.3 TH/MM3 (1.8-7.7); POLYS (SEG NEUTROPHILS) 72 % (16-70); WBC DIFF SAMPLE 100
[2017-07-04 12:49] LABS: SICKLE CELLS 2+ (NORMAL); TARGET CELLS 2+ (NORMAL)
[2017-07-04 12:51] LABS: HOWELL-JOLLY BODIES PRESENT (NONE SEEN); PLATELET ESTIMATE SMEAR NORMAL (NORMAL); PLATELET MORPHOLOGY NORMAL (NORMAL); SCAN/DIFF FINAL DIFF MANUAL
[2017-07-04 13:09] LABS: RETIC % 15.8 % (0.4-3.0)
[2017-07-04 13:11] LABS: REVIEW FLAG FINAL
[2017-07-04 13:51] VITALS: BP 113/48
[2017-07-04 16:00] VITALS: BP 122/72; PULSE 77; RESP 18; TEMP 98; O2SAT 96
--- NOTE | 2017-07-04 16:14 | HHI.HP ---
[facility] Service [place] [facility] Primary Care Physician Unknown Admission Diagnosis sickle cell crisis Diagnoses: Chief Complaint: crisis pain Travel History International Travel<30 Days: No Contact w/Intl Traveler <30 Da: No Traveled to Known Affected Are: No History of Present Illness 22 -year-old black male being admitted for sickle cell crisis pain. Patient states that a few days ago he began experiencing the recurrence of his typical generalized pain that he says he has when he undergoes a sickle cell crisis. Pain is mainly in his chest back arms and legs. He says that his home medications were not working, typically takes Percocet and Dilaudid. Says he does follow-up with hematology as an outpatient. He says he has headaches chronically but those are no different today. Denies any nausea vomiting fevers chills or any URI symptoms earlier this week. Review of Systems Except as stated in HPI: all other systems reviewed are Neg Past Family Social History Past Medical History Sickle cell disease Allergies: Coded Allergies: amoxicillin (Verified Allergy, Severe, Swelling, 07/04/17) latex (Verified Allergy, Severe, Rash, 07/04/17) penicillin G (Verified Allergy, Severe, told as child, 07/04/17) Family History Both parents have sickle cell trait Social History Denies smoking or any illicit drug use Physical Exam Vital Signs Vital Signs Date Time Temp Pulse Resp B/P (MAP) Pulse Ox O2 Delivery O2 Flow Rate FiO2 07/04/17 13:51 80 16 113/48 (69) 95 07/04/17 11:32 93 07/04/17 11:06 18 07/04/17 10:54 98.0 85 22 146/67 (93) 95 Room Air Physical Exam VS: Afebrile GENERAL: Young adult black male, lying in bed awake, alert SKIN: Warm and dry. EYES: No scleral icterus. No injection or drainage. ENT: No nasal bleeding or discharge. Mucous membranes pink and moist. CARDIOVASCULAR: Regular rate and rhythm. no murmurs RESPIRATORY: No accessory muscle use. Clear to auscultation. GASTROINTESTINAL: Abdomen soft, non-tender, nondistended. Extremities: No clubbing, cyanosis, or edema. No obvious deformities. MUSCULOSKELETAL: . No obvious deformities. grossly intact ROM with 5/5 strength in upper and lower extremities proximally NEUROLOGICAL: Awake and alert. No obvious cranial nerve deficits. No facial droop nor slurred speech noted. PSYCHIATRIC: Appropriate mood and affect; insight and judgment normal. Laboratory Laboratory Tests Test 07/04/17 11:45 White Blood Count 14.0 Corrected White Blood Count 12.8 Red Blood Count 3.23 Hemoglobin 10.3 Hematocrit 29.6 Mean Corpuscular Volume 91.8 Mean Corpuscular Hemoglobin 31.8 Mean Corpuscular Hemoglobin Concent 34.7 Red Cell Distribution Width 27.6 Platelet Count 379 Mean Platelet Volume 7.7 CBC Comment AUTO DIFF Differential Total Cells Counted 100 Neutrophils % (Manual) 72 Band Neutrophils % 1 Lymphocytes % 9 Monocytes % 17 Eosinophils % 1 Neutrophils # (Manual) 9.3 Nucleated Red Blood Cells 9 Differential Comment FINAL DIFF MANUAL Platelet Estimate NORMAL Platelet Morphology Comment NORMAL Sickle Cells 2+ Target Cells 2+ Duncan-Seabrook Bodies PRESENT Reticulocyte Count 15.8 Absolute Reticulocyte Count 509.5 Blood Urea Nitrogen 8 Creatinine 0.65 Random Glucose 90 Total Protein 8.3 Albumin 3.9 Calcium Level 8.8 Alkaline Phosphatase 97 Aspartate Amino Transf (AST/SGOT) 90 Alanine Aminotransferase (ALT/SGPT) 95 Total Bilirubin 5.0 Sodium Level 140 Potassium Level 3.7 Chloride Level 107 Carbon Dioxide Level 25.3 Anion Gap 8 Estimat Glomerular Filtration Rate 183 C-Reactive Protein 1.99 Result Diagram: 07/04/17 1145 07/04/17 1145 Caprini VTE Risk Assessment Caprini VTE Risk Assessment: No/Low Risk (score <= 1) Caprini Risk Assessment Model Point Value = 1 Point Value = 2 Point Value = 3 Point Value = 5 Age 41-60 Minor surgery BMI > 25 kg/m2 Swollen legs Varicose veins or History of unexplained or recurrent spontaneous Oral contraceptives or hormone replacement Sepsis (< 1 month) Serious lung disease, including pneumonia (< 1 month) Abnormal pulmonary function Acute myocardial infarction Congestive heart failure (< 1 month) History of inflammatory bowel disease Medical patient at bed rest Age 61-74 Arthroscopic surgery Major open surgery (> 45 min) Laparoscopic surgery (> 45 min) Malignancy Confined to bed (> 72 hours) Immobilizing plaster cast Central venous access Age >= 75 History of VTE Family history of VTE Factor V Leiden Prothrombin [id number] Lupus anticoagulant Anticardiolipin antibodies Elevated serum homocysteine Heparin-induced thrombocytopenia Other congenital or acquired thrombophilia Stroke (< 1 month) Elective arthroplasty Hip, pelvis, or leg fracture Acute spinal cord injury (< 1 month) Prophylaxis Regimen Total Risk Factor Score Risk Level Prophylaxis Regimen 0-1 Low Early ambulation 2 Moderate Order ONE of the following: *Sequential Compression Device (SCD) *Heparin 5000 units SQ BID 3-4 Higher Order ONE of the following medications: *Heparin 5000 units SQ TID *Enoxaparin/Lovenox 40 mg SQ daily (WT < 150 kg, CrCl > 30 mL/min) *Enoxaparin/Lovenox 30 mg SQ daily (WT < 150 kg, CrCl > 10-29 mL/min) *Enoxaparin/Lovenox 30 mg SQ BID (WT < 150 kg, CrCl > 30 mL/min) AND/OR *Sequential Compression Device (SCD) 5 or more Highest Order ONE of the following medications: *Heparin 5000 units SQ TID (Preferred with Epidurals) *Enoxaparin/Lovenox 40 mg SQ daily (WT < 150 kg, CrCl > 30 mL/min) *Enoxaparin/Lovenox 30 mg SQ daily (WT < 150 kg, CrCl > 10-29 mL/min) *Enoxaparin/Lovenox 30 mg SQ BID (WT < 150 kg, CrCl > 30 mL/min) AND *Sequential Compression Device (SCD) Assessment and Plan Assessment and Plan 22-year-old black male being admitted for sickle cell crisis Generalized pain - Likely sickle cell crisis, no evidence of acute chest syndrome in history and physical exam - IV hydration with pain medication - monitor resp status given IV pain meds - current hb at chronic level, no need for transfusion Elevated bilirubin - chronic, likely from SickleCD SCDs Physician Certification 2 Midnight Certification Type: Admission for Inpatient Services Order for Inpatient Services The services are ordered in accordance with Medicare regulations or non- Medicare payer requirements, as applicable. In the case of services not specified as inpatient-only, they are appropriately provided as inpatient services in accordance with the 2-midnight benchmark. Estimated LOS (days): 2 2 days is the estimated time the patient will need to remain in the hospital, assuming treatment plan goals are met and no additional complications. Post-Hospital Plan: Home Eduardo Boyce MD Jul 04, 2017 16:14
[2017-07-04] MEDS ORDERED: HYDROmorphone HCL 2 MG TAB PO PRN (16:15)
[2017-07-04] MEDS ORDERED: PILL SPLITTER OTHER PRN (16:30)
[2017-07-04] MEDS: MORPHINE SULFATE 4 MG/ML INJ IV PUSH PRN ×3 (16:32→23:05)
[2017-07-04] MEDS: diphenhydrAMINE HCL 25 MG CAP PO PRN (16:33)
[2017-07-04 20:00] VITALS: BP 127/60; PULSE 83; RESP 23; TEMP 98.1; O2SAT 94
[2017-07-05] VITALS: BP 130/72; PULSE 78; RESP 18; TEMP 98.4; O2SAT 94
[2017-07-05] MEDS: MORPHINE SULFATE 4 MG/ML INJ IV PUSH PRN ×3 (01:57→08:09)
[2017-07-05 08:00] VITALS: BP 108/55; PULSE 87; RESP 14; TEMP 98.2; O2SAT 92
[2017-07-05] MEDS ORDERED: MECLIZINE HCL 25 MG TAB PO PRN (10:15)
[2017-07-05] MEDS ORDERED: HYDROmorphone HCL PF 2 MG/ML VIAL IV PUSH PRN (10:15)
[2017-07-05] MEDS: oxyCODONE/ACETAMINOPHEN 10 MG/325 MG TAB PO PRN ×4 (11:11→22:32)
--- NOTE | 2017-07-05 11:16 | HHI.PR ---
Subjective Remarks Nursing denies any deterioration since last night. They do up with the patient is still complaining of unchanged pain. The patient says his pain is actually a little bit worse today. He says the dizziness is also bothering him that he' s dealt with before. He denies any spinning sensation but does feel lightheaded. He is seen ambulating up and down walking the halls. Objective Vital Signs Date Time Temp Pulse Resp B/P (MAP) Pulse Ox O2 Delivery O2 Flow Rate FiO2 07/05/17 08:00 98.2 87 14 108/55 (72) 92 07/05/17 00:00 98.4 78 18 130/72 (91) 94 07/04/17 20:00 98.1 83 23 127/60 (82) 94 07/04/17 16:36 20 07/04/17 16:00 98.0 77 18 122/72 (89) 96 07/04/17 13:51 80 16 113/48 (69) 95 07/04/17 11:32 93 I/O 07/04/17 07/04/17 07/04/17 07/05/17 07/05/17 07/05/17 06:59 14:59 22:59 06:59 14:59 22:59 Intake Total 1000 ml 480 ml Balance 1000 ml 480 ml Intake Oral 480 ml IV Total 1000 ml # Voids 2 # Bowel Movements 0 Result Diagram: 07/04/17 1145 07/04/17 1145 Objective Remarks Appears to be in mild distress secondary to pain Is unlabored and his breathing, has good color, is ambulating up and down the halls, maintains good posture while standing and walking, no gait disturbance A/P Assessment and Plan Sickle cell pain crisis - Subjectively pain is not back to level of baseline per patient. Nursing staff also affirms that his current clinical status is not his typical baseline for discharge based on her past experiences with this patient - Given the clarity that we do have IV Dilaudid in fact, I will switch him from by mouth Dilaudid to IV Dilaudid for breakthrough pain and replace his by mouth pain control with Percocet instead Dizziness - We'll consider orthostatic vital signs but we'll definitely start when necessary meclizine to see if this helps Possible discharge tomorrow if pain improves. Addendum: Pt repeatedly telling RN that pain is not controlled although he was in no visible acute distress when ambulating. He's claiming he used to get dilaudid 1 mg q2 hrs instead of q4 hrs. However, Chart review shows that the pt was getting 1 mg of dilaudid on previous admissions q 4 hrs. I will thus increase his pain med to 2mg q3hrs w/ slow infusion in 100 ccs of NS over 30 min. Eduardo Boyce MD Jul 05, 2017 11:15
[2017-07-05 12:00] VITALS: BP_SYST 118; BP_SYST 120; BP_SYST 122; BP_DIAS 58; BP_DIAS 59; BP_DIAS 88; PULSE 87; RESP 14; TEMP 97.2; O2SAT 93
[2017-07-05] MEDS: diphenhydrAMINE HCL 25 MG CAP PO PRN (12:14)
[2017-07-05] MEDS: diphenhydrAMINE HCL 50 MG CAP PO PRN ×2 (15:55→16:48)
[2017-07-05] MEDS: HYDROmorphone HCL PF 2 MG/ML VIAL IV PUSH PRN ×3 (15:57→23:22)
[2017-07-05 16:00] VITALS: BP_SYST 129; BP_SYST 135; BP_SYST 141; BP_DIAS 63; BP_DIAS 72; BP_DIAS 83; PULSE 113; RESP 12; TEMP 96.3; O2SAT 92
[2017-07-05] MEDS ORDERED: SODIUM CHLOR 0.9% 1000 ML INJ 1,000 ML IV ONE (17:00)
[2017-07-05 20:00] VITALS: BP 127/63; PULSE 85; RESP 16; TEMP 98.1; O2SAT 92
[2017-07-05] MEDS: diphenhydrAMINE HCL 50 MG/ML VIAL IV PUSH PRN (20:58)
[2017-07-06] VITALS: BP 118/58; PULSE 87; RESP 20; TEMP 98.8; O2SAT 92
[2017-07-06] MEDS: diphenhydrAMINE HCL 50 MG/ML VIAL IV PUSH PRN ×6 (00:59→23:41)
[2017-07-06] MEDS: oxyCODONE/ACETAMINOPHEN 10 MG/325 MG TAB PO PRN ×5 (04:03→23:41)
[2017-07-06 09:09] VITALS: BP 126/63; PULSE 97; RESP 14; TEMP 98; O2SAT 94
[2017-07-06] MEDS: HYDROmorphone HCL PF 2 MG/ML VIAL IV PUSH PRN ×3 (09:35→19:45)
[2017-07-06 12:15] LABS: AUTOMATED NEUTROPHIL # 8.3 TH/MM3 (1.8-7.7); BASOPHIL # 0.2 TH/MM3 (0-0.2); BASOPHIL % 1.4 % (0.0-2.0); EOSINOPHIL # 0.9 TH/MM3 (0-0.4); EOSINOPHIL % 6.6 % (0.0-4.0); LYMPH % 20.1 % (9.0-44.0); LYMPHOCYTE # 2.8 TH/MM3 (1.0-4.8); MEAN CORPUSCULAR HEMOGLOBIN 31.1 PG (27.0-34.0); MEAN CORPUSCULAR HGB CONC 33.4 % (32.0-36.0); MONO % 11.8 % (0.0-8.0); NEUT % 60.1 % (16.0-70.0); PLATELET COUNT 415 TH/MM3 (150-450); RED BLOOD COUNT 3.22 MIL/MM3 (4.50-5.90); WHITE BLOOD COUNT 13.8 TH/MM3 (4.0-11.0)
[2017-07-06 12:48] LABS: HEMO FLAGS AUTO DIFF
[2017-07-06 13:18] LABS: CORRECTED NUCLEATED RBC 16 /100 WBC (0-0); CORRECTED WBC 11.9 TH/MM3 (4.0-11.0); EOSINOPHILS 8 % (0-4); KERATOCYTES 1+ (NORMAL); NEUTROPHIL # MANUAL DIFF 7.3 TH/MM3 (1.8-7.7); OVALOCYTES 1+ (NORMAL); PLATELET ESTIMATE SMEAR NORMAL (NORMAL); PLATELET MORPHOLOGY NORMAL (NORMAL); POLYS (SEG NEUTROPHILS) 61 % (16-70); SICKLE CELLS 2+ (NORMAL); TARGET CELLS 2+ (NORMAL); WBC DIFF SAMPLE 100
[2017-07-06 13:19] LABS: SCAN/DIFF FINAL DIFF MANUAL
[2017-07-06 14:20] VITALS: BP 129/61; PULSE 87; RESP 15; TEMP 98.5; O2SAT 94
--- NOTE | 2017-07-06 14:20 | HHI.PR ---
Subjective Remarks Patient seen and evaluated for sickle cell disease with pain crisis. No new complaints. Plan of care discussed with patient. He is eating well and ambulatory Objective Vitals Vital Signs Date Time Temp Pulse Resp B/P (MAP) Pulse Ox O2 Delivery O2 Flow Rate FiO2 07/06/17 09:09 98.0 97 14 126/63 (84) 94 07/06/17 04:46 18 07/06/17 00:00 98.8 87 20 118/58 (78) 92 07/05/17 20:51 18 07/05/17 20:00 98.1 85 16 127/63 (84) 92 07/05/17 16:00 96.3 113 12 129/72 (91) 92 141/83 (102) 135/63 (87) I/O 07/05/17 07/05/17 07/05/17 07/06/17 07/06/17 07/06/17 07:00 15:00 23:00 07:00 15:00 23:00 Intake Total 480 ml 1240 ml 830 ml Balance 480 ml 1240 ml 830 ml Intake Oral 480 ml 240 ml 580 ml IV Total 1000 ml 250 ml # Voids 2 2 2 # Bowel Movements 0 0 0 Result Diagram: 07/06/17 1130 07/04/17 1145 Objective Remarks GENERAL: This is a well-nourished, well-developed patient, in no apparent distress. CARDIOVASCULAR: Regular rate and rhythm without murmurs, gallops, or rubs. RESPIRATORY: Clear to auscultation. Breath sounds equal bilaterally. No wheezes , rales, or rhonchi. GASTROINTESTINAL: Abdomen soft, non-tender, nondistended. Normal active bowel sounds MUSCULOSKELETAL: Extremities without clubbing, cyanosis, or edema. NEURO: Alert & Oriented x4 to person, place, time, situation. Moves all ext x4 A/P Problem List: (1) Sickle cell anemia with pain ICD Code: D57.00 - Hb-SS disease with crisis, unspecified Status: Acute Plan: Continue IV hydration, continue current dose of Dilaudid, Benadryl/ Zofran by mouth Follow-up labs in a.. 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 Coreen Melissa MD Jul 06, 2017 14:20
[2017-07-06] MEDS ORDERED: ONDANSETRON ODT 4 MG TAB PO PRN (14:30)
[2017-07-06] MEDS: SODIUM CHLOR 0.9% 1000 ML INJ 1,000 ML IV SCH ×2 (15:12→23:23)
[2017-07-06 17:24] VITALS: BP 117/62; PULSE 81; RESP 16; TEMP 98.8; O2SAT 93
[2017-07-06 20:00] VITALS: BP 134/80; PULSE 82; RESP 20; TEMP 98.7; O2SAT 95
[2017-07-07] VITALS: BP 133/77; PULSE 85; RESP 20; TEMP 98.5; O2SAT 99
[2017-07-07] MEDS: HYDROmorphone HCL PF 2 MG/ML VIAL IV PUSH PRN ×2 (04:31→10:46)
[2017-07-07] MEDS: diphenhydrAMINE HCL 50 MG/ML VIAL IV PUSH PRN ×3 (04:36→13:18)
[2017-07-07] MEDS: oxyCODONE/ACETAMINOPHEN 10 MG/325 MG TAB PO PRN ×2 (09:16→13:17)
[2017-07-07 09:30] VITALS: BP 114/59; PULSE 83; RESP 16; TEMP 97.9; O2SAT 93
[2017-07-07] MEDS: SODIUM CHLOR 0.9% 1000 ML INJ 1,000 ML IV SCH (10:07)
--- NOTE | 2017-07-07 13:12 | HHI.DCPOC ---
Discharge Care Plan Diagnosis: (1) Sickle cell anemia with pain Goals to Promote Your Health * To prevent worsening of your condition and complications * To maintain your health at the optimal level Directions to Meet Your Goals Take your medications as prescribed Follow your dietary instruction Follow activity as directed Keep your appointments as scheduled Take your immunizations and boosters as scheduled If your symptoms worsen call your PCP, if no PCP go to Urgent Care Center or Emergency Room Smoking is Dangerous to Your Health. Avoid second hand smoke Call the 24-hour hour crisis hotline for domestic abuse at Coreen Melissa MD Jul 07, 2017 13:12
--- NOTE | 2017-07-07 13:15 | HHI.DS ---
Discharge Summary Admission Date Jul 04, 2017 at 13:13 Discharge Date: Jul 07, 2017 Admitting Diagnosis sickle cell crisis (1) Sickle cell anemia with pain ICD Code: D57.00 - Hb-SS disease with crisis, unspecified Status: Acute Procedures None Brief History - From Admission 22 -year-old black male being admitted for sickle cell crisis pain. Patient states that a few days ago he began experiencing the recurrence of his typical generalized pain that he says he has when he undergoes a sickle cell crisis. Pain is mainly in his chest back arms and legs. He says that his home medications were not working, typically takes Percocet and Dilaudid. Says he does follow-up with hematology as an outpatient. He says he has headaches chronically but those are no different today. Denies any nausea vomiting fevers chills or any URI symptoms earlier this week. CBC/BMP: 07/06/17 1130 07/04/17 1145 Significant Findings Laboratory Tests Test 07/06/17 11:30 White Blood Count 13.8 TH/MM3 (4.0-11.0) Corrected White Blood Count 11.9 TH/MM3 (4.0-11.0) Red Blood Count 3.22 MIL/MM3 (4.50-5.90) Hemoglobin 10.0 GM/DL (13.0-17.0) Hematocrit 30.0 % (39.0-51.0) Red Cell Distribution Width 29.0 % (11.6-17.2) Monocytes (%) (Auto) 11.8 % (0.0-8.0) Eosinophils (%) (Auto) 6.6 % (0.0-4.0) Neutrophils # (Auto) 8.3 TH/MM3 (1.8-7.7) Monocytes # (Auto) 1.6 TH/MM3 (0-0.9) Eosinophils # (Auto) 0.9 TH/MM3 (0-0.4) Monocytes % 14 % (0-8) Eosinophils % 8 % (0-4) Nucleated Red Blood Cells 16 /100 WBC (0-0) Sickle Cells 2+ (NORMAL) Target Cells 2+ (NORMAL) Ovalocytes 1+ (NORMAL) Keratocytes 1+ (NORMAL) PE at Discharge GENERAL: This is a well-nourished, well-developed patient, in no apparent distress. CARDIOVASCULAR: Regular rate and rhythm without murmurs, gallops, or rubs. RESPIRATORY: Clear to auscultation. Breath sounds equal bilaterally. No wheezes , rales, or rhonchi. GASTROINTESTINAL: Abdomen soft, non-tender, nondistended. Normal active bowel sounds MUSCULOSKELETAL: Extremities without clubbing, cyanosis, or edema. NEURO: Alert & Oriented x4 to person, place, time, situation. Moves all ext x4 Pt update on day of discharge Patient doing better. Tolerating diet and oral medicines without difficulty. Discharge plans discussed with patient and nursing team. Hospital Course Patient is a 22-year-old gentleman with a known history of sickle cell disease. He had a pain flare/crisis. History with IV medications and IV fluids. He felt better and was discharged home. 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
[2017-07-07 14:42] VITALS: BP 114/59; PULSE 83; RESP 16; TEMP 97.9; O2SAT 93
== END 2017-07-07 15:14 | disposition home or self-care (01) | DRG 812 ==
LOC: PHED 10:50 → PHEDA 13:13 → PH3A 14:42
PROVIDERS: ADMIT Hospitalist; ATTEND Hospitalist
PROC: 05HP33Z Insertion of Infusion Device into Right External Jugular Vein, Percutaneous Approach (ICD-10-PCS; principal; 2017-07-04)
DX: D57.00 Hb-SS disease with crisis, unspecified (principal); R17 Unspecified jaundice; R42 Dizziness and giddiness
CPT/HCPCS: 80053; 85007; 85027; 85044; 86140; 96374; 96375; J1170; J1200; J2270; J2405; J7030; Q0163

== ENCOUNTER 2017-08-08 20:56 | Inpatient (IN) | payer MEDICAID ==
[~2017-08-08] VITALS: Ht 188 cm; Wt 86.9 kg
[2017-08-08 21:05] VITALS: BP 118/73; PULSE 88; RESP 20; TEMP 98.6; O2SAT 97
[2017-08-08 21:26] VITALS: BP 124/67; PULSE 82; RESP 18; O2SAT 97
[2017-08-08] MEDS ORDERED: SODIUM CHLOR 0.9% 1000 ML INJ 1,000 ML IV ONE (21:29)
[2017-08-08] MEDS ORDERED: HYDROmorphone HCL PF 2 MG/ML VIAL IV PUSH ONE ×2 (21:30→23:15)
[2017-08-08] MEDS ORDERED: KETOROLAC TROMETHAMINE 30 MG/ML (IVP) VIAL IVP ONE (21:30)
[2017-08-08] MEDS ORDERED: DILA4TAB10 PO (21:31)
[2017-08-08] MEDS ORDERED: PERC10TA27 PO (21:31)
[2017-08-08 21:40] VITALS: RESP 18; O2SAT 97
--- NOTE | 2017-08-08 21:51 | RADRPT ---
EXAM DATE/TIME: 08/08/2017 21:35 [facility] COMPARISON: CHEST SINGLE AP, June 21, 2017, 21:07. INDICATIONS : Substernal chest pain. MEDICAL HISTORY : Sickle Cell disease. SURGICAL HISTORY : None. ENCOUNTER: Initial ACUITY: 1 day PAIN SCORE: 4/10 LOCATION: chest substernal. FINDINGS: A single view of the chest demonstrates the lungs to be symmetrically aerated without evidence of mas s, infiltrate or effusion. Top normal heart size. Osseous structures are intact. CONCLUSION: No acute disease. Ez Moreno Jr., MD on August 08, 2017 at 21:47 Board Certified Radiologist. This report was verified electronically.
[2017-08-08 22:11] LABS: CALCIUM 8.7 MG/DL (8.5-10.1)
[2017-08-08 22:12] LABS: BICARBONATE 26.9 MEQ/L (21.0-32.0)
[2017-08-08] MEDS: SODIUM CHLORIDE 0.9% FLUSH 10 ML FLUSH IVF PRN ×2 (22:14→23:33)
[2017-08-08 22:15] LABS: CREATININE 0.73 MG/DL (0.60-1.30)
[2017-08-08 22:30] VITALS: BP 121/66; PULSE 81; RESP 18; O2SAT 94
[2017-08-08 22:30] LABS: HEMATOCRIT 35.7 % (39.0-51.0); HEMOGLOBIN 11.8 GM/DL (13.0-17.0); MEAN CELL VOLUME 92.5 FL (80.0-100.0); MEAN CORPUSCULAR HEMOGLOBIN 30.5 PG (27.0-34.0); MEAN PLATELET VOLUME 8.1 FL (7.0-11.0); PLATELET COUNT 416 TH/MM3 (150-450); RED BLOOD COUNT 3.86 MIL/MM3 (4.50-5.90); RED CELL DISTRIBUTION WIDTH 18.6 % (11.6-17.2); WHITE BLOOD COUNT 11.5 TH/MM3 (4.0-11.0)
[2017-08-08 23:06] LABS: CORRECTED NUCLEATED RBC 1 /100 WBC (0-0); LYMPHOCYTES 34 % (9-44); MONOCYTES 5 % (0-8); NEUTROPHIL # MANUAL DIFF 6.8 TH/MM3 (1.8-7.7); NUCLEATED RED BLOOD CELL 1 (0-0); POLYS (SEG NEUTROPHILS) 59 % (16-70)
[2017-08-08 23:07] LABS: OVALOCYTES 1+ (NORMAL)
[2017-08-08 23:30] VITALS: BP 126/77; PULSE 82; RESP 18; O2SAT 96
[2017-08-08 23:39] LABS: RETIC # 353.4 MIL/L (20.0-150.0); RETIC % 9.2 % (0.4-3.0)
--- NOTE | 2017-08-08 23:55 | PD ---
HPI Chief Complaint: Sickle Cell Time Seen by Provider: 21:21 Travel History International Travel<30 days: No Contact w/Intl Traveler<30days: No Traveled to known affect area: No History of Present Illness HPI patient is a 22-year-old male with history of SS disease presents emergency department for evaluation of left groin pain radiating down his leg, up his back and into his chest. Patient denies any fevers, states his been having some mild symptoms for the past 2 weeks got excruciating last few hours. States the pain is 9 out of 10 in severity, radiation as above, context as above. Not associated with shortness of breath fevers nausea vomiting or injury. PFSH Past Medical History Anemia: Yes (SICKLE CELL ) Arthritis: No Asthma: Yes (PT DENIES) Autoimmune Disease: Yes Blood Disorders: No Anxiety: No Depression: No Heart Rhythm Problems: Yes (MURMUR) Cancer: No Cardiovascular Problems: Yes (HX OF SICKLE CELL, GETS INFUSIONS EVERY FOUR WEEKS .) High Cholesterol: No Chemotherapy: No Chest Pain: Yes (WITH SICKLE CRISIS) Congestive Heart Failure: No COPD: No Cerebrovascular Accident: No Diabetes: No Diminished Hearing: No Endocrine: No Gastrointestinal Disorders: No GERD: No Genitourinary: No Headaches: No Hiatal Hernia: No Hypertension: No Immune Disorder: Yes Implanted Vascular Access Dvce: No Kidney Stones: No Musculoskeletal: Yes Neurologic: Yes Psychiatric: No Reproductive: Yes Respiratory: Yes Immunizations Current: Yes Migraines: No Pneumonia: Yes Radiation Therapy: No Renal Failure: No Seizures: No Sickle Cell Disease: Yes Sleep Apnea: No Thyroid Disease: No Ulcer: No Influenza Vaccination: Yes Past Surgical History Abdominal Surgery: No AICD: No Arteriovenous Shunt: No Cardiac Surgery: No Ear Surgery: No Endocrine Surgery: No Eye Surgery: No Genitourinary Surgery: Yes Gynecologic Surgery: No Insulin Pump: No Joint Replacement: No Neurologic Surgery: No Oral Surgery: No Pacemaker: No Thoracic Surgery: No Other Surgery: Yes Social History Alcohol Use: No Tobacco Use: No Substance Use: No Allergies-Medications (Allergen,Severity, Reaction): Coded Allergies: amoxicillin (Verified Allergy, Severe, Swelling, 08/08/17) penicillin G (Verified Allergy, Severe, told as child, 08/08/17) Reported Meds & Prescriptions Reported Meds & Active Scripts Active Reported Dilaudid (Hydromorphone HCl) 4 Mg Tab 4 Mg PO Q4H PRN Percocet (Oxycodone-Acetaminophen) 10-325 mg Tab 1 Tab PO Q4H PRN Review of Systems Except as stated in HPI: all other systems reviewed are Neg Physical Exam Narrative GENERAL: WD/WN in moderate discomfort. SKIN: Focused skin assessment warm/dry. HEAD: Atraumatic. Normocephalic. EYES: Pupils equal and round. No scleral icterus. No injection or drainage. ENT: No nasal bleeding or discharge. Mucous membranes pink and moist. NECK: Trachea midline. No JVD. CARDIOVASCULAR: Regular rate and rhythm. No murmur appreciated. RESPIRATORY: No accessory muscle use. Clear to auscultation. Breath sounds equal bilaterally. GASTROINTESTINAL: Abdomen soft, non-tender, nondistended. Hepatic and splenic margins not palpable. MUSCULOSKELETAL: No obvious deformities. No clubbing. No cyanosis. No edema. Extremities atraumatic, non-tender. PMS intact distally in all four extremities. NEUROLOGICAL: Awake and alert. No obvious cranial nerve deficits. Motor grossly within normal limits. Normal speech. PSYCHIATRIC: Appropriate mood and affect; insight and judgment normal. Data Data Last Documented VS Vital Signs Date Time Temp Pulse Resp B/P (MAP) Pulse Ox O2 Delivery O2 Flow Rate FiO2 08/08/17 23:10 18 08/08/17 21:40 97 Room Air 08/08/17 21:26 82 08/08/17 21:05 98.6 Orders Orders Basic Metabolic Panel (Bmp) (08/08/17 21:29) Complete Blood Count With Diff (08/08/17 21:29) Retic Count (08/08/17 21:29) Chest, Single Ap (08/08/17 21:29) Ecg Monitoring (08/08/17 21:29) Iv Access Insert/Monitor (08/08/17 21:29) Oximetry (08/08/17 21:29) Ketorolac Inj (Toradol Inj) (08/08/17 21:30) Sodium Chloride 0.9% Flush (Ns Flush) (08/08/17 21:30) Sodium Chlor 0.9% 1000 Ml Inj (Ns 1000 M (08/08/17 21:29) Hydromorphone Pf Inj (Dilaudid Pf Inj) (08/08/17 21:30) Hydromorphone Pf Inj (Dilaudid Pf Inj) (08/08/17 23:15) Labs Laboratory Tests Test 08/08/17 21:50 White Blood Count 11.5 TH/MM3 Red Blood Count 3.86 MIL/MM3 Hemoglobin 11.8 GM/DL Hematocrit 35.7 % Mean Corpuscular Volume 92.5 FL Mean Corpuscular Hemoglobin 30.5 PG Mean Corpuscular Hemoglobin Concent 33.0 % Red Cell Distribution Width 18.6 % Platelet Count 416 TH/MM3 Mean Platelet Volume 8.1 FL CBC Comment AUTO DIFF Differential Total Cells Counted 100 Neutrophils % (Manual) 59 % Lymphocytes % 34 % Monocytes % 5 % Eosinophils % 2 % Neutrophils # (Manual) 6.8 TH/MM3 Nucleated Red Blood Cells 1 /100 WBC Differential Comment FINAL DIFF MANUAL Platelet Estimate HIGH Platelet Morphology Comment NORMAL Ovalocytes 1+ Reticulocyte Count 9.2 % Absolute Reticulocyte Count 353.4 MIL/L Blood Urea Nitrogen 8 MG/DL Creatinine 0.73 MG/DL Random Glucose 94 MG/DL Calcium Level 8.7 MG/DL Sodium Level 141 MEQ/L Potassium Level 3.6 MEQ/L Chloride Level 107 MEQ/L Carbon Dioxide Level 26.9 MEQ/L Anion Gap 7 MEQ/L Estimat Glomerular Filtration Rate 160 ML/MIN MDM Medical Decision Making Medical Screen Exam Complete: Yes Emergency Medical Condition: Yes Differential Diagnosis Occlusive sickle cell crisis, acute chest unlikely, aplastic crisis. Narrative Course Patient roomed in the ER, given toradol, ns bolus, dilaudid 1mg IVx2. Patient labs are reassuring. Has 95% hbg S on electrophoresis in 2014. After initial dilaudid pain decreased to 8/10 pain. After second dose states pain increasing in back, states the pain is unbearable. Appears mildly uncomfortable. Discussed observation status for further pain management and he is agreeable. Diagnosis Primary Impression: Sickle cell crisis Admitting Information Admitting Physician Requests: Observation Condition: Stable Kwame Pathak MD Aug 08, 2017 23:55
[2017-08-09] VITALS (8 sets, daily range): BP systolic 112–154; BP diastolic 64–92; PULSE 68–81; RESP 16–20; TEMP 96.5–97.6; O2SAT 94–98
[2017-08-09] MEDS ORDERED: NALOXONE HCL 0.4 MG/ML AMP IV PUSH PRN (00:15)
[2017-08-09] MEDS: SODIUM CHLOR 0.9% 1000 ML INJ 1,000 ML IV SCH ×5 (00:36→21:34)
[2017-08-09] MEDS: HYDROmorphone HCL PF 2 MG/ML VIAL IV PRN ×6 (02:51→21:35)
[2017-08-09] MEDS: SODIUM CHLORIDE 0.9% FLUSH 10 ML FLUSH IV FLUSH PRN ×2 (02:52→06:22)
[2017-08-09] MEDS: SODIUM CHLORIDE 0.9% FLUSH 10 ML FLUSH IV FLUSH SCH ×2 (07:10→21:00)
--- NOTE | 2017-08-09 08:32 | HHI.HP ---
[facility] Primary Care Physician Unknown Admission Diagnosis Sickle Cell Pain crisis. Diagnoses: (1) Vaso-occlusive sickle cell crisis (2) Leukocytosis Chief Complaint: Sickle cell pain Travel History International Travel<30 Days: No Contact w/Intl Traveler <30 Da: No Traveled to Known Affected Are: No History of Present Illness The patient is a 22-year-old male with history of sickle cell disease who presented to the emergency department with complaint of left groin pain that radiated down his leg. The pain also radiated into his back and involved the center of his chest. Today he states that the groin pain is better, but the pain now radiates down his right leg and the pain is actually worst in his back. He still has chest pain overlying the sternum. Pain rated 9/10. He denies cough, dyspnea, fever area and no abdominal pain, nausea, vomiting. Review of Systems Constitutional: DENIES: Fever, Chills, Night Sweats Eyes: DENIES: Blurred vision, Vision loss Ears, nose, mouth, throat: DENIES: Hearing loss Respiratory: DENIES: Cough, Wheezing, Sputum production, Shortness of breath Cardiovascular: COMPLAINS OF: Chest pain (as discussed in history of present illness), DENIES: Palpitations, Dyspnea on Exertion, Lower Extremity Edema Gastrointestinal: DENIES: Abdominal pain, Constipation, Diarrhea, Nausea, Vomiting Genitourinary: DENIES: Urinary frequency, Urinary incontinence, Urgency, Hematuria, Dysuria, Nocturia Musculoskeletal: COMPLAINS OF: Joint pain, DENIES: Muscle aches Integumentary: DENIES: Pruritus, Rash Hematologic/lymphatic: DENIES: Bruising Neurologic: DENIES: Headache Past Family Social History Past Medical History Sickle cell disease Heart murmur Past Surgical History Surgery for priapism Reported Medications Dilaudid (Hydromorphone HCl) 4 Mg Tab 4 Mg PO Q4H PRN Percocet (Oxycodone-Acetaminophen) 10-325 mg Tab 1 Tab PO Q4H PRN Allergies: Coded Allergies: amoxicillin (Verified Allergy, Severe, Swelling, 08/08/17) penicillin G (Verified Allergy, Severe, told as child, 08/08/17) Family History Parents have sickle cell trait Social History Denies alcohol, tobacco, or illicit drug use. Physical Exam Vital Signs Vital Signs Date Time Temp Pulse Resp B/P (MAP) Pulse Ox O2 Delivery O2 Flow Rate FiO2 08/09/17 07:10 18 08/09/17 04:00 96.5 72 18 119/70 (86) 94 08/09/17 01:32 71 08/09/17 01:15 97.5 81 20 131/74 (93) 95 08/09/17 00:50 08/09/17 00:30 77 18 127/64 (85) 95 Room Air 08/09/17 00:05 18 08/08/17 23:30 82 18 126/77 (93) 96 Room Air 08/08/17 23:10 18 08/08/17 23:10 18 08/08/17 22:30 81 18 121/66 (84) 94 Room Air 08/08/17 21:40 18 97 Room Air 08/08/17 21:26 82 18 124/67 (86) 97 Room Air 08/08/17 21:26 82 18 97 Room Air 08/08/17 21:05 98.6 88 20 118/73 (88) 97 Physical Exam GENERAL: Well-nourished, well-developed male in no acute distress. HEENT: Normocephalic, atraumatic. Pupils equal, round and reactive. Extraocular movements intact. No scleral icterus. No injection or drainage. Oropharynx is clear. Mucous membranes are moist. CARDIOVASCULAR: Regular rate and rhythm without murmurs, gallops, or rubs. RESPIRATORY: Clear to auscultation. No wheezes, rales, or rhonchi. Breathing is non-labored. GASTROINTESTINAL: Abdomen soft, non-tender, nondistended. EXTREMITIES: No lower extremity edema. No calf tenderness. PSYCH: Alert and oriented x 3. Laboratory Laboratory Tests Test 08/08/17 21:50 White Blood Count 11.5 Red Blood Count 3.86 Hemoglobin 11.8 Hematocrit 35.7 Mean Corpuscular Volume 92.5 Mean Corpuscular Hemoglobin 30.5 Mean Corpuscular Hemoglobin Concent 33.0 Red Cell Distribution Width 18.6 Platelet Count 416 Mean Platelet Volume 8.1 CBC Comment AUTO DIFF Differential Total Cells Counted 100 Neutrophils % (Manual) 59 Lymphocytes % 34 Monocytes % 5 Eosinophils % 2 Neutrophils # (Manual) 6.8 Nucleated Red Blood Cells 1 Differential Comment FINAL DIFF MANUAL Platelet Estimate HIGH Platelet Morphology Comment NORMAL Ovalocytes 1+ Reticulocyte Count 9.2 Absolute Reticulocyte Count 353.4 Blood Urea Nitrogen 8 Creatinine 0.73 Random Glucose 94 Calcium Level 8.7 Sodium Level 141 Potassium Level 3.6 Chloride Level 107 Carbon Dioxide Level 26.9 Anion Gap 7 Estimat Glomerular Filtration Rate 160 Result Diagram: 08/08/17214908/08/172149 Imaging Last Impressions Chest X-Ray 08/08/172128 Signed Impressions: Service Date/Time: Tuesday, August 08, 2017 21:35 - CONCLUSION: No acute disease. MD Martine Silverio Jr. VTE Risk Assessment Martine VTE Risk Assessment: Mod/High Risk (score >= 2) Caprini Risk Assessment Model Point Value = 1 Point Value = 2 Point Value = 3 Point Value = 5 Age 41-60 Minor surgery BMI > 25 kg/m2 Swollen legs Varicose veins or History of unexplained or recurrent spontaneous Oral contraceptives or hormone replacement Sepsis (< 1 month) Serious lung disease, including pneumonia (< 1 month) Abnormal pulmonary function Acute myocardial infarction Congestive heart failure (< 1 month) History of inflammatory bowel disease Medical patient at bed rest Age 61-74 Arthroscopic surgery Major open surgery (> 45 min) Laparoscopic surgery (> 45 min) Malignancy Confined to bed (> 72 hours) Immobilizing plaster cast Central venous access Age >= 75 History of VTE Family history of VTE Factor V Leiden Prothrombin [id number] Lupus anticoagulant Anticardiolipin antibodies Elevated serum homocysteine Heparin-induced thrombocytopenia Other congenital or acquired thrombophilia Stroke (< 1 month) Elective arthroplasty Hip, pelvis, or leg fracture Acute spinal cord injury (< 1 month) Prophylaxis Regimen Total Risk Factor Score Risk Level Prophylaxis Regimen 0-1 Low Early ambulation 2 Moderate Order ONE of the following: *Sequential Compression Device (SCD) *Heparin 5000 units SQ BID 3-4 Higher Order ONE of the following medications: *Heparin 5000 units SQ TID *Enoxaparin/Lovenox 40 mg SQ daily (WT < 150 kg, CrCl > 30 mL/min) *Enoxaparin/Lovenox 30 mg SQ daily (WT < 150 kg, CrCl > 10-29 mL/min) *Enoxaparin/Lovenox 30 mg SQ BID (WT < 150 kg, CrCl > 30 mL/min) AND/OR *Sequential Compression Device (SCD) 5 or more Highest Order ONE of the following medications: *Heparin 5000 units SQ TID (Preferred with Epidurals) *Enoxaparin/Lovenox 40 mg SQ daily (WT < 150 kg, CrCl > 30 mL/min) *Enoxaparin/Lovenox 30 mg SQ daily (WT < 150 kg, CrCl > 10-29 mL/min) *Enoxaparin/Lovenox 30 mg SQ BID (WT < 150 kg, CrCl > 30 mL/min) AND *Sequential Compression Device (SCD) Assessment and Plan Assessment and Plan 1. Sickle cell vaso-occlusive pain crisis: Continue pain control, IV fluids. Check LFTs. Patient sees Dr. Fisher for hematology. 2. DVT prophylaxis: Lovenox. Ronald Ortiz MD Aug 09, 2017 08:32
[2017-08-09] MEDS: ENOXAPARIN SODIUM 40 MG/0.4 ML SYRINGE SQ SCH (09:54)
[2017-08-09 10:06] LABS: HEMOGLOBIN 10.9 GM/DL (13.0-17.0); MEAN CELL VOLUME 92.7 FL (80.0-100.0); MEAN CORPUSCULAR HEMOGLOBIN 29.7 PG (27.0-34.0); MEAN CORPUSCULAR HGB CONC 32.1 % (32.0-36.0); MEAN PLATELET VOLUME 7.9 FL (7.0-11.0); PLATELET COUNT 372 TH/MM3 (150-450); RED BLOOD COUNT 3.67 MIL/MM3 (4.50-5.90); RED CELL DISTRIBUTION WIDTH 18.9 % (11.6-17.2); WHITE BLOOD COUNT 10.7 TH/MM3 (4.0-11.0)
[2017-08-09 10:07] LABS: CHLORIDE 108 MEQ/L (98-107); SODIUM (NA) 140 MEQ/L (136-145)
[2017-08-09 10:22] LABS: ALBUMIN 3.3 GM/DL (3.4-5.0); ALKALINE PHOSPHATASE 69 U/L (45-117); ALT (GPT) 23 U/L (12-78); AST (GOT) 17 U/L (15-37); BLOOD UREA NITROGEN 7 MG/DL (7-18); CALCIUM 7.6 MG/DL (8.5-10.1); CREATININE 0.63 MG/DL (0.60-1.30); GLOMERULAR FILTRATION RATE 190 ML/MIN (>89); GLUCOSE,RANDOM 155 MG/DL (74-106); TOTAL BILIRUBIN ADULT 3.2 MG/DL (0.2-1.0); TOTAL PROTEIN 6.5 GM/DL (6.4-8.2)
[2017-08-09 10:33] LABS: CORRECTED NUCLEATED RBC 1 /100 WBC (0-0); LYMPHOCYTES 30 % (9-44); MONOCYTES 2 % (0-8); NEUTROPHIL # MANUAL DIFF 6.6 TH/MM3 (1.8-7.7); NUCLEATED RED BLOOD CELL 1 (0-0); POLYS (SEG NEUTROPHILS) 62 % (16-70)
[2017-08-09 10:35] LABS: KERATOCYTES OCC (NORMAL); OVALOCYTES 1+ (NORMAL); ROULEAUX PRESENT (NORMAL); SICKLE CELLS 1+ (NORMAL); TARGET CELLS 1+ (NORMAL)
[2017-08-09] MEDS: diphenhydrAMINE HCL 50 MG CAP PO PRN ×2 (15:05→21:34)
[2017-08-09] MEDS: ONDANSETRON ODT 4 MG TAB PO PRN ×2 (15:05→21:34)
[2017-08-10] VITALS: BP 111/67; PULSE 81; RESP 18; TEMP 97.6; O2SAT 96
[2017-08-10] MEDS: SODIUM CHLOR 0.9% 1000 ML INJ 1,000 ML IV SCH ×3 (02:41→11:02)
[2017-08-10 04:00] VITALS: BP 112/71; PULSE 84; RESP 16; TEMP 97.7; O2SAT 96
[2017-08-10] MEDS: diphenhydrAMINE HCL 50 MG CAP PO PRN (04:27)
[2017-08-10] MEDS: HYDROmorphone HCL PF 2 MG/ML VIAL IV PRN ×2 (04:27→08:27)
[2017-08-10] MEDS: ONDANSETRON ODT 4 MG TAB PO PRN (04:27)
[2017-08-10 08:00] VITALS: BP 127/75; PULSE 70; RESP 16; TEMP 98.9; O2SAT 95
[2017-08-10] MEDS: ENOXAPARIN SODIUM 40 MG/0.4 ML SYRINGE SQ SCH (08:32)
[2017-08-10] MEDS: SODIUM CHLORIDE 0.9% FLUSH 10 ML FLUSH IV FLUSH SCH (08:33)
[2017-08-10 08:57] VITALS: RESP 17
--- NOTE | 2017-08-10 10:33 | HHI.DCPOC ---
Discharge Care Plan Diagnosis: (1) Sickle cell crisis Goals to Promote Your Health * To prevent worsening of your condition and complications * To maintain your health at the optimal level Directions to Meet Your Goals Take your medications as prescribed Follow your dietary instruction Follow activity as directed Keep your appointments as scheduled Take your immunizations and boosters as scheduled If your symptoms worsen call your PCP, if no PCP go to Urgent Care Center or Emergency Room Smoking is Dangerous to Your Health. Avoid second hand smoke Call the 24-hour hour crisis hotline for domestic abuse at Ronald Juan Aug 10, 2017 10:33
--- NOTE | 2017-08-10 11:52 | HHI.DS ---
Discharge Summary Admission Date Aug 09, 2017 at 10:04 Discharge Date: Aug 10, 2017 Admitting Diagnosis Sickle Cell Pain crisis. (1) Vaso-occlusive sickle cell crisis ICD Code: D57.00 - Hb-SS disease with crisis, unspecified Status: Acute (2) Leukocytosis ICD Code: D72.829 - Leukocytosis Status: Acute Procedures None Brief History - From Admission The patient is a 22-year-old male with history of sickle cell disease who presented to the emergency department with complaint of left groin pain that radiated down his leg. The pain also radiated into his back and involved the center of his chest. Today he states that the groin pain is better, but the pain now radiates down his right leg and the pain is actually worst in his back. He still has chest pain overlying the sternum. Pain rated 9/10. He denies cough, dyspnea, fever area and no abdominal pain, nausea, vomiting. CBC/BMP: 08/09/17 0945 08/09/17 0945 Significant Findings Laboratory Tests Test 08/08/17 21:50 08/09/17 09:45 White Blood Count 11.5 TH/MM3 (4.0-11.0) Red Blood Count 3.86 MIL/MM3 (4.50-5.90) 3.67 MIL/MM3 (4.50-5.90) Hemoglobin 11.8 GM/DL (13.0-17.0) 10.9 GM/DL (13.0-17.0) Hematocrit 35.7 % (39.0-51.0) 34.0 % (39.0-51.0) Red Cell Distribution Width 18.6 % (11.6-17.2) 18.9 % (11.6-17.2) Nucleated Red Blood Cells 1 /100 WBC (0-0) 1 /100 WBC (0-0) Platelet Estimate HIGH (NORMAL) Ovalocytes 1+ (NORMAL) 1+ (NORMAL) Reticulocyte Count 9.2 % (0.4-3.0) Absolute Reticulocyte Count 353.4 MIL/L (20.0-150.0) Eosinophils % 6 % (0-4) Basophilic Stippling FAINT (NORMAL) Sickle Cells 1+ (NORMAL) Target Cells 1+ (NORMAL) Rouleau PRESENT (NORMAL) Random Glucose 155 MG/DL (74-106) Albumin 3.3 GM/DL (3.4-5.0) Calcium Level 7.6 MG/DL (8.5-10.1) Total Bilirubin 3.2 MG/DL (0.2-1.0) Potassium Level 3.4 MEQ/L (3.5-5.1) Chloride Level 108 MEQ/L (98-107) Imaging Last Impressions Chest X-Ray 08/08/172128 Signed Impressions: Service Date/Time: Tuesday, August 08, 2017 21:35 - CONCLUSION: No acute disease. Ez Moreno Jr., MD Hospital Course This 22-year-old male with known history of sickle cell disease who presented to the hospital and admitted recurrent occasions for sickle cell complications. Patient presented this time with left groin pain now is radiating down his leg. Patient was seen in emergency department and they recommended patient be admitted the hospital for vaso-occlusive sickle cell crisis. X-ray was unremarkable for any acute chest syndrome. After patient admitted patient did have laboratory studies performed and did indicate actual improvement of his liver enzymes and total bilirubin. Patient was admitted with pain control that consisted of Dilaudid every 4 hours, Zofran for nausea vomiting. Patient did not have any episodes of any nausea, vomiting during his stay. He was tolerating fluids and food well. Patient continue to ask to have increase in pain medication. This was performed yesterday by myself with addition of Benadryl. Upon seeing the patient today he indicated that he wanted increase in his pain medication, again. I notified him since he is tolerating food, medication by mouth, and the shortage of IV medications. We will convert him to by mouth Dilaudid of his home regimen which is more medication than he is receiving while here in the hospital. The patient indicates that he has been able to find a local lead embedded software engineer. Dr. Fisher. The patient indicates that he would like to be discharged today. Patient clinically stable this time will discharge him accordingly. Pt Condition on Discharge: Stable Discharge Disposition: Discharge Home Discharge Time: > 30 minutes Discharge Instructions DIET: Follow Instructions for: As Tolerated, No Restrictions Activities you can perform: Regular-No Restrictions Follow up Referrals: Oncology/Hematology - 1 Week with Javid Fisher MD PCP Follow-up - 1 Week Continued Medications: Hydromorphone (Dilaudid) 4 Mg Tab 4 MG PO Q4H PRN for Pain Management, TAB 0 Refills Oxycodone-Acetaminophen (Percocet) 10-325 mg Tab 1 TAB PO Q4H PRN for PAIN, TAB 0 Refills Ronald Juan Aug 10, 2017 11:52
== END 2017-08-10 11:44 | disposition home or self-care (01) | DRG 812 ==
LOC: PHED 20:56 → PHEDA 08-09 00:07 → PH3A 08-09 00:51 → OBSVTOIN 08-09 10:04
PROVIDERS: ADMIT Hospitalist; ATTEND Hospitalist
DX: D57.00 Hb-SS disease with crisis, unspecified (principal); D72.829 Elevated white blood cell count, unspecified
CPT/HCPCS: 71045; 80048; 80053; 85007; 85027; 85044; 96361; 96374; 96375; 96376; J1170; J1650; J1885; J7030; Q0163

== ENCOUNTER 2017-08-15 12:18 | Emergency (ER) | payer MEDICAID ==
[2017-08-15] MEDS ORDERED: HYDROmorphone HCL PF 1 MG/ML VIAL IVS (13:00)
[2017-08-15] MEDS ORDERED: SODIUM CHLORIDE 0.9% FLUSH 10 ML FLUSH IVF (13:00)
[2017-08-15] MEDS: SODIUM CHLOR 0.9% 1000 ML INJ 1,000 ML IV (13:12)
[2017-08-15] MEDS: ONDANSETRON HCL 4 MG/2 ML VIAL IVP (13:12)
[2017-08-15] MEDS: HYDROmorphone HCL PF 2 MG/ML VIAL IM (13:30)
[2017-08-15] MEDS: ONDANSETRON HCL 4 MG/2 ML VIAL IM (13:36)
[2017-08-15 13:47] LABS: AUTOMATED NEUTROPHIL # 7.6 TH/MM3 (1.8-7.7); BASOPHIL # 0.1 TH/MM3 (0-0.2); BASOPHIL % 0.8 % (0.0-2.0); EOSINOPHIL # 0.4 TH/MM3 (0-0.4); EOSINOPHIL % 2.9 % (0.0-4.0); HEMATOCRIT 34.8 % (39.0-51.0); HEMOGLOBIN 11.4 GM/DL (13.0-17.0); LYMPHOCYTE # 2.8 TH/MM3 (1.0-4.8); MEAN CELL VOLUME 93.8 FL (80.0-100.0); MEAN CORPUSCULAR HEMOGLOBIN 30.8 PG (27.0-34.0); MEAN CORPUSCULAR HGB CONC 32.8 % (32.0-36.0); MEAN PLATELET VOLUME 8.1 FL (7.0-11.0); MONO % 12.7 % (0.0-8.0); MONOCYTE # 1.6 TH/MM3 (0-0.9); NEUT % 61.6 % (16.0-70.0); PLATELET COUNT 250 TH/MM3 (150-450); RED BLOOD COUNT 3.71 MIL/MM3 (4.50-5.90); RED CELL DISTRIBUTION WIDTH 19.3 % (11.6-17.2); WHITE BLOOD COUNT 12.5 TH/MM3 (4.0-11.0)
[2017-08-15 13:54] LABS: HEMO FLAGS AUTO DIFF
[2017-08-15 14:41] LABS: BANDS 1 % (0-6); BASOPHILS 1 % (0-2); EOSINOPHILS 7 % (0-4); LYMPHOCYTES 26 % (9-44); MONOCYTES 7 % (0-8); NEUTROPHIL # MANUAL DIFF 7.4 TH/MM3 (1.8-7.7); POLYS (SEG NEUTROPHILS) 58 % (16-70); WBC DIFF SAMPLE 100
[2017-08-15 14:42] LABS: HOWELL-JOLLY BODIES PRESENT (NONE SEEN); TARGET CELLS 2+ (NORMAL); TOXIC GRANULATION 1+ (NORMAL)
[2017-08-15 14:43] LABS: OVALOCYTES 1+ (NORMAL); PLATELET ESTIMATE SMEAR NORMAL (NORMAL); PLATELET MORPHOLOGY NORMAL (NORMAL); SCAN/DIFF FINAL DIFF MANUAL; SICKLE CELLS 1+ (NORMAL)
== END 2017-08-15 14:22 | disposition left against medical advice (07) ==
LOC: PHED 12:18
DX: D57.1 Sickle-cell disease without crisis (principal)
CPT/HCPCS: 85007; 85027; 93005; 96372; 96374; 99284-25

== ENCOUNTER 2017-08-16 05:29 | Emergency (ER) | payer MEDICAID ==
[~2017-08-16] VITALS: Ht 188 cm; Wt 88.2 kg
[2017-08-16 05:36] VITALS: BP 111/64; PULSE 74; RESP 12; TEMP 97.7; O2SAT 96
[2017-08-16] MEDS ORDERED: SODIUM CHLOR 0.9% 1000 ML INJ 1,000 ML IV ONE ×2 (05:38→07:45)
--- NOTE | 2017-08-16 05:52 | PD ---
HPI Chief Complaint: Sickle Cell Time Seen by Provider: 05:38 Travel History International Travel<30 days: No Contact w/Intl Traveler<30days: No Traveled to known affect area: No History of Present Illness HPI C/O PAIN ALL OVER HIS BODY C/W SICKLE CELL PAIN CRISIS...PATIENT DENIES ANY RUNNY NOSE/SORE THROAT/COUGH/SOB/N/V/D/ABD PAIN/CP....DENIES ANY ALLEVIATING/ AGGRAVATING FACTORS. ALL:AMOXIL/PCN PMHX:SICKLE CELL (FOLLOWED BY DR JASMINE? NOZZLE TENDER, IN THE PLANNING PHASE OF PLACING A PORT, BECAUSE HE HAS SICKLE CELL FLAREUPS AT LEAST 3 TIMES A MONTH) PFSH Past Medical History Anemia: Yes (SICKLE CELL ) Arthritis: No Asthma: Yes (PT DENIES) Autoimmune Disease: Yes Blood Disorders: No Anxiety: No Depression: No Heart Rhythm Problems: Yes (MURMUR) Cancer: No Cardiovascular Problems: Yes (HX OF SICKLE CELL, GETS INFUSIONS EVERY FOUR WEEKS .) High Cholesterol: No Chemotherapy: No Chest Pain: Yes (WITH SICKLE CRISIS) Congestive Heart Failure: No COPD: No Cerebrovascular Accident: No Diabetes: No Diminished Hearing: No Endocrine: No Gastrointestinal Disorders: No GERD: No Genitourinary: No Headaches: No Hiatal Hernia: No Hypertension: No Immune Disorder: Yes Implanted Vascular Access Dvce: No Kidney Stones: No Musculoskeletal: Yes Neurologic: Yes Psychiatric: No Reproductive: Yes Respiratory: Yes Immunizations Current: Yes Migraines: No Pneumonia: Yes Radiation Therapy: No Renal Failure: No Seizures: No Sickle Cell Disease: Yes Sleep Apnea: No Thyroid Disease: No Ulcer: No Past Surgical History Abdominal Surgery: No AICD: No Arteriovenous Shunt: No Cardiac Surgery: No Ear Surgery: No Endocrine Surgery: No Eye Surgery: No Genitourinary Surgery: Yes Gynecologic Surgery: No Insulin Pump: No Joint Replacement: No Neurologic Surgery: No Oral Surgery: No Pacemaker: No Thoracic Surgery: No Other Surgery: Yes Social History Alcohol Use: No Tobacco Use: No Substance Use: No Allergies-Medications (Allergen,Severity, Reaction): Coded Allergies: amoxicillin (Verified Allergy, Severe, Swelling, 08/15/17) penicillin G (Verified Allergy, Severe, told as child, 08/15/17) Reported Meds & Prescriptions Reported Meds & Active Scripts Active Review of Systems General / Constitutional: No: Fever Eyes: No: Visual changes HENT: No: Headaches Cardiovascular: No: Chest Pain or Discomfort Respiratory: No: Shortness of Breath Gastrointestinal: No: Abdominal Pain Genitourinary: No: Dysuria Musculoskeletal: Positive: Myalgias Skin: No Rash Neurologic: No: Weakness Psychiatric: No: Depression Endocrine: No: Polydipsia Hematologic/Lymphatic: No: Easy Bruising Physical Exam Narrative GENERAL: SKIN: Warm and dry. HEAD: Atraumatic. Normocephalic. EYES: Pupils equal and round. No scleral icterus. No injection or drainage. ENT: No nasal bleeding or discharge. Mucous membranes pink and moist. NECK: Trachea midline. No JVD. CARDIOVASCULAR: Regular rate and rhythm. RESPIRATORY: No accessory muscle use. Clear to auscultation. Breath sounds equal bilaterally. GASTROINTESTINAL: Abdomen soft, non-tender, nondistended. MUSCULOSKELETAL: Extremities without clubbing, cyanosis, or edema. No obvious deformities. NEUROLOGICAL: Awake and alert. No obvious cranial nerve deficits. Motor grossly within normal limits. Five out of 5 muscle strength in the arms and legs. Normal speech. PSYCHIATRIC: Appropriate mood and affect; insight and judgment normal. Data Data Last Documented VS Vital Signs Date Time Temp Pulse Resp B/P (MAP) Pulse Ox O2 Delivery O2 Flow Rate FiO2 08/16/17 05:36 97.7 74 12 111/64 (80) 96 Orders Orders Basic Metabolic Panel (Bmp) (08/16/17 05:38) Complete Blood Count With Diff (08/16/17 05:38) Retic Count (08/16/17 05:38) Urinalysis - C+S If Indicated (08/16/17 05:38) Chest, Single Ap (08/16/17 05:38) Ecg Monitoring (08/16/17 05:38) Iv Access Insert/Monitor (08/16/17 05:38) Oximetry (08/16/17 05:38) Sodium Chlor 0.9% 1000 Ml Inj (Ns 1000 M (08/16/17 05:38) Creatine Kinase (Cpk) (08/16/17 05:38) Oxygen Administration (08/16/17 05:38) Drug Screen, Random Urine (08/16/17 05:38) Ldh Serum (08/16/17 05:38) Hydromorphone Pf Inj (Dilaudid Pf Inj) (08/16/17 06:00) MDM Medical Decision Making Medical Screen Exam Complete: Yes Emergency Medical Condition: Yes Medical Record Reviewed: Yes Differential Diagnosis CHEST SYNDROME V PNA V UTI V SICKLE CELL CRISIS V DEHYDRATION V ANEMIA Narrative Course WILL BE SIGNED OUT TO INCOMING PHYSICIAN DR HESTER PENDING LABS/DISPO. Procedures Procedure Narrative NO PERIPHERAL IV ACCESS BY NURSE, USING CHLORAPREP PLACED AN [address] EXTERNAL JUGULAR PL[address] BY ME. BLOOD COLLECTED AND FLUSHED WELL Diagnosis Primary Impression: Sickle cell pain crisis Ron Garrison MD Aug 16, 2017 05:52
[2017-08-16] MEDS ORDERED: HYDROmorphone HCL PF 2 MG/ML VIAL IV PUSH ONE (06:00)
--- NOTE | 2017-08-16 06:05 | RADRPT ---
EXAM DATE/TIME: 08/16/2017 05:44 [facility] COMPARISON: CHEST SINGLE AP, August 08, 2017, 21:35. INDICATIONS : Shortness of breath. MEDICAL HISTORY : Sickle Cell disease. SURGICAL HISTORY : None. ENCOUNTER: Initial ACUITY: 1 day PAIN SCORE: 0/10 LOCATION: Bilateral chest FINDINGS: A single view of the chest demonstrates the lungs to be symmetrically aerated without evidence of mas s, infiltrate or effusion. Mild prominence of the heart, stable. Osseous structures are intact. CONCLUSION: The lungs are clear. Ez Mendez MD on August 16, 2017 at 6:03 Board Certified Radiologist. This report was verified electronically.
[2017-08-16 06:36] LABS: HEMATOCRIT 33.4 % (39.0-51.0); HEMOGLOBIN 11.1 GM/DL (13.0-17.0); MEAN CELL VOLUME 93.1 FL (80.0-100.0); MEAN CORPUSCULAR HEMOGLOBIN 31.1 PG (27.0-34.0); MEAN CORPUSCULAR HGB CONC 33.3 % (32.0-36.0); MEAN PLATELET VOLUME 7.5 FL (7.0-11.0); PLATELET COUNT 254 TH/MM3 (150-450); RED BLOOD COUNT 3.59 MIL/MM3 (4.50-5.90); RED CELL DISTRIBUTION WIDTH 20.8 % (11.6-17.2); WHITE BLOOD COUNT 11.9 TH/MM3 (4.0-11.0)
[2017-08-16 06:47] LABS: BICARBONATE 27.9 MEQ/L (21.0-32.0); CALCIUM 8.5 MG/DL (8.5-10.1)
[2017-08-16 06:51] VITALS: BP 124/70; PULSE 90; RESP 24; O2SAT 97
[2017-08-16 06:51] LABS: CREATININE 0.68 MG/DL (0.60-1.30)
[2017-08-16 06:53] LABS: CORRECTED NUCLEATED RBC 5 /100 WBC (0-0); CORRECTED WBC 11.3 TH/MM3 (4.0-11.0); LYMPHOCYTES 22 % (9-44); MONOCYTES 10 % (0-8); MYELOCYTES 1 % (0-0); NEUTROPHIL # MANUAL DIFF 7.5 TH/MM3 (1.8-7.7); NUCLEATED RED BLOOD CELL 5 (0-0); POLYS (SEG NEUTROPHILS) 65 % (16-70)
[2017-08-16 06:55] LABS: POLYCHROMASIA 2.5 % (0.0-1.9)
[2017-08-16 07:17] VITALS: BP 124/70; PULSE 89; RESP 18; O2SAT 100
--- NOTE | 2017-08-16 08:07 | PD ---
Physical Exam Narrative General: No apparent distress, well appearing ENT: mmm Neck: trachea is midline Cardiovascular: Regular rate and rhythm Lungs: No increased respiratory effort noted Extremities: No edema Neuro: Awake, motor and sensation grossly intact, normal speech Data Data Last Documented VS Vital Signs Date Time Temp Pulse Resp B/P (MAP) Pulse Ox O2 Delivery O2 Flow Rate FiO2 08/16/17 07:17 89 18 124/70 (88) 100 Room Air 08/16/17 06:54 2.00 08/16/17 05:36 97.7 Orders Orders Basic Metabolic Panel (Bmp) (08/16/17 05:38) Complete Blood Count With Diff (08/16/17 05:38) Retic Count (08/16/17 05:38) Urinalysis - C+S If Indicated (08/16/17 05:38) Chest, Single Ap (08/16/17 05:38) Ecg Monitoring (08/16/17 05:38) Iv Access Insert/Monitor (08/16/17 05:38) Oximetry (08/16/17 05:38) Sodium Chlor 0.9% 1000 Ml Inj (Ns 1000 M (08/16/17 05:38) Creatine Kinase (Cpk) (08/16/17 05:38) Oxygen Administration (08/16/17 05:38) Drug Screen, Random Urine (08/16/17 05:38) Ldh Serum (08/16/17 05:38) Hydromorphone Pf Inj (Dilaudid Pf Inj) (08/16/17 06:00) Sodium Chlor 0.9% 1000 Ml Inj (Ns 1000 M (08/16/17 07:45) Labs Laboratory Tests Test 08/16/17 06:25 White Blood Count 11.9 TH/MM3 Corrected White Blood Count 11.3 TH/MM3 Red Blood Count 3.59 MIL/MM3 Hemoglobin 11.1 GM/DL Hematocrit 33.4 % Mean Corpuscular Volume 93.1 FL Mean Corpuscular Hemoglobin 31.1 PG Mean Corpuscular Hemoglobin Concent 33.3 % Red Cell Distribution Width 20.8 % Platelet Count 254 TH/MM3 Mean Platelet Volume 7.5 FL CBC Comment AUTO DIFF Differential Total Cells Counted 100 Neutrophils % (Manual) 65 % Lymphocytes % 22 % Monocytes % 10 % Eosinophils % 2 % Neutrophils # (Manual) 7.5 TH/MM3 Myelocytes 1 % Nucleated Red Blood Cells 5 /100 WBC Differential Comment FINAL DIFF MANUAL Polychromasia 2.5 % Reticulocyte Count 11.5 % Absolute Reticulocyte Count 406.9 MIL/L Blood Urea Nitrogen 8 MG/DL Creatinine 0.68 MG/DL Random Glucose 93 MG/DL Calcium Level 8.5 MG/DL Lactate Dehydrogenase 179 U/L Sodium Level 139 MEQ/L Potassium Level 3.9 MEQ/L Chloride Level 106 MEQ/L Carbon Dioxide Level 27.9 MEQ/L Anion Gap 5 MEQ/L Estimat Glomerular Filtration Rate 174 ML/MIN Total Creatine Kinase 86 U/L MDM Supervised Visit with CASSANDRA: No Interpretation(s) CBC & BMP Diagram 08/16/17 06:25 Calcium Level 8.5 Narrative Course Signed over to me to follow workup and reevaluate. Patient given IV fluids and 2 mg of Dilaudid. Hemoglobin is stable, LDH is normal. Reticulocyte count is up some from prior. On reassessment patient states he is feeling about the same. We will discuss with his bill collector While I was awaiting callback from his bill collector patient elected to leave and would not talk with me again at 855 Diagnosis Primary Impression: Sickle cell pain crisis Patient Instructions: General Instructions Disposition: 07 AGAINST MEDICAL ADVICE Condition: Stable Irma Montes De Oca MD Aug 16, 2017 08:07
[2017-08-16 08:09] LABS: RETIC # 406.9 MIL/L (20.0-150.0); RETIC % 11.5 % (0.4-3.0)
== END 2017-08-16 09:06 | disposition left against medical advice (07) ==
LOC: PHED 05:29
DX: D57.00 Hb-SS disease with crisis, unspecified (principal)
CPT/HCPCS: 71045; 80048; 82550; 83615; 85007; 85027; 85044; 96361; 96374; 99284; J1170; J7030

== ENCOUNTER 2017-09-19 18:19 | Emergency (ER) | payer MEDICAID ==
[2017-09-19] VITALS (7 sets, daily range): BP systolic 117–141; BP diastolic 51–67; PULSE 72–96; RESP 16–26; TEMP 98.7; O2SAT 95–98
[~2017-09-19] VITALS: Ht 188 cm; Wt 86.5 kg
[2017-09-19] MEDS ORDERED: PERC10TA27 PO (18:47)
[2017-09-19] MEDS ORDERED: FOLI400T PO (18:47)
[2017-09-19] MEDS ORDERED: DILA4TAB10 PO (18:47)
--- NOTE | 2017-09-19 19:16 | PD ---
HPI Chief Complaint: Sickle Cell Time Seen by Provider: 19:01 Travel History International Travel<30 days: No Contact w/Intl Traveler<30days: No Traveled to known affect area: No History of Present Illness HPI The patient is a 22-year-old male, frequent visitor for sickle cell pain crisis , who states he has had sickle cell pain since Tuesday. On Tuesday he had an [id number] put in and they were going to use it today but he missed his appointment. He comes in today for pain medication. Apparently, he was going to get a transfusion and fluids in Dr. Fisher's hematology clinic today. He states IM shots don't work for him, he wants IV. The patient states he will try to make up the missed appointment tomorrow at the clinic. He complains of a pain level of 9/10, sharp, achy pain. PFSH Past Medical History Anemia: Yes (SICKLE CELL ) Arthritis: No Asthma: Yes (PT DENIES) Autoimmune Disease: Yes Blood Disorders: No Anxiety: No Depression: No Heart Rhythm Problems: Yes (MURMUR) Cancer: No Cardiovascular Problems: Yes (HX OF SICKLE CELL, GETS INFUSIONS EVERY FOUR WEEKS .) High Cholesterol: No Chemotherapy: No Chest Pain: Yes (WITH SICKLE CRISIS) Congestive Heart Failure: No COPD: No Cerebrovascular Accident: No Diabetes: No Diminished Hearing: No Endocrine: No Gastrointestinal Disorders: No GERD: No Genitourinary: No Headaches: No Hiatal Hernia: No Heparin Induced Thrombocytopen: No Hypertension: No Immune Disorder: Yes Implanted Vascular Access Dvce: No Kidney Stones: No Musculoskeletal: Yes Neurologic: Yes Psychiatric: No Reproductive: Yes Respiratory: Yes Immunizations Current: Yes Migraines: No Pneumonia: Yes Radiation Therapy: No Renal Failure: No Seizures: No Sickle Cell Disease: Yes Sleep Apnea: No Thyroid Disease: No Ulcer: No Past Surgical History Abdominal Surgery: No AICD: No Arteriovenous Shunt: No Cardiac Surgery: No Ear Surgery: No Endocrine Surgery: No Eye Surgery: No Genitourinary Surgery: Yes Gynecologic Surgery: No Insulin Pump: No Joint Replacement: No Neurologic Surgery: No Oral Surgery: No Pacemaker: No Thoracic Surgery: No Social History Alcohol Use: No Tobacco Use: No Substance Use: No Allergies-Medications (Allergen,Severity, Reaction): Coded Allergies: amoxicillin (Verified Allergy, Severe, Swelling, 09/19/17) penicillin G (Verified Allergy, Severe, told as child, 09/19/17) Reported Meds & Prescriptions Reported Meds & Active Scripts Active Reported Dilaudid (Hydromorphone HCl) 4 Mg Tab 4 Mg PO Q6H PRN Percocet (Oxycodone-Acetaminophen) 10-325 mg Tab 1 Tab PO Q6H PRN Folic Acid 0.4 Mg Tab 400 Mcg PO DAILY Review of Systems Except as stated in HPI: all other systems reviewed are Neg Physical Exam Narrative GENERAL: The patient is alert, oriented 3 and slight apparent distress with his sickle cell pain. His vital signs show blood pressure 141/65 and respirations of 26 but otherwise normal. When I see the patient is respirations are 18. SKIN: Focused skin assessment warm/dry. HEAD: Atraumatic. Normocephalic. EYES: Pupils equal and round. No scleral icterus. No injection or drainage. ENT: No nasal bleeding or discharge. Mucous membranes pink and moist. NECK: Trachea midline. No JVD. CARDIOVASCULAR: Regular rate and rhythm. No murmur appreciated. RESPIRATORY: No accessory muscle use. Clear to auscultation. Breath sounds equal bilaterally. GASTROINTESTINAL: Abdomen soft, non-tender, nondistended. Hepatic and splenic margins not palpable. MUSCULOSKELETAL: No obvious deformities. No clubbing. No cyanosis. No edema. NEUROLOGICAL: Awake and alert. No obvious cranial nerve deficits. Motor grossly within normal limits. Normal speech. PSYCHIATRIC: Appropriate mood and affect; insight and judgment normal. Data Data Last Documented VS Vital Signs Date Time Temp Pulse Resp B/P (MAP) Pulse Ox O2 Delivery O2 Flow Rate FiO2 09/19/17 22:04 18 09/19/17 22:00 84 117/51 (73) 96 Room Air 09/19/17 18:41 98.7 Orders Orders Basic Metabolic Panel (Bmp) (09/19/17 19:18) C-Reactive Protein (Crp) (09/19/17 19:18) Retic Count (09/19/17 19:18) Urinalysis - C+S If Indicated (09/19/17 19:18) Ecg Monitoring (09/19/17 19:18) Iv Access Insert/Monitor (09/19/17 19:18) Oximetry (09/19/17 19:18) Ketorolac Inj (Toradol Inj) (09/19/17 19:30) Ondansetron Inj (Zofran Inj) (09/19/17 19:30) Sodium Chloride 0.9% Flush (Ns Flush) (09/19/17 19:30) Sodium Chlor 0.9% 1000 Ml Inj (Ns 1000 M (09/19/17 19:18) Hydromorphone Pf Inj (Dilaudid Pf Inj) (09/19/17 19:30) Diphenhydramine Inj (Benadryl Inj) (09/19/17 19:30) Oxygen Administration (09/19/17 19:58) Complete Blood Count With Diff (09/19/17 21:10) Hydromorphone Pf Inj (Dilaudid Pf Inj) (09/19/17 21:15) Ondansetron Inj (Zofran Inj) (09/19/17 21:15) Sodium Chlor 0.9% 1000 Ml Inj (Ns 1000 M (09/19/17 21:15) Sodium Chlor 0.9% 1000 Ml Inj (Ns 1000 M (09/19/17 22:15) Hydromorphone Pf Inj (Dilaudid Pf Inj) (09/19/17 22:15) Ondansetron Inj (Zofran Inj) (09/19/17 22:15) Diphenhydramine Inj (Benadryl Inj) (09/19/17 22:15) Labs Laboratory Tests Test 09/19/17 20:00 White Blood Count 14.1 TH/MM3 Red Blood Count 4.07 MIL/MM3 Hemoglobin 12.5 GM/DL Hematocrit 37.5 % Mean Corpuscular Volume 92.2 FL Mean Corpuscular Hemoglobin 30.8 PG Mean Corpuscular Hemoglobin Concent 33.4 % Red Cell Distribution Width 20.0 % Platelet Count 316 TH/MM3 Mean Platelet Volume 8.3 FL CBC Comment AUTO DIFF Differential Total Cells Counted 100 Neutrophils % (Manual) 70 % Band Neutrophils % 1 % Lymphocytes % 20 % Monocytes % 6 % Eosinophils % 3 % Neutrophils # (Manual) 10.0 TH/MM3 Nucleated Red Blood Cells 1 /100 WBC Differential Comment FINAL DIFF MANUAL Platelet Estimate NORMAL Platelet Morphology Comment NORMAL Sickle Cells 1+ Target Cells 1+ Tear Drop Cells 1+ Ovalocytes 1+ Reticulocyte Count 9.0 % Absolute Reticulocyte Count 366.1 MIL/L Blood Urea Nitrogen 8 MG/DL Creatinine 0.57 MG/DL Random Glucose 90 MG/DL Calcium Level 8.5 MG/DL Sodium Level 137 MEQ/L Potassium Level 3.5 MEQ/L Chloride Level 103 MEQ/L Carbon Dioxide Level 26.0 MEQ/L Anion Gap 8 MEQ/L Estimat Glomerular Filtration Rate 213 ML/MIN C-Reactive Protein 1.84 MG/DL MDM Medical Decision Making Medical Screen Exam Complete: Yes Emergency Medical Condition: Yes Medical Record Reviewed: Yes Interpretation(s) The CBC shows a white count of 14,100 with a hemoglobin of 12.5 and hematocrit of 37.5. The absolute reticulocyte count is 366 and the reticulocyte count is 9. Differential Diagnosis Sickle cell pain crisis, chest pain crisis, drug seeking behavior, dehydration Narrative Course The patient had a sickle cell pain crisis. He states he will follow-up tomorrow with his labor employment associate in [facility]. He is given his laboratory work to take to her. Diagnosis Primary Impression: Vaso-occlusive sickle cell crisis Additional Instructions: As we discussed, follow-up tomorrow with your labor employment associate and drink plenty of liquids. Med/Other Pt SpecificInfo: No Change to Meds Disposition: 01 DISCHARGE HOME Condition: Stable Todd Juan MD Sep 19, 2017 19:16
[2017-09-19] MEDS ORDERED: SODIUM CHLOR 0.9% 1000 ML INJ 1,000 ML IV ONE (19:18)
[2017-09-19] MEDS ORDERED: diphenhydrAMINE HCL 50 MG/ML VIAL IV PUSH ONE ×2 (19:30→22:15)
[2017-09-19] MEDS ORDERED: ONDANSETRON HCL 4 MG/2 ML VIAL IVP ONE ×2 (19:30→22:15)
[2017-09-19] MEDS ORDERED: KETOROLAC TROMETHAMINE 30 MG/ML (IVP) VIAL IVP ONE (19:30)
[2017-09-19] MEDS ORDERED: HYDROmorphone HCL PF 2 MG/ML VIAL IVS ONE ×2 (19:30→22:15)
[2017-09-19] MEDS ORDERED: SODIUM CHLORIDE 0.9% FLUSH 10 ML FLUSH IVF PRN (19:30)
[2017-09-19 20:35] LABS: CALCIUM 8.5 MG/DL (8.5-10.1)
[2017-09-19 20:39] LABS: C-REACTIVE PROTEIN 1.84 MG/DL (0.00-0.30); CREATININE 0.57 MG/DL (0.60-1.30)
[2017-09-19] MEDS ORDERED: HYDROmorphone HCL PF 2 MG/ML VIAL IV PUSH ONE (21:15)
[2017-09-19] MEDS ORDERED: ONDANSETRON HCL 4 MG/2 ML VIAL IV PUSH ONE (21:15)
[2017-09-19] MEDS ORDERED: SODIUM CHLOR 0.9% 1000 ML INJ 1,000 ML IV SCH ×2 (21:15→22:15)
[2017-09-19 21:51] LABS: HEMATOCRIT 37.5 % (39.0-51.0); HEMOGLOBIN 12.5 GM/DL (13.0-17.0); MEAN CELL VOLUME 92.2 FL (80.0-100.0); MEAN CORPUSCULAR HEMOGLOBIN 30.8 PG (27.0-34.0); MEAN CORPUSCULAR HGB CONC 33.4 % (32.0-36.0); MEAN PLATELET VOLUME 8.3 FL (7.0-11.0); PLATELET COUNT 316 TH/MM3 (150-450); RED BLOOD COUNT 4.07 MIL/MM3 (4.50-5.90); WHITE BLOOD COUNT 14.1 TH/MM3 (4.0-11.0)
[2017-09-19 22:16] LABS: BANDS 1 % (0-6); CORRECTED NUCLEATED RBC 1 /100 WBC (0-0); LYMPHOCYTES 20 % (9-44); MONOCYTES 6 % (0-8); NUCLEATED RED BLOOD CELL 1 (0-0); OVALOCYTES 1+ (NORMAL); POLYS (SEG NEUTROPHILS) 70 % (16-70); SICKLE CELLS 1+ (NORMAL); TEARDROP RBCS 1+ (NORMAL)
[2017-09-19 22:17] LABS: TARGET CELLS 1+ (NORMAL)
[2017-09-19 22:21] LABS: RETIC # 366.1 MIL/L (20.0-150.0)
[2017-09-20 00:01] VITALS: BP 116/58
== END 2017-09-20 00:02 | disposition home or self-care (01) ==
LOC: PHED 18:19
DX: D57.00 Hb-SS disease with crisis, unspecified (principal)
CPT/HCPCS: 80048; 85007; 85027; 85044; 86140; 96361; 96374; 96375; 96376; 99284; J1170; J1200; J1642; J1885; J2405; J7030

== ENCOUNTER 2017-09-21 07:45 | Inpatient (IN) | payer MEDICAID ==
[~2017-09-21] VITALS: Ht 188 cm; Wt 88.1 kg
[~2017-09-21 07:45] MED LIST changes: +FOLI400T PO; +PERC10TA27 PO
[2017-09-21 07:50] VITALS: BP 131/84; PULSE 79; RESP 20; TEMP 97.9; O2SAT 98
[2017-09-21] MEDS ORDERED: SODIUM CHLOR 0.9% 1000 ML INJ 1,000 ML IV ONE ×2 (07:58→08:09)
[2017-09-21] MEDS ORDERED: SODIUM CHLORIDE 0.9% FLUSH 10 ML FLUSH IVF PRN (08:00)
[2017-09-21] MEDS ORDERED: HYDROmorphone HCL PF 1 MG/ML VIAL IVS ONE (08:00)
[2017-09-21] MEDS ORDERED: KETOROLAC TROMETHAMINE 30 MG/ML (IVP) VIAL IVP ONE ×2 (08:00→08:15)
[2017-09-21] MEDS ORDERED: ONDANSETRON HCL 4 MG/2 ML VIAL IVP ONE ×2 (08:00→08:15)
[2017-09-21 08:02] VITALS: O2SAT 98
--- NOTE | 2017-09-21 08:03 | PD ---
HPI Chief Complaint: Sickle Cell Time Seen by Provider: 07:52 Travel History International Travel<30 days: No Contact w/Intl Traveler<30days: No Traveled to known affect area: No History of Present Illness HPI Patient was seen and examined in the presence of a nurse at all times This is a 22-year-old male with a history of sickle cell disease who presents for pain. He states that he has had several days of his typical sickle cell pain. He states that it started in his arms but now includes his right leg, lower abdomen and groin. No associated fever, chills. No productive cough, difficulty breathing. No lower extremity edema, calf pain, immobility. Symptoms are mild in severity. Onset gradual. No nausea, vomiting, diarrhea. He states that he ran out of pain medications several days ago. He was seen in the emergency department 2 days ago and received IV fluids and pain medication with improvement in his symptoms. PFSH Past Medical History Anemia: Yes (SICKLE CELL ) Arthritis: No Asthma: Yes (PT DENIES) Autoimmune Disease: Yes Blood Disorders: No Anxiety: No Depression: No Heart Rhythm Problems: Yes (MURMUR) Cancer: No Cardiovascular Problems: Yes (HX OF SICKLE CELL, GETS INFUSIONS EVERY FOUR WEEKS .) High Cholesterol: No Chemotherapy: No Chest Pain: Yes Congestive Heart Failure: No COPD: No Cerebrovascular Accident: No Diabetes: No Diminished Hearing: No Endocrine: No Gastrointestinal Disorders: No GERD: No Genitourinary: No Headaches: No Hiatal Hernia: No Heparin Induced Thrombocytopen: No Hypertension: No Immune Disorder: Yes Implanted Vascular Access Dvce: No Kidney Stones: No Musculoskeletal: Yes Neurologic: Yes Psychiatric: No Reproductive: Yes Respiratory: Yes Immunizations Current: Yes Migraines: No Pneumonia: Yes Radiation Therapy: No Renal Failure: No Seizures: No Sickle Cell Disease: Yes Sleep Apnea: No Thyroid Disease: No Ulcer: No Past Surgical History Abdominal Surgery: No AICD: No Arteriovenous Shunt: No Cardiac Surgery: No Ear Surgery: No Endocrine Surgery: No Eye Surgery: No Genitourinary Surgery: Yes Gynecologic Surgery: No Insulin Pump: No Joint Replacement: No Neurologic Surgery: No Oral Surgery: No Pacemaker: No Thoracic Surgery: No Social History Alcohol Use: No Tobacco Use: No Substance Use: No Allergies-Medications (Allergen,Severity, Reaction): Coded Allergies: amoxicillin (Verified Allergy, Severe, Swelling, 09/21/17) penicillin G (Verified Allergy, Severe, told as child, 09/21/17) Reported Meds & Prescriptions Reported Meds & Active Scripts Active Reported Folic Acid 0.4 Mg Tab 400 Mcg PO DAILY Review of Systems Except as stated in HPI: all other systems reviewed are Neg Physical Exam Narrative GENERAL: Alert, well nourished, well appearing patient resting on the bed in no acute distress. Vital Signs reviewed SKIN: Focused skin assessment warm/dry. Port in right upper chest HEAD: Atraumatic. Normocephalic. EYES: Pupils equal and round. No scleral icterus. No injection or drainage. ENT: No nasal bleeding or discharge. Mucous membranes pink and moist. NECK: Trachea midline. No JVD. Spontaneous, painless full range of motion with no meningismus CARDIOVASCULAR: Regular rate and rhythm. No murmur appreciated. Extremities warm and well perfused with bounding peripheral pulses RESPIRATORY: No accessory muscle use. Clear to auscultation. Breath sounds equal bilaterally. Breathing easily and speaking in full sentences GASTROINTESTINAL: Abdomen soft, non-tender, nondistended. Normal bowel sounds. No rigid, rebound, guarding. No rigidity, rebound, guarding MUSCULOSKELETAL: No obvious deformities. No clubbing. No cyanosis. No edema. Compartments are soft NEUROLOGICAL: Awake and alert. No obvious cranial nerve deficits. Motor grossly within normal limits. Normal speech. Sensation intact. Normal gait PSYCHIATRIC: Appropriate mood and affect; insight and judgment normal. Data Data Last Documented VS Vital Signs Date Time Temp Pulse Resp B/P (MAP) Pulse Ox O2 Delivery O2 Flow Rate FiO2 09/21/17 11:10 90 16 113/80 (91) 98 09/21/17 08:03 Room Air 09/21/17 07:50 97.9 Orders Orders Ketorolac Inj (Toradol Inj) (09/21/17 08:00) Ondansetron Inj (Zofran Inj) (09/21/17 08:00) Sodium Chloride 0.9% Flush (Ns Flush) (09/21/17 08:00) Sodium Chlor 0.9% 1000 Ml Inj (Ns 1000 M (09/21/17 07:58) Hydromorphone Pf Inj (Dilaudid Pf Inj) (09/21/17 08:00) Morphine Inj (Morphine Inj) (09/21/17 08:15) Complete Blood Count With Diff (09/21/17 08:09) Comprehensive Metabolic Panel (09/21/17 08:09) Retic Count (09/21/17 08:09) Urinalysis - C+S If Indicated (09/21/17 08:09) Chest, Pa & Lat (09/21/17 08:09) Ecg Monitoring (09/21/17 08:09) Iv Access Insert/Monitor (09/21/17 08:09) Oximetry (09/21/17 08:09) Ketorolac Inj (Toradol Inj) (09/21/17 08:15) Ondansetron Inj (Zofran Inj) (09/21/17 08:15) Sodium Chloride 0.9% Flush (Ns Flush) (09/21/17 08:15) Sodium Chlor 0.9% 1000 Ml Inj (Ns 1000 M (09/21/17 08:09) Morphine Inj (Morphine Inj) (09/21/17 09:15) Sodium Chlor 0.9% 1000 Ml Inj (Ns 1000 M (09/21/17 10:23) Morphine Inj (Morphine Inj) (09/21/17 12:45) Ct Abd/Pel W/O Iv Contrast (09/21/17 12:59) Admit Order (Ed Use Only) (09/21/17 14:41) Labs Laboratory Tests Test 09/21/17 08:23 09/21/17 11:36 White Blood Count 11.2 TH/MM3 Red Blood Count 3.79 MIL/MM3 Hemoglobin 11.9 GM/DL Hematocrit 34.5 % Mean Corpuscular Volume 91.0 FL Mean Corpuscular Hemoglobin 31.4 PG Mean Corpuscular Hemoglobin Concent 34.5 % Red Cell Distribution Width 20.2 % Platelet Count 277 TH/MM3 Mean Platelet Volume 7.5 FL CBC Comment AUTO DIFF Differential Total Cells Counted 100 Neutrophils % (Manual) 74 % Lymphocytes % 12 % Monocytes % 11 % Eosinophils % 3 % Neutrophils # (Manual) 8.3 TH/MM3 Nucleated Red Blood Cells 1 /100 WBC Differential Comment FINAL DIFF MANUAL Platelet Estimate NORMAL Platelet Morphology Comment NORMAL Sickle Cells 1+ Target Cells 2+ Ovalocytes 1+ Reticulocyte Count 8.4 % Absolute Reticulocyte Count 322.1 MIL/L Blood Urea Nitrogen 5 MG/DL Creatinine 0.62 MG/DL Random Glucose 98 MG/DL Total Protein 8.1 GM/DL Albumin 3.8 GM/DL Calcium Level 8.6 MG/DL Alkaline Phosphatase 125 U/L Aspartate Amino Transf (AST/SGOT) 21 U/L Alanine Aminotransferase (ALT/SGPT) 24 U/L Total Bilirubin 2.2 MG/DL Sodium Level 137 MEQ/L Potassium Level 3.6 MEQ/L Chloride Level 105 MEQ/L Carbon Dioxide Level 25.0 MEQ/L Anion Gap 7 MEQ/L Estimat Glomerular Filtration Rate 193 ML/MIN Urine Collection Type CLEAN CATCH Urine Color YELLOW Urine Turbidity CLEAR Urine pH 5.5 Urine Specific Hobbs 1.010 Urine Protein NEG mg/dL Urine Glucose (UA) NEG mg/dL Urine Ketones NEG mg/dL Urine Occult Blood NEG Urine Nitrite NEG Urine Bilirubin NEG Urine Leukocyte Esterase NEG Urine RBC 0-3 /hpf Urine Squamous Epithelial Cells 0-5 /hpf Microscopic Urinalysis Comment CULT NOT INDICATED Urine Collection Time 11:36 [facility] Medical Decision Making Medical Screen Exam Complete: Yes Emergency Medical Condition: Yes Medical Record Reviewed: Yes Interpretation(s) Last 24 hours Impressions Chest X-Ray 09/21/17 0809 Signed Impressions: Service Date/Time: Tuesday, September 21, 2017 08:43 - CONCLUSION: No acute cardiopulmonary abnormality is identified. Mild enlarged cardiac silhouette. Angel Moser MD Laboratory Tests Test 09/21/17 08:23 09/21/17 11:36 White Blood Count 11.2 TH/MM3 Red Blood Count 3.79 MIL/MM3 Hemoglobin 11.9 GM/DL Hematocrit 34.5 % Mean Corpuscular Volume 91.0 FL Mean Corpuscular Hemoglobin 31.4 PG Mean Corpuscular Hemoglobin Concent 34.5 % Red Cell Distribution Width 20.2 % Platelet Count 277 TH/MM3 Mean Platelet Volume 7.5 FL CBC Comment AUTO DIFF Differential Total Cells Counted 100 Neutrophils % (Manual) 74 % Lymphocytes % 12 % Monocytes % 11 % Eosinophils % 3 % Neutrophils # (Manual) 8.3 TH/MM3 Nucleated Red Blood Cells 1 /100 WBC Differential Comment FINAL DIFF MANUAL Platelet Estimate NORMAL Platelet Morphology Comment NORMAL Sickle Cells 1+ Target Cells 2+ Ovalocytes 1+ Reticulocyte Count 8.4 % Absolute Reticulocyte Count 322.1 MIL/L Blood Urea Nitrogen 5 MG/DL Creatinine 0.62 MG/DL Random Glucose 98 MG/DL Total Protein 8.1 GM/DL Albumin 3.8 GM/DL Calcium Level 8.6 MG/DL Alkaline Phosphatase 125 U/L Aspartate Amino Transf (AST/SGOT) 21 U/L Alanine Aminotransferase (ALT/SGPT) 24 U/L Total Bilirubin 2.2 MG/DL Sodium Level 137 MEQ/L Potassium Level 3.6 MEQ/L Chloride Level 105 MEQ/L Carbon Dioxide Level 25.0 MEQ/L Anion Gap 7 MEQ/L Estimat Glomerular Filtration Rate 193 ML/MIN Urine Collection Type CLEAN CATCH Urine Color YELLOW Urine Turbidity CLEAR Urine pH 5.5 Urine Specific Hobbs 1.010 Urine Protein NEG mg/dL Urine Glucose (UA) NEG mg/dL Urine Ketones NEG mg/dL Urine Occult Blood NEG Urine Nitrite NEG Urine Bilirubin NEG Urine Leukocyte Esterase NEG Urine RBC 0-3 /hpf Urine Squamous Epithelial Cells 0-5 /hpf Microscopic Urinalysis Comment CULT NOT INDICATED Urine Collection Time 11:36 Differential Diagnosis Sickle cell crisis, vaso-occlusive crisis, electrolyte abnormality, dehydration , intra-abdominal process, UTI Narrative Course The patient's port was accessed. He was given 2 L of normal saline. He was given Toradol and 3 doses of morphine. He was reassessed frequently in the emergency department. Despite the above interventions, he continues to have pain. This is his second visit to our ED during this sickle cell crisis. Plan for admission for further evaluation and care. Diagnosis Primary Impression: Vaso-occlusive sickle cell crisis Admitting Information Admitting Physician Requests: Viviana Epperson MD Sep 21, 2017 08:03
[2017-09-21] MEDS ORDERED: MORPHINE SULFATE 4 MG/ML INJ IV PUSH ONE ×3 (08:15→12:45)
[2017-09-21] MEDS: SODIUM CHLORIDE 0.9% FLUSH 10 ML FLUSH IVF PRN ×3 (08:25→13:04)
[2017-09-21 08:32] LABS: HEMATOCRIT 34.5 % (39.0-51.0); HEMOGLOBIN 11.9 GM/DL (13.0-17.0); MEAN CORPUSCULAR HEMOGLOBIN 31.4 PG (27.0-34.0); MEAN CORPUSCULAR HGB CONC 34.5 % (32.0-36.0); MEAN PLATELET VOLUME 7.5 FL (7.0-11.0); PLATELET COUNT 277 TH/MM3 (150-450); RED BLOOD COUNT 3.79 MIL/MM3 (4.50-5.90); RED CELL DISTRIBUTION WIDTH 20.2 % (11.6-17.2); WHITE BLOOD COUNT 11.2 TH/MM3 (4.0-11.0)
[2017-09-21 08:37] LABS: CHLORIDE 105 MEQ/L (98-107); SODIUM (NA) 137 MEQ/L (136-145)
[2017-09-21 08:40] LABS: CALCIUM 8.6 MG/DL (8.5-10.1)
[2017-09-21 08:41] LABS: ALBUMIN 3.8 GM/DL (3.4-5.0); BLOOD UREA NITROGEN 5 MG/DL (7-18); GLUCOSE,RANDOM 98 MG/DL (74-106)
[2017-09-21 08:44] LABS: ALT (GPT) 24 U/L (12-78); AST (GOT) 21 U/L (15-37); CREATININE 0.62 MG/DL (0.60-1.30); GLOMERULAR FILTRATION RATE 193 ML/MIN (>89)
[2017-09-21 08:45] LABS: TOTAL BILIRUBIN ADULT 2.2 MG/DL (0.2-1.0)
[2017-09-21 08:46] LABS: TOTAL PROTEIN 8.1 GM/DL (6.4-8.2)
[2017-09-21 08:47] LABS: ALKALINE PHOSPHATASE 125 U/L (45-117)
[2017-09-21 09:04] LABS: CORRECTED NUCLEATED RBC 1 /100 WBC (0-0); LYMPHOCYTES 12 % (9-44); MONOCYTES 11 % (0-8); NEUTROPHIL # MANUAL DIFF 8.3 TH/MM3 (1.8-7.7); NUCLEATED RED BLOOD CELL 1 (0-0); OVALOCYTES 1+ (NORMAL); POLYS (SEG NEUTROPHILS) 74 % (16-70); SICKLE CELLS 1+ (NORMAL); TARGET CELLS 2+ (NORMAL)
--- NOTE | 2017-09-21 09:04 | RADRPT ---
EXAM DATE/TIME: 09/21/2017 08:43 [facility] COMPARISON: CHEST SINGLE AP, August 16, 2017, 5:44. CHEST PA & LAT, March 31, 2017, 20:14. INDICATIONS : Short of breath, sickle cell pain. MEDICAL HISTORY : Sickle Cell disease. Heart murmur. Pneumonia. Anemia. SURGICAL HISTORY : Infusaport. ENCOUNTER: Initial ACUITY: 3 days PAIN SCORE: 6/10 LOCATION: chest FINDINGS: AP and lateral views of the chest demonstrate mildly enlarged cardiac silhouette. Right chest wall In fuse-a-Port is present with distal tip in the superior vena cava. No pleural effusion, airspace conso lidation, or pneumothorax is identified. The bones and soft tissues demonstrate no acute finding. CONCLUSION: No acute cardiopulmonary abnormality is identified. Mild enlarged cardiac silhouette. Angel Moser MD on September 21, 2017 at 9:01 Board Certified Radiologist. This report was verified electronically.
[2017-09-21 09:54] LABS: RETIC # 322.1 MIL/L (20.0-150.0); RETIC % 8.4 % (0.4-3.0)
[2017-09-21] MEDS ORDERED: SODIUM CHLOR 0.9% 1000 ML INJ 1,000 ML IV SCH (10:23)
[2017-09-21 11:10] VITALS: BP 113/80; PULSE 90; RESP 16; O2SAT 98
[2017-09-21 11:41] LABS: BILIRUBIN, URINE NEG (NEG); BLOOD, URINE NEG (NEG); GLUCOSE,URINE NEG (NEG); KETONE, URINE NEG (NEG); NITRITE,URINE NEG (NEG); PH, URINE 5.5 (5.0-8.5); URINE LEUKOCYTE ESTERASE NEG (NEG)
[2017-09-21 11:51] LABS: RBC, URINE 0-3 /hpf (0-3); SQUAMOUS EPITHELIAL CELL URINE 0-5 /hpf (0-5); URINE COLOR YELLOW (YELLW/STRAW)
--- NOTE | 2017-09-21 13:45 | RADRPT ---
EXAM DATE/TIME: 09/21/2017 13:09 [facility] COMPARISON: CT ABDOMEN & PELVIS W/O CONTRAST, April 26, 2016, 16:25. CT ABDOMEN & PELVIS W/O CONTRAST, November 25, 2015, 1:25. CT ABDOMEN & PELVIS W/O CONTRAST, May 25, 2017, 18:07. INDICATIONS : Right hip and groin pain. Fever. ORAL CONTRAST: No oral contrast ingested. RADIATION DOSE: 10.65 CTDIvol (mGy) MEDICAL HISTORY : Sickle cell disease. SURGICAL HISTORY : None. ENCOUNTER: Initial ACUITY: 4 - 6 days PAIN SCALE: 8/10 LOCATION: Right inguinal TECHNIQUE: Volumetric scanning of the abdomen and pelvis was performed. Using automated exposure control and ad justment of the mA and/or kV according to patient size, radiation dose was kept as low as reasonably achievable to obtain optimal diagnostic quality images. DICOM format image data is available electro nically for review and comparison. FINDINGS: LOWER LUNGS: The visualized lower lungs are clear. LIVER: Homogeneous density without lesion. There is no dilation of the biliary tree. There are multiple ca lcified stones in the gallbladder. No gallbladder wall thickening or inflammation is present. SPLEEN: No normal spleen is visualized. There is a curvilinear high density structure in the left upper quadr ant. PANCREAS: Within normal limits. KIDNEYS: Normal in size and shape. There is no mass, stone, or hydronephrosis. ADRENAL GLANDS: Within normal limits. VASCULAR: There is no aortic aneurysm. BOWEL/MESENTERY: The stomach, small bowel, and colon demonstrate no acute abnormality. There is no free intraperitone al air or fluid. Appendix is normal. ABDOMINAL WALL: Within normal limits. RETROPERITONEUM: There is no lymphadenopathy. BLADDER: No wall thickening or mass. REPRODUCTIVE: Within normal limits. INGUINAL: There is no lymphadenopathy or hernia. MUSCULOSKELETAL: No acute osseous abnormality is identified. Right hip joint demonstrates no abnormality. CONCLUSION: 1. No abnormality is identified to explain the clinical symptoms. 2. Nonacute findings related to sickle cell disease include cholelithiasis and autosplenectomy. Angel Moser MD on September 21, 2017 at 13:35 Board Certified Radiologist. This report was verified electronically.
[2017-09-21 15:26] VITALS: BP 142/90
[2017-09-21 16:00] VITALS: BP 126/66; PULSE 65; RESP 16; TEMP 97.6; O2SAT 95
[2017-09-21] MEDS ORDERED: ONDANSETRON HCL 4 MG/2 ML VIAL IV PUSH PRN (17:00)
[2017-09-21] MEDS ORDERED: SODIUM CHLORIDE 0.9% FLUSH 10 ML FLUSH IV FLUSH PRN (17:00)
[2017-09-21] MEDS ORDERED: PROMETHAZINE INJ 25 MG/ML VIAL IM PRN (17:00)
[2017-09-21] MEDS ORDERED: ACETAMINOPHEN 325 MG TAB PO PRN (17:00)
--- NOTE | 2017-09-21 17:07 | HHI.HP ---
[facility] Service [facility] Primary Care Physician Jersey Holley DO Admission Diagnosis SICKLE CELL CRISIS Diagnoses: (1) Sickle cell anemia with pain Diagnosis: Principal (2) Noncompliance with medication regimen Diagnosis: Principal Chief Complaint: Pain Travel History International Travel<30 Days: No Contact w/Intl Traveler <30 Da: No Traveled to Known Affected Are: No History of Present Illness 22-year-old male with known history of sickle cell who is managed by Dr. Fisher from hematology. Patient has appointment tomorrow afternoon at 2 PM. Patient indicates that due to some legal issues his medications were confiscated with a car. So he has been out of medications since Tuesday. Patient indicates that he is had increased pain without his medications. Patient was evaluated by ER physician, patient does not indicate that he was offered any prescriptions and does not know if he can get any filled prior to tomorrow for his appointment. ER physician requested admission. Patient is requesting that we can control his pain and hopefully discharge tomorrow so he can make it to his appointment for his monthly refills Review of Systems Musculoskeletal: COMPLAINS OF: Joint pain Except as stated in HPI: all other systems reviewed are Neg Past Family Social History Past Medical History Sickle cell anemia History of priapism Past Surgical History Surgery for priapism Reported Medications Reported Meds & Active Scripts Active Reported Folic Acid 0.4 Mg Tab 400 Mcg PO DAILY Allergies: Coded Allergies: amoxicillin (Verified Allergy, Severe, Swelling, 09/21/17) penicillin G (Verified Allergy, Severe, told as child, 09/21/17) Family History Reviewed is significant for both mother and father with sickle cell trait Social History Patient denies any tobacco, alcohol or illicit drugs Physical Exam Vital Signs Vital Signs Date Time Temp Pulse Resp B/P (MAP) Pulse Ox O2 Delivery O2 Flow Rate FiO2 09/21/17 15:26 70 18 142/90 (107) 97 09/21/17 11:10 90 16 113/80 (91) 98 09/21/17 08:03 74 18 98 Room Air 09/21/17 08:02 98 09/21/17 07:50 97.9 79 20 131/84 (100) 98 Physical Exam GENERAL: Well-developed, well-nourished, in no acute distress. alert and orientated HEENT: Head is normocephalic without any lesions or masses noted. Facial features are symmetric. Eyes: Pupils equal round reactive to light. Extraocular muscles are intact. Conjunctivae were clear. Oropharyngeal: Pharynx without any erythema edema. Tongue is midline without deviation. Buccal mucosa is moist without any masses or lesions NECK: Supple without any masses. Trachea midline no deviation. No JVD, no bruits are appreciated CARDIAC: Regular rhythm, regular rate. S1/S2 are heard. No murmurs gallops or rubs. Port noted in right anterior chest LUNGS: Clear to auscultation bilaterally. No wheeze, rhonchi or rales. No use of accessory muscles on inspiration or expiration. ABDOMEN: Soft, nontender. Nondistended. Bowel sounds heard in all 4 quadrants. No organomegaly or masses. Negative rebound, negative guarding EXTREMITIES: No edema, pulses are equal bilaterally. No cyanosis or clubbing NEUROLOGY: Mood and affect appear appropriate. Cranial nerves II through XII grossly intact. Muscle strength 5/5 in upper and lower extremities bilaterally. Deep tendon reflexes are 2+ in upper and lower extremities bilaterally. Laboratory Laboratory Tests Test 09/21/17 08:23 09/21/17 11:36 White Blood Count 11.2 Red Blood Count 3.79 Hemoglobin 11.9 Hematocrit 34.5 Mean Corpuscular Volume 91.0 Mean Corpuscular Hemoglobin 31.4 Mean Corpuscular Hemoglobin Concent 34.5 Red Cell Distribution Width 20.2 Platelet Count 277 Mean Platelet Volume 7.5 CBC Comment AUTO DIFF Differential Total Cells Counted 100 Neutrophils % (Manual) 74 Lymphocytes % 12 Monocytes % 11 Eosinophils % 3 Neutrophils # (Manual) 8.3 Nucleated Red Blood Cells 1 Differential Comment FINAL DIFF MANUAL Platelet Estimate NORMAL Platelet Morphology Comment NORMAL Sickle Cells 1+ Target Cells 2+ Ovalocytes 1+ Reticulocyte Count 8.4 Absolute Reticulocyte Count 322.1 Blood Urea Nitrogen 5 Creatinine 0.62 Random Glucose 98 Total Protein 8.1 Albumin 3.8 Calcium Level 8.6 Alkaline Phosphatase 125 Aspartate Amino Transf (AST/SGOT) 21 Alanine Aminotransferase (ALT/SGPT) 24 Total Bilirubin 2.2 Sodium Level 137 Potassium Level 3.6 Chloride Level 105 Carbon Dioxide Level 25.0 Anion Gap 7 Estimat Glomerular Filtration Rate 193 Urine Collection Type CLEAN CATCH Urine Color YELLOW Urine Turbidity CLEAR Urine pH 5.5 Urine Specific [place] 1.010 Urine Protein NEG Urine Glucose (UA) NEG Urine Ketones NEG Urine Occult Blood NEG Urine Nitrite NEG Urine Bilirubin NEG Urine Leukocyte Esterase NEG Urine RBC 0-3 Urine Squamous Epithelial Cells 0-5 Microscopic Urinalysis Comment CULT NOT INDICATED Urine Collection Time 11:36 Result Diagram: 09/21/17 0823 09/21/1723 Imaging Last Impressions Abdomen/Pelvis CT 09/21/17 1259 Signed Impressions: Service Date/Time: Thursday, September 21, 2017 13:09 - CONCLUSION: 1. No abnormality is identified to explain the clinical symptoms. 2. Nonacute findings related to sickle cell disease include cholelithiasis and autosplenectomy. Angel Moser MD Chest X-Ray 09/21/17 0809 Signed Impressions: Service Date/Time: Thursday, September 21, 2017 08:43 - CONCLUSION: No acute cardiopulmonary abnormality is identified. Mild enlarged cardiac silhouette. MD Martine Washington VTE Risk Assessment Martine VTE Risk Assessment: Mod/High Risk (score >= 2) Caprini Risk Assessment Model Point Value = 1 Point Value = 2 Point Value = 3 Point Value = 5 Age 41-60 Minor surgery BMI > 25 kg/m2 Swollen legs Varicose veins or History of unexplained or recurrent spontaneous Oral contraceptives or hormone replacement Sepsis (< 1 month) Serious lung disease, including pneumonia (< 1 month) Abnormal pulmonary function Acute myocardial infarction Congestive heart failure (< 1 month) History of inflammatory bowel disease Medical patient at bed rest Age 61-74 Arthroscopic surgery Major open surgery (> 45 min) Laparoscopic surgery (> 45 min) Malignancy Confined to bed (> 72 hours) Immobilizing plaster cast Central venous access Age >= 75 History of VTE Family history of VTE Factor V Leiden Prothrombin [id number] Lupus anticoagulant Anticardiolipin antibodies Elevated serum homocysteine Heparin-induced thrombocytopenia Other congenital or acquired thrombophilia Stroke (< 1 month) Elective arthroplasty Hip, pelvis, or leg fracture Acute spinal cord injury (< 1 month) Prophylaxis Regimen Total Risk Factor Score Risk Level Prophylaxis Regimen 0-1 Low Early ambulation 2 Moderate Order ONE of the following: *Sequential Compression Device (SCD) *Heparin 5000 units SQ BID 3-4 Higher Order ONE of the following medications: *Heparin 5000 units SQ TID *Enoxaparin/Lovenox 40 mg SQ daily (WT < 150 kg, CrCl > 30 mL/min) *Enoxaparin/Lovenox 30 mg SQ daily (WT < 150 kg, CrCl > 10-29 mL/min) *Enoxaparin/Lovenox 30 mg SQ BID (WT < 150 kg, CrCl > 30 mL/min) AND/OR *Sequential Compression Device (SCD) 5 or more Highest Order ONE of the following medications: *Heparin 5000 units SQ TID (Preferred with Epidurals) *Enoxaparin/Lovenox 40 mg SQ daily (WT < 150 kg, CrCl > 30 mL/min) *Enoxaparin/Lovenox 30 mg SQ daily (WT < 150 kg, CrCl > 10-29 mL/min) *Enoxaparin/Lovenox 30 mg SQ BID (WT < 150 kg, CrCl > 30 mL/min) AND *Sequential Compression Device (SCD) Assessment and Plan Assessment and Plan Sickle cell anemia with pain Patient with generalized pain, chest x-ray and abdominal CT do not indicate any acute chest syndrome or acute intra-abdominal process Patient continued on pain control with Dilaudid 2 mg IV every 4 hours for pain 6-10, Dilaudid 1 mg IV every 4 hours for pain 1-5 Continue folic acid Continue IV fluid We'll make patient comfortable overnight and plan to discharge tomorrow to keep his appointment with his oncologist for medication refill DVT prevention Subcutaneous heparin Physician Certification 2 Midnight Certification Type: Admission for Inpatient Services Order for Inpatient Services The services are ordered in accordance with Medicare regulations or non- Medicare payer requirements, as applicable. In the case of services not specified as inpatient-only, they are appropriately provided as inpatient services in accordance with the 2-midnight benchmark. Estimated LOS (days): 1 days is the estimated time the patient will need to remain in the hospital, assuming treatment plan goals are met and no additional complications. Post-Hospital Plan: Not yet determined Ronald Juan Sep 21, 2017 17:07
[2017-09-21] MEDS: HYDROmorphone HCL PF 2 MG/ML VIAL IV PUSH PRN (17:13)
[2017-09-21] MEDS: SODIUM CHLOR 0.9% 1000 ML INJ 1,000 ML IV SCH (17:13)
[2017-09-21] MEDS: HEPARIN SODIUM - SQ 10,000 UNITS/ML VIAL SQ SCH (17:13)
[2017-09-21] MEDS ORDERED: HYDROmorphone HCL PF 2 MG/ML VIAL IV PUSH PRN (17:15)
[2017-09-21] MEDS: diphenhydrAMINE HCL 50 MG/ML VIAL IM PRN (17:50)
[2017-09-21 20:00] VITALS: BP 142/77; PULSE 73; RESP 16; TEMP 97.2; O2SAT 97
[2017-09-21] MEDS ORDERED: SODIUM CHLORIDE 0.9% FLUSH 10 ML FLUSH IV FLUSH SCH (21:00)
[2017-09-22] MEDS: HYDROmorphone HCL PF 2 MG/ML VIAL IV PUSH PRN ×2 (01:18→05:17)
[2017-09-22] MEDS: diphenhydrAMINE HCL 50 MG/ML VIAL IM PRN (01:19)
[2017-09-22] MEDS: SODIUM CHLOR 0.9% 1000 ML INJ 1,000 ML IV SCH (03:24)
[2017-09-22] MEDS: HEPARIN SODIUM - SQ 10,000 UNITS/ML VIAL SQ SCH (05:16)
[2017-09-22] MEDS ORDERED: FOLIC ACID 1 MG TAB PO SCH (09:00)
== END 2017-09-22 08:00 | disposition left against medical advice (07) | DRG 812 ==
LOC: PHED 07:45 → PHEDA 14:42 → PH3A 15:33 → OBSVTOIN 16:03
PROVIDERS: ADMIT Hospitalist; ATTEND Hospitalist
DX: D57.00 Hb-SS disease with crisis, unspecified (principal); Z88.0 Allergy status to penicillin; Z88.1 Allergy status to other antibiotic agents; Z91.14 Patient's other noncompliance with medication regimen
CPT/HCPCS: 71046; 74176; 80053; 81001; 85007; 85027; 85044; 94150; 96374; 96375; 96376; J1170; J1200; J1644; J1885; J2270; J2405; J7030

== ENCOUNTER 2017-09-25 07:23 | Emergency (ER) | payer MEDICAID ==
[2017-09-25] VITALS (8 sets, daily range): BP systolic 108–124; BP diastolic 55–80; PULSE 65–87; RESP 16–18; TEMP 97.8; O2SAT 96–97
[~2017-09-25 07:23] MED LIST changes: -DILA4TAB10 PO; -PERC10TA27 PO
[2017-09-25] MEDS ORDERED: PERC10TA27 PO (07:58)
[2017-09-25] MEDS ORDERED: DILA4TAB10 PO ×2 (07:58)
--- NOTE | 2017-09-25 08:53 | PD ---
HPI Chief Complaint: Sickle Cell Time Seen by Provider: 08:46 Travel History International Travel<30 days: No Contact w/Intl Traveler<30days: No Traveled to known affect area: No History of Present Illness HPI Patient today comes in complaining of pain similar to his past sickle cell crisis however this particular time he does have more of a chest pain component that he has had in the past. Usually his sickle cell pain is generalized extremity pain back pain occasionally he has some chest pain but is not very usual. Patient denies any cough, fever, rash, nausea, vomiting, diarrhea, abdominal pain. Currently no alleviating or aggravating factors. Patient has been seen on the and the 28 for the same sickle cell pain crisis. Patient has available at home both Percocet and Dilaudid oral tablets, which the patient states that he does not take because they do not work. Follows up with Dr. Rider for hematology. PCP is Dr. Holley Allergy to amoxicillin, penicillin Past medical history significant for sickle cell, asthma, PFSH Past Medical History Anemia: Yes (SICKLE CELL ) Arthritis: No Asthma: Yes (PT DENIES) Autoimmune Disease: Yes (SICKLE CELL ) Blood Disorders: No Anxiety: No Depression: No Heart Rhythm Problems: Yes (MURMUR) Cancer: No Cardiovascular Problems: Yes (HX OF SICKLE CELL, GETS INFUSIONS EVERY FOUR WEEKS .) High Cholesterol: No Chemotherapy: No Chest Pain: Yes Congestive Heart Failure: No COPD: No Cerebrovascular Accident: No Diabetes: No Diminished Hearing: No Endocrine: No Gastrointestinal Disorders: No GERD: No Genitourinary: No Headaches: No Hiatal Hernia: No Heparin Induced Thrombocytopen: No Hypertension: No Immune Disorder: Yes Implanted Vascular Access Dvce: No Kidney Stones: No Musculoskeletal: Yes Neurologic: Yes Psychiatric: No Reproductive: No Respiratory: Yes Immunizations Current: Yes Migraines: No Pneumonia: Yes Radiation Therapy: No Renal Failure: No Seizures: No Sickle Cell Disease: Yes Sleep Apnea: No Thyroid Disease: No Ulcer: No Tetanus Vaccination: > 5 Years Influenza Vaccination: No Past Surgical History Abdominal Surgery: No AICD: No Arteriovenous Shunt: No Cardiac Surgery: No Ear Surgery: No Endocrine Surgery: No Eye Surgery: No Genitourinary Surgery: Yes (PRIAPRISM ) Gynecologic Surgery: No Insulin Pump: No Joint Replacement: No Neurologic Surgery: No Oral Surgery: No Pacemaker: No Thoracic Surgery: No Social History Alcohol Use: No Tobacco Use: No Substance Use: No Allergies-Medications (Allergen,Severity, Reaction): Coded Allergies: amoxicillin (Verified Allergy, Severe, Swelling, 09/21/17) penicillin G (Verified Allergy, Severe, told as child, 09/21/17) Reported Meds & Prescriptions Reported Meds & Active Scripts Active Reported Percocet (Oxycodone-Acetaminophen) 10-325 mg Tab 1 Tab PO Q6H PRN Dilaudid (Hydromorphone HCl) 4 Mg Tab 4 Mg PO Q6H PRN Folic Acid 0.4 Mg Tab 400 Mcg PO DAILY Physical Exam Narrative GENERAL: SKIN: Warm and dry. HEAD: Atraumatic. Normocephalic. EYES: Pupils equal and round. No scleral icterus. No injection or drainage. ENT: No nasal bleeding or discharge. Mucous membranes pink and moist. NECK: Trachea midline. No JVD. CARDIOVASCULAR: Regular rate and rhythm. RESPIRATORY: No accessory muscle use. RIGHT SIDED RONCHI Breath sounds equal bilaterally. GASTROINTESTINAL: Abdomen soft, non-tender, nondistended. . MUSCULOSKELETAL: Extremities without clubbing, cyanosis, or edema. No obvious deformities. NEUROLOGICAL: Awake and alert. No obvious cranial nerve deficits. Motor grossly within normal limits. Five out of 5 muscle strength in the arms and legs. Normal speech. PSYCHIATRIC: Appropriate mood and affect; insight and judgment normal. Data Data Last Documented VS Vital Signs Date Time Temp Pulse Resp B/P (MAP) Pulse Ox O2 Delivery O2 Flow Rate FiO2 09/25/17 13:03 65 18 116/55 (75) 97 Room Air 09/25/17 07:32 97.8 Orders Orders Electrocardiogram (09/25/17 08:57) Ckmb (Isoenzyme) Profile (09/25/17 08:57) Complete Blood Count With Diff (09/25/17 08:57) Comprehensive Metabolic Panel (09/25/17 08:57) Prothrombin Time / Inr (Pt) (09/25/17 08:57) Act Partial Throm Time (Ptt) (09/25/17 08:57) Troponin I (09/25/17 08:57) Lipase (09/25/17 08:57) Ecg Monitoring (09/25/17 08:57) Iv Access Insert/Monitor (09/25/17 08:57) Oximetry (09/25/17 08:57) Oxygen Administration (09/25/17 08:57) Sodium Chlorid 0.9% 500 Ml Inj (Ns 500 M (09/25/17 09:00) Lidocaine 2% Inj (Xylocaine 2% Inj) (09/25/17 09:00) Ventilation & Perfusion Scan (09/25/17 09:35) Chest, Single Ap (09/25/17 10:06) CKMB (09/25/17 10:00) CKMB% (09/25/17 10:00) Ceftriaxone Inj (Rocephin Inj) (09/25/17 14:00) Azithromycin Inj (Zithromax Inj) (09/25/17 13:00) Labs Laboratory Tests Test 09/25/17 10:00 White Blood Count 13.3 TH/MM3 Red Blood Count 3.20 MIL/MM3 Hemoglobin 10.4 GM/DL Hematocrit 29.2 % Mean Corpuscular Volume 91.1 FL Mean Corpuscular Hemoglobin 32.3 PG Mean Corpuscular Hemoglobin Concent 35.5 % Red Cell Distribution Width 20.7 % Platelet Count 167 TH/MM3 Mean Platelet Volume 7.8 FL CBC Comment AUTO DIFF Differential Total Cells Counted 100 Neutrophils % (Manual) 58 % Lymphocytes % 32 % Monocytes % 4 % Eosinophils % 4 % Basophils % 2 % Neutrophils # (Manual) 7.7 TH/MM3 Differential Comment FINAL DIFF MANUAL Platelet Estimate LOW Platelet Morphology Comment NORMAL Sickle Cells 1+ Target Cells 1+ Tear Drop Cells 1+ Ovalocytes 1+ Duncan-[place]ol[place] Bodies PRESENT Prothrombin Time 12.0 SEC Prothromb Time International Ratio 1.2 RATIO Activated Partial Thromboplast Time 26.1 SEC Blood Urea Nitrogen 9 MG/DL Creatinine 0.63 MG/DL Random Glucose 89 MG/DL Total Protein 7.6 GM/DL Albumin 3.5 GM/DL Calcium Level 7.8 MG/DL Alkaline Phosphatase 120 U/L Aspartate Amino Transf (AST/SGOT) 39 U/L Alanine Aminotransferase (ALT/SGPT) 50 U/L Total Bilirubin 3.8 MG/DL Sodium Level 139 MEQ/L Potassium Level 3.8 MEQ/L Chloride Level 106 MEQ/L Carbon Dioxide Level 25.2 MEQ/L Anion Gap 8 MEQ/L Estimat Glomerular Filtration Rate 190 ML/MIN Total Creatine Kinase 119 U/L Creatine Kinase MB LESS THAN 0.5 NG/ML Troponin I LESS THAN 0.02 NG/ML Lipase 104 U/L [facility] Medical Decision Making Medical Screen Exam Complete: Yes Emergency Medical Condition: Yes Medical Record Reviewed: Yes Differential Diagnosis PNA V PULM EMBOLUS V PLEURAL EFFUSION V CHEST SYNDDROME Narrative Course Patient was last admitted on September 21 at which time his hemoglobin was 11.9/ 34.5., All electrolytes were within normal limits. CT abdomen and pelvis did not show any acute findings, only showed cholelithiasis and autosplenectomy. Chest x-ray was read as no acute cardiopulmonary abnormality by radiologist with the exception of a mild enlarged cardiac silhouette. During the last admission gram IV every 4 hours for pain 1 level 1 through 5. It is very suspect and now that the patient has Dilaudid and Percocet available to him n.p.o. form the patient still comes back to the ER requesting IV form of those medications because the p.o. form do not help him. I advised patient that he will be reexamined retested on blood work and chest x-ray given IV fluids supplemental oxygen folate and if needed for pain control lidocaine IV, he will not be given any narcotic pain medication because he has plenty available at home. CBC shows 13,000 white count slight elevation H&H stable at 10 normal platelet count no left shift at all. And normal reticulocyte count Regulation factor profile is normal Complete metabolic profile shows normal electrolytes, normal kidney functions, normal lipase, normal troponin, mildly decreased calcium of 7.8. Chest x-ray shows possible early right inflammatory process on the right base as read by the radiologist. VQ scan is read as low probability PE by the radiologist. This case was already discussed with the hospitalist who recommended outpatient treatment of the pneumonia and stated that the patient has outpatient pain medication pills to take and that no additional narcotic medication should be provided or ordered. This patient was already provided with single dose doses of antibiotic today IV. Diagnosis Primary Impression: Possible right lower lobe pneumonia Additional Impression: Sickle cell pain crisis Patient Instructions: Community Acquired Pneumonia (DC), General Instructions, Sickle Cell Crisis (ED) Scripts Ciprofloxacin (Cipro) 500 Mg Tab 500 MG PO BID for Infection for 10 Days, #20 TAB 0 Refills Prov: Ron Garrison MD 09/25/17 Disposition: DISCHARGE HOME Condition: Stable Ron Garrison MD Sep 25, 2017 08:53
[2017-09-25] MEDS ORDERED: SODIUM CHLORID 0.9% 500 ML INJ 500 ML IV ONE (09:00)
[2017-09-25] MEDS ORDERED: LIDOCAINE HCL 2% 100 MG/5 ML SYRINGE IV PUSH ONE (09:00)
[2017-09-25 10:13] LABS: HEMATOCRIT 29.2 % (39.0-51.0); HEMOGLOBIN 10.4 GM/DL (13.0-17.0); MEAN CELL VOLUME 91.1 FL (80.0-100.0); MEAN CORPUSCULAR HEMOGLOBIN 32.3 PG (27.0-34.0); MEAN CORPUSCULAR HGB CONC 35.5 % (32.0-36.0); MEAN PLATELET VOLUME 7.8 FL (7.0-11.0); PLATELET COUNT 167 TH/MM3 (150-450); RED CELL DISTRIBUTION WIDTH 20.7 % (11.6-17.2); WHITE BLOOD COUNT 13.3 TH/MM3 (4.0-11.0)
--- NOTE | 2017-09-25 10:24 | RADRPT ---
EXAM DATE/TIME: 09/25/2017 10:10 [facility] COMPARISON: CHEST SINGLE AP, August 16, 2017, 5:44. INDICATIONS : Sickle cell crisis MEDICAL HISTORY : Sickle Cell disease. SURGICAL HISTORY : infusaport ENCOUNTER: Initial ACUITY: 1 day PAIN SCORE: 10/10 LOCATION: Bilateral chest FINDINGS: Prominent cardiac silhouette with minimal parenchymal changes right base that could be inflammatory [id number] right chest. The portion of the bony skeleton visualized is unremarkable. CONCLUSION: Possible early inflammatory process right base Prominent cardiac silhouette. Colby Jorge MD FACR on September 25, 2017 at 10:23 Board Certified Radiologist. This report was verified electronically.
[2017-09-25 10:28] LABS: CHLORIDE 106 MEQ/L (98-107); SODIUM (NA) 139 MEQ/L (136-145)
[2017-09-25 10:31] LABS: CALCIUM 7.8 MG/DL (8.5-10.1); INTERNATIONAL NORMALIZED RATIO 1.2 RATIO
[2017-09-25 10:32] LABS: ALBUMIN 3.5 GM/DL (3.4-5.0); BICARBONATE 25.2 MEQ/L (21.0-32.0); BLOOD UREA NITROGEN 9 MG/DL (7-18); GLUCOSE,RANDOM 89 MG/DL (74-106)
[2017-09-25 10:35] LABS: ALT (GPT) 50 U/L (12-78); AST (GOT) 39 U/L (15-37); CREATININE 0.63 MG/DL (0.60-1.30); GLOMERULAR FILTRATION RATE 190 ML/MIN (>89)
[2017-09-25 10:36] LABS: TOTAL BILIRUBIN ADULT 3.8 MG/DL (0.2-1.0); TOTAL PROTEIN 7.6 GM/DL (6.4-8.2)
[2017-09-25 10:38] LABS: ALKALINE PHOSPHATASE 120 U/L (45-117)
[2017-09-25 10:40] LABS: TROPONIN I LESS THAN 0.02 NG/ML (0.02-0.05)
[2017-09-25 11:05] LABS: BASOPHILS 2 % (0-2); LYMPHOCYTES 32 % (9-44); MONOCYTES 4 % (0-8); NEUTROPHIL # MANUAL DIFF 7.7 TH/MM3 (1.8-7.7); POLYS (SEG NEUTROPHILS) 58 % (16-70)
[2017-09-25 11:07] LABS: HOWELL-JOLLY BODIES PRESENT (NONE SEEN); OVALOCYTES 1+ (NORMAL); SICKLE CELLS 1+ (NORMAL); TARGET CELLS 1+ (NORMAL); TEARDROP RBCS 1+ (NORMAL)
[2017-09-25] MEDS ORDERED: AZITHROMYCIN INJ 500 MG in SODIUM CHLOR 0.9% 250 ML INJ 250 ML IV ONE (13:00)
--- NOTE | 2017-09-25 13:13 | RADRPT ---
EXAM DATE/TIME: 09/25/2017 12:17 [facility] COMPARISON: CHEST SINGLE AP, September 25, 2017, 10:10. INDICATIONS : Chest pain with shortness of breath for three days. DOSE: 8.7 mCi Tc99m MAA IV 0.98 mCi Tc99m DTPA aerosol MEDICAL HISTORY : Sickle cell disease. SURGICAL HISTORY : None. ENCOUNTER: Initial ACUITY: 3 days PAIN SCALE: 4/10 LOCATION: Bilateral chest TECHNIQUE: Following five minutes of tidal breathing of DTPA aerosol, planar images of the lungs were performed in eight projections. The patient was then injected with MAA, and eight-view perfusion scan was perf ormed. FINDINGS: There is a homogeneous pattern of aerosol delivery to the periphery of both lungs. No focal ventilat ory defects are seen. The perfusion lung scan demonstrates a homogenous pattern of uptake in both lungs. No segmental or s ubsegmental defects are seen. CONCLUSION: Low probability for pulmonary embolism.. Colby Jorge MD FACR on September 25, 2017 at 13:11 Board Certified Radiologist. This report was verified electronically.
--- NOTE | 2017-09-25 13:19 | EKG ---
Date Performed: 09/25/2017 Time Performed: 09:09:14 PTAGE: 22 years EKG: Sinus rhythm NORMAL ECG PREVIOUS TRACING : 08/15/2017 13.02 DOCTOR: Sanya Lynn Interpretating Date/Time 09/25/2017 13:17:31
[2017-09-25] MEDS ORDERED: CIPR-9 PO (13:20)
[2017-09-25] MEDS ORDERED: HYDROmorphone HCL PF 2 MG/ML VIAL IV PUSH ONE (13:45)
[2017-09-25] MEDS ORDERED: METOCLOPRAMIDE HCL 10 MG/2 ML VIAL IV PUSH ONE (13:45)
[2017-09-25] MEDS ORDERED: cefTRIAXone INJ 1,000 MG in SODIUM CHLORIDE 0.9% INJ 100 ML IV ONE (14:00)
== END 2017-09-25 15:25 | disposition home or self-care (01) ==
LOC: PHED 07:23
DX: J18.9 Pneumonia, unspecified organism (principal); D57.00 Hb-SS disease with crisis, unspecified
CPT/HCPCS: 71045; 78582; 80053; 82550; 82552; 83690; 84484; 85007; 85027; 85610; 85730; 93005; 96361; 96365; 96366; 96375; 99285; A9540; A9567; J0456; J0696; J1170; J1642; J2765; J7040; J7050

== ENCOUNTER 2017-09-27 07:44 | Emergency (ER) | payer MEDICAID ==
[~2017-09-27] VITALS: Ht 188 cm; Wt 87.6 kg
[~2017-09-27 07:44] MED LIST changes: +CIPR-9 PO; +DILA4TAB10 PO; +PERC10TA27 PO
[2017-09-27 07:49] VITALS: BP 132/65; PULSE 89; RESP 18; TEMP 99.3; O2SAT 95
[2017-09-27 08:40] LABS: HEMATOCRIT 31.4 % (39.0-51.0); HEMOGLOBIN 10.7 GM/DL (13.0-17.0); MEAN CELL VOLUME 91.1 FL (80.0-100.0); MEAN CORPUSCULAR HEMOGLOBIN 31.1 PG (27.0-34.0); MEAN CORPUSCULAR HGB CONC 34.1 % (32.0-36.0); MEAN PLATELET VOLUME 8.1 FL (7.0-11.0); PLATELET COUNT 204 TH/MM3 (150-450); RED BLOOD COUNT 3.45 MIL/MM3 (4.50-5.90); RED CELL DISTRIBUTION WIDTH 20.6 % (11.6-17.2); WHITE BLOOD COUNT 13.1 TH/MM3 (4.0-11.0)
--- NOTE | 2017-09-27 08:45 | RADRPT ---
EXAM DATE/TIME: 09/27/2017 08:31 [facility] COMPARISON: CHEST SINGLE AP, September 25, 2017, 10:10. CHEST PA & LAT, September 21, 2017, 8:43. INDICATIONS : Chest pain, short of breath. MEDICAL HISTORY : Sickle Cell disease. heart murmur, anemia SURGICAL HISTORY : infusaport ENCOUNTER: Initial ACUITY: 4 - 6 days PAIN SCORE: 5/10 LOCATION: Bilateral chest FINDINGS: Stable right IJ [id number]. Improved aeration in the lung bases bilaterally. Cardiomediastinal con tours are within normal limits. Bony thorax is intact. CONCLUSION: 1. Improved aeration at the lung bases. 2. No acute abnormality. Christiano Waite MD on September 27, 2017 at 8:43 Board Certified Radiologist. This report was verified electronically.
[2017-09-27] MEDS ORDERED: SODIUM CHLOR 0.9% 1000 ML INJ 1,000 ML IV ONE (09:00)
[2017-09-27] MEDS ORDERED: HYDROmorphone HCL PF 2 MG/ML VIAL IV PUSH ONE ×3 (09:00→12:00)
[2017-09-27] MEDS ORDERED: diphenhydrAMINE HCL 50 MG/ML VIAL IV PUSH ONE ×2 (09:00→12:15)
[2017-09-27] MEDS ORDERED: KETOROLAC TROMETHAMINE 30 MG/ML (IVP) VIAL IV PUSH ONE (09:00)
[2017-09-27 09:10] LABS: CORRECTED NUCLEATED RBC 3 /100 WBC (0-0); LYMPHOCYTES 17 % (9-44); MONOCYTES 4 % (0-8); NEUTROPHIL # MANUAL DIFF 9.3 TH/MM3 (1.8-7.7); NUCLEATED RED BLOOD CELL 3 (0-0); OVALOCYTES 1+ (NORMAL); POLYS (SEG NEUTROPHILS) 71 % (16-70); SICKLE CELLS 1+ (NORMAL); TARGET CELLS 2+ (NORMAL)
[2017-09-27 09:11] LABS: HOWELL-JOLLY BODIES PRESENT (NONE SEEN); KERATOCYTES OCC (NORMAL)
--- NOTE | 2017-09-27 09:15 | PD ---
HPI Chief Complaint: Sickle Cell Time Seen by Provider: 08:46 Travel History International Travel<30 days: No Contact w/Intl Traveler<30days: No Traveled to known affect area: No History of Present Illness HPI Patient is a 22-year-old male presents emergency department for evaluation of chest pain and groin pain. He is well-known to me from previous visits to the ER. He has been here quite frequently over the past few days, his last admission appears that he had to have 3 doses of morphine and 3 doses of Dilaudid prior to being discharged. He was recently also diagnosed with a pneumonia and is taking ciprofloxacin for this. He states typically he does get pain in his groin and as needed new for him but the pain in the chest is something that caused him to be concerned. From the onset of his arrival he states that Dr. Javier wanted him to have a blood transfusion as an outpatient which would have been on Tuesday. He is quite concerned that his pain is not being adequately controlled at home. He denies any shortness of breath fevers does endorse some cough and congestion. He states the pain is severe, 10 out of 10, not relieved with home opiates, context as above PFSH Past Medical History Anemia: Yes (SICKLE CELL ) Arthritis: No Asthma: Yes (PT DENIES) Autoimmune Disease: Yes (SICKLE CELL ) Blood Disorders: No Anxiety: No Depression: No Heart Rhythm Problems: Yes (MURMUR) Cancer: No Cardiovascular Problems: Yes High Cholesterol: No Chemotherapy: No Chest Pain: Yes Congestive Heart Failure: No COPD: No Cerebrovascular Accident: No Diabetes: No Diminished Hearing: No Endocrine: No Gastrointestinal Disorders: No GERD: No Genitourinary: No Headaches: No Hiatal Hernia: No Heparin Induced Thrombocytopen: No Hypertension: No Immune Disorder: Yes Implanted Vascular Access Dvce: No Kidney Stones: No Musculoskeletal: Yes Neurologic: Yes Psychiatric: No Reproductive: No Respiratory: Yes Immunizations Current: Yes Migraines: No Pneumonia: Yes Radiation Therapy: No Renal Failure: No Seizures: No Sickle Cell Disease: Yes Sleep Apnea: No Thyroid Disease: No Ulcer: No Influenza Vaccination: Yes Past Surgical History Abdominal Surgery: No AICD: No Arteriovenous Shunt: No Cardiac Surgery: No Ear Surgery: No Endocrine Surgery: No Eye Surgery: No Genitourinary Surgery: Yes (PRIAPRISM ) Gynecologic Surgery: No Insulin Pump: No Joint Replacement: No Neurologic Surgery: No Oral Surgery: No Pacemaker: No Thoracic Surgery: No Other Surgery: Yes Social History Alcohol Use: No Tobacco Use: No Substance Use: No Allergies-Medications (Allergen,Severity, Reaction): Coded Allergies: amoxicillin (Verified Allergy, Severe, Swelling, 09/27/17) penicillin G (Verified Allergy, Severe, told as child, 09/27/17) Reported Meds & Prescriptions Reported Meds & Active Scripts Active Cipro (Ciprofloxacin HCl) 500 Mg Tab 500 Mg PO BID 10 Days Reported Percocet (Oxycodone-Acetaminophen) 10-325 mg Tab 1 Tab PO Q6H PRN Dilaudid (Hydromorphone HCl) 4 Mg Tab 4 Mg PO Q6H PRN Folic Acid 0.4 Mg Tab 400 Mcg PO DAILY Review of Systems Except as stated in HPI: all other systems reviewed are Neg Physical Exam Narrative GENERAL: Well-developed, well-nourished, appears fairly comfortable. SKIN: Focused skin assessment warm/dry. HEAD: Atraumatic. Normocephalic. EYES: Pupils equal and round. No scleral icterus. No injection or drainage. ENT: No nasal bleeding or discharge. Mucous membranes pink and moist. TMs clear bilaterally, oropharynx clear moist NECK: Trachea midline. No JVD. CARDIOVASCULAR: Regular rate and rhythm. No murmur appreciated. RESPIRATORY: No accessory muscle use. Clear to auscultation. Breath sounds equal bilaterally. GASTROINTESTINAL: Abdomen soft, non-tender, nondistended. Hepatic and splenic margins not palpable. MUSCULOSKELETAL: No obvious deformities. No clubbing. No cyanosis. No edema. NEUROLOGICAL: Awake and alert. No obvious cranial nerve deficits. Motor grossly within normal limits. Normal speech. PSYCHIATRIC: Appropriate mood and affect; insight and judgment normal. Data Data Last Documented VS Vital Signs Date Time Temp Pulse Resp B/P (MAP) Pulse Ox O2 Delivery O2 Flow Rate FiO2 09/27/17 13:09 88 18 148/7 (54) 99 09/27/17 09:56 Room Air 09/27/17 07:49 99.3 Orders Orders Complete Blood Count With Diff (09/27/17 08:10) Retic Count (09/27/17 08:10) Iv Access Insert/Monitor (09/27/17 08:10) Chest, Pa & Lat (09/27/17 08:10) Ketorolac Inj (Toradol Inj) (09/27/17 09:00) Diphenhydramine Inj (Benadryl Inj) (09/27/17 09:00) Hydromorphone Pf Inj (Dilaudid Pf Inj) (09/27/17 09:00) Sodium Chlor 0.9% 1000 Ml Inj (Ns 1000 M (09/27/17 09:00) Hydromorphone Pf Inj (Dilaudid Pf Inj) (09/27/17 10:00) Electrocardiogram (09/27/17 ) Ed Discharge Order (09/27/17 11:47) Hydromorphone Pf Inj (Dilaudid Pf Inj) (09/27/17 12:00) Heparin Central Flush (Heparin Central F (09/27/17 12:00) Diphenhydramine Inj (Benadryl Inj) (09/27/17 12:15) Labs Laboratory Tests Test 09/27/17 08:25 White Blood Count 13.1 TH/MM3 Red Blood Count 3.45 MIL/MM3 Hemoglobin 10.7 GM/DL Hematocrit 31.4 % Mean Corpuscular Volume 91.1 FL Mean Corpuscular Hemoglobin 31.1 PG Mean Corpuscular Hemoglobin Concent 34.1 % Red Cell Distribution Width 20.6 % Platelet Count 204 TH/MM3 Mean Platelet Volume 8.1 FL CBC Comment AUTO DIFF Differential Total Cells Counted 100 Neutrophils % (Manual) 71 % Lymphocytes % 17 % Monocytes % 4 % Eosinophils % 8 % Neutrophils # (Manual) 9.3 TH/MM3 Nucleated Red Blood Cells 3 /100 WBC Differential Comment FINAL DIFF MANUAL Platelet Estimate NORMAL Platelet Morphology Comment NORMAL Sickle Cells 1+ Target Cells 2+ Ovalocytes 1+ [place] Bodies PRESENT Keratocytes OCC Reticulocyte Count 10.0 % Absolute Reticulocyte Count 338.2 MIL/L MDM Medical Decision Making Medical Screen Exam Complete: Yes Emergency Medical Condition: Yes Differential Diagnosis Occlusive pain crisis, sequestration unlikely, aplastic crisis, pneumonia, acute chest Narrative Course Patient was room to the emergency department, he received a total of 4 mg Dilaudid IV, normal saline, Toradol and Benadryl. He states his pain is gone from a 10 out of 10 down to an 8 out of 10. EKG was nonischemic, chest x-ray negative here. His hemoglobin is 10 but does have elevated reticulocyte count. On revisit the patient states still having significant pain and would like to be admitted to the hospital. After a total of 5 mg of dilaudid IV the patient still appears very comfortable but states pain is still 8/10. Patient states he was told by his oncologist that he will need a blood transfusion this tuesday (3 days from now), and would like better pain control until then. Hbg is 10, retic minimally elevated. CXR negative but already on antibiotics. VSS. I discussed the patient with Dr. Ramone Melissa of the hospitalist service for possible obs status at his request but in my opinion he appears comfortable and i think could be managed on an outpatient basis. She agrees. This was discussed with patient and he is welcome to return should pain become intense once again but he was sleeping on one of my reassessments. Diagnosis Primary Impression: Sickle cell pain crisis Disposition: 01 DISCHARGE HOME Condition: Stable Kwame Pathak MD Sep 27, 2017 09:15
[2017-09-27 09:56] VITALS: BP 150/74; PULSE 89; RESP 18; O2SAT 95
[2017-09-27 10:10] LABS: RETIC # 338.2 MIL/L (20.0-150.0)
[2017-09-27 12:36] VITALS: RESP 18
[2017-09-27 13:09] VITALS: BP 148/7
--- NOTE | 2017-09-27 18:56 | EKG ---
Date Performed: 09/27/2017 Time Performed: 11:09:47 PTAGE: 22 years EKG: Sinus rhythm MINIMAL VOLTAGE CRITERIA FOR LVH, CONSIDER NORMAL VARIANT BORDERLINE ECG Since the prior tracing, th ere has been no significant change PREVIOUS TRACING : 09/25/2017 09.09 DOCTOR: Amari Swift Interpretating Date/Time 09/27/2017 18:54:33
== END 2017-09-27 13:10 | disposition home or self-care (01) ==
LOC: PHED 07:44
DX: D57.00 Hb-SS disease with crisis, unspecified (principal); R94.31 Abnormal electrocardiogram [ECG] [EKG]
CPT/HCPCS: 71046; 85007; 85027; 85044; 93005; 96361; 96374; 96375; 96376; 99285; J1170; J1200; J1642; J1885; J7030

== ENCOUNTER 2017-10-26 12:35 | Emergency (ER) | payer MEDICAID ==
[2017-10-26 12:42] VITALS: BP 138/65; PULSE 95; RESP 20; TEMP 98.6; O2SAT 96
--- NOTE | 2017-10-26 13:09 | PD ---
HPI Chief Complaint: Abdominal Pain Time Seen by Provider: 13:08 Travel History International Travel<30 days: No Contact w/Intl Traveler<30days: No Traveled to known affect area: No History of Present Illness HPI 22-year-old male came to the emergency room with his girlfriend with history of painful crisis secondary to sickle cell. Patient has history of sickle cell disease and has been in the emergency room multiple times. He was recently admitted for intractable pain. Patient says that he had his last blood transfusion 1 month ago. 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 Patient is at home on Dilaudid for pain. Today his pain is in the chest, groin and both legs. No history of nausea vomiting. Vital signs were relatively stable. Patient has had negative CT abdomen and pelvis for any acute issues recently done in August and multiple other times in the past. Pain is there constantly. No aggravating or relieving factors identified PFSH Past Medical History Narrative Medical List of his past medical, surgical, social and family history is reviewed from the nursing note. Anemia: Yes (SICKLE CELL ) Arthritis: No Asthma: Yes (PT DENIES) Autoimmune Disease: Yes (SICKLE CELL ) Blood Disorders: No Anxiety: No Depression: No Heart Rhythm Problems: Yes (MURMUR) Cancer: No Cardiovascular Problems: Yes High Cholesterol: No Chemotherapy: No Chest Pain: Yes Congestive Heart Failure: No COPD: No Cerebrovascular Accident: No Diabetes: No Diminished Hearing: No Endocrine: No Gastrointestinal Disorders: No GERD: No Genitourinary: No Headaches: No Hiatal Hernia: No Heparin Induced Thrombocytopen: No Hypertension: No Immune Disorder: Yes Implanted Vascular Access Dvce: No Kidney Stones: No Musculoskeletal: Yes Neurologic: Yes Psychiatric: No Reproductive: No Respiratory: Yes Immunizations Current: Yes Migraines: No Pneumonia: Yes Radiation Therapy: No Renal Failure: No Seizures: No Sickle Cell Disease: Yes Sleep Apnea: No Thyroid Disease: No Ulcer: No Past Surgical History Abdominal Surgery: No AICD: No Arteriovenous Shunt: No Cardiac Surgery: No Ear Surgery: No Endocrine Surgery: No Eye Surgery: No Genitourinary Surgery: Yes (PRIAPRISM ) Gynecologic Surgery: No Insulin Pump: No Joint Replacement: No Neurologic Surgery: No Oral Surgery: No Pacemaker: No Thoracic Surgery: No Other Surgery: Yes Social History Alcohol Use: No Tobacco Use: No Substance Use: No Allergies-Medications (Allergen,Severity, Reaction): Coded Allergies: amoxicillin (Verified Allergy, Severe, Swelling, 10/26/17) penicillin G (Verified Allergy, Severe, told as child, 10/26/17) Comments List of his allergies reviewed from the nursing note. Reported Meds & Prescriptions Reported Meds & Active Scripts Active No Active Prescriptions or Reported Medications Narrative Medication List of his home medications reviewed from the nursing note. Review of Systems Except as stated in HPI: all other systems reviewed are Neg Gastrointestinal: Positive: Abdominal Pain Musculoskeletal: Positive: Pain Physical Exam Narrative GENERAL: Awake, alert, mild distress SKIN: Focused skin assessment warm/dry. HEAD: Atraumatic. Normocephalic. EYES: Pupils equal and round. No scleral icterus. No injection or drainage. ENT: No nasal bleeding or discharge. Mucous membranes pink and moist. NECK: Trachea midline. No JVD. CARDIOVASCULAR: Regular rate and rhythm. No murmur appreciated. RESPIRATORY: No accessory muscle use. Clear to auscultation. Breath sounds equal bilaterally. GASTROINTESTINAL: Abdomen soft, non-tender, nondistended. Hepatic and splenic margins not palpable. MUSCULOSKELETAL: No obvious deformities. No clubbing. No cyanosis. No edema. NEUROLOGICAL: Awake and alert. No obvious cranial nerve deficits. Motor grossly within normal limits. Normal speech. PSYCHIATRIC: Appropriate mood and affect; insight and judgment normal. Data Data Last Documented VS Vital Signs Date Time Temp Pulse Resp B/P (MAP) Pulse Ox O2 Delivery O2 Flow Rate FiO2 10/26/17 16:18 10/26/17 15:39 77 16 96 Room Air 10/26/17 12:42 98.6 Orders Orders Complete Blood Count With Diff (10/26/17 13:30) Basic Metabolic Panel (Bmp) (10/26/17 13:30) Retic Count (10/26/17 13:30) Sodium Chlor 0.9% 1000 Ml Inj (Ns 1000 M (10/26/17 13:30) Hydromorphone Pf Inj (Dilaudid Pf Inj) (10/26/17 13:30) Urinalysis - C+S If Indicated (10/26/17 13:33) Diphenhydramine (Benadryl) (10/26/17 14:00) Hydromorphone Pf Inj (Dilaudid Pf Inj) (10/26/17 15:30) Ed Discharge Order (10/26/17 15:56) Heparin Central Flush (Heparin Central F (10/26/17 16:15) Labs Laboratory Tests Test 10/26/17 13:30 10/26/17 15:25 White Blood Count 12.2 TH/MM3 Red Blood Count 3.35 MIL/MM3 Hemoglobin 10.5 GM/DL Hematocrit 31.9 % Mean Corpuscular Volume 95.4 FL Mean Corpuscular Hemoglobin 31.3 PG Mean Corpuscular Hemoglobin Concent 32.9 % Red Cell Distribution Width 23.7 % Platelet Count 331 TH/MM3 Mean Platelet Volume 8.1 FL Neutrophils (%) (Auto) 66.3 % Lymphocytes (%) (Auto) 17.5 % Monocytes (%) (Auto) 11.8 % Eosinophils (%) (Auto) 3.1 % Basophils (%) (Auto) 1.3 % Neutrophils # (Auto) 8.1 TH/MM3 Lymphocytes # (Auto) 2.1 TH/MM3 Monocytes # (Auto) 1.4 TH/MM3 Eosinophils # (Auto) 0.4 TH/MM3 Basophils # (Auto) 0.2 TH/MM3 CBC Comment AUTO DIFF Differential Comment AUTO DIFF CONFIRMED Platelet Estimate NORMAL Platelet Morphology Comment NORMAL Polychromasia 3.0 % Sickle Cells 1+ Target Cells 1+ Ovalocytes 1+ [place] [employer] Bodies PRESENT [place] PRESENT Reticulocyte Count 12.5 % Absolute Reticulocyte Count 410.4 MIL/L Blood Urea Nitrogen 6 MG/DL Creatinine 0.70 MG/DL Random Glucose 94 MG/DL Calcium Level 8.6 MG/DL Sodium Level 141 MEQ/L Potassium Level 3.5 MEQ/L Chloride Level 109 MEQ/L Carbon Dioxide Level 26.2 MEQ/L Anion Gap 6 MEQ/L Estimat Glomerular Filtration Rate 168 ML/MIN Urine Collection Type CLEAN CATCH Urine Color YELLOW Urine Turbidity CLEAR Urine pH 5.5 Urine Specific [place] 1.010 Urine Protein NEG mg/dL Urine Glucose (UA) NEG mg/dL Urine Ketones NEG mg/dL Urine Occult Blood NEG Urine Nitrite NEG Urine Bilirubin NEG Urine Urobilinogen 0.2 MG/DL Urine Leukocyte Esterase NEG Urine RBC 0-3 /hpf Urine Squamous Epithelial Cells 0-5 /hpf Microscopic Urinalysis Comment CULT NOT INDICATED Urine Collection Time 15:25 MDM Medical Decision Making Medical Screen Exam Complete: Yes Emergency Medical Condition: Yes Medical Record Reviewed: Yes Differential Diagnosis Sickle cell crisis pain, acute on chronic pain Narrative Course 4:01 PM blood test results are back. Patient has mild anemia and elevated reticulocyte count. However comparing to the past blood this is not significantly changed. Patient does not require blood transfusion. He has been given pain medication twice. At this point I am comfortable discharging him home. He needs to follow-up with his compressor station chief engineer. Procedures EKG Prior to Arrival: No Diagnosis Primary Impression: Sickle cell pain crisis Referrals: Primary Care Physician Additional Instructions: Please follow-up with your compressor station chief engineer. Continue taking her home medications for pain. Drink lots of fluid Med/Other Pt SpecificInfo: No Change to Meds Scripts No Active Prescriptions or Reported Meds Disposition: 01 DISCHARGE HOME Condition: Stable Daniella Morales MD Oct 26, 2017 13:09
[2017-10-26] MEDS ORDERED: SODIUM CHLOR 0.9% 1000 ML INJ 1,000 ML IV ONE (13:30)
[2017-10-26] MEDS ORDERED: HYDROmorphone HCL PF 2 MG/ML VIAL IV PUSH ONE ×2 (13:30→15:30)
[2017-10-26 13:45] LABS: AUTOMATED NEUTROPHIL # 8.1 TH/MM3 (1.8-7.7); BASOPHIL # 0.2 TH/MM3 (0-0.2); BASOPHIL % 1.3 % (0.0-2.0); EOSINOPHIL # 0.4 TH/MM3 (0-0.4); EOSINOPHIL % 3.1 % (0.0-4.0); HEMATOCRIT 31.9 % (39.0-51.0); HEMOGLOBIN 10.5 GM/DL (13.0-17.0); LYMPH % 17.5 % (9.0-44.0); LYMPHOCYTE # 2.1 TH/MM3 (1.0-4.8); MEAN CELL VOLUME 95.4 FL (80.0-100.0); MEAN CORPUSCULAR HEMOGLOBIN 31.3 PG (27.0-34.0); MEAN CORPUSCULAR HGB CONC 32.9 % (32.0-36.0); MEAN PLATELET VOLUME 8.1 FL (7.0-11.0); MONO % 11.8 % (0.0-8.0); MONOCYTE # 1.4 TH/MM3 (0-0.9); NEUT % 66.3 % (16.0-70.0); PLATELET COUNT 331 TH/MM3 (150-450); RED BLOOD COUNT 3.35 MIL/MM3 (4.50-5.90); RED CELL DISTRIBUTION WIDTH 23.7 % (11.6-17.2); WHITE BLOOD COUNT 12.2 TH/MM3 (4.0-11.0)
[2017-10-26 13:57] LABS: CALCIUM 8.6 MG/DL (8.5-10.1)
[2017-10-26 13:58] LABS: BICARBONATE 26.2 MEQ/L (21.0-32.0)
[2017-10-26 14:00] VITALS: BP 116/60; PULSE 86; RESP 16; O2SAT 95
[2017-10-26] MEDS ORDERED: diphenhydrAMINE HCL 25 MG CAP PO ONE (14:00)
[2017-10-26 14:01] LABS: CREATININE 0.7 MG/DL (0.60-1.30)
[2017-10-26 14:05] LABS: SICKLE CELLS 1+ (NORMAL)
[2017-10-26 14:06] LABS: HOWELL-JOLLY BODIES PRESENT (NONE SEEN); OVALOCYTES 1+ (NORMAL); TARGET CELLS 1+ (NORMAL)
[2017-10-26 14:07] LABS: ROULEAUX PRESENT (NORMAL)
[2017-10-26 14:53] VITALS: BP 109/60; PULSE 76; RESP 16; O2SAT 98
[2017-10-26 15:07] LABS: RETIC # 410.4 MIL/L (20.0-150.0); RETIC % 12.5 % (0.4-3.0)
[2017-10-26 15:36] LABS: BILIRUBIN, URINE NEG (NEG); BLOOD, URINE NEG (NEG); GLUCOSE,URINE NEG (NEG); KETONE, URINE NEG (NEG); NITRITE,URINE NEG (NEG); PH, URINE 5.5 (5.0-8.5); URINE COLOR YELLOW (YELLW/STRAW); URINE LEUKOCYTE ESTERASE NEG (NEG)
[2017-10-26 15:39] VITALS: BP 111/47; PULSE 77; RESP 16; O2SAT 96
[2017-10-26 15:39] LABS: RBC, URINE 0-3 /hpf (0-3); SQUAMOUS EPITHELIAL CELL URINE 0-5 /hpf (0-5)
== END 2017-10-26 16:20 | disposition home or self-care (01) ==
LOC: PHED 12:35
DX: D57.00 Hb-SS disease with crisis, unspecified (principal); R07.9 Chest pain, unspecified; M79.605 Pain in left leg; M79.604 Pain in right leg; R01.1 Cardiac murmur, unspecified; Z88.0 Allergy status to penicillin
CPT/HCPCS: 80048; 81001; 85025; 85044; 96361; 96374; 96376; 99284; J1170; J1642; J7030

== ENCOUNTER 2017-10-31 19:53 | Emergency (ER) | payer MEDICAID ==
[2017-10-31 20:14] VITALS: BP 151/96; PULSE 80; RESP 20; TEMP 98.2
[2017-10-31] MEDS ORDERED: SODIUM CHLORIDE 0.9% FLUSH 10 ML FLUSH IVF PRN (20:30)
[2017-10-31 20:50] VITALS: RESP 18; O2SAT 97
--- NOTE | 2017-10-31 20:54 | PD ---
HPI Chief Complaint: Dizziness Time Seen by Provider: 20:25 Travel History International Travel<30 days: No Contact w/Intl Traveler<30days: No Traveled to known affect area: No History of Present Illness HPI Patient is a 22-year-old male known to me from previous ER visits for evaluation of epigastric abdominal pain radiating up into his chest. Patient states that he has a history of sickle cell but his pain is usually from the waist down which is my recollection of him as well. He states the pain started this afternoon, he states that he did have some raw oysters for lunch. Denies any shortness of breath cough congestion or fevers. He states his been taking his medication at home without any significant relief. States the pain is severe, epigastric, radiation into his chest, context as above. PFSH Past Medical History Anemia: Yes (SICKLE CELL ) Arthritis: No Asthma: Yes (PT DENIES) Autoimmune Disease: Yes (SICKLE CELL ) Blood Disorders: No Anxiety: No Depression: No Heart Rhythm Problems: Yes (MURMUR) Cancer: No Cardiovascular Problems: Yes High Cholesterol: No Chemotherapy: No Chest Pain: Yes Congestive Heart Failure: No COPD: No Cerebrovascular Accident: No Diabetes: No Diminished Hearing: No Endocrine: No Gastrointestinal Disorders: No GERD: No Genitourinary: No Headaches: No Hiatal Hernia: No Heparin Induced Thrombocytopen: No Hypertension: No Immune Disorder: Yes Implanted Vascular Access Dvce: No Kidney Stones: No Musculoskeletal: Yes Neurologic: Yes Psychiatric: No Reproductive: No Respiratory: Yes Immunizations Current: Yes Migraines: No Pneumonia: Yes Radiation Therapy: No Renal Failure: No Seizures: No Sickle Cell Disease: Yes Sleep Apnea: No Thyroid Disease: No Ulcer: No Tetanus Vaccination: > 5 Years Influenza Vaccination: Yes ?: Not Past Surgical History Abdominal Surgery: No AICD: No Arteriovenous Shunt: No Cardiac Surgery: No Ear Surgery: No Endocrine Surgery: No Eye Surgery: No Genitourinary Surgery: Yes (PRIAPRISM ) Gynecologic Surgery: No Insulin Pump: No Joint Replacement: No Neurologic Surgery: No Oral Surgery: No Pacemaker: No Thoracic Surgery: No Other Surgery: Yes Social History Alcohol Use: No Tobacco Use: No Substance Use: No Allergies-Medications (Allergen,Severity, Reaction): Coded Allergies: amoxicillin (Verified Allergy, Severe, Swelling, 10/31/17) penicillin G (Verified Allergy, Severe, told as child, 10/31/17) Reported Meds & Prescriptions Reported Meds & Active Scripts Active Doxycycline Hyclate 100 Mg Cap 100 Mg PO BID 7 Days Review of Systems Except as stated in HPI: all other systems reviewed are Neg Physical Exam Narrative GENERAL: Well-developed, well-nourished, appears uncomfortable but nontoxic peer SKIN: Focused skin assessment warm/dry. HEAD: Atraumatic. Normocephalic. EYES: Pupils equal and round. No scleral icterus. No injection or drainage. ENT: No nasal bleeding or discharge. Mucous membranes pink and moist. NECK: Trachea midline. No JVD. CARDIOVASCULAR: Regular rate and rhythm. No murmur appreciated. RESPIRATORY: No accessory muscle use. Clear to auscultation. Breath sounds equal bilaterally. GASTROINTESTINAL: Abdomen soft, non-tender, nondistended. Hepatic and splenic margins not palpable. Does not allow for significant examination secondary to his level of cooperation secondary to pain. MUSCULOSKELETAL: No obvious deformities. No clubbing. No cyanosis. No edema. NEUROLOGICAL: Awake and alert. No obvious cranial nerve deficits. Motor grossly within normal limits. Normal speech. PSYCHIATRIC: Appropriate mood and affect; insight and judgment normal. Data Data Last Documented VS Vital Signs Date Time Temp Pulse Resp B/P (MAP) Pulse Ox O2 Delivery O2 Flow Rate FiO2 10/31/17 23:29 84 18 116/75 (89) 97 Room Air 10/31/17 20:14 98.2 Orders Orders C-Reactive Protein (Crp) (10/31/17 20:24) Complete Blood Count With Diff (10/31/17 20:24) Retic Count (10/31/17 20:24) Urinalysis - C+S If Indicated (10/31/17 20:24) Ecg Monitoring (10/31/17 20:24) Iv Access Insert/Monitor (10/31/17 20:24) Oximetry (10/31/17 20:24) Sodium Chloride 0.9% Flush (Ns Flush) (10/31/17 20:30) Ondansetron Inj (Zofran Inj) (10/31/17 21:00) Hydromorphone Pf Inj (Dilaudid Pf Inj) (10/31/17 21:00) Ketorolac Inj (Toradol Inj) (10/31/17 21:00) Sodium Chlor 0.9% 1000 Ml Inj (Ns 1000 M (10/31/17 21:00) Diphenhydramine Inj (Benadryl Inj) (10/31/17 21:00) Ct Abd/Pel W/O Iv Contrast (10/31/17 ) Comprehensive Metabolic Panel (10/31/17 21:28) Lipase (10/31/17 21:28) Hydromorphone Pf Inj (Dilaudid Pf Inj) (10/31/17 22:45) Hydromorphone Pf Inj (Dilaudid Pf Inj) (11/01/17 00:00) Sodium Chlor 0.9% 1000 Ml Inj (Ns 1000 M (11/01/17 00:00) Heparin Central Flush (Heparin Central F (11/01/17 00:00) Ed Discharge Order (10/31/17 23:51) Labs Laboratory Tests Test 10/31/17 20:51 White Blood Count 14.4 TH/MM3 Red Blood Count 3.90 MIL/MM3 Hemoglobin 12.4 GM/DL Hematocrit 36.3 % Mean Corpuscular Volume 93.0 FL Mean Corpuscular Hemoglobin 31.8 PG Mean Corpuscular Hemoglobin Concent 34.2 % Red Cell Distribution Width 22.0 % Platelet Count 329 TH/MM3 Mean Platelet Volume 7.5 FL CBC Comment AUTO DIFF Differential Total Cells Counted 100 Neutrophils % (Manual) 76 % Band Neutrophils % 1 % Lymphocytes % 14 % Monocytes % 9 % Neutrophils # (Manual) 11.1 TH/MM3 Nucleated Red Blood Cells 3 /100 WBC Differential Comment FINAL DIFF MANUAL Atypical Lymphocytes % Platelet Estimate NORMAL Platelet Morphology Comment NORMAL Sickle Cells 2+ Target Cells 1+ Ovalocytes 1+ [place] [employer] Bodies PRESENT Reticulocyte Count 10.9 % Absolute Reticulocyte Count 412.6 MIL/L Blood Urea Nitrogen 10 MG/DL Creatinine 0.68 MG/DL Random Glucose 121 MG/DL Total Protein 8.6 GM/DL Albumin 4.1 GM/DL Calcium Level 9.1 MG/DL Alkaline Phosphatase 103 U/L Aspartate Amino Transf (AST/SGOT) 35 U/L Alanine Aminotransferase (ALT/SGPT) 50 U/L Total Bilirubin 4.0 MG/DL Sodium Level 137 MEQ/L Potassium Level 3.5 MEQ/L Chloride Level 103 MEQ/L Carbon Dioxide Level 26.3 MEQ/L Anion Gap 8 MEQ/L Estimat Glomerular Filtration Rate 174 ML/MIN C-Reactive Protein 1.20 MG/DL Lipase 107 U/L [facility] Medical Decision Making Medical Screen Exam Complete: Yes Emergency Medical Condition: Yes Differential Diagnosis Sickle cell pain crisis, gastritis, cholecystitis, food poisoning, pancreatitis , acute abdomen seems unlikely Narrative Course Patient room to the emergency department, review of his labs shows a hemoglobin of 14, minimally elevated reticulocyte count. Patient given his level of uncomfortableness was given a total of 6 mg of Dilaudid which is his usual for his pain crisis when he sees me, he also had a CT of his abdomen showing no acute abnormality. His basic labs were otherwise reassuring, liver function enzymes, lipase, and normal. 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 Discussed the results with him, he is requesting additional pain medication. Vital signs are within normal limits. His pain is probably very hard to control as he has opiate tolerance. Discussed with him need follow-up with a primary care physician, will cover him for empiric antibiotic therapy for possible vibrio exposure though I do not see any significant evidence that he has not had any diarrhea or vomiting. He is stable for discharge at this time. Diagnosis Primary Impression: Epigastric abdominal pain Additional Impression: Sickle cell anemia Med/Other Pt SpecificInfo: Prescription(s) given Scripts Doxycycline Hyclate (Doxycycline Hyclate) 100 Mg Cap 100 MG PO BID for Infection for 7 Days, #14 CAP 0 Refills Prov: Kwame Pathak MD 10/31/17 Disposition: 01 DISCHARGE HOME Condition: Stable Kwame Pathak MD Oct 31, 2017 20:54
[2017-10-31 20:58] LABS: HEMATOCRIT 36.3 % (39.0-51.0); HEMOGLOBIN 12.4 GM/DL (13.0-17.0); MEAN CORPUSCULAR HEMOGLOBIN 31.8 PG (27.0-34.0); MEAN CORPUSCULAR HGB CONC 34.2 % (32.0-36.0); MEAN PLATELET VOLUME 7.5 FL (7.0-11.0); PLATELET COUNT 329 TH/MM3 (150-450); WHITE BLOOD COUNT 14.4 TH/MM3 (4.0-11.0)
[2017-10-31] MEDS ORDERED: KETOROLAC TROMETHAMINE 30 MG/ML (IVP) VIAL IV PUSH ONE (21:00)
[2017-10-31] MEDS ORDERED: HYDROmorphone HCL PF 2 MG/ML VIAL IV PUSH ONE ×2 (21:00→22:45)
[2017-10-31] MEDS ORDERED: diphenhydrAMINE HCL 50 MG/ML VIAL IV PUSH ONE (21:00)
[2017-10-31] MEDS ORDERED: SODIUM CHLOR 0.9% 1000 ML INJ 1,000 ML IV ONE (21:00)
[2017-10-31] MEDS ORDERED: ONDANSETRON HCL 4 MG/2 ML VIAL IV PUSH ONE (21:00)
[2017-10-31 21:23] LABS: BANDS 1 % (0-6); CORRECTED NUCLEATED RBC 3 /100 WBC (0-0); LYMPHOCYTES 14 % (9-44); MONOCYTES 9 % (0-8); NEUTROPHIL # MANUAL DIFF 11.1 TH/MM3 (1.8-7.7); NUCLEATED RED BLOOD CELL 3 (0-0); POLYS (SEG NEUTROPHILS) 76 % (16-70)
[2017-10-31 21:24] LABS: HOWELL-JOLLY BODIES PRESENT (NONE SEEN); OVALOCYTES 1+ (NORMAL); SICKLE CELLS 2+ (NORMAL); TARGET CELLS 1+ (NORMAL)
[2017-10-31 21:42] LABS: CHLORIDE 103 MEQ/L (98-107); SODIUM (NA) 137 MEQ/L (136-145)
[2017-10-31 21:45] LABS: CALCIUM 9.1 MG/DL (8.5-10.1)
[2017-10-31 21:46] LABS: ALBUMIN 4.1 GM/DL (3.4-5.0); BICARBONATE 26.3 MEQ/L (21.0-32.0); BLOOD UREA NITROGEN 10 MG/DL (7-18); GLUCOSE,RANDOM 121 MG/DL (74-106)
[2017-10-31 21:49] LABS: ALT (GPT) 50 U/L (12-78); AST (GOT) 35 U/L (15-37); CREATININE 0.68 MG/DL (0.60-1.30); GLOMERULAR FILTRATION RATE 174 ML/MIN (>89)
[2017-10-31 21:50] LABS: TOTAL PROTEIN 8.6 GM/DL (6.4-8.2)
[2017-10-31 21:52] LABS: ALKALINE PHOSPHATASE 103 U/L (45-117)
--- NOTE | 2017-10-31 22:11 | RADRPT ---
EXAM DATE/TIME: 10/31/2017 21:40 [place] COMPARISON: CT ABDOMEN & PELVIS W/O CONTRAST, September 21, 2017, 13:09. INDICATIONS : Abdominal pain. ORAL CONTRAST: No oral contrast ingested. RADIATION DOSE: 9.94 CTDIvol (mGy) MEDICAL HISTORY : Sickle cell disease. SURGICAL HISTORY : Priaprism. ENCOUNTER: Initial ACUITY: 1 day PAIN SCALE: 10/10 LOCATION: Bilateral upper quadrant TECHNIQUE: Volumetric scanning of the abdomen and pelvis was performed. Using automated exposure control and ad justment of the mA and/or kV according to patient size, radiation dose was kept as low as reasonably achievable to obtain optimal diagnostic quality images. DICOM format image data is available electro nically for review and comparison. FINDINGS: Lung bases are clear except for minimal scarring. No acute findings in the liver. Autosplenectomy related to previous sickle cell disease. Numerous tommy cified gallstones. Stomach is distended. Adrenals, kidneys and pancreas unremarkable. No free fluid. No bowel obstruction. No adenopathy. No acute bony abnormalities. There is a trace pericardial effusion. CONCLUSION: 1. No acute findings within the abdomen and pelvis. 2. Small pericardial effusion similar to September 21. 3. Stable gallstones and findings the autosplenectomy related to history of sickle cell disease. Oneal Barker MD on October 31, 2017 at 22:06 Board Certified Radiologist. This report was verified electronically.
[2017-10-31 22:29] LABS: RETIC # 412.6 MIL/L (20.0-150.0); RETIC % 10.9 % (0.4-3.0)
[2017-10-31 22:37] VITALS: BP 124/70; PULSE 84; RESP 18; O2SAT 97
[2017-10-31 23:29] VITALS: BP 116/75; PULSE 84; RESP 18; O2SAT 97
[2017-10-31] MEDS ORDERED: DOXY100C PO (23:53)
[2017-11-01] MEDS ORDERED: HYDROmorphone HCL PF 2 MG/ML VIAL IV PUSH ONE
[2017-11-01] MEDS ORDERED: SODIUM CHLOR 0.9% 1000 ML INJ 1,000 ML IV ONE
== END 2017-11-01 01:56 | disposition home or self-care (01) ==
LOC: PHED 19:53
DX: R10.13 Epigastric pain (principal); D57.00 Hb-SS disease with crisis, unspecified
CPT/HCPCS: 74176; 80053; 83690; 85007; 85027; 85044; 86140; 96361; 96374; 96375; 96376; 99284; J1170; J1200; J1642; J1885; J2405; J7030

== ENCOUNTER 2017-11-24 15:24 | Emergency (ER) | payer MEDICAID ==
[~2017-11-24] VITALS: Ht 188 cm; Wt 90.4 kg
[~2017-11-24 15:24] MED LIST changes: -CIPR-9 PO; -DILA4TAB10 PO; +DOXY100C PO; -FOLI400T PO; -PERC10TA27 PO
[2017-11-24 15:26] VITALS: BP 133/64; PULSE 88; RESP 16; TEMP 98.5; O2SAT 98
[2017-11-24] MEDS ORDERED: SODIUM CHLOR 0.9% 1000 ML INJ 1,000 ML IV ONE (15:40)
[2017-11-24 15:43] VITALS: O2SAT 96
[2017-11-24] MEDS ORDERED: SODIUM CHLORIDE 0.9% FLUSH 10 ML FLUSH IVF PRN (15:45)
[2017-11-24] MEDS ORDERED: KETOROLAC TROMETHAMINE 30 MG/ML (IVP) VIAL IVP ONE (15:45)
[2017-11-24] MEDS ORDERED: HYDROmorphone HCL PF 2 MG/ML VIAL IVS ONE (15:45)
[2017-11-24] MEDS ORDERED: diphenhydrAMINE HCL 50 MG/ML VIAL IV PUSH ONE (15:45)
--- NOTE | 2017-11-24 15:45 | PD ---
HPI Chief Complaint: Abdominal Pain Time Seen by Provider: 15:34 Travel History International Travel<30 days: No Contact w/Intl Traveler<30days: No Traveled to known affect area: No History of Present Illness HPI 22-year-old male with a history of sickle cell disease well known to me from previous ER visit abdominal pain all throughout his abdomen associated with dizziness. He states it started earlier this morning, no nausea no vomiting. States he was dropped off here by his brother who could not stay and is going to be picked up by his girlfriend. Patient is very similar complaints to his last visit, his typical sickle cell crisis appears to be bilateral lower extremity pain the last 2 visits that I seen him before peer to be out of his norm. No nausea no vomiting no diarrhea no fevers no constipation. He has tried Percocet at home without significant relief. He states the pain is severe. PFSH Past Medical History Anemia: Yes (SICKLE CELL ) Arthritis: No Asthma: Yes (PT DENIES) Autoimmune Disease: Yes (SICKLE CELL ) Blood Disorders: No Anxiety: No Depression: No Heart Rhythm Problems: Yes (MURMUR) Cancer: No Cardiovascular Problems: Yes High Cholesterol: No Chemotherapy: No Chest Pain: Yes Congestive Heart Failure: No COPD: No Cerebrovascular Accident: No Diabetes: No Diminished Hearing: No Endocrine: No Gastrointestinal Disorders: No GERD: No Genitourinary: No Headaches: No Hiatal Hernia: No Heparin Induced Thrombocytopen: No Hypertension: No Immune Disorder: Yes Implanted Vascular Access Dvce: No Kidney Stones: No Musculoskeletal: Yes Neurologic: Yes Psychiatric: No Reproductive: No Respiratory: Yes Immunizations Current: Yes Migraines: No Pneumonia: Yes Radiation Therapy: No Renal Failure: No Seizures: No Sickle Cell Disease: Yes Sleep Apnea: No Thyroid Disease: No Ulcer: No Past Surgical History Abdominal Surgery: No AICD: No Arteriovenous Shunt: No Cardiac Surgery: No Ear Surgery: No Endocrine Surgery: No Eye Surgery: No Genitourinary Surgery: Yes (PRIAPRISM ) Gynecologic Surgery: No Insulin Pump: No Joint Replacement: No Neurologic Surgery: No Oral Surgery: No Pacemaker: No Thoracic Surgery: No Other Surgery: Yes Social History Alcohol Use: No Tobacco Use: No Substance Use: No Allergies-Medications (Allergen,Severity, Reaction): Coded Allergies: amoxicillin (Verified Allergy, Severe, Swelling, 11/24/17) penicillin G (Verified Allergy, Severe, told as child, 11/24/17) Reported Meds & Prescriptions Reported Meds & Active Scripts Active Doxycycline Hyclate 100 Mg Cap 100 Mg PO BID 7 Days Review of Systems Except as stated in HPI: all other systems reviewed are Neg Physical Exam Narrative GENERAL: Well-developed well-nourished lying in the left lateral decubitus position in the position. Appears in significant discomfort. SKIN: Focused skin assessment warm/dry. HEAD: Atraumatic. Normocephalic. EYES: Pupils equal and round. No scleral icterus. No injection or drainage. ENT: No nasal bleeding or discharge. Mucous membranes pink and moist. NECK: Trachea midline. No JVD. CARDIOVASCULAR: Regular rate and rhythm. No murmur appreciated. RESPIRATORY: No accessory muscle use. Clear to auscultation. Breath sounds equal bilaterally. GASTROINTESTINAL: Abdomen soft, non-tender, nondistended. Hepatic and splenic margins not palpable. No rebound no percussive tenderness. MUSCULOSKELETAL: No obvious deformities. No clubbing. No cyanosis. No edema. NEUROLOGICAL: Awake and alert. No obvious cranial nerve deficits. Motor grossly within normal limits. Normal speech. PSYCHIATRIC: Appropriate mood and affect; insight and judgment normal. Data Data Last Documented VS Vital Signs Date Time Temp Pulse Resp B/P (MAP) Pulse Ox O2 Delivery O2 Flow Rate FiO2 11/24/17 18:18 11/24/17 18:06 87 18 99 Room Air 11/24/17 15:43 2.00 11/24/17 15:26 98.5 Orders Orders Urinalysis - C+S If Indicated (11/24/17 15:27) Complete Blood Count With Diff (11/24/17 15:40) Comprehensive Metabolic Panel (11/24/17 15:40) Retic Count (11/24/17 15:40) Ecg Monitoring (11/24/17 15:40) Iv Access Insert/Monitor (11/24/17 15:40) Oximetry (11/24/17 15:40) Hydromorphone Pf Inj (Dilaudid Pf Inj) (11/24/17 15:45) Ketorolac Inj (Toradol Inj) (11/24/17 15:45) Sodium Chloride 0.9% Flush (Ns Flush) (11/24/17 15:45) Sodium Chlor 0.9% 1000 Ml Inj (Ns 1000 M (11/24/17 15:40) Diphenhydramine Inj (Benadryl Inj) (11/24/17 15:45) Lipase (11/24/17 16:22) Hydromorphone Pf Inj (Dilaudid Pf Inj) (11/24/17 17:00) Ed Discharge Order (11/24/17 16:54) Heparin Central Flush (Heparin Central F (11/24/17 17:30) Labs Laboratory Tests Test 11/24/17 15:59 White Blood Count 12.5 TH/MM3 Red Blood Count 3.19 MIL/MM3 Hemoglobin 10.9 GM/DL Hematocrit 30.6 % Mean Corpuscular Volume 96.0 FL Mean Corpuscular Hemoglobin 34.2 PG Mean Corpuscular Hemoglobin Concent 35.7 % Red Cell Distribution Width 24.2 % Platelet Count 324 TH/MM3 Mean Platelet Volume 8.2 FL Neutrophils (%) (Auto) 55.1 % Lymphocytes (%) (Auto) 23.4 % Monocytes (%) (Auto) 14.3 % Eosinophils (%) (Auto) 5.4 % Basophils (%) (Auto) 1.8 % Neutrophils # (Auto) 6.9 TH/MM3 Lymphocytes # (Auto) 2.9 TH/MM3 Monocytes # (Auto) 1.8 TH/MM3 Eosinophils # (Auto) 0.7 TH/MM3 Basophils # (Auto) 0.2 TH/MM3 CBC Comment AUTO DIFF Differential Comment AUTO DIFF CONFIRMED Platelet Estimate NORMAL Platelet Morphology Comment ENLARGED Polychromasia 5.0 % Sickle Cells 2+ Target Cells 1+ Ovalocytes 1+ Reticulocyte Count 13.5 % Absolute Reticulocyte Count 429.6 MIL/L Blood Urea Nitrogen 9 MG/DL Creatinine 0.63 MG/DL Random Glucose 99 MG/DL Total Protein 7.8 GM/DL Albumin 3.8 GM/DL Calcium Level 8.6 MG/DL Alkaline Phosphatase 92 U/L Aspartate Amino Transf (AST/SGOT) 32 U/L Alanine Aminotransferase (ALT/SGPT) 48 U/L Total Bilirubin 4.4 MG/DL Sodium Level 141 MEQ/L Potassium Level 3.5 MEQ/L Chloride Level 107 MEQ/L Carbon Dioxide Level 27.4 MEQ/L Anion Gap 7 MEQ/L Estimat Glomerular Filtration Rate 190 ML/MIN Lipase 92 U/L [facility] Medical Decision Making Medical Screen Exam Complete: Yes Emergency Medical Condition: Yes Differential Diagnosis Sickle cell pain crisis, acute abdomen unlikely, opiate tolerance. Narrative Course patient room to the emergency department, vital signs reviewed and are completely within normal limits. He is placed on nasal cannula. Pain medicine basic labs been ordered. On my last encounter with him on October 31 he did have a CAT scan of his abdomen at that time which showed no obvious etiology of his symptoms but he did have gallstones and a small pericardial effusion which is similar to his previous. medications given: dilaudid 2mg IV, toradol 30mg IV, benadryl 25mg IV and NS 1L bolus. Patient feeling better, requests additional pain medication and then discharge. Labs reassuring. I have obliged discussed follow up with spectral scientist and return to ED criteria. Diagnosis Primary Impression: Abdominal pain Disposition: DISCHARGE HOME Condition: Stable Kwame Pathak MD November 24, 2017 15:45
[2017-11-24 16:15] LABS: CHLORIDE 107 MEQ/L (98-107); SODIUM (NA) 141 MEQ/L (136-145)
[2017-11-24 16:19] LABS: ALBUMIN 3.8 GM/DL (3.4-5.0); BICARBONATE 27.4 MEQ/L (21.0-32.0); BLOOD UREA NITROGEN 9 MG/DL (7-18); CALCIUM 8.6 MG/DL (8.5-10.1); GLUCOSE,RANDOM 99 MG/DL (74-106)
[2017-11-24 16:22] LABS: ALT (GPT) 48 U/L (12-78); AST (GOT) 32 U/L (15-37); CREATININE 0.63 MG/DL (0.60-1.30); GLOMERULAR FILTRATION RATE 190 ML/MIN (>89)
[2017-11-24 16:24] LABS: TOTAL BILIRUBIN ADULT 4.4 MG/DL (0.2-1.0); TOTAL PROTEIN 7.8 GM/DL (6.4-8.2)
[2017-11-24 16:25] LABS: ALKALINE PHOSPHATASE 92 U/L (45-117)
[2017-11-24 16:29] LABS: AUTOMATED NEUTROPHIL # 6.9 TH/MM3 (1.8-7.7); BASOPHIL # 0.2 TH/MM3 (0-0.2); BASOPHIL % 1.8 % (0.0-2.0); EOSINOPHIL # 0.7 TH/MM3 (0-0.4); EOSINOPHIL % 5.4 % (0.0-4.0); HEMATOCRIT 30.6 % (39.0-51.0); HEMOGLOBIN 10.9 GM/DL (13.0-17.0); LYMPH % 23.4 % (9.0-44.0); LYMPHOCYTE # 2.9 TH/MM3 (1.0-4.8); MEAN CORPUSCULAR HEMOGLOBIN 34.2 PG (27.0-34.0); MEAN CORPUSCULAR HGB CONC 35.7 % (32.0-36.0); MEAN PLATELET VOLUME 8.2 FL (7.0-11.0); MONO % 14.3 % (0.0-8.0); MONOCYTE # 1.8 TH/MM3 (0-0.9); NEUT % 55.1 % (16.0-70.0); PLATELET COUNT 324 TH/MM3 (150-450); RED BLOOD COUNT 3.19 MIL/MM3 (4.50-5.90); RED CELL DISTRIBUTION WIDTH 24.2 % (11.6-17.2); WHITE BLOOD COUNT 12.5 TH/MM3 (4.0-11.0)
[2017-11-24 16:38] LABS: SICKLE CELLS 2+ (NORMAL)
[2017-11-24 16:39] LABS: OVALOCYTES 1+ (NORMAL); TARGET CELLS 1+ (NORMAL)
[2017-11-24] MEDS ORDERED: HYDROmorphone HCL PF 2 MG/ML VIAL IV PUSH ONE (17:00)
[2017-11-24 18:06] VITALS: BP 148/76; PULSE 87; RESP 18; O2SAT 99
[2017-11-24 18:13] LABS: RETIC # 429.6 MIL/L (20.0-150.0); RETIC % 13.5 % (0.4-3.0)
== END 2017-11-24 18:22 | disposition home or self-care (01) ==
LOC: PHED 15:24
DX: K80.80 Other cholelithiasis without obstruction (principal); I31.3 Pericardial effusion (noninflammatory); M79.605 Pain in left leg; M79.604 Pain in right leg; D57.1 Sickle-cell disease without crisis; J45.909 Unspecified asthma, uncomplicated; R01.1 Cardiac murmur, unspecified; Z88.0 Allergy status to penicillin; Z79.899 Other long term (current) drug therapy
CPT/HCPCS: 80053; 83690; 85025; 85044; 96361; 96374; 96375; 96376; 99284; J1170; J1200; J1642; J1885; J7030

== ENCOUNTER 2017-12-02 08:02 | Inpatient (IN) | payer MEDICAID ==
[2017-12-02] VITALS (9 sets, daily range): BP systolic 116–167; BP diastolic 54–89; PULSE 18–124; RESP 18–22; TEMP 96.4–99.4; O2SAT 85–100
[~2017-12-02] VITALS: Ht 188 cm; Wt 92.2 kg
[2017-12-02] MEDS ORDERED: SODIUM CHLOR 0.9% 1000 ML INJ 1,000 ML IV ONE (08:14)
[2017-12-02] MEDS ORDERED: diphenhydrAMINE HCL 50 MG/ML VIAL IV PUSH ONE ×2 (08:15→09:45)
[2017-12-02] MEDS ORDERED: HYDROmorphone HCL PF 2 MG/ML VIAL IVS ONE (08:15)
[2017-12-02] MEDS ORDERED: ONDANSETRON HCL 4 MG/2 ML VIAL IVP ONE (08:15)
--- NOTE | 2017-12-02 08:17 | PD ---
HPI Chief Complaint: Sickle Cell Time Seen by Provider: 08:09 Travel History International Travel<30 days: No Contact w/Intl Traveler<30days: No Traveled to known affect area: No History of Present Illness HPI This 22-year-old male is complaining of pain in his back. He says the pain started just this morning and is quite severe. He has a history of sickle cell anemia. He was just released from a hospital in [place] yesterday afternoon after staying several days for a crisis. The crisis was not back pain at that time. He is not aware of fever or chills. He had taken some Percocet this morning. He gets monthly transfusions in [place]. He is on glutamine. He took Percocet this morning for pain without relief. He was admitted to the hospital in [place] a few days ago with chest pain and was just released yesterday morning. He has not had fever or chills. He is having pain in his mid portion of his lower back. The pain is severe PFSH Past Medical History Anemia: Yes (SICKLE CELL ) Arthritis: No Asthma: Yes (PT DENIES) Autoimmune Disease: Yes (SICKLE CELL ) Blood Disorders: No Anxiety: No Depression: No Heart Rhythm Problems: Yes (MURMUR) Cancer: No Cardiovascular Problems: Yes High Cholesterol: No Chemotherapy: No Chest Pain: Yes Congestive Heart Failure: No COPD: No Cerebrovascular Accident: No Diabetes: No Diminished Hearing: No Endocrine: No Gastrointestinal Disorders: No GERD: No Genitourinary: No Headaches: No Hiatal Hernia: No Heparin Induced Thrombocytopen: No Hypertension: No Immune Disorder: Yes Implanted Vascular Access Dvce: No Kidney Stones: No Musculoskeletal: Yes Neurologic: Yes Psychiatric: No Reproductive: No Respiratory: Yes Immunizations Current: Yes Migraines: No Pneumonia: Yes Radiation Therapy: No Renal Failure: No Seizures: No Sickle Cell Disease: Yes Sleep Apnea: No Thyroid Disease: No Ulcer: No Past Surgical History Abdominal Surgery: No AICD: No Arteriovenous Shunt: No Cardiac Surgery: No Ear Surgery: No Endocrine Surgery: No Eye Surgery: No Genitourinary Surgery: Yes (PRIAPRISM ) Gynecologic Surgery: No Insulin Pump: No Joint Replacement: No Neurologic Surgery: No Oral Surgery: No Pacemaker: No Thoracic Surgery: No Other Surgery: Yes Social History Alcohol Use: No Tobacco Use: No Substance Use: No Allergies-Medications (Allergen,Severity, Reaction): Coded Allergies: amoxicillin (Verified Allergy, Severe, Swelling, 12/02/17) penicillin G (Verified Allergy, Severe, told as child, 12/02/17) Reported Meds & Prescriptions Reported Meds & Active Scripts Active Reported Endari (Glutamine) 5 Gram Powd.pack 1 Pack PO BID Percocet (Oxycodone-Acetaminophen) 5-325 mg Tab 1-2 Tab PO Q6H PRN Review of Systems General / Constitutional: No: Fever, Chills Eyes: No: Diploplia, Blurred Vision HENT: No: Headaches, Vertigo Cardiovascular: No: Chest Pain or Discomfort Respiratory: No: Cough, Shortness of Breath Gastrointestinal: No: Vomiting, Diarrhea Genitourinary: No: Urgency, Frequency Skin: No Rash Neurologic: No: Focal Abnormalities Psychiatric: No: Anxiety, Depression Hematologic/Lymphatic: Positive: Other (Sickle cell anemia), No: Easy Bruising Physical Exam Narrative GENERAL: Well-developed male complaining of severe pain he is restless with the pain and is constantly moving SKIN: Focused skin assessment warm/dry. HEAD: Atraumatic. Normocephalic. EYES: Pupils equal and round. No scleral icterus. No injection or drainage. ENT: No nasal bleeding or discharge. Mucous membranes pink and moist. NECK: Trachea midline. No JVD. CARDIOVASCULAR: Regular rate and rhythm. No murmur appreciated. RESPIRATORY: No accessory muscle use. Clear to auscultation. Breath sounds equal bilaterally. GASTROINTESTINAL: Abdomen soft, non-tender, nondistended. Hepatic and splenic margins not palpable. MUSCULOSKELETAL: No obvious deformities. No clubbing. No cyanosis. No edema. There is some tenderness of the lower back NEUROLOGICAL: Awake and alert. No obvious cranial nerve deficits. Motor grossly within normal limits. Normal speech. PSYCHIATRIC: Appropriate mood and affect; insight and judgment normal. Data Data Last Documented VS Vital Signs Date Time Temp Pulse Resp B/P (MAP) Pulse Ox O2 Delivery O2 Flow Rate FiO2 12/02/17 10:02 97.8 100 22 116/54 (74) 100 Nasal Cannula 2.00 Orders Orders Complete Blood Count With Diff (12/02/17 08:14) Comprehensive Metabolic Panel (12/02/17 08:14) Retic Count (12/02/17 08:14) Urinalysis - C+S If Indicated (12/02/17 08:14) Ecg Monitoring (12/02/17 08:14) Iv Access Insert/Monitor (12/02/17 08:14) Oximetry (12/02/17 08:14) Hydromorphone Pf Inj (Dilaudid Pf Inj) (12/02/17 08:15) Ondansetron Inj (Zofran Inj) (12/02/17 08:15) Sodium Chloride 0.9% Flush (Ns Flush) (12/02/17 08:15) Sodium Chlor 0.9% 1000 Ml Inj (Ns 1000 M (12/02/17 08:14) Diphenhydramine Inj (Benadryl Inj) (12/02/17 08:15) Hydromorphone Pf Inj (Dilaudid Pf Inj) (12/02/17 09:15) Hydromorphone Pf Inj (Dilaudid Pf Inj) (12/02/17 09:45) Ondansetron Inj (Zofran Inj) (12/02/17 09:45) Ketorolac Inj (Toradol Inj) (12/02/17 09:45) Diphenhydramine Inj (Benadryl Inj) (12/02/17 09:45) Hydromorphone Pf Inj (Dilaudid Pf Inj) (12/02/17 10:45) Hydromorphone Pf Inj (Dilaudid Pf Inj) (12/02/17 11:15) Hydromorphone Pf Inj (Dilaudid Pf Inj) (12/02/17 11:30) Ns + Kcl 20 Meq Inj (Ns + Kcl 20 Meq Inj (12/02/17 12:00) Labs Laboratory Tests Test 12/02/17 08:28 White Blood Count 15.5 TH/MM3 Corrected White Blood Count 14.4 TH/MM3 Red Blood Count 3.21 MIL/MM3 Hemoglobin 10.6 GM/DL Hematocrit 30.7 % Mean Corpuscular Volume 95.7 FL Mean Corpuscular Hemoglobin 33.1 PG Mean Corpuscular Hemoglobin Concent 34.6 % Red Cell Distribution Width 25.0 % Platelet Count 319 TH/MM3 Mean Platelet Volume 7.7 FL Neutrophils (%) (Auto) 60.5 % Lymphocytes (%) (Auto) 18.2 % Monocytes (%) (Auto) 13.4 % Eosinophils (%) (Auto) 6.9 % Basophils (%) (Auto) 1.0 % Neutrophils # (Auto) 9.3 TH/MM3 Lymphocytes # (Auto) 2.8 TH/MM3 Monocytes # (Auto) 2.1 TH/MM3 Eosinophils # (Auto) 1.1 TH/MM3 Basophils # (Auto) 0.2 TH/MM3 CBC Comment AUTO DIFF Differential Total Cells Counted 100 Neutrophils % (Manual) 59 % Lymphocytes % 21 % Monocytes % 11 % Eosinophils % 9 % Neutrophils # (Manual) 8.5 TH/MM3 Nucleated Red Blood Cells 8 /100 WBC Differential Comment FINAL DIFF MANUAL Platelet Estimate NORMAL Platelet Morphology Comment NORMAL Polychromasia 4.4 % Basophilic Stippling FAINT Sickle Cells 2+ Target Cells 2+ Ovalocytes 1+ Duncan-[place] Bodies PRESENT Keratocytes OCC Reticulocyte Count 14.9 % Absolute Reticulocyte Count 477.3 MIL/L Blood Urea Nitrogen 10 MG/DL Creatinine 0.74 MG/DL Random Glucose 90 MG/DL Total Protein 8.5 GM/DL Albumin 4.0 GM/DL Calcium Level 8.8 MG/DL Alkaline Phosphatase 121 U/L Aspartate Amino Transf (AST/SGOT) 69 U/L Alanine Aminotransferase (ALT/SGPT) 73 U/L Total Bilirubin 4.4 MG/DL Sodium Level 140 MEQ/L Potassium Level 3.7 MEQ/L Chloride Level 108 MEQ/L Carbon Dioxide Level 26.9 MEQ/L Anion Gap 5 MEQ/L Estimat Glomerular Filtration Rate 157 ML/MIN [facility] Medical Decision Making Medical Screen Exam Complete: Yes Emergency Medical Condition: Yes Medical Record Reviewed: Yes Differential Diagnosis Differential includes sickle cell crisis, musculoskeletal pain, Narrative Course Patient has been given IV fluids and repeated doses of pain medication. His hemoglobin is 10.6 with a white count of 15,000. Retake count is for 14%. His bilirubin is 4.4. He has received 10 mg of intravenous Dilaudid and is still complaining of pain Diagnosis Primary Impression: Sickle cell pain crisis Admitting Information Admitting Physician Requests: Admit Jose Antonio Esquivel MD December 02, 2017 08:17
[2017-12-02 08:34] LABS: AUTOMATED NEUTROPHIL # 9.3 TH/MM3 (1.8-7.7); BASOPHIL # 0.2 TH/MM3 (0-0.2); EOSINOPHIL # 1.1 TH/MM3 (0-0.4); EOSINOPHIL % 6.9 % (0.0-4.0); HEMATOCRIT 30.7 % (39.0-51.0); HEMOGLOBIN 10.6 GM/DL (13.0-17.0); LYMPH % 18.2 % (9.0-44.0); LYMPHOCYTE # 2.8 TH/MM3 (1.0-4.8); MEAN CELL VOLUME 95.7 FL (80.0-100.0); MEAN CORPUSCULAR HEMOGLOBIN 33.1 PG (27.0-34.0); MEAN CORPUSCULAR HGB CONC 34.6 % (32.0-36.0); MEAN PLATELET VOLUME 7.7 FL (7.0-11.0); MONO % 13.4 % (0.0-8.0); MONOCYTE # 2.1 TH/MM3 (0-0.9); NEUT % 60.5 % (16.0-70.0); PLATELET COUNT 319 TH/MM3 (150-450); RED BLOOD COUNT 3.21 MIL/MM3 (4.50-5.90); WHITE BLOOD COUNT 15.5 TH/MM3 (4.0-11.0)
[2017-12-02 08:45] LABS: CHLORIDE 108 MEQ/L (98-107); SODIUM (NA) 140 MEQ/L (136-145)
[2017-12-02 08:48] LABS: CALCIUM 8.8 MG/DL (8.5-10.1)
[2017-12-02 08:49] LABS: BICARBONATE 26.9 MEQ/L (21.0-32.0); BLOOD UREA NITROGEN 10 MG/DL (7-18); GLUCOSE,RANDOM 90 MG/DL (74-106)
[2017-12-02] MEDS ORDERED: GLUT5POW PO (08:51)
[2017-12-02] MEDS ORDERED: PERC5TAB12 PO (08:51)
[2017-12-02 08:52] LABS: ALT (GPT) 73 U/L (12-78); AST (GOT) 69 U/L (15-37); CREATININE 0.74 MG/DL (0.60-1.30); GLOMERULAR FILTRATION RATE 157 ML/MIN (>89)
[2017-12-02 08:53] LABS: TOTAL BILIRUBIN ADULT 4.4 MG/DL (0.2-1.0); TOTAL PROTEIN 8.5 GM/DL (6.4-8.2)
[2017-12-02 08:54] LABS: ALKALINE PHOSPHATASE 121 U/L (45-117)
[2017-12-02] MEDS ORDERED: HYDROmorphone HCL PF 2 MG/ML VIAL IV PUSH ONE ×4 (09:15→11:15)
[2017-12-02 09:26] LABS: CORRECTED NUCLEATED RBC 8 /100 WBC (0-0); CORRECTED WBC 14.4 TH/MM3 (4.0-11.0); KERATOCYTES OCC (NORMAL); LYMPHOCYTES 21 % (9-44); MONOCYTES 11 % (0-8); NEUTROPHIL # MANUAL DIFF 8.5 TH/MM3 (1.8-7.7); NUCLEATED RED BLOOD CELL 8 (0-0); OVALOCYTES 1+ (NORMAL); POLYS (SEG NEUTROPHILS) 59 % (16-70); SICKLE CELLS 2+ (NORMAL); TARGET CELLS 2+ (NORMAL)
[2017-12-02 09:28] LABS: HOWELL-JOLLY BODIES PRESENT (NONE SEEN)
[2017-12-02 09:29] LABS: POLYCHROMASIA 4.4 % (0.0-1.9)
[2017-12-02] MEDS ORDERED: KETOROLAC TROMETHAMINE 30 MG/ML (IVP) VIAL IV PUSH ONE (09:45)
[2017-12-02] MEDS ORDERED: ONDANSETRON HCL 4 MG/2 ML VIAL IV PUSH ONE (09:45)
[2017-12-02] MEDS: SODIUM CHLORIDE 0.9% FLUSH 10 ML FLUSH IVF PRN ×2 (09:55→11:25)
[2017-12-02 10:36] LABS: RETIC # 477.3 MIL/L (20.0-150.0); RETIC % 14.9 % (0.4-3.0)
[2017-12-02] MEDS ORDERED: HYDROmorphone HCL PF 0.5 MG/0.5 ML SYRINGE IV PUSH ONE (11:30)
[2017-12-02] MEDS ORDERED: NS + KCL 20 MEQ INJ 1,000 ML IV ONE (12:00)
[2017-12-02] MEDS ORDERED: NALOXONE HCL 0.4 MG/ML AMP IV PUSH PRN (12:45)
[2017-12-02] MEDS ORDERED: SODIUM CHLORIDE 0.9% FLUSH 10 ML FLUSH IV FLUSH PRN (12:45)
[2017-12-02] MEDS ORDERED: HYDROmorphone HCL PF 1 MG/ML VIAL IV PUSH PRN (13:00)
[2017-12-02] MEDS ORDERED: SODIUM CHLOR 0.9% 1000 ML INJ 1,000 ML IV SCH (13:00)
[2017-12-02] MEDS ORDERED: ONDANSETRON ODT 4 MG TAB PO PRN (13:00)
[2017-12-02] MEDS ORDERED: ACETAMINOPHEN 325 MG TAB PO PRN ×2 (13:00)
[2017-12-02] MEDS ORDERED: HYDROmorphone HCL PF 2 MG/ML VIAL IV PUSH PRN ×2 (15:00→16:15)
--- NOTE | 2017-12-02 16:18 | HHI.HP ---
[facility] Service [facility] Primary Care Physician Jersey Holley DO Admission Diagnosis SICKLE CELL CRISIS, INTRACTABLE PAIN Diagnoses: Chief Complaint: Back pain Travel History International Travel<30 Days: No Contact w/Intl Traveler <30 Da: No Traveled to Known Affected Are: No History of Present Illness The patient is a 22-year-old male with past medical history of sickle cell disease who is presenting to the hospital with severe lower back pain. The patient says that on Tuesday he developed severe chest pain and ended up in [facility]. He had a full cardiological workup. He said he was discharged on . Since then he has developed severe low back pain. He says his chest pain has resolved. His mother was at the bedside and said that this morning his back just started to tear him up. The patient says that he tends to get sickle cell attacks every 3 weeks. He gets monthly transfusions. His mother says he is due to get a transfusion soon. The patient was writhing around in the bed and was unable to give a thorough history. Discussed with nursing. Review of Systems ROS Limitations: Clinical Condition Except as stated in HPI: all other systems reviewed are Neg Past Family Social History Past Medical History Sickle cell anemia History of priapism Past Surgical History Surgery for priapism Allergies: Coded Allergies: amoxicillin (Verified Allergy, Severe, Swelling, 12/02/17) penicillin G (Verified Allergy, Severe, told as child, 12/02/17) Family History Sickle cell disease Social History The patient does not drink or smoke. Physical Exam Vital Signs Vital Signs Date Time Temp Pulse Resp B/P (MAP) Pulse Ox O2 Delivery O2 Flow Rate FiO2 12/02/17 13:18 102 20 120/64 (82) 96 12/02/17 10:02 97.8 100 22 116/54 (74) 100 Nasal Cannula 2.00 12/02/17 08:37 95 Room Air 12/02/17 08:14 95 Room Air 12/02/17 08:08 97.9 124 22 160/79 (106) 95 Physical Exam GENERAL: Young male in distress secondary to pain. SKIN: Focused skin assessment warm/dry. HEAD: Atraumatic. Normocephalic. EYES: Pupils equal and round. No scleral icterus. No injection or drainage. ENT: No nasal bleeding or discharge. Mucous membranes pink and moist. NECK: Trachea midline. No JVD. CARDIOVASCULAR: Tachycardic. No murmur appreciated. RESPIRATORY: No accessory muscle use. Clear to auscultation. Breath sounds equal bilaterally. GASTROINTESTINAL: Abdomen soft, non-tender, slightly distended. Hepatic and splenic margins not palpable. MUSCULOSKELETAL: No obvious deformities. No clubbing. No cyanosis. No edema. There is severe tenderness of the lower back. NEUROLOGICAL: Awake and alert. No obvious cranial nerve deficits. Motor grossly within normal limits. Normal speech. Laboratory Laboratory Tests Test 12/02/17 08:28 12/02/17 13:09 White Blood Count 15.5 Corrected White Blood Count 14.4 Red Blood Count 3.21 Hemoglobin 10.6 Hematocrit 30.7 Mean Corpuscular Volume 95.7 Mean Corpuscular Hemoglobin 33.1 Mean Corpuscular Hemoglobin Concent 34.6 Red Cell Distribution Width 25.0 Platelet Count 319 Mean Platelet Volume 7.7 Neutrophils (%) (Auto) 60.5 Lymphocytes (%) (Auto) 18.2 Monocytes (%) (Auto) 13.4 Eosinophils (%) (Auto) 6.9 Basophils (%) (Auto) 1.0 Neutrophils # (Auto) 9.3 Lymphocytes # (Auto) 2.8 Monocytes # (Auto) 2.1 Eosinophils # (Auto) 1.1 Basophils # (Auto) 0.2 CBC Comment AUTO DIFF Differential Total Cells Counted 100 Neutrophils % (Manual) 59 Lymphocytes % 21 Monocytes % 11 Eosinophils % 9 Neutrophils # (Manual) 8.5 Nucleated Red Blood Cells 8 Differential Comment FINAL DIFF MANUAL Platelet Estimate NORMAL Platelet Morphology Comment NORMAL Polychromasia 4.4 Basophilic Stippling FAINT Sickle Cells 2+ Target Cells 2+ Ovalocytes 1+ [place] Bodies PRESENT Keratocytes OCC Reticulocyte Count 14.9 Absolute Reticulocyte Count 477.3 Blood Urea Nitrogen 10 Creatinine 0.74 Random Glucose 90 Total Protein 8.5 Albumin 4.0 Calcium Level 8.8 Alkaline Phosphatase 121 Aspartate Amino Transf (AST/SGOT) 69 Alanine Aminotransferase (ALT/SGPT) 73 Total Bilirubin 4.4 Sodium Level 140 Potassium Level 3.7 Chloride Level 108 Carbon Dioxide Level 26.9 Anion Gap 5 Estimat Glomerular Filtration Rate 157 Lactate Dehydrogenase 354 Result Diagram: 12/02/1782712/02/17827 Caprini VTE Risk Assessment Caprini VTE Risk Assessment: Mod/High Risk (score >= 2) Caprini Risk Assessment Model Point Value = 1 Point Value = 2 Point Value = 3 Point Value = 5 Age 41-60 Minor surgery BMI > 25 kg/m2 Swollen legs Varicose veins or History of unexplained or recurrent spontaneous Oral contraceptives or hormone replacement Sepsis (< 1 month) Serious lung disease, including pneumonia (< 1 month) Abnormal pulmonary function Acute myocardial infarction Congestive heart failure (< 1 month) History of inflammatory bowel disease Medical patient at bed rest Age 61-74 Arthroscopic surgery Major open surgery (> 45 min) Laparoscopic surgery (> 45 min) Malignancy Confined to bed (> 72 hours) Immobilizing plaster cast Central venous access Age >= 75 History of VTE Family history of VTE Factor V Leiden Prothrombin [id number] Lupus anticoagulant Anticardiolipin antibodies Elevated serum homocysteine Heparin-induced thrombocytopenia Other congenital or acquired thrombophilia Stroke (< 1 month) Elective arthroplasty Hip, pelvis, or leg fracture Acute spinal cord injury (< 1 month) Prophylaxis Regimen Total Risk Factor Score Risk Level Prophylaxis Regimen 0-1 Low Early ambulation 2 Moderate Order ONE of the following: *Sequential Compression Device (SCD) *Heparin 5000 units SQ BID 3-4 Higher Order ONE of the following medications: *Heparin 5000 units SQ TID *Enoxaparin/Lovenox 40 mg SQ daily (WT < 150 kg, CrCl > 30 mL/min) *Enoxaparin/Lovenox 30 mg SQ daily (WT < 150 kg, CrCl > 10-29 mL/min) *Enoxaparin/Lovenox 30 mg SQ BID (WT < 150 kg, CrCl > 30 mL/min) AND/OR *Sequential Compression Device (SCD) 5 or more Highest Order ONE of the following medications: *Heparin 5000 units SQ TID (Preferred with Epidurals) *Enoxaparin/Lovenox 40 mg SQ daily (WT < 150 kg, CrCl > 30 mL/min) *Enoxaparin/Lovenox 30 mg SQ daily (WT < 150 kg, CrCl > 10-29 mL/min) *Enoxaparin/Lovenox 30 mg SQ BID (WT < 150 kg, CrCl > 30 mL/min) AND *Sequential Compression Device (SCD) Assessment and Plan Assessment and Plan Sickle cell anemia with pain crisis Patient with severe low back pain. Recently discharged from [facility]. - pain control with Dilaudid 2 mg IV every 2 hours and oxycodone. - Continue folic acid - Continue IV fluids. - hematology consult requested. - continue glutamine. - check CXR, blood cultures and UA. - trend LFTs, LDH and retic count. Leukocytosis S/t above. - treatment as above. PPx: SCDs Code Status Full Discussed Condition With Pt, pt's mother, Dr. Esquivel, nurse Physician Certification 2 Midnight Certification Type: Admission for Inpatient Services Order for Inpatient Services The services are ordered in accordance with Medicare regulations or non- Medicare payer requirements, as applicable. In the case of services not specified as inpatient-only, they are appropriately provided as inpatient services in accordance with the 2-midnight benchmark. Estimated LOS (days): 2 days is the estimated time the patient will need to remain in the hospital, assuming treatment plan goals are met and no additional complications. Post-Hospital Plan: Home Dick Gentile DO December 02, 2017 16:17
--- NOTE | 2017-12-02 17:30 | RADRPT ---
EXAM DATE/TIME: 12/02/2017 17:08 [facility] COMPARISON: CHEST PA & LAT, September 27, 2017, 8:31. CT ABDOMEN & PELVIS W/O CONTRAST, October 31, 2017, 21:40. INDICATIONS : Shortness of breath. MEDICAL HISTORY : Sickle Cell disease. Heart murmur, Anemia SURGICAL HISTORY : Infusaport ENCOUNTER: Initial ACUITY: 1 day PAIN SCORE: 3/10 LOCATION: Bilateral chest FINDINGS: Chest port is present in stable position. Lungs are grossly clear. No pleural effusion suspected. Hea rt is mildly enlarged. Mediastinal contours are satisfactory and stable. CONCLUSION: Stable chest no acute disease Angel Castrejon MD on December 02, 2017 at 17:25 Board Certified Radiologist. This report was verified electronically.
--- NOTE | 2017-12-02 18:14 | PD.CONS ---
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 Pain is been present for the past 24 hours. History of presenting illness: Mr. Mariano is a 22-year-old male, he recently graduated from [employer]. The patient tells me he had sudden onset severe pain in his lower back, the pain progressed to involve the back of his buttocks and has been radiating down the back of his thighs. He tells me he was recently hospitalized in [place] following a graduation related dinner. The patient denies fevers, denies chills, denies difficulty breathing, denies chest pain, denies overt bleeding, denies focal sensorimotor deficits, denies priapism. He tells me he has been following up with his call center trainer in [place], [place] where he undergoes periodic "exchange transfusions "' which he describes as his physician performing initially a 2 unit phlebotomy followed by hydration followed by 2 unit transfusion. The patient has been admitted to [facility] after attempts in the emergency department to control his pain with IV boluses of opioids did not relieve his pain. Chest x-ray performed earlier today indicates no evidence of acute infiltrates. Review of Systems Constitutional: COMPLAINS OF: Fatigue, DENIES: Diaphoretic episodes, Fever, Weight gain, Weight loss, Chills, Dizziness, Change in appetite, Night Sweats Endocrine: DENIES: Heat/cold intolerance, Polydipsia, Polyuria, Polyphagia Eyes: DENIES: Blurred vision, Diplopia, Eye inflammation, Eye pain, Vision loss , Photosensitivity, Double Vision Ears, nose, mouth, throat: DENIES: Tinnitus, Hearing loss, Vertigo, Nasal discharge, Oral lesions, Throat pain, Hoarseness, Ear Pain, Running Nose, Epistaxis, Sinus Pain, Toothache, Odynophagia Respiratory: DENIES: Apneas, Cough, Snoring, Wheezing, Hemoptysis, Sputum production, Shortness of breath Cardiovascular: COMPLAINS OF: Palpitations, DENIES: Chest pain, Syncope, Dyspnea on Exertion, PND, Lower Extremity Edema, Orthopnea, Claudication Gastrointestinal: DENIES: Black stools, Bloody stools, Constipation, Diarrhea, Nausea, Vomiting, Difficulty Swallowing, Anorexia Genitourinary: DENIES: Sexual dysfunction, Urinary frequency, Urinary incontinence, Urgency, Hematuria, Dysuria, Nocturia, Penile Discharge, Testicular Pain, Testicular Swelling Musculoskeletal: COMPLAINS OF: Joint pain, Muscle aches, Back pain, DENIES: Stiffness, Joint Swelling, Neck pain Integumentary: DENIES: Abnormal pigmentation, Nail changes, Pruritus, Rash Hematologic/lymphatic: DENIES: Bruising, Lymphadenopathy Immunologic/allergic: DENIES: Eczema, Urticaria Neurologic: COMPLAINS OF: Headache, DENIES: Abnormal gait, Localized weakness, Paresthesias, Seizures, Speech Problems, Tremor, Poor Balance Psychiatric: DENIES: Anxiety, Confusion, Mood changes, Depression, Hallucinations, Agitation, Suicidal Ideation, Homicidal Ideation, Delusions Please see HPI for additional complaints. Past Family Social History Allergies: Coded Allergies: amoxicillin (Verified Allergy, Severe, Swelling, 12/02/17) penicillin G (Verified Allergy, Severe, told as child, 12/02/17) Past Medical History Hemoglobin sickle cell disease; SS/beta 0 thalassemia. Frequent pain crises Past Surgical History He denies major surgical interventions. He does have an infusion port. Active Ordered Medications Normal saline 1 25 cc/h Tylenol 650 mg p.o. every 4 hours needed for fever Senna Colace 1 tablet p.o. twice daily Lovenox 40 mg subcu once daily. Dilaudid 4 mg IV mixed in a 50 cc bag every 3 hours infused over 30 minutes. long-acting morphine sulfate 30 mg p.o. every 12 hours. Zofran 4 mg IV every 4 hours as needed for nausea and vomiting. Family History Mother and father with sickle cell trait. Social History Recently graduated from [employer] with a degree in business administration. He denies tobaccoism, denies alcohol abuse denies illicit drugs. He is originally from [place], [place]. Physical Exam Vital Signs Vital Signs Date Time Temp Pulse Resp B/P (MAP) Pulse Ox O2 Delivery O2 Flow Rate FiO2 12/02/17 16:00 96.4 89 18 167/63 (97) 94 12/02/17 14:10 96.6 18 18 122/57 (78) 85 12/02/17 13:18 102 20 120/64 (82) 96 12/02/17 10:02 97.8 100 22 116/54 (74) 100 Nasal Cannula 2.00 12/02/17 08:37 95 Room Air 12/02/17 08:14 95 Room Air 12/02/17 08:08 97.9 124 22 160/79 (106) 95 Physical Exam GENERAL: Young man sitting up in bed, he is writhing in pain, it is difficult to perform a physical exam because he is moving so extensively. His eyes remain closed most of this interview. His mother is at bedside. He is otherwise tall and of muscular build. SKIN: No rashes, ecchymoses or lesions. Cool and dry. HEAD: Atraumatic. Normocephalic. No temporal or scalp tenderness. EYES: Pupils equal round and reactive. Extraocular motions intact. No scleral icterus. No injection or drainage. Conjunctivae are icteric. ENT: Nose without bleeding, purulent drainage or septal hematoma. Throat without erythema, tonsillar hypertrophy or exudate. Uvula midline. Airway patent. NECK: Trachea midline. No JVD or lymphadenopathy. Supple, nontender, no meningeal signs. CARDIOVASCULAR: Tachycardic, regular rate and rhythm without murmurs, gallops, or rubs. RESPIRATORY: Poor inspiratory effort, decreased bibasilar breath sounds. GASTROINTESTINAL: Abdomen soft, non-tender, nondistended. No hepato-splenomegaly , or palpable masses. No guarding. MUSCULOSKELETAL: Extremities without clubbing, cyanosis, or edema. No joint tenderness, effusion, or edema noted. No calf tenderness. Negative Homans sign bilaterally. NEUROLOGICAL: Awake and alert. Cranial nerves II through XII intact. He is in distress. Laboratory Laboratory Tests Test 12/02/17 08:28 12/02/17 13:09 White Blood Count 15.5 Corrected White Blood Count 14.4 Red Blood Count 3.21 Hemoglobin 10.6 Hematocrit 30.7 Mean Corpuscular Volume 95.7 Mean Corpuscular Hemoglobin 33.1 Mean Corpuscular Hemoglobin Concent 34.6 Red Cell Distribution Width 25.0 Platelet Count 319 Mean Platelet Volume 7.7 Neutrophils (%) (Auto) 60.5 Lymphocytes (%) (Auto) 18.2 Monocytes (%) (Auto) 13.4 Eosinophils (%) (Auto) 6.9 Basophils (%) (Auto) 1.0 Neutrophils # (Auto) 9.3 Lymphocytes # (Auto) 2.8 Monocytes # (Auto) 2.1 Eosinophils # (Auto) 1.1 Basophils # (Auto) 0.2 CBC Comment AUTO DIFF Differential Total Cells Counted 100 Neutrophils % (Manual) 59 Lymphocytes % 21 Monocytes % 11 Eosinophils % 9 Neutrophils # (Manual) 8.5 Nucleated Red Blood Cells 8 Differential Comment FINAL DIFF MANUAL Platelet Estimate NORMAL Platelet Morphology Comment NORMAL Polychromasia 4.4 Basophilic Stippling FAINT Sickle Cells 2+ Target Cells 2+ Ovalocytes 1+ Duncan-Kennedale Bodies PRESENT Keratocytes OCC Reticulocyte Count 14.9 Absolute Reticulocyte Count 477.3 Blood Urea Nitrogen 10 Creatinine 0.74 Random Glucose 90 Total Protein 8.5 Albumin 4.0 Calcium Level 8.8 Alkaline Phosphatase 121 Aspartate Amino Transf (AST/SGOT) 69 Alanine Aminotransferase (ALT/SGPT) 73 Total Bilirubin 4.4 Sodium Level 140 Potassium Level 3.7 Chloride Level 108 Carbon Dioxide Level 26.9 Anion Gap 5 Estimat Glomerular Filtration Rate 157 Lactate Dehydrogenase 354 Result Diagram: 12/02/1728 12/02/17827 Imaging Chest x-ray dated 12/02/2017: No acute findings noted. Specifically no infiltrates. Assessment and Plan Assessment and Plan 22-year-old male with diagnosis of hemoglobin sickle cell disease presenting with a sickle cell disease related pain crisis. His crisis at this time is not complicated by acute chest syndrome, priapism or acute stroke or clinical signs or symptoms suggestive of avascular necrosis. His hemoglobin is noted to be close to 11 g/dL which the patient and his mother tell me is close to his baseline. Since admission he has required multiple doses of hydromorphone intravenously without significant benefit. He is on IV fluid hydration and on oxygen supplementation. The hematology service is been asked to see him to help streamline management of his pain control and to assess for complications associated with sickle cell pain crisis. Plan: 1. Hemoglobin sickle cell disease: Based on what the patient tells me he has frequent pain crises requiring hospitalizations. I believe this is his second pain crisis in 2 weeks. I had seen this patient previously in March and had advised him red cell exchange transfusions. I had offered to see him in clinic in follow-up but he never did follow through with that. He seems to prefer seeing his longtime call center trainer in [place], [place]. The patient had been a student at [employer] and now has graduated. I suspect he probably will be moving out of town and will reestablish follow-up with his call center trainer closer to where he lives. I did however talk to him about exchange transfusions which involve multiple units in one sitting, typically individuals who undergo these transfusions tend not to have such severe pain crises requiring hospitalizations. For the time being, I have the following changes to his treatment regimen; I have initiated him on long-acting morphine sulfate at a dose of 30 mg p.o. twice daily. I have increased his bolus dose of hydromorphone to 4 mg IV mixed in a 50 cc bag of normal saline to be infused slowly over 30 minutes every 3 hours as needed. I have also initiated him on incentive spirometry to be used 10 times every hour while awake, data suggests this decreases the length of hospitalization and helps improve pain control. The patient's IV fluids have been transitioned to a hypotonic solution. Additionally he has been initiated on subcu Lovenox for DVT prophylaxis. Repeat blood work ordered for tomorrow morning. I would anticipate a significant drop in his hemoglobin and hematocrit due to hydration and hemolysis. I would advise against transfusion unless he develops symptoms suggestive of acute chest syndrome, avascular necrosis or priapism. Thank you for involving me in the care of this patient. Discussed Condition With Patient, his mother and the attending physician. Problem Qualifiers (1) Sickle cell anemia: Qualified Codes: D57.00 - Hb-SS disease with crisis, unspecified Jhony Sheets MD December 02, 2017 18:14
[2017-12-02] MEDS ORDERED: HYDROmorphone HCL PF 2 MG/ML VIAL OTHER PRN (18:15)
[2017-12-02] MEDS: SODIUM CHLOR 0.45% 1000 ML INJ 1,000 ML IV SCH (18:54)
[2017-12-02] MEDS: ENOXAPARIN SODIUM 40 MG/0.4 ML SYRINGE SQ SCH (20:00)
[2017-12-02] MEDS ORDERED: diphenhydrAMINE HCL 50 MG/ML VIAL IV ONE (20:30)
[2017-12-02] MEDS: DOCUSATE SODIUM 50 MG/SENNA 8.6 MG TAB PO SCH (20:54)
[2017-12-02] MEDS ORDERED: MORPHINE SULFATE 30 MG CONTROLLED RELEASE TAB PO SCH (21:00)
[2017-12-02] MEDS ORDERED: GLUTAMINE PO SCH (21:00)
[2017-12-02] MEDS: SODIUM CHLORIDE 0.9% FLUSH 10 ML FLUSH IV FLUSH SCH (21:02)
[2017-12-02] MEDS: HYDROmorphone HCL PF 4 MG/ML VIAL OTHER PRN (23:31)
[2017-12-03] VITALS (16 sets, daily range): BP systolic 111–178; BP diastolic 55–92; PULSE 68–130; RESP 16–28; TEMP 96.7–99; O2SAT 85–100
[2017-12-03 00:57] LABS: HEMATOCRIT 23.6 % (39.0-51.0); HEMOGLOBIN 8.5 GM/DL (13.0-17.0); MEAN CELL VOLUME 93.8 FL (80.0-100.0); MEAN PLATELET VOLUME 7.6 FL (7.0-11.0); PLATELET COUNT 186 TH/MM3 (150-450); RED BLOOD COUNT 2.51 MIL/MM3 (4.50-5.90); RED CELL DISTRIBUTION WIDTH 22.3 % (11.6-17.2); WHITE BLOOD COUNT 17.5 TH/MM3 (4.0-11.0)
[2017-12-03 01:23] LABS: MEAN CORPUSCULAR HGB CONC 36.2 % (32.0-36.0)
[2017-12-03 01:40] LABS: BILIRUBIN, URINE NEG (NEG); BLOOD, URINE TRACE (NEG); GLUCOSE,URINE NEG (NEG); KETONE, URINE NEG (NEG); NITRITE,URINE NEG (NEG); URINE COLOR YELLOW (YELLW/STRAW); URINE LEUKOCYTE ESTERASE NEG (NEG)
[2017-12-03 01:50] LABS: BASOPHILS 1 % (0-2); CORRECTED NUCLEATED RBC 14 /100 WBC (0-0); CORRECTED WBC 15.4 TH/MM3 (4.0-11.0); LYMPHOCYTES 17 % (9-44); METAMYELOCYTES 1 % (0-1); MONOCYTES 9 % (0-8); NEUTROPHIL # MANUAL DIFF 10.2 TH/MM3 (1.8-7.7); NUCLEATED RED BLOOD CELL 14 (0-0); POLYS (SEG NEUTROPHILS) 65 % (16-70); TARGET CELLS 1+ (NORMAL)
[2017-12-03 01:51] LABS: HOWELL-JOLLY BODIES PRESENT (NONE SEEN); KERATOCYTES 1+ (NORMAL); OVALOCYTES 2+ (NORMAL); SICKLE CELLS 3+ (NORMAL); TEARDROP RBCS 1+ (NORMAL)
[2017-12-03 02:18] LABS: RBC, URINE 0-3 /hpf (0-3); SQUAMOUS EPITHELIAL CELL URINE 0-5 /hpf (0-5)
[2017-12-03 02:22] LABS: BICARBONATE 25.4 MEQ/L (21.0-32.0); CREATININE 0.93 MG/DL (0.60-1.30)
[2017-12-03] MEDS: HYDROmorphone HCL PF 4 MG/ML VIAL OTHER PRN ×3 (02:44→09:16)
[2017-12-03] MEDS: SODIUM CHLOR 0.45% 1000 ML INJ 1,000 ML IV SCH ×3 (02:44→20:36)
[2017-12-03 08:12] LABS: HEMATOCRIT 23.6 % (39.0-51.0); HEMOGLOBIN 8.2 GM/DL (13.0-17.0); MEAN CELL VOLUME 92.1 FL (80.0-100.0); MEAN CORPUSCULAR HEMOGLOBIN 31.9 PG (27.0-34.0); MEAN CORPUSCULAR HGB CONC 34.6 % (32.0-36.0); MEAN PLATELET VOLUME 7.4 FL (7.0-11.0); RED BLOOD COUNT 2.57 MIL/MM3 (4.50-5.90); RED CELL DISTRIBUTION WIDTH 23.1 % (11.6-17.2); WHITE BLOOD COUNT 15.5 TH/MM3 (4.0-11.0)
[2017-12-03 08:19] LABS: CHLORIDE 106 MEQ/L (98-107); SODIUM (NA) 137 MEQ/L (136-145)
[2017-12-03 08:35] LABS: PLATELET COUNT 284 TH/MM3 (150-450)
[2017-12-03 08:38] LABS: BANDS 7 % (0-6); BASOPHILS 1 % (0-2); CORRECTED NUCLEATED RBC 8 /100 WBC (0-0); CORRECTED WBC 14.4 TH/MM3 (4.0-11.0); LYMPHOCYTES 18 % (9-44); MONOCYTES 13 % (0-8); NEUTROPHIL # MANUAL DIFF 8.5 TH/MM3 (1.8-7.7); NUCLEATED RED BLOOD CELL 8 (0-0); POLYS (SEG NEUTROPHILS) 52 % (16-70)
[2017-12-03 08:39] LABS: HOWELL-JOLLY BODIES PRESENT (NONE SEEN); KERATOCYTES 1+ (NORMAL); OVALOCYTES 1+ (NORMAL); ROULEAUX PRESENT (NORMAL); SICKLE CELLS 3+ (NORMAL); TARGET CELLS 1+ (NORMAL)
[2017-12-03 08:47] LABS: ALBUMIN 3.4 GM/DL (3.4-5.0); ALKALINE PHOSPHATASE 97 U/L (45-117); ALT (GPT) 58 U/L (12-78); AST (GOT) 57 U/L (15-37); BICARBONATE 26.2 MEQ/L (21.0-32.0); BLOOD UREA NITROGEN 14 MG/DL (7-18); CREATININE 0.73 MG/DL (0.60-1.30); GLOMERULAR FILTRATION RATE 160 ML/MIN (>89); GLUCOSE,RANDOM 88 MG/DL (74-106); TOTAL BILIRUBIN ADULT 4.6 MG/DL (0.2-1.0); TOTAL PROTEIN 7.2 GM/DL (6.4-8.2)
[2017-12-03] MEDS: SODIUM CHLORIDE 0.9% FLUSH 10 ML FLUSH IV FLUSH SCH ×2 (09:00→21:00)
[2017-12-03] MEDS: DOCUSATE SODIUM 50 MG/SENNA 8.6 MG TAB PO SCH ×2 (09:00→20:36)
--- NOTE | 2017-12-03 10:11 | RADRPT ---
EXAM DATE/TIME: 12/03/2017 09:26 [facility] COMPARISON: CHEST SINGLE AP, December 02, 2017, 17:08. LUNG VENTILATION & PERFUSION SCAN, September 25, 2017, 12:17. INDICATIONS : Short of breath. DOSE: 8.1 mCi Tc99m MAA IV 0.5 mCi Tc99m DTPA aerosol MEDICAL HISTORY : Sickle cell disease. SURGICAL HISTORY : None. ENCOUNTER: Initial ACUITY: 1 day PAIN SCALE: 3/10 LOCATION: Bilateral chest TECHNIQUE: Following five minutes of tidal breathing of DTPA aerosol, planar images of the lungs were performed in eight projections. The patient was then injected with MAA, and eight-view perfusion scan was perf ormed. FINDINGS: There is a homogeneous pattern of aerosol delivery to the periphery of both lungs. No focal ventilat ory defects are seen. The perfusion lung scan demonstrates a homogenous pattern of uptake in both lungs. No segmental or s ubsegmental defects are seen. CONCLUSION: Low probability for pulmonary embolism. Kami Hanley MD on December 03, 2017 at 10:06 Board Certified Radiologist. This report was verified electronically.
[2017-12-03 11:05] LABS: RETIC # 293.7 MIL/L (20.0-150.0)
--- NOTE | 2017-12-03 11:39 | HHI.PR ---
Subjective Remarks 22-year-old male with known history of sickle cell which is typically noncompliant in outpatient setting for his condition who is seen and examined today for follow-up on sickle cell crisis. Patient was laying in bed indicating that he would like to have Benadryl IV given along with his 4 mg of IV Dilaudid. Patient indicates that he has not been following up with the expressive therapist in outpatient setting. He states that he has not ran out of his medications in outpatient setting but the pain was more severe than his outpatient medications would cover. I discussed with him that he is tolerating medication by mouth, tolerating diet. Will need to convert over to p.o. medications for pain control. Patient is still inquiring if he can still call for his IV Dilaudid before I put the orders in. Apparently overnight the patient had significant respiratory distress with desaturation to 85%, likely due to increased amount of Dilaudid. This was also discussed with the patient of why we need to convert him to p.o. medication instead IV medication and at a lower dose. Vital signs remained stable. Patient is afebrile. Objective Vitals Vital Signs Date Time Temp Pulse Resp B/P (MAP) Pulse Ox O2 Delivery O2 Flow Rate FiO2 12/03/17 09:46 18 12/03/17 08:00 97.7 92 16 131/74 (93) 95 12/03/17 08:00 97 Nasal Cannula 6.00 12/03/17 05:53 89 22 132/73 (92) 94 12/03/17 04:57 22 148/58 (88) 94 12/03/17 02:40 99.0 90 20 112/55 (74) 94 12/03/17 00:46 98.3 108 27 128/92 (104) 100 12/03/17 00:05 103 28 178/90 (119) 85 12/02/17 23:30 99.4 100 18 144/76 (98) 96 12/02/17 21:20 92 Nasal Cannula 4.00 12/02/17 20:00 99.1 110 22 119/89 (99) 91 12/02/17 16:00 96.4 89 18 167/63 (97) 94 12/02/17 14:10 96.6 18 18 122/57 (78) 85 12/02/17 13:18 102 20 120/64 (82) 96 I/O 12/02/17 12/02/17 12/02/17 12/03/17 12/03/17 12/03/17 07:00 15:00 23:00 07:00 15:00 23:00 Intake Total 2006 ml 1000 ml Balance 2006 ml 1000 ml Intake IV Total 2006 ml 1000 ml # Voids 1 Result Diagram: 12/03/17 0740 12/03/17 0740 Objective Remarks GENERAL: Well-developed, well-nourished, in no acute distress. alert and orientated HEENT: Head is normocephalic without any lesions or masses noted. Facial features are symmetric. Eyes: Extraocular muscles are intact. Conjunctivae were clear. NECK: Supple without any masses. Trachea midline no deviation. No JVD, CARDIAC: Regular rhythm, regular rate. S1/S2 are heard. No murmurs gallops or rubs. LUNGS: Clear to auscultation bilaterally. No wheeze, rhonchi or rales. No use of accessory muscles on inspiration or expiration. ABDOMEN: Soft, nontender. Nondistended. Bowel sounds heard in all 4 quadrants. No organomegaly or masses. Negative rebound, negative guarding EXTREMITIES: No edema, pulses are equal bilaterally. No cyanosis or clubbing NEUROLOGY: Mood and affect appear appropriate. Cranial nerves II through XII grossly intact. Moving all extremities, speech is clear Urinary Catheter: No Vascular Central Line Catheter: Yes Assessment to: Continue Side: Right A/P Assessment and Plan Acute respiratory insufficiency with hypoxia -Chest x-ray did not indicate any acute abnormality, -VQ scan showed low probability for pulmonary emboli -Workup today unremarkable, likely secondary to respiratory depression from Dilaudid -Discontinue IV Dilaudid -Continue O2 sat mentation maintain O2 sats greater than 90% Sickle cell anemia with pain crisis likely secondary to outpatient noncompliance -IV Dilaudid discontinued secondary to acute hypoxic respiratory insufficiency -We will start Dilaudid 4 mg p.o. every 4 hours, this was his outpatient medication -Continue folic acid -Continue IV fluids. -Hematology consulted -trend LFTs, LDH and retic count. Leukocytosis -Likely secondary to acute sickle cell crisis -Continue to follow CBC -Continue monitor for any infection, monitor blood cultures DVT prevention -Sequential compression devices Ronald Juan December 03, 2017 11:39
[2017-12-03] MEDS: HYDROmorphone HCL 4 MG TAB PO PRN ×3 (11:56→20:37)
[2017-12-03] MEDS: ENOXAPARIN SODIUM 40 MG/0.4 ML SYRINGE SQ SCH ×2 (20:00→21:55)
[2017-12-04] VITALS (7 sets, daily range): BP systolic 120–138; BP diastolic 61–68; PULSE 64–88; RESP 20; TEMP 96.1–98.4; O2SAT 96–100
[2017-12-04] MEDS: SODIUM CHLOR 0.45% 1000 ML INJ 1,000 ML IV SCH ×3 (04:53→22:03)
[2017-12-04 07:37] LABS: HEMATOCRIT 22.9 % (39.0-51.0); HEMOGLOBIN 8.1 GM/DL (13.0-17.0); MEAN CORPUSCULAR HEMOGLOBIN 33.1 PG (27.0-34.0); MEAN CORPUSCULAR HGB CONC 35.6 % (32.0-36.0); PLATELET COUNT 229 TH/MM3 (150-450); RED BLOOD COUNT 2.46 MIL/MM3 (4.50-5.90); RED CELL DISTRIBUTION WIDTH 23.5 % (11.6-17.2); WHITE BLOOD COUNT 13.6 TH/MM3 (4.0-11.0)
[2017-12-04 07:54] LABS: CHLORIDE 104 MEQ/L (98-107); SODIUM (NA) 138 MEQ/L (136-145)
[2017-12-04 08:02] LABS: ALBUMIN 3.4 GM/DL (3.4-5.0); BICARBONATE 27.4 MEQ/L (21.0-32.0); BLOOD UREA NITROGEN 7 MG/DL (7-18); CALCIUM 8.5 MG/DL (8.5-10.1); GLUCOSE,RANDOM 93 MG/DL (74-106)
[2017-12-04 08:05] LABS: ALT (GPT) 51 U/L (12-78); AST (GOT) 44 U/L (15-37)
[2017-12-04 08:06] LABS: CREATININE 0.52 MG/DL (0.60-1.30); GLOMERULAR FILTRATION RATE 237 ML/MIN (>89)
[2017-12-04 08:07] LABS: TOTAL BILIRUBIN ADULT 2.6 MG/DL (0.2-1.0); TOTAL PROTEIN 7.5 GM/DL (6.4-8.2)
[2017-12-04 08:08] LABS: ALKALINE PHOSPHATASE 95 U/L (45-117)
[2017-12-04 08:31] LABS: BANDS 2 % (0-6); BASOPHILS 4 % (0-2); CORRECTED NUCLEATED RBC 9 /100 WBC (0-0); CORRECTED WBC 12.5 TH/MM3 (4.0-11.0); LYMPHOCYTES 21 % (9-44); MONOCYTES 10 % (0-8); MYELOCYTES 1 % (0-0); NEUTROPHIL # MANUAL DIFF 7.4 TH/MM3 (1.8-7.7); NUCLEATED RED BLOOD CELL 9 (0-0); POLYS (SEG NEUTROPHILS) 56 % (16-70)
[2017-12-04 08:33] LABS: HOWELL-JOLLY BODIES PRESENT (NONE SEEN); OVALOCYTES 1+ (NORMAL); SICKLE CELLS 2+ (NORMAL)
--- NOTE | 2017-12-04 08:43 | HHI.PR ---
Subjective Remarks Patient seen and examined today for follow-up on sickle cell crisis. Patient appears to be doing much better. He is not complaining of any pain. His pain is covered with p.o. medication. Mother was at bedside. Reviewed all laboratory results with them. Notified that everything is improving nicely. Objective Vitals Vital Signs Date Time Temp Pulse Resp B/P (MAP) Pulse Ox O2 Delivery O2 Flow Rate FiO2 12/04/17 00:00 96.1 73 20 120/63 (82) 99 12/03/17 20:05 71 12/03/17 20:00 97.3 71 20 132/71 (91) 96 12/03/17 20:00 96 Nasal Cannula 4.00 Humidified 12/03/17 19:57 96 Nasal Cannula 4.00 12/03/17 16:28 18 12/03/17 16:00 97.7 68 18 111/59 (76) 97 12/03/17 15:00 73 12/03/17 12:00 96.7 84 18 131/65 (87) 94 12/03/17 10:29 85 12/03/17 10:00 96.7 93 18 131/73 (92) 94 12/03/17 09:46 18 I/O 12/03/17 12/03/17 12/03/17 12/04/17 12/04/17 12/04/17 07:00 15:00 23:00 07:00 15:00 23:00 Intake Total 1000 ml 1000 ml 1530 ml 1240 ml Output Total 1000 ml Balance 1000 ml 1000 ml 1530 ml 240 ml Intake Oral 780 ml 240 ml IV Total 1000 ml 1000 ml 750 ml 1000 ml Output Urine Total 1000 ml # Voids 1 3 Result Diagram: 12/04/17 0630 12/04/17 0630 Objective Remarks GENERAL: Well-developed, well-nourished, in no acute distress. alert and orientated HEENT: Head is normocephalic without any lesions or masses noted. Facial features are symmetric. Eyes: Extraocular muscles are intact. Conjunctivae were clear. NECK: Supple without any masses. Trachea midline no deviation. No JVD, CARDIAC: Regular rhythm, regular rate. S1/S2 are heard. No murmurs gallops or rubs. LUNGS: Clear to auscultation bilaterally. No wheeze, rhonchi or rales. No use of accessory muscles on inspiration or expiration. ABDOMEN: Soft, nontender. Nondistended. Bowel sounds heard in all 4 quadrants. No organomegaly or masses. Negative rebound, negative guarding EXTREMITIES: No edema, pulses are equal bilaterally. No cyanosis or clubbing NEUROLOGY: Mood and affect appear appropriate. Cranial nerves II through XII grossly intact. Moving all extremities, speech is clear Urinary Catheter: No Vascular Central Line Catheter: Yes Side: Right A/P Assessment and Plan Acute respiratory insufficiency with hypoxia -Chest x-ray did not indicate any acute abnormality, -VQ scan showed low probability for pulmonary emboli -Workup today unremarkable, likely secondary to respiratory depression from Dilaudid -Discontinue IV Dilaudid -Continue to wean O2 sat mentation maintain O2 sats greater than 90% Sickle cell anemia with pain crisis likely secondary to outpatient noncompliance -IV Dilaudid discontinued secondary to acute hypoxic respiratory insufficiency -Continue Dilaudid 4 mg p.o. every 4 hours, this was his outpatient medication -Continue folic acid -Continue IV fluids. -Hematology consulted and following -trend LFTs, LDH and retic count. Leukocytosis, improving -Likely secondary to acute sickle cell crisis -Continue to follow CBC -Continue monitor for any infection, monitor blood cultures DVT prevention -Sequential compression devices Discharge Planning Discharge planning within 24 hours if patient continues to improve. Ronald Juan December 04, 2017 08:43
[2017-12-04] MEDS: DOCUSATE SODIUM 50 MG/SENNA 8.6 MG TAB PO SCH ×2 (08:47→21:00)
[2017-12-04] MEDS: HYDROmorphone HCL 4 MG TAB PO PRN ×3 (08:47→22:05)
[2017-12-04] MEDS: SODIUM CHLORIDE 0.9% FLUSH 10 ML FLUSH IV FLUSH SCH ×2 (09:00→21:00)
[2017-12-04 13:42] LABS: RETIC # 401.8 MIL/L (20.0-150.0); RETIC % 16.1 % (0.4-3.0)
[2017-12-04] MEDS: ENOXAPARIN SODIUM 40 MG/0.4 ML SYRINGE SQ SCH (20:00)
[2017-12-05] VITALS: BP 117/59; PULSE 84; RESP 19; TEMP 97.1; O2SAT 98
[2017-12-05] MEDS: SODIUM CHLOR 0.45% 1000 ML INJ 1,000 ML IV SCH ×2 (05:34→09:44)
[2017-12-05 08:00] VITALS: BP 118/57; PULSE 80; RESP 16; TEMP 96.5; O2SAT 92
--- NOTE | 2017-12-05 08:19 | HHI.DCPOC ---
Discharge Care Plan Diagnosis: (1) Sickle cell crisis Goals to Promote Your Health * To prevent worsening of your condition and complications * To maintain your health at the optimal level Directions to Meet Your Goals Take your medications as prescribed Follow your dietary instruction Follow activity as directed Keep your appointments as scheduled Take your immunizations and boosters as scheduled If your symptoms worsen call your PCP, if no PCP go to Urgent Care Center or Emergency Room Smoking is Dangerous to Your Health. Avoid second hand smoke Call the 24-hour hour crisis hotline for domestic abuse at Ronald Juan December 05, 2017 08:19
[2017-12-05] MEDS: SODIUM CHLORIDE 0.9% FLUSH 10 ML FLUSH IV FLUSH SCH (08:49)
[2017-12-05] MEDS: DOCUSATE SODIUM 50 MG/SENNA 8.6 MG TAB PO SCH (08:50)
[2017-12-05 09:42] LABS: HEMATOCRIT 23.1 % (39.0-51.0); HEMOGLOBIN 8.3 GM/DL (13.0-17.0); MEAN CELL VOLUME 93.3 FL (80.0-100.0); MEAN CORPUSCULAR HEMOGLOBIN 33.4 PG (27.0-34.0); MEAN CORPUSCULAR HGB CONC 35.8 % (32.0-36.0); PLATELET COUNT 265 TH/MM3 (150-450); RED BLOOD COUNT 2.47 MIL/MM3 (4.50-5.90); RED CELL DISTRIBUTION WIDTH 23.9 % (11.6-17.2); WHITE BLOOD COUNT 12.6 TH/MM3 (4.0-11.0)
[2017-12-05 10:18] LABS: BANDS 2 % (0-6); CORRECTED NUCLEATED RBC 5 /100 WBC (0-0); LYMPHOCYTES 12 % (9-44); METAMYELOCYTES 2 % (0-1); MONOCYTES 10 % (0-8); NEUTROPHIL # MANUAL DIFF 8.6 TH/MM3 (1.8-7.7); NUCLEATED RED BLOOD CELL 5 (0-0); POLYS (SEG NEUTROPHILS) 68 % (16-70)
[2017-12-05 10:19] LABS: HOWELL-JOLLY BODIES PRESENT (NONE SEEN); OVALOCYTES 1+ (NORMAL); SICKLE CELLS 2+ (NORMAL); TARGET CELLS 1+ (NORMAL)
--- NOTE | 2017-12-05 11:26 | HHI.DS ---
Discharge Summary Admission Date December 02, 2017 at 12:47 Discharge Date: December 05, 2017 Admitting Diagnosis SICKLE CELL CRISIS, INTRACTABLE PAIN (1) Sickle cell anemia with crisis ICD Code: D57.00 - Hb-SS disease with crisis Diagnosis: Principal Status: Chronic Procedures None Brief History - From Admission The patient is a 22-year-old male with past medical history of sickle cell disease who is presenting to the hospital with severe lower back pain. The patient says that on Tuesday he developed severe chest pain and ended up in [facility]. He had a full cardiological workup. He said he was discharged on . Since then he has developed severe low back pain. He says his chest pain has resolved. His mother was at the bedside and said that this morning his back just started to tear him up. The patient says that he tends to get sickle cell attacks every 3 weeks. He gets monthly transfusions. His mother says he is due to get a transfusion soon. The patient was writhing around in the bed and was unable to give a thorough history. Discussed with nursing. CBC/BMP: 12/05/17 0930 12/04/17 0630 Significant Findings Laboratory Tests Test 12/02/17 13:09 12/03/17 00:30 12/03/17 00:44 12/03/17 01:30 Lactate Dehydrogenase 354 U/L (87-241) Blood Gas Base Excess -2.2 mmol/L (-2-2) Arterial Blood pH 7.31 (7.380-7.420) Arterial Blood Partial Pressure CO2 47 mmHG (38-42) Arterial Blood Partial Pressure O2 279 mmHG (61-120) Arterial Blood Oxygen Content 11.5 Vol % (12.0-20.0) Arterial Blood Carboxyhemoglobin 4.2 % (0-4) Blood Gas Hemoglobin 8.2 G/DL (12.0-16.0) White Blood Count 17.5 TH/MM3 (4.0-11.0) Corrected White Blood Count 15.4 TH/MM3 (4.0-11.0) Red Blood Count 2.51 MIL/MM3 (4.50-5.90) Hemoglobin 8.5 GM/DL (13.0-17.0) Hematocrit 23.6 % (39.0-51.0) Mean Corpuscular Hemoglobin Concent 36.2 % (32.0-36.0) Red Cell Distribution Width 22.3 % (11.6-17.2) Monocytes % 9 % (0-8) Eosinophils % 7 % (0-4) Neutrophils # (Manual) 10.2 TH/MM3 (1.8-7.7) Nucleated Red Blood Cells 14 /100 WBC (0-0) Polychromasia 2.0 % (0.0-1.9) Basophilic Stippling FAINT (NORMAL) Sickle Cells 3+ (NORMAL) Target Cells 1+ (NORMAL) Tear Drop Cells 1+ (NORMAL) Ovalocytes 2+ (NORMAL) Keratocytes 1+ (NORMAL) D-Dimer Quantitative (PE/DVT) 6.30 MG/L FEU (0.00-0.50) Calcium Level 8.0 MG/DL (8.5-10.1) Test 12/03/17 07:40 12/04/17 06:30 12/05/17 09:30 White Blood Count 15.5 TH/MM3 (4.0-11.0) 13.6 TH/MM3 (4.0-11.0) 12.6 TH/MM3 (4.0-11.0) Corrected White Blood Count 14.4 TH/MM3 (4.0-11.0) 12.5 TH/MM3 (4.0-11.0) 12.0 TH/MM3 (4.0-11.0) Red Blood Count 2.57 MIL/MM3 (4.50-5.90) 2.46 MIL/MM3 (4.50-5.90) 2.47 MIL/MM3 (4.50-5.90) Hemoglobin 8.2 GM/DL (13.0-17.0) 8.1 GM/DL (13.0-17.0) 8.3 GM/DL (13.0-17.0) Hematocrit 23.6 % (39.0-51.0) 22.9 % (39.0-51.0) 23.1 % (39.0-51.0) Red Cell Distribution Width 23.1 % (11.6-17.2) 23.5 % (11.6-17.2) 23.9 % (11.6-17.2) Band Neutrophils % 7 % (0-6) Monocytes % 13 % (0-8) 10 % (0-8) 10 % (0-8) Eosinophils % 9 % (0-4) 6 % (0-4) 6 % (0-4) Neutrophils # (Manual) 8.5 TH/MM3 (1.8-7.7) 8.6 TH/MM3 (1.8-7.7) Nucleated Red Blood Cells 8 /100 WBC (0-0) 9 /100 WBC (0-0) 5 /100 WBC (0-0) Basophilic Stippling FAINT (NORMAL) Sickle Cells 3+ (NORMAL) 2+ (NORMAL) 2+ (NORMAL) Target Cells 1+ (NORMAL) 1+ (NORMAL) Ovalocytes 1+ (NORMAL) 1+ (NORMAL) 1+ (NORMAL) Rouleau PRESENT (NORMAL) Keratocytes 1+ (NORMAL) Reticulocyte Count 12.0 % (0.4-3.0) 16.1 % (0.4-3.0) Absolute Reticulocyte Count 293.7 MIL/L (20.0-150.0) 401.8 MIL/L (20.0-150.0) Calcium Level 8.0 MG/DL (8.5-10.1) Aspartate Amino Transf (AST/SGOT) 57 U/L (15-37) 44 U/L (15-37) Lactate Dehydrogenase 371 U/L (87-241) 325 U/L (87-241) Total Bilirubin 4.6 MG/DL (0.2-1.0) 2.6 MG/DL (0.2-1.0) Basophils % 4 % (0-2) Myelocytes 1 % (0-0) Creatinine 0.52 MG/DL (0.60-1.30) Metamyelocytes 2 % (0-1) Imaging Last Impressions Lung Scan-VQ Nuclear Medicine 12/03/17 0000 Signed Impressions: Service Date/Time: Sunday, December 03, 2017 09:26 - CONCLUSION: Low probability for pulmonary embolism. Kami Hanley MD Chest X-Ray 12/02/17 0000 Signed Impressions: Service Date/Time: Felipe, December 02, 2017 17:08 - CONCLUSION: Stable chest no acute disease Angel Castrejon MD PE at Discharge GENERAL: Well-developed, well-nourished, in no acute distress. alert and orientated HEENT: Head is normocephalic without any lesions or masses noted. Facial features are symmetric. Eyes: Extraocular muscles are intact. Conjunctivae were clear. NECK: Supple without any masses. Trachea midline no deviation. No JVD, CARDIAC: Regular rhythm, regular rate. S1/S2 are heard. No murmurs gallops or rubs. LUNGS: Clear to auscultation bilaterally. No wheeze, rhonchi or rales. No use of accessory muscles on inspiration or expiration. ABDOMEN: Soft, nontender. Nondistended. Bowel sounds heard in all 4 quadrants. No organomegaly or masses. Negative rebound, negative guarding EXTREMITIES: No edema, pulses are equal bilaterally. No cyanosis or clubbing NEUROLOGY: Mood and affect appear appropriate. Cranial nerves II through XII grossly intact. Moving all extremities, speech is clear Hospital Course 22-year-old male with known history of sickle cell [facility] quite regularly because of sickle cell crisis. Patient usually follows [facility] in [place], however he was evaluated by [facility] here in [place] Dr. Fisher, however patient not been followed up outpatient with local [facility]. Patient states that he does have his pain medication at home however it was not controlling his pain. He presented to the hospital again with significant painful crisis. Upon presentation he did have elevated liver enzymes, total bilirubin, LDH. Patient was admitted to the hospital with IV fluids, pain control to include IV Dilaudid. Unfortunately patient went into respiratory distress with hypoxia and had to be advanced to Ventimask for O2 supplementation. Chest x-ray, VQ scan was performed which did not indicate any acute abnormality or any signs of acute chest syndrome. Patient's IV Dilaudid was discontinued and his respiratory status returned to normal. Patient was continued on his p.o. Dilaudid for over the last 48 hours without any need for breakthrough medication. Patient clinically stable this time. His hemoglobin has remained stable. Liver enzymes have improved daily. LDH level has improved. Patient clinically stable at this time. He is only on p.o. medication. Vital signs are stable. Plan for discharge home with outpatient follow-up with his collator hand. Pt Condition on Discharge: Stable Discharge Disposition: Discharge Home Discharge Time: > 30 minutes Discharge Instructions DIET: Follow Instructions for: Heart Healthy Diet Activities you can perform: Regular-No Restrictions Follow up Referrals: Oncology/Hematology - 1 Week PCP Follow-up - 1 Week Continued Medications: Glutamine (Endari) 5 Gram Powd.pack 1 PACK PO BID for SICKLE CELL Oxycodone-Acetaminophen (Percocet) 5-325 mg Tab 1-2 TAB PO Q6H PRN for PAIN, TAB 0 Refills Ronald Juan December 05, 2017 11:26
[2017-12-05 12:00] VITALS: BP 123/56; PULSE 80; RESP 16; TEMP 97; O2SAT 92
[2017-12-05 14:02] LABS: RETIC # 408.2 MIL/L (20.0-150.0); RETIC % 16.3 % (0.4-3.0)
== END 2017-12-05 12:55 | disposition home or self-care (01) | DRG 812 ==
LOC: PHED 08:02 → PHEDA 12:47 → PH3A 13:28
PROVIDERS: ADMIT Hospitalist; ATTEND Hospitalist
DX: D57.00 Hb-SS disease with crisis, unspecified (principal); R09.02 Hypoxemia; R06.03 Acute respiratory distress; D72.829 Elevated white blood cell count, unspecified; M54.5 Low back pain; Z91.19 Patient's noncompliance with other medical treatment and regimen
CPT/HCPCS: 36600; 71045; 78582; 80048; 80053; 81001; 82805; 82948; 83615; 85007; 85027; 85044; 85379; 87040; 94150; 96361; 96365; 96375; 96376; A9540; A9567; J1170; J1200; J1885; J2405; J3480; J7030